=== PATIENT | female | born 1975 | race Caucasian/White ===

== ENCOUNTER 2023-02-28 08:08 | Outpatient (OUT) | payer MEDICAID, SELFPAY ==
--- NOTE | 2023-02-28 08:27 | US_ITS ---
The [address] [address] Patient Name: CONNIE ALEX MRN: [id number]:[id number] date: 1975 Sex: F Assigned Patient Location: US Current Patient Location: US Accession/Order Number: [id number] Exam Date: 02/28/2023 08:27 Report Date: 02/28/2023 09:14 At the request of: JULIO HENSLEY Procedure: US thyroid EXAMINATION: US thyroid HISTORY: Thyroid Nodule E04.1 COMPARISON: No relevant comparison available. FINDINGS: RIGHT LOBE: Normal size and echotexture. Lobe size: 4.0 x 1.2 x 1.1 cm LEFT LOBE: Normal size and echotexture. Lobe size: 4.0 x 0.8 x 1.3 cm ISTHMUS: Normal size and echotexture. Thickness: 3 mm IMPRESSION: TI-RADS 1: Normal thyroid gland. No focal lesion. Electronically authenticated by: IVIS SÁNCHEZ Date: 02/28/2023 09:14
== END 2023-02-28 08:09 ==
LOC: US 08:14
PROVIDERS: PCP Nurse Practitioner; Visit Provider Nurse Practitioner
DX: E04.1 Nontoxic single thyroid nodule (principal)
CPT/HCPCS: 76536

== ENCOUNTER 2023-04-02 16:29 | Outpatient (OUT) | payer MEDICAID, SELFPAY ==
[2023-04-02 17:28] LABS: Free T4 0.72 ng/dL (0.76-1.46)
[2023-04-02 17:33] LABS: Thyroid Stimulating Hormone 2.478 uIU/mL (0.358-3.740)
== END 2023-04-02 16:30 | disposition home or self-care (01) ==
PROVIDERS: PCP Nurse Practitioner; Visit Provider Nurse Practitioner
DX: E03.9 Hypothyroidism, unspecified (principal)
CPT/HCPCS: 36415; 84439; 84443

== ENCOUNTER 2023-05-16 06:41 | Outpatient (OUT) | payer MEDICAID, SELFPAY ==
[2023-05-16 08:13] LABS: Thyroid Stimulating Hormone 1.318 uIU/mL (0.358-3.740)
== END 2023-05-16 06:42 | disposition home or self-care (01) ==
LOC: LAB 06:41
PROVIDERS: PCP Nurse Practitioner; Visit Provider Nurse Practitioner
DX: E03.9 Hypothyroidism, unspecified (principal)
CPT/HCPCS: 36415; 84439; 84443

== ENCOUNTER 2023-08-04 09:07 | Outpatient (OUT) | payer OTHER, SELFPAY ==
[2023-08-04 10:19] LABS: Thyroid Stimulating Hormone 0.247 uIU/mL (0.358-3.740)
[2023-08-04 11:26] LABS: Free T4 0.81 ng/dL (0.76-1.46)
[2023-08-05 09:07] LABS: Triiodothyronine (T3) 273 ng/dL (71-180)
[2023-08-06 07:53] LABS: Free T3 6.55 pg/mL (2.18-3.98)
== END 2023-08-04 09:08 | disposition home or self-care (01) ==
LOC: LAB 09:09
PROVIDERS: PCP Nurse Practitioner; Visit Provider Nurse Practitioner
DX: E03.9 Hypothyroidism, unspecified (principal)
CPT/HCPCS: 36415; 84439; 84443; 84480; 84481; 84482

== ENCOUNTER 2023-08-09 06:46 | Outpatient (OUT) | payer OTHER, SELFPAY ==
[2023-08-09 07:51] LABS: Free T3 5.54 pg/mL (2.18-3.98); Thyroid Stimulating Hormone 0.373 uIU/mL (0.358-3.740)
== END 2023-08-09 06:47 | disposition home or self-care (01) ==
LOC: LAB 06:48
PROVIDERS: PCP Nurse Practitioner; Visit Provider Nurse Practitioner
DX: R94.6 Abnormal results of thyroid function studies (principal)
CPT/HCPCS: 36415; 84443; 84481

== ENCOUNTER 2023-08-25 10:43 | Emergency (ER) | payer OTHER, SELFPAY ==
[2023-08-25 10:59] VITALS: BP 135/85; PULSE 84; RESP 16; TEMP 36.8; O2SAT 98; BMI 31.3
--- NOTE | 2023-08-25 11:34 | ECG_ITS ---
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
[2023-08-25 11:43] VITALS: BP 131/86; O2SAT 99
[2023-08-25 11:49] VITALS: BP 127/87; BP 129/89; PULSE 87; O2SAT 97
[2023-08-25 11:50] VITALS: PULSE 86; O2SAT 97
[2023-08-25 11:51] VITALS: BP 127/87; BP 129/89; BP 131/86; PULSE 80; PULSE 82; PULSE 85
--- NOTE | 2023-08-25 11:59 | ED_ITS ---
HPI - Dizziness General Chief Complaint: Dizziness Stated Complaint: DIZZINESS/SHORTNESS OF BREATH Time Seen by Provider: 08/25/23 11:34 Source: patient Mode of arrival: ambulance History of Present Illness HPI Narrative: Patient concerned that her potassium is low. patient has been having intermittent bouts of dizziness. She said that she felt similar in the past when her potassium was low. She has never been treated with potassium meds but instead I just ate food with potassium in it and felt better . She told me that the last time she felt dizzy, she ate a banana and felt better . She just had her dose of thyroid medication decreased. She told me that her PCP had difficulty getting her T4 increased to normal level but then, two weeks ago, the patient TSH level was up so she decreased my thyroid med dosing . This seems opposite of what would be recommended - TSH rises when thyroid levels are low in order to stimulate more thyroid production, so a rise in TSH would typically warranted increase in thyroid meds. Additionally, once someone is on exogenous thyroid med, the T3 and T4 should drive dose changes, not TSH. So we will recheck T3 and T4. Related Data Home Medications Medication Instructions Recorded Confirmed epinephrine 0.3 mg/0.3 mL 0.3 mg IM PRN PRN anaphylaxis 08/25/23 08/25/23 injection, auto-injector ibuprofen 800 mg tablet 800 mg PO Q8H PRN pain 08/25/23 08/25/23 sumatriptan succinate 100 mg tablet 100 mg PO PRN 08/25/23 08/25/23 thyroid (pork) 120 mg tablet 120 mg PO .T, Th, Sat, Sun 08/25/23 08/25/23 ([place] Thyroid) thyroid (pork) 180 mg tablet 180 mg PO .M, W, F 08/25/23 08/25/23 ([place] Thyroid) topiramate 25 mg tablet 50 mg PO .hs 08/25/23 08/25/23 Allergies Allergy/AdvReac Type Severity Reaction Status Date / Time bee venom protein (honey bee) AdvReac Severe Verified 08/25/23 10:59 PFSH PFSH Social History Smoking status: Current every day smoker Exam Narrative Exam Narrative: Nurses notes and vital signs reviewed and patient is not hypoxic. afebrile General: Well-appearing and in no apparent distress. Skin: Warm, dry, no pallor noted. No rash. Head: Normocephalic, atraumatic. Neck: Supple, non-tender. No carotid bruits. Eye: Pupils are equal, round and EOMI. No scleral icterus. No nystagmus Cardiovascular: Regular Rate and Rhythm without murmur, gallop or rub. Respiratory: No accessory muscle use or respiratory distress. Lungs are clear to auscultation, no wheezing, rales or rhonchi Musculoskeletal: normal ROM GI: Abdomen is soft, non-distended. Normal bowel sounds. No tenderness to palpation. No rebound, guarding, or rigidity noted. Neurological: A&O x4. No cranial nerve dysfunction observed. No truncal atax ia. Moves all extremities. Sensation intact. Psychiatric: Cooperative and interactive. Normal mood and affect. Constitutional Vital Signs, click to edit/add: Last Vital Signs Temp 98.2 F 08/25/23 10:59 Pulse 80 08/25/23 11:51 Resp 16 08/25/23 10:59 BP 131/86 08/25/23 11:51 Pulse Ox 97 08/25/23 11:50 O2 Del Method Room Air 08/25/23 10:59 Course Vital Signs Vital signs: Vital Signs Temperature 98.2 F 08/25/23 10:59 Pulse Rate 84 08/25/23 10:59 Respiratory Rate 16 08/25/23 10:59 Blood Pressure 135/85 08/25/23 10:59 Pulse Oximetry 98 08/25/23 10:59 Oxygen Delivery Method Room Air 08/25/23 10:59 Temperature 98.2 F 08/25/23 10:59 Pulse Rate 80 08/25/23 11:51 Respiratory Rate 16 08/25/23 10:59 Blood Pressure 131/86 08/25/23 11:51 Pulse Oximetry 97 08/25/23 11:50 Oxygen Delivery Method Room Air 08/25/23 10:59 MDM - Dizziness MDM Narrative Medical decision making narrative: Patient was placed on potline monitor and EKG obtained. Blood drawn and sent for evaluation. orthostatic vital signs were checked and normal. EKG is normal. CBC and BMP normal including potassium. Free T4 & Free T3 low, consistent with hypothyroidism. Patient advised of our findings indicating low thyroid levels and being consistent with hypothyroidism - she should go back to her prior dose of thyroid med. She can see her PCP for follow up. Lab Data Attestation: I reviewed the patient's lab results. Labs: Lab Results 08/25/23 Range/Units 11:58 WBC 5.9 (4.0-11.0) 10^3/uL RBC 4.90 (4.20-5.40) 10^6/uL Hgb 13.9 (12.0-16.0) g/dL Hct 41.9 (36.0-48.0) % MCV 85.5 (81.0-99.0) fL MCH 28.4 (26.7-34.0) pg MCHC 33.2 (29.9-35.2) g/dL RDW 13.6 (11.0-15.0) % Plt Count 325 (150-450) 10^3/uL MPV 9.4 L (9.5-13.5) fL Neut % (Auto) 53.3 (43.0-75.0) % Lymph % (Auto) 33.6 (20.5-60.0) % [place] % (Auto) 6.8 (1.7-12.0) % Eos % (Auto) 4.6 (0.9-7.0) % Baso % (Auto) 1.5 (0.2-2.0) % Neut # (Auto) 3.1 (1.4-6.5) 10^3/uL Lymph # (Auto) 2.0 (1.2-3.8) 10^3/uL [place] # (Auto) 0.4 (0.3-0.8) 10^3/uL Eos # (Auto) 0.3 (0.0-0.7) 10^3/uL Baso # (Auto) 0.1 (0.0-0.1) 10^3/uL Abs Immat Gran (auto) 0.01 (0.00-0.03) 10^3/uL Imm/Tot Granulo (auto) 0.2 (0.0-0.5) % Sodium 137 (136-145) mmol/L Potassium 3.9 (3.5-5.1) mmol/L Chloride 102 (98-107) mmol/L Carbon Dioxide 25.6 (21.0-32.0) mmol/L Anion Gap 13.3 BUN 9.0 (7.0-18.0) mg/dL Creatinine 0.69 (0.55-1.02) mg/dL Est GFR ( Amer) >60 (>=60) Est GFR (Non-Af Amer) >60 (>=60) BUN/Creatinine Ratio 13.0 Glucose 83 (74-106) mg/dL Calcium 8.9 (8.5-10.1) mg/dL Free T4 0.60 L (0.76-1.46) ng/dL Free T3 1.92 L (2.18-3.98) pg/mL ECG Data Attestation: I personally reviewed and interpreted this ECG as follows: Interpretation: EKG interpretation: Emergency Department physician interpretation. Normal sinus rhythm at 71bpm. Normal axis, normal intervals and no ST segment elevation or depression. normal EKG Discharge Plan Discharge Chief Complaint: Dizziness Clinical Impression: Hypothyroidism Patient Disposition: Home, Self-Care Time of Disposition Decision: 13:03 Prescriptions / Home Meds: No Action ibuprofen 800 mg tablet 800 mg PO Q8H PRN (Reason: pain) sumatriptan succinate 100 mg tablet 100 mg PO PRN epinephrine 0.3 mg/0.3 mL auto-injector 0.3 mg IM PRN PRN (Reason: anaphylaxis) thyroid (pork) [[place] Thyroid] 120 mg tablet 120 mg PO .T, , Sat, Sun [place] Thyroid 180 mg tablet 180 mg PO .M, W, F topiramate 25 mg tablet 50 mg PO .hs Instructions: Hypothyroidism (ED) Stand Alone Forms: Portal Instructions Referrals: Tamia Gonsalez NP [Primary Care Provider] - 1 week Discharge Date/Time: 08/25/23 13:10
[2023-08-25 12:30] LABS: Basophils Absolute Auto 0.1 10^3/uL (0.0-0.1); Basophils Percent Auto 1.5 % (0.2-2.0); Eosinophils Absolute Auto 0.3 10^3/uL (0.0-0.7); Eosinophils Percent Auto 4.6 % (0.9-7.0); Hematocrit 41.9 % (36.0-48.0); Hemoglobin 13.9 g/dL (12.0-16.0); Immature Granulocytes Abs Auto 0.01 10^3/uL (0.00-0.03); Immature Granulocytes Pct Auto 0.2 % (0.0-0.5); Lymphocytes Percent Auto 33.6 % (20.5-60.0); Mean Corpuscular HGB Conc 33.2 g/dL (29.9-35.2); Mean Corpuscular Hemoglobin 28.4 pg (26.7-34.0); Mean Corpuscular Volume 85.5 fL (81.0-99.0); Mean Platelet Volume 9.4 fL (9.5-13.5); Monocytes Absolute Auto 0.4 10^3/uL (0.3-0.8); Monocytes Percent Auto 6.8 % (1.7-12.0); Neutrophils Absolute Auto 3.1 10^3/uL (1.4-6.5); Neutrophils Percent Auto 53.3 % (43.0-75.0); Platelet Count 325 10^3/uL (150-450); Red Cell Distribution Width 13.6 % (11.0-15.0); White Blood Count 5.9 10^3/uL (4.0-11.0)
[2023-08-25 12:35] LABS: Anion Gap 13.3; Calcium 8.9 mg/dL (8.5-10.1); Carbon Dioxide 25.6 mmol/L (21.0-32.0); Chloride 102 mmol/L (98-107); Estimated GFR (African America >60 (>=60); Estimated GFR (Non-African Ame >60 (>=60); Glucose 83 mg/dL (74-106); Potassium 3.9 mmol/L (3.5-5.1); Sodium 137 mmol/L (136-145)
[2023-08-25 13:49] LABS: Free T3 1.92 pg/mL (2.18-3.98)
== END 2023-08-25 13:10 | disposition home or self-care (01) ==
PROVIDERS: Emergency Provider Emergency Medicine; PCP Nurse Practitioner
DX: E03.9 Hypothyroidism, unspecified (principal); Z79.899 Other long term (current) drug therapy; Z79.890 Hormone replacement therapy; F17.210 Nicotine dependence, cigarettes, uncomplicated
CPT/HCPCS: 36415; 80048; 84439; 84481; 85025; 93005; 99284

== ENCOUNTER 2023-09-28 13:45 | Emergency (ER) | payer SELFPAY ==
[2023-09-28 13:57] VITALS: BP 105/87; PULSE 90; RESP 18; TEMP 36.7; O2SAT 100; BMI 26.9
--- OUTSIDE RECORDS SUMMARY | 2023-09-28 14:08 | XMS_ITS | CCD ---
Author Name Unknown Address [address] [place] [address] Organization [facility] Care Team Providers Care Ssn/Ssbn Assistant Navigator Name Role Phone CHARU CALLAWAY Referring Unavailable AICHHOLZ, JULIO J. Primary Care Unavailable CHARU CALLAWAY Referring Unavailable AICHHOLZ, JULIO J. Primary Care Unavailable CHARU CALLAWAY Admitting Unavailable CHARU CALLAWAY Attending Unavailable AICHHOLZ, JULIO J. Primary Care Unavailable AICHHOLZ, DIGITAL CONTENT MARKETING MANAGER JULIO Admitting Unavailable AICHHOLZ, DIGITAL CONTENT MARKETING MANAGER JULIO Attending Unavailable AICHHOLZ, DIGITAL CONTENT MARKETING MANAGER JULIO Consulting Unavailable AICHHOLZ, DIGITAL CONTENT MARKETING MANAGER JULIO Primary Care Unavailable AICHHOLZ, DIGITAL CONTENT MARKETING MANAGER JULIO Admitting Unavailable AICHHOLZ, DIGITAL CONTENT MARKETING MANAGER JULIO Attending Unavailable AICHHOLZ, DIGITAL CONTENT MARKETING MANAGER JULIO Consulting Unavailable AICHHOLZ, DIGITAL CONTENT MARKETING MANAGER JULIO Primary Care Unavailable AICHHOLZ, DIGITAL CONTENT MARKETING MANAGER JULIO Admitting Unavailable AICHHOLZ, DIGITAL CONTENT MARKETING MANAGER JULIO Attending Unavailable AICHHOLZ, DIGITAL CONTENT MARKETING MANAGER JULIO Consulting Unavailable AICHHOLZ, DIGITAL CONTENT MARKETING MANAGER JULIO Primary Care Unavailable AICHHOLZ, DIGITAL CONTENT MARKETING MANAGER JULIO Primary Care Unavailable FAWWAD, WILLS H Admitting Unavailable FAWWAD, WILLS H Attending Unavailable FAWWAD, WILLS H Consulting Unavailable ANASTACIO ROLDAN Consulting Unavailable JANESSA HERNANDEZ Admitting Unavailable Tevin Espinoza Consulting Unavailable MARY, JANESSA Tristan Attending Unavailable AICHHOLZ, DIGITAL CONTENT MARKETING MANAGER JULIO Primary Care Unavailable ALEXAANDER PETER Kun Consulting Unavailable HELENA QUINTANA Admitting Unavailable NILSA Bryan, MR CHRISTIAN Consulting Unavailable AICHHOLZ, DIGITAL CONTENT MARKETING MANAGER JULIO Primary Care Unavailable HELENA QUINTANA Attending Unavailable HERACLIO WELLS Consulting Unavailable AICHHOLZ, DIGITAL CONTENT MARKETING MANAGER JULIO Admitting Unavailable AICHHOLZ, DIGITAL CONTENT MARKETING MANAGER JULIO Attending Unavailable AICHHOLZ, DIGITAL CONTENT MARKETING MANAGER JULIO Consulting Unavailable AICHHOLZ, DIGITAL CONTENT MARKETING MANAGER JULIO Primary Care Unavailable AICHHOLZ, DIGITAL CONTENT MARKETING MANAGER JULIO Attending Unavailable IVET HENSLEY Consulting Unavailable IVET HENSLEY Primary Care Unavailable IVET HENSLEY Admitting Unavailable Allergies Allergy Classification Reported Allergen(s) Allergy Type Date of Onset Reaction(s) Facility (1 source) bee venom Drug allergy (disorder) 11-12-2013 [facility] Repository Problems Active Problems Problem Classification Problem Date Documented Date Episodic/Chronic Attention-deficit, conduct, and disruptive behavior disorders (1 source) Attention-deficit hyperactivity disorder, unspecified type; Translations: [ADHD UNSPECIFIED TYPE] Onset: 05-15-2022 Chronic Residual codes; unclassified (4 sources) Obstructive sleep apnea (adult) (pediatric); Translations: [OBSTRUCTIVE SLEEP APNEA] Onset: 08-28-2022 Chronic Substance-related disorders (1 source) Nicotine dependence, cigarettes, uncomplicated; Translations: [NICOTINE DEPEND CIGARETTES UNCOMP] Onset: 05-15-2022 Chronic Thyroid disorders (5 sources) Hypothyroidism, unspecified; Translations: [HYPOTHYROIDISM UNSPECIFIED] Onset: 06-10-2022 Chronic Unclassified (3 sources) CONTACT W/AND (SUSP) EXPOS COVID-19; Translations: [CONTACT W/AND (SUSP) EXPOS COVID-19] Onset: 01-21-2023 Past or Other Problems Problem Classification Problem Date Documented Da te Episodic/Chronic Malaise and fatigue (4 sources) Other fatigue; Translations: [OTHER FATIGUE] Onset: 07-25-2022 Episodic Other connective tissue disease (1 source) Pain in right foot; Translations: [PAIN IN RIGHT FOOT] Onset: 05-18-2022 Episodic Other lower respiratory disease (4 sources) Respiratory disorder, unspecified; Translations: [RESPIRATORY DISORDER UNSPECIFIED] Onset: 03-20-2022 Episodic Other non-traumatic joint disorders (4 sources) Pain in right ankle and joints of right foot; Translations: [PAIN IN RIGHT ANKLE] Onset: 05-17-2022 Episodic Unclassified (1 source) CONTACT W/AND (SUSP) EXPOS COVID-19; Translations: [CONTACT W/AND (SUSP) EXPOS COVID-19] Onset: 01-18-2023 Results Test Name Value Interpretation Reference Range Facility MG MAMM SCREEN 3D FREDY CADon 02-05-2023 MG MAMM SCREEN 3D FREDY CAD Patient: CONNIE ALEX Exam Date: 02/05/2023 : 1975 Gender:F Ordering : IVET HENSLEY DIGITAL CONTENT MARKETING MANAGER Admission #: [id number] Family : Order #: [id number] CLICK HERE TO VIEW EXAM RADIOLOGY REPORT PROCEDURE: MAMMOGRAM SCREENING 3D BILATERAL CAD COMPARISON: MG MAMM SCREEN 3D FREDY CAD, 02/01/2021. MG MAMM SCREEN 3D FREDY CAD, 02/02/2022. INDICATIONS: Screening mammography Calculator Name NCI Breast Cancer Risk Assessment Tool 5 Year Breast Cancer Risk 1.80% Lifetime Breast Cancer Risk 14.90% Personal Breast Cancer No Personal Ovarian Cancer No Treatments None Family Cancers Sister with uterine cancer at age 35; Grandmother-maternal with throat cancer at age 84. LOCATION: [facility] BREAST COMPOSITION: Heterogeneously dense,which may obscure small masses. FINDINGS: DIAGNOSTIC CATEGORY 1--NEGATIVE. NO CHANGE FROM COMPARISON ASSESSMENT. Scattered benign-appearing nodules are present. Scattered benign-appearing calcifications are present. Scattered benign-appearing lymph nodes are present. RIGHT BREAST: No significant suspicious finding. LEFT BREAST: No significant suspicious finding. RECOMMENDATIONS: ROUTINE MAMMOGRAM AND CLINICAL EVALUATION IN 12 MONTHS. PLEASE NOTE: A NORMAL MAMMOGRAM DOES NOT EXCLUDE THE POSSIBILITY OF BREAST CANCER. A CLINICALLY SUSPICIOUS PALPABLE LUMP SHOULD BE BIOPSIED. Dictated by: Juan C Weinberg MD on 02/06/2023 at 10:23 Approved by: Juan C Weinberg MD on 02/06/2023 at 10:24 Normal [facility] Covid-19 PCR (CVDTBH)on 12-24 SARS-CoV-2 (COVID-19) RNA TAYO+probe Ql (Unsp spec) Not detected Normal NOT DETECTED [facility] Comment on above: Result Comment: This test is not yet approved or cleared by the [place] FDA. When there are no FDA-approved or cleared tests available, and other criteria are met, FDA can make tests available under an emergency access mechanism called an Emergency Use Authorization (EUA). The EUA for this test is supported by the [place] of Health and Human Service's (HHS's) declaration that circumstances exist to justify the emergency use of in vitro diagnostics for the detection and/or diagnosis of the virus that causes COVID-19. This EUA will remain in effect (meaning this test can be used) for the duration of the COVID-19 declaration justifying emergency of IVDs, unless it is terminated or revoked by FDA (after which the test may no longer be used). When diagnostic testing is negative, the possibility of a false negative should be considered in the context of a patient's recent exposures and the presence of clinical signs and symptoms consistent with SARS-CoV-2. Performed By: #### C MP, TSH #### [facility] [address] [place] [address] Dr. Allie Birch SYMPTOMATIC COVID-19 ANTIGEN on 01-18-2023 EUA Statement SEE BELOW Normal [facility] Comment on above: Result Comment: This test has not been FDA cleared or approved, but has been authorized by the FDA under an Emergency Use Authorization (EUA) for use by authorized laboratories certified under CLIA that meet the requirements to perform moderate or high complexity testing. This test has been authorized only for the detection of proteins from SARS-CoV-2, not for any other viruses or pathogens. The emergency use of this test is authorized for the duration of the declaration that circumstances exist justifying the authorization of emergency use of in vitro diagnostic tests for detection and/or diagnosis of Covid-19 under section 564(b)(1) of the Act, 21 U.S.C. 360bbb-3(b)(1), unless the declaration is terminated or authorization is revoked sooner. Performed By: #### C MP, TSH #### [facility] [address] [place] [address] Dr. Allie Birch SARS-CoV-2 (COVID-19) RNA TAYO+probe Ql (Unsp spec) Negative Normal NEGATIVE [facility] Comment on above: Performed By: #### C MP, TSH #### [facility] [address] [place] [address] Dr. Allie Birch CBC AUTO DIFFon 07-25-2022 BASO # 0.1 103/ul Normal 0.0-0.1 [facility] Comment on above: Performed By: #### C BC #### [facility] [address] [place] [address] Dr. Allie Birch Basophils/100 WBC (Bld) 1.3 % Normal 0.2-2.0 [facility] Comment on above: Performed By: #### C BC #### [facility] [address] [place] [address] Dr. Allie Birch EO # 0.3 103/ul Normal 0.0-0.7 [facility] Comment on above: Performed By: #### C BC #### [facility] [address] [place] [address] Dr. Allie Birch Eosinophils/100 WBC (Bld) 3.4 % Normal 0.9-7.0 [facility] Comment on above: Performed By: #### C BC #### [facility] [address] [place] [address] Dr. Allei Birch Erythrocyte distribution width (RBC) [Ratio] 13.2 % Normal 11.0-15.0 [facility] Comment on above: Performed By: #### C BC #### [facility] [address] [place] [address] Dr. Allie Birch Hematocrit (Bld) [Volume fraction] 41.7 % Normal 36.0-48.0 [facility] Comment on above: Performed By: #### C BC #### [facility] [address] [place] [address] Dr. Allie Birch Hemoglobin (Bld) [Mass/Vol] 14.1 g/dL Normal 12.0-16.0 [facility] Comment on above: Performed By: #### C BC #### [facility] [address] [place] [address] Dr. Allie Birch IG # 0.02 10e3/ul Normal 0.00-0.03 [facility] Comment on above: Performed By: #### C BC #### [facility] [address] [place] [address] Dr. Allie Birch IG % 0.2 % Normal 0.0-0.5 [facility] Comment on above: Performed By: #### C BC #### [facility] [address] [place] [address] Dr. Allie Birch LYMPH # 1.6 103/ul Normal 1.2-3.8 [facility] Comment on above: Performed By: #### C BC #### [facility] [address] [place] [address] Dr. Allie Birch Lymphocytes/100 WBC (Bld) 18.1 % Critically low 20.5-60.0 [facility] Comment on above: Performed By: #### C BC #### [facility] [address] [place] [address] Dr. Allie Birch MANUAL DIFF REQ NO Normal [facility] Comment on above: Performed By: #### C BC #### [facility] [address] [place] [address] Dr. Allie Birch MCH (RBC) [Entitic mass] 29.4 pg Normal 26.7-34.0 [facility] Comment on above: Performed By: #### C BC #### [facility] [address] [place] [address] Dr. Allie Birch MCHC (RBC) [Mass/Vol] 33.8 g/dL Normal 29.9-35.2 [facility] Comment on above: Performed By: #### C BC #### [facility] [address] [place] [address] Dr. Allie Birch MCV (RBC) [Entitic vol] 86.9 fL Normal 81.0-99.0 [facility] Comment on above: Performed By: #### C BC #### [facility] [address] [place] [address] Dr. Allie Birch MONO # 0.4 103/ul Normal 0.3-0.8 [facility] Comment on above: Performed By: #### C BC #### [facility] [address] [place] [address] Dr. Allie Birch Monocytes/100 WBC (Bld) 4.4 % Normal 1.7-12.0 [facility] Comment on above: Performed By: #### C BC #### [facility] [address] [place] [address] Dr. Allie Birch NEUT # 6.2 103/ul Normal 1.4-6.5 [facility] Comment on above: Performed By: #### C BC #### [facility] [address] [place] [address] Dr. Allie Birch Neutrophils/100 WBC (Bld) 72.6 % Normal 43.0-75.0 [facility] Comment on above: Performed By: #### C BC #### [facility] [address] [place] [address] Dr. Allie Birch Platelet mean volume (Bld) [Entitic vol] 9.6 fL Normal 9.5-13.5 [facility] Comment on above: Performed By: #### C BC #### [facility] [address] [place] [address] Dr. Allie Birch PLT 316 103/ul Normal 150-450 [facility] Comment on above: Performed By: #### C BC #### [facility] [address] [place] [address] Dr. Allie Birch RBC 4.80 106/ul Normal 4.20-5.40 [facility] Comment on above: Performed By: #### C BC #### [facility] [address] [place] [address] Dr. Allie Birch WBC 8.6 103/ul Normal 4.0-11.0 [facility] Comment on above: Performed By: #### C BC #### [facility] [address] [place] [address] Dr. Allie Birch FREE T4on 07-25-2022 Free T4 [Mass/Vol] 0.80 ng/dL Normal 0.76-1.46 [facility] Comment on above: Performed By: #### C MP, TSH #### [facility] [address] [place] [address] Dr. Allie Birch PROF 14(COMP METB)on 022 Albumin [Mass/Vol] 3.5 g/dL Normal 3.4-5.0 [facility] Comment on above: Performed By: #### C MP, TSH #### [facility] [address] [place] [address] Dr. Allie Birch Albumin/Globulin [Mass ratio] 1.0 {ratio} Normal [facility] Comment on above: Performed By: #### C MP, TSH #### [facility] [address] [address] [address] Allie Birch ALP [Catalytic activity/Vol] 96 U/L Normal 46-116 [facility] Comment on above: Performed By: #### C MP, TSH #### [facility] [address] [address] [address] Allie Birch ALT [Catalytic activity/Vol] 21 U/L Normal 14-59 [facility] Comment on above: Performed By: #### C MP, TSH #### [facility] [address] [address] [address] Allie Birch Anion gap [Moles/Vol] 9.2 mmol/L Normal [facility] Comment on above: Performed By: #### C MP, TSH #### [facility] [address] [address] [address] Allie Birch AST [Catalytic activity/Vol] 15 U/L Normal 15-37 [facility] Comment on above: Performed By: #### C MP, TSH #### [facility] [address] [address] [address] Allie Birch Bilirubin [Mass/Vol] 0.5 mg/dL Normal 0.2-1.0 [facility] Comment on above: Performed By: #### C MP, TSH #### [facility] [address] [address] [address] Allie Birch Calcium [Mass/Vol] 8.7 mg/dL Normal 8.5-10.1 [facility] Comment on above: Performed By: #### C MP, TSH #### [facility] [address] [address] [address] Allie Birch Chloride [Moles/Vol] 102 mmol/L Normal 98-107 [facility] Comment on above: Performed By: #### C MP, TSH #### [facility] [address] [address] [address] Allie Birch CO2 [Moles/Vol] 30.0 mmol/L Normal 21.0-32.0 [facility] Comment on above: Performed By: #### C MP, TSH #### [facility] [address] [address] [address] Allie Birch Creatinine [Mass/Vol] 0.77 mg/dL Normal 0.55-1.02 [facility] Comment on above: Performed By: #### C MP, TSH #### [facility] [address] [address] [address] Allie Birch EGFR-AF TAJIK >60 Normal >=60 [facility] Comment on above: Performed By: #### C MP, TSH #### [facility] [address] [address] [address] Allie Birch EGFR-NON AF TAJIK >60 Normal >=60 [facility] Comment on above: Performed By: #### C MP, TSH #### [facility] [address] [place] [address] Dr. Allie Birch Globulin (S) [Mass/Vol] 3.5 g/dL Normal [facility] Comment on above: Performed By: #### C MP, TSH #### [facility] [address] [address] [address] Allie Birch Glucose [Mass/Vol] 87 mg/dL Normal 74-106 [facility] Comment on above: Performed By: #### C MP, TSH #### [facility] [address] [place] [address] Dr. Allie Birch Potassium [Moles/Vol] 4.2 mmol/L Normal 3.5-5.1 [facility] Comment on above: Performed By: #### C MP, TSH #### [facility] [address] [address] [address] Allie Birch Protein [Mass/Vol] 7.0 g/dL Normal 6.4-8.2 [facility] Comment on above: Performed By: #### C MP, TSH #### [facility] [address] [address] [address] Allie Birch Sodium [Moles/Vol] 137 mmol/L Normal 136-145 [facility] Comment on above: Performed By: #### C MP, TSH #### [facility] [address] [place] [address] Dr. Allie Birch Urea nitrogen [Mass/Vol] 8.0 mg/dL Normal 7.0-18.0 [facility] Comment on above: Performed By: #### C MP, TSH #### [facility] [address] [place] [address] Dr. Allie Birch Urea nitrogen/Creatinin e [Mass ratio] 10.4 mg/mg Normal [facility] Comment on above: Performed By: #### C MP, TSH #### [facility] [address] [place] [address] Dr. Allie Birch TSHon 07-25-2022 TSH 1.635 uIU/mL Normal 0.358-3.740 [facility] Comment on above: Performed By: #### C MP, TSH #### [facility] [address] [place] [address] Dr. Allie Birch VITAMIN B12on 07-25-2022 Cobalamin (Vitamin B12) [Mass/Vol] 408.0 pg/mL Normal 193.0-986.0 [facility] Comment on above: Performed By: #### C MP, TSH #### [facility] [address] [place] [address] Dr. Allie Birch FREE T4on 06-10-2022 Free T4 [Mass/Vol] 0.87 ng/dL Normal 0.76-1.46 [facility] Comment on above: Performed By: #### F T4 #### [facility] [address] [place] [address] Dr. Allie Birch TSHon 06-10-2022 TSH 4.450 uIU/mL Critically high 0.358-3.740 [facility] Comment on above: Performed By: #### T SH #### [facility] [address] [place] [address] Dr. Allie Birch XR ANKLE RT MIN 3 VIEWSon XR ANKLE RT MIN 3 VIEWS EXAM: XR ANKLE RT MIN 3 VIEWS DATE: 05/14/2022 3:23 PM EDT INDICATION: Arthralgia of the ankle and/or foot COMPARISON: None. TECHNIQUE: 3 views right ankle FINDINGS: No acute fracture. Normal osseous alignment. Ankle mortise is symmetric. No osteochondral lesion of the talar dome. Plantar surface calcaneal enthesophyte. Soft tissues are unremarkable. IMPRESSION: 1. No acute osseous abnormality. 2. Plantar surface calcaneal enthesophyte. Electronically authenticated by: HERACLIO WELLS Date: 2022-05-14 15:51 Normal [facility] XR CHEST 2 Von 03-20-2022 XR CHEST 2 V EXAM: XR CHEST 2 V HISTORY: Disorder of respiratory system EXAM: XR CHEST 2 V INDICATION: 46 years old Female Disorder of respiratory system COMPARISON: None. FINDINGS: The cardiac silhouette is normal. There is no pulmonary edema. The lungs are clear. There is no pneumonia. There is no pneumothorax. There is no abnormal foreign body. IMPRESSION: There is no acute abnormality. Electronically authenticated by: ANASTACIO ROLDAN Date: 2022-03-20 14:12 Normal [facility] FLUORO FOR SURGICAL PROCEDUR ESon 02-24-2019 FLUORO FOR SURGICAL PROCEDURES Radiology exam is complete. No Radiologist dictation. Please follow up with ordering provider. Final result Normal [facility] XR SACROILIAC JOINTS (MIN 3 VIEWS)on 02-24-2019 XR SACROILIAC JOINTS (MIN 3 VIEWS) EXAMINATION: SPOT FLUOROSCOPIC IMAGES 02/24/2019 8:19 am TECHNIQUE: Fluoroscopy was provided by the radiology department for procedure. Radiologist was not present during examination. FLUOROSCOPY DOSE AND TYPE OR TIME AND EXPOSURES: 101.5 seconds. 34.04 mGy COMPARISON: None HISTORY: Intraprocedural imaging. FINDINGS: There were eight spot images of the sacroiliac joints obtained. Images were submitted from fusion. IMPRESSION: Intraprocedural fluoroscopic spot images as above. See separate procedure report for more information. Interpreted by: Gerard Pena MD Signed by: Gerard Pena MD 02/24/19 Final result Normal [facility] Cult,Urine,CCon 02-13-2019 Cult,Urine,CC Specimen Description .URINE Special Requests NOT REPORTED Culture ESCHERICHIA COLI 10 to 50,000 CFU/ML Report Status FINAL 02/13/2019 SUSCEPTIBILITY Organism ESCHERICHIA COLI Method CARISSA Amikacin <=2 SUSCEPTIBLE Ampicillin >=32 RESISTANT Ampicillin/Sulbactam NOT REPORTED Aztreonam <=1 SUSCEPTIBLE Cefazolin <=4 SUSCEPTIBLE Cefazolin sensitivity results can be used to predict the effectiveness of oral cephalosporins (eg. Cephalexin) in uncomplicated Urinary Tract Infections due to E. coli, K. pneumoniae, and P. mirabilis Cefepime NOT REPORTED Ceftriaxone <=1 SUSCEPTIBLE Ciprofloxacin <=0.25 SUSCEPTIBLE Ertapenem NOT REPORTED ESBL NEGATIVE Gentamicin >=16 RESISTANT Meropenem NOT REPORTED Nitrofurantoin <=16 SUSCEPTIBLE Tigecycline NOT REPORTED Tobramycin 8 INTERMEDIATE Trimethoprim/Sulfa <=20 SUSCEPTIBLE Piperacillin/Tazobacta m <=4 SUSCEPTIBLE Normal [facility] Comment on above: Performed By: #### C CATALINO #### [facility] [address] [place] [id number] Glass Grinder: Bigg Alvarez MD [address] [id number] Glass Grinder: Andrez Saha MD MRSA, DNA, Nasalon 9 MRSA, DNA, Nasal NEGATIVE: MRSA DNA n ot detected by nucleic acid amplification. [facility] Comment on above: Result Comment: Results should be used as an adjunct to nosocomial control efforts to identify patients needing enhanced precautions. The test is not intended to identify patients with staphylococcal infections. Results should not be used to guide or monitor treatment for MRSA infections. Performed By: #### M RSANO #### [facility] [address] [place] [id number] Glass Grinder: Bigg Alvarez MD [address] [address] Glass Grinder: Andrez Saha MD Type + Screenon 02-12-2019 Type + Screen Sample Expiration 02/27/2019 Arm Band Number [id number] ABO/Rh(D) O POSITIVE Antibody Screen NEGATIVE Normal [facility] Comment on above: Performed By: #### T YS #### [facility] [address] [place] [id number] Glass Grinder: Bigg Alvarez MD APTTon 02-11-2019 aPTT Coag time (Bld) 30.0 s Normal 23-31 [facility] Comment on above: Performed By: #### C DP, BMP #### [facility] [address] [place] [address] Glass Grinder: Bigg Alvarez MD #### PT, PTT #### [address] [address] Glass Grinder: Andrez Saha MD Basic Metabolic Profon 02-11 (cont.) Normal [facility] Comment on above: Result Comment: Aver age GFR for 40-49 years old: 99 mL/min/1.73sq m Chronic Kidney Disease: <60 mL/min/1.73sq m Kidney failure: <15 mL/min/1.73sq m eGFR calculated using average adult body mass. Additional eGFR calculator available at: http://www.Luminate/multiple_crcl_2012.htm Performed By: #### C DP, BMP #### [facility] [address] [place] [address] Glass Grinder: Bigg Alvarez MD #### PT, PTT #### [address] [address] Glass Grinder: Andrez Saha MD Anion gap molar conc 10 mmol/L Normal 9-17 [facility] Comment on above: Performed By: #### C DP, BMP #### [facility] [address] [place] [address] Glass Grinder: Bigg Alvarez MD #### PT, PTT #### [address] [address] Glass Grinder: Andrez Saha MD BUN/CRE Ratio 14 Normal 9-20 [facility] Comment on above: Performed By: #### C DP, BMP #### [facility] [address] [place] [address] Glass Grinder: Bigg Alvarez MD #### PT, PTT #### [address] [address] Glass Grinder: Andrez Saha MD Calcium mass conc 8.8 mg/dL Normal 8.6-10.4 [facility] Comment on above: Performed By: #### C DP, BMP #### [facility] [address] [place] [address] Glass Grinder: Bigg Alvarez MD #### PT, PTT #### [address] [address] Glass Grinder: Andrez Saha MD Chloride molar conc 103 mmol/L Normal 98-107 [facility] Comment on above: Performed By: #### C DP, BMP #### [facility] [address] [place] [address] Glass Grinder: Bigg Alvarez MD #### PT, PTT #### [address] [address] Glass Grinder: Andrez Saha MD CO2 molar conc 27 mmol/L Normal 20-31 [facility] Comment on above: Performed By: #### C DP, BMP #### [facility] [address] [place] [address] Glass Grinder: Bigg Alvarez MD #### PT, PTT #### [address] [address] Glass Grinder: Andrez Saha MD Creatinine mass conc 0.57 mg/dL Normal 0.50-0.90 [facility] Comment on above: Performed By: #### C DP, BMP #### [facility] [address] [place] [address] Glass Grinder: Bigg Alvarez MD #### PT, PTT #### [address] [place] [address] Glass Grinder: Andrez Saha MD GFR, Amer >60 Normal >60 [facility] Comment on above: Performed By: #### C DP, BMP #### [facility] [address] [place] [address] Glass Grinder: Bigg Alvarez MD #### PT, PTT #### [address] [address] Glass Grinder: Andrez Saha MD GFR,non Amer >60 Normal >60 [facility] Comment on above: Performed By: #### C DP, BMP #### [facility] [place] [address] Glass Grinder: Bigg Alvarez MD #### PT, PTT #### [address] [address] Glass Grinder: Andrez Saha MD Glucose mass conc 110 mg/dL High 70-99 [facility] Comment on above: Performed By: #### C DP, BMP #### [facility] [place] [address] Glass Grinder: Bigg Alvarez MD #### PT, PTT #### [address] [address] Glass Grinder: Andrez Saha MD Potassium molar conc 3.6 mmol/L Low 3.7-5.3 [facility] Comment on above: Performed By: #### C DP, BMP #### [facility] [address] [place] [address] Glass Grinder: Bigg Alvarez MD #### PT, PTT #### [address] [address] Glass Grinder: Andrez Saha MD Sodium molar conc 140 mmol/L Normal 135-144 [facility] Comment on above: Performed By: #### C DP, BMP #### [facility] [address] [place] [address] Glass Grinder: Bigg Alvarez MD #### PT, PTT #### [address] [address] Glass Grinder: Andrez Saha MD Urea nitrogen mass conc 8 mg/dL Normal 6-20 [facility] Comment on above: Performed By: #### C DP, BMP #### [facility] [address] [place] [address] Glass Grinder: Bigg Alvarez MD #### PT, PTT #### [address] [address] Glass Grinder: Andrez Saha MD Staging: NOT REPORTED Normal [facility] Comment on above: Performed By: #### C DP, BMP #### [facility] [address] [place] [address] Glass Grinder: Bigg Alvarez MD #### PT, PTT #### [address] [address] Glass Grinder: Andrez Saha MD CBC with Diffon 02-11-2019 Abs. Basophil 0.07 k/uL Normal 0.00-0.20 [facility] Comment on above: Performed By: #### C DP, BMP #### [facility] [address] [place] [address] Glass Grinder: Bigg Alvarez MD #### PT, PTT #### [address] [id number] Glass Grinder: Andrez Saha MD Abs.Imm.Granulocyt e 0.03 k/uL Normal 0.00-0.30 [facility] Comment on above: Performed By: #### C DP, BMP #### [facility] [address] [place] [id number] Glass Grinder: Bigg Alvarez MD #### PT, PTT #### [address] [phone] Glass Grinder: Andrez Saha MD Abs.Neutrophil (Seg) 4.85 k/uL Normal 1.50-8.10 [facility] Comment on above: Performed By: #### C DP, BMP #### [facility] [address] [place] [address] Glass Grinder: Bigg Alvarez MD #### PT, PTT #### [place] [address] Glass Grinder: Andrez Saha MD Basophils/100 WBC (Bld) 1 % Normal 0-2 [facility] Comment on above: Performed By: #### C DP, BMP #### [facility] [address] [place] [address] Glass Grinder: Bigg Alvarez MD #### PT, PTT #### [address] [address] Glass Grinder: Andrez Saha MD Eosinophils #/vol (Bld) 0.24 10*3/uL Normal 0.00-0.44 [facility] Comment on above: Performed By: #### C DP, BMP #### [facility] [address] [place] [address] Glass Grinder: Bigg Alvarez MD #### PT, PTT #### [address] [address] Glass Grinder: Andrez Saha MD Eosinophils/100 WBC (Bld) 3 % Normal 1-4 [facility] Comment on above: Performed By: #### C DP, BMP #### [facility] [address] [place] [address] Glass Grinder: Bigg Alvarez MD #### PT, PTT #### [address] [address] Glass Grinder: Andrez Saha MD Erythrocyte distribution width Ratio (RBC) 13.7 % Normal 11.8-14.4 [facility] Comment on above: Performed By: #### C DP, BMP #### [facility] [address] [place] [address] Glass Grinder: Bigg Alvarez MD #### PT, PTT #### [address] [address] Glass Grinder: Andrez Saha MD Hematocrit Volume Fraction (Bld) 44.0 % Normal 36.3-47.1 [facility] Comment on above: Performed By: #### C DP, BMP #### [facility] [address] [place] [address] Glass Grinder: Bigg Alvarez MD #### PT, PTT #### [address] [address] Glass Grinder: Andrez Saha MD Hemoglobin mass conc (Bld) 14.6 g/dL Normal 11.9-15.1 [facility] Comment on above: Performed By: #### C DP, BMP #### [facility] [address] [place] [address] Glass Grinder: Bigg Alvarez MD #### PT, PTT #### [address] [address] Glass Grinder: Andrez Saha MD Immature granulocytes #/vol (Bld) 0 % Normal 0 [facility] Comment on above: Performed By: #### C DP, BMP #### [facility] [address] [place] [address] Glass Grinder: Bigg Alvarez MD #### PT, PTT #### [address] [address] Glass Grinder: Andrez Saha MD Lymphocytes #/vol (Bld) 1.62 10*3/uL Normal 1.10-3.70 [facility] Comment on above: Performed By: #### C DP, BMP #### [facility] [address] [place] [address] Glass Grinder: Bigg Alvarez MD #### PT, PTT #### [address] [address] Glass Grinder: Andrez Saha MD Lymphocytes/100 WBC (Bld) 23 % Low 24-43 [facility] Comment on above: Performed By: #### C DP, BMP #### [facility] [address] [place] [address] Glass Grinder: Bigg Alvarez MD #### PT, PTT #### [address] [address] Glass Grinder: Andrez Saha MD MCH Entitic mass (RBC) 29.3 pg Normal 25.2-33.5 [facility] Comment on above: Performed By: #### C DP, BMP #### [facility] [address] [place] [address] Glass Grinder: Bigg Alvarez MD #### PT, PTT #### [address] [address] Glass Grinder: Andrez Saha MD MCHC mass conc (RBC) 33.2 g/dL Normal 28.4-34.8 [facility] Comment on above: Performed By: #### C DP, BMP #### [facility] [address] [place] [address] Glass Grinder: Bigg Alvarez MD #### PT, PTT #### [address] [phone] Glass Grinder: Andrez Saha MD MCV Entitic volume (RBC) 88.2 fL Normal 82.6-102.9 [facility] Comment on above: Performed By: #### C DP, BMP #### [facility] [address] [place] [address] Glass Grinder: Bigg Alvarez MD #### PT, PTT #### [address] [address] Glass Grinder: Andrez Saha MD Monocytes #/vol (Bld) 0.36 10*3/uL Normal 0.10-1.20 [facility] Comment on above: Performed By: #### C DP, BMP #### [facility] [address] [place] [address] Glass Grinder: Bigg Alvarez MD #### PT, PTT #### [address] [address] Glass Grinder: Andrez Saha MD Monocytes/100 WBC (Bld) 5 % Normal 3-12 [facility] Comment on above: Performed By: #### C DP, BMP #### [facility] [address] [place] [address] Glass Grinder: Bigg Alvarez MD #### PT, PTT #### [address] [address] Glass Grinder: Andrez Saha MD Neutrophil (Seg) 68 % High 36-65 [facility] Comment on above: Performed By: #### C DP, BMP #### [facility] [address] [place] [address] Glass Grinder: Bigg Alvarez MD #### PT, PTT #### [address] [address] Glass Grinder: Andrez Saha MD NRBC Automated 0.0 per 100 WBC Normal 0.0 [facility] Comment on above: Performed By: #### C DP, BMP #### [facility] [address] [place] [address] Glass Grinder: Bigg Alvarez MD #### PT, PTT #### [address] [address] Glass Grinder: Andrez Saha MD Platelet mean volume Entitic volume (Bld) 9.5 fL Normal 8.1-13.5 [facility] Comment on above: Performed By: #### C DP, BMP #### [facility] [address] [place] [address] Glass Grinder: Bigg Alvarez MD #### PT, PTT #### [address] [address] Glass Grinder: Andrez Saha MD Platelets #/vol (Bld) 298 10*3/uL Normal 138-453 [facility] Comment on above: Performed By: #### C DP, BMP #### [facility] [address] [place] [address] Glass Grinder: Bigg Alvarez MD #### PT, PTT #### [address] [address] Glass Grinder: Andrez Saha MD RBC #/vol (Bld) 4.99 10*6/uL Normal 3.95-5.11 [facility] Comment on above: Performed By: #### C DP, BMP #### [facility] [place] [address] Glass Grinder: Bigg Alvarez MD #### PT, PTT #### [address] [address] Glass Grinder: Andrez Saha MD WBC #/vol (Bld) 7.2 10*3/uL Normal 3.5-11.3 [facility] Comment on above: Performed By: #### C DP, BMP #### [facility] [address] [place] [address] Glass Grinder: Bigg Alvarez MD #### PT, PTT #### [address] [address] Glass Grinder: Andrez Saha MD Auto Diff Performed NOT REPORTED Normal [facility] Comment on above: Performed By: #### C DP, BMP #### [facility] [address] [place] [address] Glass Grinder: Bigg Alvarez MD #### PT, PTT #### [address] [address] Glass Grinder: Andrez Saha MD Platelets #/vol (Bld) NOT REPORTED Normal [facility] Comment on above: Performed By: #### C DP, BMP #### [facility] [address] [place] [address] Glass Grinder: Bigg Alvarez MD #### PT, PTT #### [address] [address] Glass Grinder: Andrez Saha MD RBC morphology finding Nom (Bld) NOT REPORTED Normal [facility] Comment on above: Performed By: #### C DP, BMP #### [facility] [address] [place] [address] Glass Grinder: Bigg Alvarez MD #### PT, PTT #### [address] [address] Glass Grinder: Andrez Saha MD WBC Morphology NOT REPORTED Normal [facility] Comment on above: Performed By: #### C DP, BMP #### [facility] [address] [place] [address] Glass Grinder: Bigg Alvarez MD #### PT, PTT #### [address] [address] Glass Grinder: Andrez Saha MD MRSA, DNA, Nasalon 9 Specimen Description .NASAL SWAB Normal [facility] Comment on above: Performed By: #### M RSANO #### [facility] [address] [place] [address] Glass Grinder: Bigg Alvarez MD [address] [address] Glass Grinder: Andrez Saha MD PTon 02-11-2019 INR Coag RelTime (PPP) 1.0 {INR} Normal [facility] Comment on above: Result Comment: Therapeutic Range: Moderate Anticoagulant Intensity: INR = 2.0-3.0 High Anticoagulant Intensity: INR = 2.5-3.5 High anticoagulant intensity for patients with a mechanical prosthetic heart valve, thrombosis and antiphospholipid syndrome, or myocardial infarction. Performed By: #### C DP, BMP #### [facility] [address] [place] [address] Glass Grinder: Bigg Alvarez MD #### PT, PTT #### [address] [address] Glass Grinder: Andrez Saha MD Prothrombin time (PT) Coag time (PPP) 10.4 s Normal 9.7-11.6 [facility] Comment on above: Performed By: #### C DP, BMP #### [facility] [address] [place] [address] Glass Grinder: Bigg Alvarez MD #### PT, PTT #### [address] [address] Glass Grinder: Andrez Saha MD Urinalysis, Routineon 2018 Acetoacetic Acid,Ur Negative Normal NEG [facility] Comment on above: Performed By: #### U YENNY Bond #### [facility] [address] [place] [address] Glass Grinder: Bigg Alvarez MD Bilirubin, SemiQt,Ur Negative Normal NEG [facility] Comment on above: Performed By: #### U A UMICAO #### [facility] [address] [place] [address] Glass Grinder: Bigg Alvarez MD Color Nom (U) YELLOW Normal L [facility] Comment on above: Performed By: #### U A UMICAO #### [facility] [address] [place] [address] Glass Grinder: Bigg Alvarez MD Glucose,Semi-qnt,U r Negative Normal NEG [facility] Comment on above: Performed By: #### U A UMICAO #### [facility] [address] [place] [address] Glass Grinder: Bigg Alvarez MD Hemoglobin, Ur TRACE Abnormal NEG [facility] Comment on above: Performed By: #### U A UMICAO #### [facility] [address] [place] [address] Glass Grinder: Bigg Alvarez MD Leuckocyte Esterase Negative Normal NEG [facility] Comment on above: Performed By: #### U A UMICAO #### [facility] [address] [place] [address] Glass Grinder: Bigg Alvarez MD Nitrite,Ur Negative Normal NEG [facility] Comment on above: Performed By: #### U A UMICAO #### [facility] [address] [place] [address] Glass Grinder: Bigg Alvarez MD PH,Ur 6.0 Normal 5.0-8.0 [facility] Comment on above: Performed By: #### U A UMICAO #### [facility] [address] [place] [address] Glass Grinder: Bigg Alvarez MD Protein mass conc (U) Negative Normal NEG [facility] Comment on above: Performed By: #### U A UMICAO #### [facility] [address] [place] [address] Glass Grinder: Bigg Alvarez MD Spec. [place],Ur 1.010 Normal 1.005-1.030 [facility] Comment on above: Performed By: #### U A UMICAO #### [facility] [address] [place] [address] Glass Grinder: Bigg Alvarez MD Turbidity CLEAR Normal CLEAR [facility] Comment on above: Performed By: #### YENNY Mike #### [facility] [address] [facility] [place] [address] Glass Grinder: Bigg Alvarez MD Urobilinogen,Ur Normal Normal NORM [facility] Comment on above: Performed By: #### YENNY Mike #### [facility] [address] [facility] [place] [address] Glass Grinder: iBgg Alvarez MD Comment NOT REPORTED Normal [facility] Comment on above: Performed By: #### YENNY Mike #### [facility] [address] [place] [address]. [place] [address] Glass Grinder: Bigg Alvarez MD Urinalysis,Microon 9 ----- Normal [facility] Comment on above: Performed By: #### YENNY Mike #### [facility] [address] [place] [address]. [place] [address] Glass Grinder: Bigg Alvarez MD Epithelial cells LM.HPF #/area (Urine sed) 5 TO 10 Normal 0-5 [facility] Comment on above: Performed By: #### YENNY Mike #### [facility] [address] [place] [address]. [place] [address] Glass Grinder: Bigg Alvarez MD RBC #/vol (U) 0 TO 2 Normal 0-2 [facility] Comment on above: Performed By: #### U A UMANAHIO #### [facility] [address] [facility] [place] [address] Glass Grinder: Bigg Alvarez MD WBC #/vol (U) None Normal 0-5 [facility] Comment on above: Performed By: #### U A, UMICAO #### [facility] [place] [address] Glass Grinder: Bigg Alvarez MD Amorphous sediment LM Ql (Urine sed) NOT REPORTED Normal NONE [facility] Comment on above: Performed By: #### U A UMICAO #### [facility] [address] [place] [address]. [place] [address] Glass Grinder: Bigg Alvarze MD Bacteria LM.HPF #/area (Urine sed) NOT REPORTED Normal [facility] Comment on above: Performed By: #### U A UMICAO #### [facility] [address] [place] [address] Glass Grinder: Bigg Alvarez MD Casts LM.LPF #/area (Urine sed) NOT REPORTED Normal [facility] Comment on above: Performed By: #### U ADANILOO #### [facility] [address] [place] [address]. [place] [address] Glass Grinder: Bigg Alvarez MD Crystals LM Nom (Urine sed) NOT REPORTED Normal [facility] Comment on above: Performed By: #### DANILO MikeO #### [facility] [address] [place] [address]. [place] [address] Glass Grinder: Bigg Alvarez MD Epithelial, Renal NOT REPORTED Normal 0 [facility] Comment on above: Performed By: #### U A UMICAO #### [facility] [address] [place] [address]. [place] [address] Glass Grinder: Bigg Alvarez MD Mucus Strands NOT REPORTED Normal [facility] Comment on above: Performed By: #### U A, UMICAO #### [facility] [address] [place] [address] Glass Grinder: Bigg Alvarez MD Other Observations NOT REPORTED Normal [facility] Comment on above: Performed By: #### U A, UMICAO #### [facility] [address] [facility] [place] [address] Glass Grinder: Bigg Alvarez MD Trichomonas NOT REPORTED Normal NONE [facility] Comment on above: Performed By: #### U A, UMICAO #### [facility] [address] [facility] [place] [address] Glass Grinder: Bigg Alvarez MD Yeast LM Ql (Urine sed) NOT REPORTED Normal NONE [facility] Comment on above: Performed By: #### U A, UMICAO #### [facility] [place] [address] Glass Grinder: Bigg Alvarez MD XR CHEST (2 VW)on 02-11-2019 XR CHEST (2 VW) EXAMINATION: TWO XRAY VIEWS OF THE CHEST 02/11/2019 1:18 pm COMPARISON: None. HISTORY: ORDERING SYSTEM PROVIDED HISTORY: pre-op TECHNOLOGIST PROVIDED HISTORY: In pre-testing at present time. pre-op Ordering Physician Provided Reason for Exam: Pt states SI joint fusion upcoming February 24, 2019. Denies any chest complaints Acuity: Acute Type of Exam: Initial FINDINGS: Frontal and lateral views of the chest are submitted for review. The cardiac silhouette is normal in size. Lung parenchyma is clear without focal airspace consolidation, sizeable pleural effusion, or pneumothorax. Multiple calcified pulmonary nodules. Trachea is midline. Osseous structures and soft tissues are grossly intact. IMPRESSION: No evidence for acute cardiopulmonary pathology. Interpreted by: Amrik George MD Signed by: Amrik George MD 02/11/19 Final result Normal [facility] MRI ANKLE WO CONTRAST LEFTon 03-02-2018 MRI ANKLE WO CONTRAST LEFT [facility] Department of Radiology [address] [place] [address] ======== Patient Name: CONNIE ALEX : 1975 Sex: F Age: Race: White Pt. Location: 4 Patient Status: D Ordered Date: 02/28/2018 3:30:00 PM Completed Date: 03/02/2018 10:42 AM Requesting Provider: JONATHAN DELGADO Attending Provider: JONATHAN DELGADO Report Copy To: Signs & Symptoms: M79.672 Pain in left foot I10 History: Lisa, Breast clip AUTHORIZATION [id number] VALID 02/28/2018-03/30/2018 - per Goldie with Dr Delgado's office. please check-jlr Comments: , AUTHORIZATION [id number] VALID 02/28/2018-03/30/2018 left ankle mri Evaluate achilled tendon rupture after traumatic injury , AUTHORIZATION [id number] VALID 02/28/2018-03/30/2018 left ankle mri Evaluate achilled tendon rupture after traumatic injury , , , Ordering Provider - JONATHAN DELGADO MD , Exam: MRI ANKLE WO CONTRAST LEFT ======== MRI ANKLE WO CONTRAST LEFT 03/02/2018 10:42 AM EDT SIGNS AND SYMPTOMS: M79.672 Pain in left foot I10 TECHNOLOGIST COMMENTS: patient fell 3 weeks ago complains of posterior ankle pain QUESTION FOR THE RADIOLOGIST: , AUTHORIZATION [id number] VALID 02/28/2018-03/30/2018 left ankle mri Evaluate achilled tendon rupture after traumatic injury , AUTHORIZATION [id number] VALID ...More In Sending System PROTOCOL: Images were obtained in the following sequences: 3-plane localizer, axial T1, axial PD fat-sat, coronal T1, coronal T2 fat-sat, sagittal PD fat-sat, and sagittal T1. COMPARISON: None. FINDINGS: Skeleton: Bone edema along the anteroinferior calcaneus but normal bony alignment with no fractures. Edema along the origin of plantar fashion the quadratus plantae muscle. Fatty tissues: Edema both superficial to the Achilles tendon and within the pre-Achilles fat pad. Muscles: Mild edema in the flexor digitorum brevis muscle and quadratus plantae muscle toward their origin on the calcaneus. Tendons: Moderate Achilles tendinitis with small intrasubstance split tears from the insertion to the musculotendinous origin over approximately 5 cm. There is no high-grade tear. There is fat pad edema around the tendon and there is pre-Achilles bursal fluid. There is mild tenosynovitis in the posterior tibial and peroneal tendons. Ligaments: Intact currently but likely some old injury. Neurovascular structures: Intact. Joint cavities: Moderate subtalar joint effusion. Mild tibiotalar joint effusion with some adjacent edema. IMPRESSION: 1. Moderate Achilles tendinitis with intrasubstance linear tears but no large tear. Series 7 image 10 and series 6 image 4. 2. Bone and muscle edema along the origin of plantar fascia and quadratus plantae muscles on calcaneus. Series 6 image 11. 3. Swelling and other lesser findings above. Electronically signed by:Patrick Santacruz. Transcribed by: [email or web address], User Resident: Electronically Signed by: PATRICK SANTACRUZ @ 03/03/2018 09:55 AM Normal [facility] Comment on above: Order Comment: , AUTHORIZATION [id number] VALID 02/28/2018-03/30/2018 left ankle mri Evaluate achilled tendon rupture after traumatic injury , AUTHORIZATION [id number] VALID 02/28/2018-03/30/2018 left ankle mri Evaluate achilled tendon rupture after traumatic injury , , , Ordering Provider - JONATHAN DELGADO MD , Encounters Encounter Date Encounter Type Care Provider Facility Start: 02-05-2023 End: 02-06-2023 ambulatory IVET HENSLEY Facility:[facility] Start: 01-18-2023 End: 01-18-2023 ambulatory IVET HENSLEY Facility:[facility] Start: 08-28-2022 End: 08-29-2022 ambulatory IVET HENSLEY Facility:[facility] Start: 07-25-2022 End: 07-26-2022 ambulatory IVET HENSLEY Facility:[facility] Start: 06-10-2022 End: 06-11-2022 ambulatory IVET HENSLEY Facility:[facility] Start: 05-17-2022 End: 05-18-2022 ambulatory JANESSA HERNANDEZ Facility:[facility] Start: 05-14-2022 End: 05-14-2022 ambulatory HELENA MERRILL Bryan Facility:[facility] Start: 03-20-2022 End: 03-21-2022 ambulatory IVET HENSLEY Facility:[facility] Start: 02-24-2019 End: 02-24-2019 Patient encounter procedure [facility] Start: 02-11-2019 End: 02-14-2019 Patient encounter procedure [facility] Start: 02-11-2019 End: 02-16-2019 Patient encounter procedure [facility] Procedures Date Procedure Procedure Detail Performing Clinician Start: 02-24-2019 DISCHARGE PATIENT CHARU SNEHARAQUEL Start: 02-24-2019 FLUORO FOR SURGICAL PROCEDURES CHARU CALLAWAY Start: 02-24-2019 Radiologic exam sacr oiliac joints 3/more views CHARU CALLAWAY Start: 02-24-2019 BEDREST CHARU CAICEDO TOF Start: 02-24-2019 Continuous pulse oximetry CHARU CALLAWAY Start: 02-24-2019 ENCOURAGE DEEP BREAT CAROLE AND COUGHING CHARU CALLAWAY Start: 02-24-2019 INITIATE OXYGEN THER APY PROTOCOL CHARU CALLAWAY Start: 02-24-2019 NOTIFY PHYSICIAN (SPECIFY) CHARU CALLAWAY Start: 02-24-2019 NURSING COMMUNICATION Karime CALLAWAY Start: 02-24-2019 VITAL SIGNS CHARU CAICEDO TOF Start: 02-24-2019 Urine test visual color cmprsn meths CHARU CALLAWAY Start: 02-24-2019 INITIATE OXYGEN THER APY PROTOCOL CHARU CALLAWAY Start: 02-24-2019 NOTIFY PHYSICIAN (SPECIFY) CHARU CALLAWAY Start: 02-24-2019 VITAL SIGNS CHARU MCKENNA Start: 02-11-2019 Radiologic exam chest 2 views CHARU CALLAWAY Start: 02-11-2019 Ecg routine ecg w/le ast 12 lds w/i&r CHARU CALLAWAY Start: 02-11-2019 EKG REPORT CHARU MCKENNA Start: 02-11-2019 Iadna s aureus methi cillin resist amp probe tq CHARU CALLAWAY Start: 02-11-2019 Culture bacterial qu anttative colony count urine CHARU CALLAWAY Start: 02-11-2019 Urinalysis microscopic only CHARU CALLAWAY Start: 02-11-2019 Urnls dip stick/tabl et rgnt auto w/o microscopy CHARU CALLAWAY Start: 02-11-2019 Basic metabolic pane l calcium total CHARU CALLAWAY Start: 02-11-2019 Blood count complete auto&auto difrntl wbc CHARU CALLAWAY Start: 02-11-2019 Prothrombin time CHARU CALLAWAY Start: 02-11-2019 Thromboplastin time partial plasma/whole blood CHARU CALLAWAY Start: 02-11-2019 TYPE AND SCREEN CHARU BENJAMINRICHELLERajani Payers Date Payer Category Payer Medicaid [id number] 2014 Unknown [id number] 1975 Unknown [id number] 2.16.8 [id number] 1975 Unknown [id number] 2.16.8 [id number] 1975 Unknown [id number] 2.16.8 [id number] 1975 Unknown [id number] 2.16.84 [id number] 1975 Unknown [id number] 2.16.84 [id number] 1975 Unknown [id number] 2.16.84 [id number] 1973 Unknown [id number] 2.16.84 [id number] 1973 Unknown [id number] 2.16.84 [id number] 1973 Unknown [id number] 2.16.84 [id number] 1973 Unknown [id number] 2.16.84 [id number] 1973 Unknown [id number] 2.16.84 [id number] 1959 Unknown [id number] Clinical Note 05-18-2022 Note Date & Type Note Facility 05-18-2022 Note PROCEDURE: XR ANKLE RT MIN 3 VIEWS, XR FOOT RT MIN 3 VIEWS HISTORY: Pain of right ankle joint ; right heel pain; medial ankle pain since injury COMPARISON: XR ankle right 05/14/2022 FINDINGS: BONES: Calcaneal plantar spur. No fracture, acute abnormality, or significant arthropathy. SOFT TISSUES:No visible soft tissue swelling. EFFUSION:None visible. OTHER: Negative. IMPRESSION: 1. No acute bone abnormality or significant degenerative changes of the right ankle or foot. Electronically authenticated by: TEVIN ESPINOZA Date: 2022-05-18 08:15 [facility] Clinical Note 05-18-2022 Note Date & Type Note Facility 05-18-2022 Note PROCEDURE: XR ANKLE RT MIN 3 VIEWS, XR FOOT RT MIN 3 VIEWS HISTORY: Pain of right ankle joint ; right heel pain; medial ankle pain since injury COMPARISON: XR ankle right 05/14/2022 FINDINGS: BONES: Calcaneal plantar spur. No fracture, acute abnormality, or significant arthropathy. SOFT TISSUES:No visible soft tissue swelling. EFFUSION:None visible. OTHER: Negative. IMPRESSION: 1. No acute bone abnormality or significant degenerative changes of the right ankle or foot. Electronically authenticated by: TEVIN ESPINOZA Date: 2022-05-18 08:15 [facility] Summary Purpose Family History No Family History Records FoundNo Family History Records FoundNo Family History Records Found Advance Directives No Advanced Directives Records FoundNo Advanced Directives Records FoundNo Advanced Directives Records Found Additional Source Comments INFORMATION SOURCE (unrecogn ized section and content) DATE CREATED AUTHOR 02/27/2019 [facility] DATE CREATED AUTHOR AUTHOR'S ORGANIZ ATION 03/02/2019 [facility] DATE CREATED AUTHOR AUTHOR'S ORGANIZ ATION 02/07/2023 [facility] FOR RECORDS PERTAINING TO PATIENTS WHO ARE OR HAVE BEEN ENROLLED IN A CHEMICAL DEPENDENCY/SUBSTANCEABUSE PROGRAM, SOME INFORMATION MAY BE OMITTED. This clinical summary was aggregated from multiple sources. Caution should be exercised in using it in the provision of clinical care. This summary normalizes information from multiple sources, and as a consequence, information in this document may materially change the coding, format and clinical context of patient data. In addition, data may be omitted in some cases. CLINICAL DECISIONS SHOULD BE BASED ON THE PRIMARY CLINICAL RECORDS. [facility] [employer] provides no warranty or guarantee of the accuracy or completeness of information in this document.
[2023-09-28 14:53] LABS: Influenza Virus A Antigen Negative; Influenza Virus B Antigen Negative; Internal Control Within Normal Limits; SARS-CoV-2 Ag NEGATIVE (NEGATIVE)
[2023-09-28 14:54] LABS: Internal Control Within Normal Limits; Strep A Antigen Screen Negative
--- NOTE | 2023-09-28 15:37 | XR_ITS ---
The [address] [address] Patient Name: CONNIE ALEX MRN: [id number] date: 1975 Sex: F Assigned Patient Location: ER Current Patient Location: Accession/Order Number: [id number] Exam Date: 09/28/2023 16:41 Report Date: 09/28/2023 18:02 At the request of: BRANDO PA Procedure: XR chest 2V EXAM: XR chest 2V TECHNIQUE: PA and lateral view of the chest HISTORY: cough COMPARISON: None. FINDINGS: The heart and mediastinum are unremarkable. The lung glover are clear of any acute infiltrate, effusion or mass. No acute bony abnormality. XR/XR chest 2V IMPRESSION: No acute pulmonary disease. Electronically authenticated by: KAIT FERGUSON Date: 09/28/2023 18:02
[2023-09-28] MEDS: IPRATROPIUM/ALBUTEROL SULFATE 3 ML AMPUL.NEB IH (16:04)
[2023-09-28] MEDS: PREDNISONE 20 MG TABLET 60 MG PO (16:10)
--- NOTE | 2023-09-28 17:05 | ED_ITS ---
Documented by User: Yessi Domingo 09/28/23 17:12 HPI - URI/Sore Throat General Chief Complaint: Upper Respiratory Infection Stated Complaint: URTI Time Seen by Provider: 09/28/23 15:37 Source: patient History of Present Illness HPI Narrative: 48.-year-old female presents with chief complaint cough congestion for the last 5-6 days. She states she's not felt well. Lung sounds are clear and diminished with scattered expiratory wheezing. She denies known history of asthma.Denies any known exposure influenza Covid. Afebrile nontoxic Related Data Home Medications Medication Instructions Recorded Confirmed epinephrine 0.3 mg/0.3 mL 0.3 mg IM PRN PRN anaphylaxis 08/25/23 08/25/23 injection, auto-injector ibuprofen 800 mg tablet 800 mg PO Q8H PRN pain 08/25/23 08/25/23 sumatriptan succinate 100 mg tablet 100 mg PO PRN 08/25/23 08/25/23 thyroid (pork) 120 mg tablet 120 mg PO .T, Th, Sat, Sun 08/25/23 08/25/23 ([place] Thyroid) thyroid (pork) 180 mg tablet 180 mg PO .M, W, F 08/25/23 08/25/23 ([place] Thyroid) topiramate 25 mg tablet 50 mg PO .hs 08/25/23 08/25/23 Previous Rx's Medication Instructions Recorded albuterol sulfate 90 mcg/actuation 1 inh inhalation Q4H PRN shortness 09/28/23 aerosol inhaler of breath or wheezing #8.5 grams prednisone 50 mg tablet 50 mg PO DAILY 5 days #5 tabs 09/28/23 Allergies Allergy/AdvReac Type Severity Reaction Status Date / Time bee venom protein (honey bee) AdvReac Severe Verified 08/25/23 10:59 Review of Systems ROS Narrative All Systems are negative except as noted/marked.All systems reviewed and otherwise negative PFSH PFSH Social History Smoking status: Current every day smoker Exam Narrative Exam Narrative: Nurses note and vital signs reviewed and patient is not hypoxic. General: The patient appears well and in no apparent distress. Patient is resting comfortably on cart. Skin: Warm, dry, no pallor noted. There is no rash noted. Head: Normocephalic, atraumatic Eye: Normal conjunctiva, no drainage, EOMI. PERRL Ears, Nose, Mouth, and Throat: oral mucosa is moist. Nares patent. Mouth without vesicles. Ear canals patent. Tm's without Erythema Cardiovascular: Regular Rate and Rhythm Respiratory: A nonproductive cough, expiratory wheezing posterior lower lung field right greater than left, Patient is in no distress, no accessory muscle use, Back: non-tender, no CVA tenderness bilaterally to percussion. Musculoskeletal: The patient has no evidence of calf tenderness, no pitting edema, symmetrical pulses noted bilaterally Neurological: A&O x4, normal speech Psychiatric: Cooperative Constitutional Vital Signs, click to edit/add: Last Vital Signs Temp 98.1 F 09/28/23 13:57 Pulse 90 09/28/23 13:57 Resp 18 09/28/23 13:57 BP 105/87 09/28/23 13:57 Pulse Ox 100 09/28/23 13:57 O2 Del Method Room Air 09/28/23 13:57 Course Vital Signs Vital signs: Vital Signs Temperature 98.1 F 09/28/23 13:57 Pulse Rate 90 09/28/23 13:57 Respiratory Rate 18 09/28/23 13:57 Blood Pressure 105/87 09/28/23 13:57 Pulse Oximetry 100 09/28/23 13:57 Oxygen Delivery Method Room Air 09/28/23 13:57 Temperature 98.1 F 09/28/23 13:57 Pulse Rate 90 09/28/23 13:57 Respiratory Rate 18 09/28/23 13:57 Blood Pressure 105/87 09/28/23 13:57 Pulse Oximetry 100 09/28/23 13:57 Oxygen Delivery Method Room Air 09/28/23 13:57 MDM - URI/Sore Throat MDM Narrative Medical decision making narrative: Patient presents here with a chief complaint of cough congestion. She states she has not felt for several days. Chest x-ray shows no active disease or infiltrates. Patient was wheezing on examination. Medicated with prednisone and DuoNeb treatment while here in emergency room. She states symptoms did improve with treatment. Covid and influenza swabs are negative.Patient appears to have upper respiratory infection, bronchitis. She'll be discharged home and follow-up with her primary care physician. Questions answered. Patient agrees with plan of care. Patient be given prescription for prednisone and albuterol inhaler. Differential Diagnosis Differential diagnosis: Likely upper respiratory infection, viral infection, bronchitis, influenza and pharyngitis Medical Records Attestation: I reviewed the patient's medical records. Lab Data Attestation: I reviewed the patient's lab results. Labs: Lab Results 09/28/23 Range/Units 14:05 SARS-CoV-2 (PCR) Negative (NEGATIVE) Influenza Type A Ag Negative Influenza Type B Ag Negative Streptococcus Screen Negative Imaging Data Chest x-ray: Attestation: I have reviewed the pertinent imaging results. Discharge Plan Discharge Chief Complaint: Upper Respiratory Infection Clinical Impression: Upper respiratory infection, Bronchitis Patient Disposition: Home, Self-Care Time of Disposition Decision: 17:03 Condition: Good Prescriptions / Home Meds: New prednisone 50 mg tablet 50 mg PO DAILY 5 Days Qty: 5 0RF albuterol sulfate 90 mcg/actuation HFA aerosol inhaler 1 inh inhalation Q4H PRN (Reason: shortness of breath or wheezing) Qty: 8.5 0RF No Action ibuprofen 800 mg tablet 800 mg PO Q8H PRN (Reason: pain) sumatriptan succinate 100 mg tablet 100 mg PO PRN epinephrine 0.3 mg/0.3 mL auto-injector 0.3 mg IM PRN PRN (Reason: anaphylaxis) thyroid (pork) [[place] Thyroid] 120 mg tablet 120 mg PO .T, Th, Sat, Sun [place] Thyroid 180 mg tablet 180 mg PO .M, W, F topiramate 25 mg tablet 50 mg PO .hs Instructions: Acute Bronchitis (ED), Wheezing (ED) Stand Alone Forms: Portal Instructions Referrals: Tamia Gonsalez NP [Primary Care Provider] - 1 week Discharge Date/Time: 09/28/23 17:12 Documented by User: Binh Madrigal MD 09/28/23 20:56 HPI - URI/Sore Throat General Chief Complaint: Upper Respiratory Infection Stated Complaint: URTI Time Seen by Provider: 09/28/23 15:37 Related Data Home Medications Medication Instructions Recorded Confirmed epinephrine 0.3 mg/0.3 mL 0.3 mg IM PRN PRN anaphylaxis 08/25/23 08/25/23 injection, auto-injector ibuprofen 800 mg tablet 800 mg PO Q8H PRN pain 08/25/23 08/25/23 sumatriptan succinate 100 mg tablet 100 mg PO PRN 08/25/23 08/25/23 thyroid (pork) 120 mg tablet 120 mg PO .T, Th, Sat, Sun 08/25/23 08/25/23 ([place] Thyroid) thyroid (pork) 180 mg tablet 180 mg PO .M, W, F 08/25/23 08/25/23 ([place] Thyroid) topiramate 25 mg tablet 50 mg PO .hs 08/25/23 08/25/23 Previous Rx's Medication Instructions Recorded albuterol sulfate 90 mcg/actuation 1 inh inhalation Q4H PRN shortness 09/28/23 aerosol inhaler of breath or wheezing #8.5 grams prednisone 50 mg tablet 50 mg PO DAILY 5 days #5 tabs 09/28/23 Allergies Allergy/AdvReac Type Severity Reaction Status Date / Time bee venom protein (honey bee) AdvReac Severe Verified 08/25/23 10:59 PFSH PFSH Social History Smoking status: Current every day smoker Exam Constitutional Vital Signs, click to edit/add: Last Vital Signs Temp 98.1 F 09/28/23 13:57 Pulse 90 09/28/23 13:57 Resp 18 09/28/23 13:57 BP 105/87 09/28/23 13:57 Pulse Ox 100 09/28/23 13:57 O2 Del Method Room Air 09/28/23 13:57 Course Vital Signs Vital signs: Vital Signs Temperature 98.1 F 09/28/23 13:57 Pulse Rate 90 09/28/23 13:57 Respiratory Rate 18 09/28/23 13:57 Blood Pressure 105/87 09/28/23 13:57 Pulse Oximetry 100 09/28/23 13:57 Oxygen Delivery Method Room Air 09/28/23 13:57 Temperature 98.1 F 09/28/23 13:57 Pulse Rate 90 09/28/23 13:57 Respiratory Rate 18 09/28/23 13:57 Blood Pressure 105/87 09/28/23 13:57 Pulse Oximetry 100 09/28/23 13:57 Oxygen Delivery Method Room Air 09/28/23 13:57 MDM - URI/Sore Throat MDM Narrative Medical decision making narrative: Patient presents here with a chief complaint of cough congestion. She states she has not felt for several days. Chest x-ray shows no active disease or infiltrates. Patient was wheezing on examination. Medicated with prednisone and DuoNeb treatment while here in emergency room. She states symptoms did improve with treatment. Covid and influenza swabs are negative.Patient appears to have upper respiratory infection, bronchitis. She'll be discharged home and follow-up with her primary care physician. Questions answered. Patient agrees with plan of care. Patient be given prescription for prednisone and albuterol inhaler. I, Dr Madrigal, have reviewed the above progress note and course of action in the ER; agree with the above. I have gone over history and physical, and discussed disposition and treatment plan with the patient. Lab Data Labs: Lab Results 09/28/23 Range/Units 14:05 SARS-CoV-2 (PCR) Negative (NEGATIVE) Influenza Type A Ag Negative Influenza Type B Ag Negative Streptococcus Screen Negative Discharge Plan Discharge Chief Complaint: Upper Respiratory Infection Clinical Impression: Upper respiratory infection, Bronchitis Patient Disposition: Home, Self-Care Time of Disposition Decision: 17:03 Condition: Good Prescriptions / Home Meds: New prednisone 50 mg tablet 50 mg PO DAILY 5 Days Qty: 5 0RF albuterol sulfate 90 mcg/actuation HFA aerosol inhaler 1 inh inhalation Q4H PRN (Reason: shortness of breath or wheezing) Qty: 8.5 0RF No Action ibuprofen 800 mg tablet 800 mg PO Q8H PRN (Reason: pain) sumatriptan succinate 100 mg tablet 100 mg PO PRN epinephrine 0.3 mg/0.3 mL auto-injector 0.3 mg IM PRN PRN (Reason: anaphylaxis) thyroid (pork) [[place] Thyroid] 120 mg tablet 120 mg PO .T, , Sat, Sun [place] Thyroid 180 mg tablet 180 mg PO .M, W, F topiramate 25 mg tablet 50 mg PO .hs Instructions: Acute Bronchitis (ED), Wheezing (ED) Stand Alone Forms: Portal Instructions Referrals: Tamia Gonsalez NP [Primary Care Provider] - 1 week Discharge Date/Time: 09/28/23 17:12
[2023-09-29 16:04] LABS: SARS-CoV-2 NAA NOT DETECTED (NOT DETECTE)
== END 2023-09-28 17:12 | disposition home or self-care (01) ==
PROVIDERS: Emergency Provider Emergency Medicine; PCP Nurse Practitioner
DX: J06.9 Acute upper respiratory infection, unspecified (principal); J40 Bronchitis, not specified as acute or chronic; Z79.899 Other long term (current) drug therapy; Z79.890 Hormone replacement therapy; F17.210 Nicotine dependence, cigarettes, uncomplicated; Z20.822 Contact with and (suspected) exposure to COVID-19
CPT/HCPCS: 71046; 87070; 87635; 87804; 87811; 87880; 94640; 99285; J7512

== ENCOUNTER 2023-10-02 12:30 | Emergency (ER) | payer SELFPAY ==
[2023-10-02 12:32] VITALS: BP 133/84; PULSE 88; RESP 18; TEMP 36.5; O2SAT 100; BMI 31.6
--- NOTE | 2023-10-02 12:45 | XR_ITS ---
The [address] [address] Patient Name: CONNIE ALEX MRN: [id number]:[id number] date: 1975 Sex: F Assigned Patient Location: ER Current Patient Location: ER Accession/Order Number: [id number] Exam Date: 10/02/2023 12:40 Report Date: 10/02/2023 13:02 At the request of: KARL BARTLETT Procedure: XR chest 1V EXAMINATION: XR chest 1V HISTORY: sob COMPARISON: No relevant comparison available. TECHNIQUE: AP portable erect FINDINGS: LUNGS: No significant pulmonary parenchymal abnormalities. VASCULATURE: No increased pulmonary vasculature. PLEURA: No pneumothorax, effusion, or pleural thickening. CARDIAC: No cardiomegaly or cardiac silhouette abnormality. MEDIASTINUM: Calcifications consistent with old granulomatous disease. BONES: No fracture or visible bone lesion. Cervical fusion hardware OTHER: Negative. XR/XR chest 1V IMPRESSION: No acute cardiopulmonary process Electronically authenticated by: ALINE YADAV Date: 10/02/2023 13:02
--- NOTE | 2023-10-02 12:48 | ED.URI1 ---
HPI - URI/Sore Throat General Chief Complaint: Upper Respiratory Infection Stated Complaint: shortness of beath/ urti Time Seen by Provider: 10/02/23 12:32 Source: patient Limitations: no limitations History of Present Illness HPI Narrative: 48-year-old female presents for a twelve day history of cough. She's been coughing up yellow phlegm. She was seen her last week and had negative Covid an influenza test and had a chest x-ray. She was told she had an upper respiratory infection. She is no better. No vomiting or diarrhea. she has been using her nebulizer and inhalers at home. Related Data Home Medications Medication Instructions Recorded Confirmed epinephrine 0.3 mg/0.3 mL 0.3 mg IM PRN PRN anaphylaxis 08/25/23 08/25/23 injection, auto-injector ibuprofen 800 mg tablet 800 mg PO Q8H PRN pain 08/25/23 08/25/23 sumatriptan succinate 100 mg tablet 100 mg PO PRN 08/25/23 08/25/23 thyroid (pork) 120 mg tablet 120 mg PO .T, Th, Sat, Sun 08/25/23 08/25/23 ([place] Thyroid) thyroid (pork) 180 mg tablet 180 mg PO .M, W, F 08/25/23 08/25/23 ([place] Thyroid) topiramate 25 mg tablet 50 mg PO .hs 08/25/23 08/25/23 Previous Rx's Medication Instructions Recorded albuterol sulfate 90 mcg/actuation 1 inh inhalation Q4H PRN shortness 09/28/23 aerosol inhaler of breath or wheezing #8.5 grams prednisone 50 mg tablet 50 mg PO DAILY 5 days #5 tabs 09/28/23 benzonatate 100 mg capsule 100 mg PO TID PRN cough #20 caps 10/02/23 doxycycline hyclate 100 mg capsule 100 mg PO BID 10 days #20 caps 10/02/23 Allergies Allergy/AdvReac Type Severity Reaction Status Date / Time bee venom protein (honey bee) AdvReac Severe Verified 08/25/23 10:59 Review of Systems ROS Narrative A ten point review of systems is negative except as noted above. PFSH PFSH Social History Smoking status: Current every day smoker Exam Narrative Exam Narrative: Nurses note and vital signs reviewed and patient is not hypoxic. General: The patient appears well and in no apparent distress. Patient is resting comfortably on cart. Skin: Warm, dry, no pallor noted. There is no rash noted. Head: Normocephalic, atraumatic Eye: Normal conjunctiva, no drainage Ears, Nose, Mouth, and Throat: oral mucosa is moist. Nares patent. Cardiovascular: Regular Rate and Rhythm Respiratory: Patient is in no distress, no accessory muscle use, lungs show minimal intermittent rhonchi Back: non-tender GI: Normal bowel sounds, no tenderness to palpation, no masses appreciated. No rebound, guarding, or rigidity noted. Musculoskeletal: The patient has no evidence of calf tenderness, no pitting edema, symmetrical pulses noted bilaterally Neurological: A&O, normal speech Psychiatric: Cooperative Constitutional Vital Signs, click to edit/add: Last Vital Signs Temp 97.7 F 10/02/23 12:32 Pulse 88 10/02/23 12:32 Resp 18 10/02/23 12:32 BP 133/84 10/02/23 12:32 Pulse Ox 100 10/02/23 12:32 Course Vital Signs Vital signs: Vital Signs Temperature 97.7 F 10/02/23 12:32 Pulse Rate 88 10/02/23 12:32 Respiratory Rate 18 10/02/23 12:32 Blood Pressure 133/84 10/02/23 12:32 Pulse Oximetry 100 10/02/23 12:32 Temperature 97.7 F 10/02/23 12:32 Pulse Rate 88 10/02/23 12:32 Respiratory Rate 18 10/02/23 12:32 Blood Pressure 133/84 10/02/23 12:32 Pulse Oximetry 100 10/02/23 12:32 MDM - URI/Sore Throat MDM Narrative Medical decision making narrative: chest x-ray is negative. She is prescribbed doxycycline and Tessalon. Treatment diagnosis and follow-up were discussed with the patient. Differential Diagnosis Differential diagnosis: Likely upper respiratory infection and other (pneumonia) Imaging Data Chest x-ray: Radiologist's impression: Procedure: XR chest 1V EXAMINATION: XR chest 1V HISTORY: sob COMPARISON: No relevant comparison available. TECHNIQUE: AP portable erect FINDINGS: LUNGS: No significant pulmonary parenchymal abnormalities. VASCULATURE: No increased pulmonary vasculature. PLEURA: No pneumothorax, effusion, or pleural thickening. CARDIAC: No cardiomegaly or cardiac silhouette abnormality. MEDIASTINUM: Calcifications consistent with old granulomatous disease. BONES: No fracture or visible bone lesion. Cervical fusion hardware OTHER: Negative. IMPRESSION: No acute cardiopulmonary process Electronically authenticated by: ALINE YADAV Date: 10/02/2023 13:02 Discharge Plan Discharge Chief Complaint: Upper Respiratory Infection Clinical Impression: Upper respiratory infection Patient Disposition: Home, Self-Care Time of Disposition Decision: 13:11 Condition: Good Mode of Transportation: Private Vehicle Prescriptions / Home Meds: New doxycycline hyclate 100 mg capsule 100 mg PO BID 10 Days Qty: 20 0RF benzonatate 100 mg capsule 100 mg PO TID PRN (Reason: cough) Qty: 20 0RF No Action ibuprofen 800 mg tablet 800 mg PO Q8H PRN (Reason: pain) sumatriptan succinate 100 mg tablet 100 mg PO PRN epinephrine 0.3 mg/0.3 mL auto-injector 0.3 mg IM PRN PRN (Reason: anaphylaxis) thyroid (pork) [[place] Thyroid] 120 mg tablet 120 mg PO .T, Th, Sat, Sun [place] Thyroid 180 mg tablet 180 mg PO .M, W, F topiramate 25 mg tablet 50 mg PO .hs prednisone 50 mg tablet 50 mg PO DAILY 5 Days Qty: 5 0RF albuterol sulfate 90 mcg/actuation HFA aerosol inhaler 1 inh inhalation Q4H PRN (Reason: shortness of breath or wheezing) Qty: 8.5 0RF Instructions: Upper Respiratory Infection (ED) Stand Alone Forms: Portal Instructions Referrals: Tamia Gonsalez NP [Primary Care Provider] - 1 week
--- OUTSIDE RECORDS SUMMARY | 2023-10-02 12:49 | XMS_ITS | CCD ---
Author Name Unknown Address [address] [place] [address] Organization [facility] Care Team Providers Care Department [employer] Name Role Phone CHARU CALLAWAY Referring Unavailable AICHHOLZ, JULIO J. Primary Care Unavailable CHARU CALLAWAY Referring Unavailable AICHHOLZ, JULIO J. Primary Care Unavailable CHARU CALLAWAY Admitting Unavailable CHARU CALLAWAY Attending Unavailable AICHHOLZ, JULIO J. Primary Care Unavailable AICHHOLZ, SALES EXECUTIVE JULIO Admitting Unavailable AICHHOLZ, SALES EXECUTIVE JULIO Attending Unavailable AICHHOLZ, SALES EXECUTIVE JULIO Consulting Unavailable AICHHOLZ, SALES EXECUTIVE JULIO Primary Care Unavailable AICHHOLZ, SALES EXECUTIVE JULIO Admitting Unavailable AICHHOLZ, SALES EXECUTIVE JULIO Attending Unavailable AICHHOLZ, SALES EXECUTIVE JULIO Consulting Unavailable AICHHOLZ, SALES EXECUTIVE JULIO Primary Care Unavailable AICHHOLZ, SALES EXECUTIVE JULIO Admitting Unavailable AICHHOLZ, SALES EXECUTIVE JULIO Attending Unavailable AICHHOLZ, SALES EXECUTIVE UJLIO Consulting Unavailable AICHHOLZ, SALES EXECUTIVE JULIO Primary Care Unavailable AICHHOLZ, SALES EXECUTIVE JULIO Primary Care Unavailable FAWWAD, WILLS H Admitting Unavailable FAWWAD, WILLS H Attending Unavailable FAWWAD, WILLS H Consulting Unavailable ANASTACIO ROLDAN Consulting Unavailable JANESSA HERNANDEZ Admitting Unavailable Tevin Espinoza Consulting Unavailable MARY, JANESSA Tristan Attending Unavailable AICHHOLZ, SALES EXECUTIVE JULIO Primary Care Unavailable ALEXAANDER PETER Kun Consulting Unavailable HELENA QUINTANA Admitting Unavailable NILSA Bryan, MR CHRISTIAN Consulting Unavailable AICHHOLZ, SALES EXECUTIVE JULIO Primary Care Unavailable HELENA QUINTANA Attending Unavailable HERACLIO WELLS Consulting Unavailable AICHHOLZ, SALES EXECUTIVE JULIO Admitting Unavailable AICHHOLZ, SALES EXECUTIVE JULIO Attending Unavailable AICHHOLZ, SALES EXECUTIVE JULIO Consulting Unavailable AICHHOLZ, SALES EXECUTIVE JULIO Primary Care Unavailable AICHHOLZ, SALES EXECUTIVE JULIO Attending Unavailable IVET HENSLEY Consulting Unavailable IVET HENSLEY Primary Care Unavailable IVET HENSLEY Admitting Unavailable Allergies Allergy Classification Reported Allergen(s) Allergy Type Date of Onset Reaction(s) Facility (1 source) bee venom Drug allergy (disorder) 11-12-2013 [facility] Repository Problems Active Problems Problem Classification [...] : 1975 Gender:F Ordering : IVET HENSLEY SALES EXECUTIVE Admission #: [id number] Family : Order #: [id number] CLICK HERE TO VIEW EXAM RADIOLOGY REPORT [...] throat cancer at age 82. LOCATION: [facility] BREAST COMPOSITION: Heterogeneously dense,which may obscure [...] MD on 02/06/2023 at 10:24 Normal [facility] Covid-19 PCR (CVDTBH)on 12-24 SARS-CoV-2 (COVID-19) RNA TAYO+probe Ql (Unsp spec) Not detected Normal NOT DETECTED [facility] Comment on above: Result Comment: This test is not yet approved or cleared by the [place] FDA. When there are no FDA-approved or cleared tests available, and other criteria are met, FDA can make tests available under an emergency access mechanism called an Emergency Use Authorization (EUA). The EUA for this test is supported by the [place] of Health and Human Service's (HHS's) declaration [...] Performed By: #### C MP, TSH #### [facility] [address] [place] [address] Dr. Allie Birch SYMPTOMATIC COVID-19 ANTIGEN on 01-18-2023 EUA Statement SEE BELOW Normal [facility] Comment on above: Result Comment: This [...] Performed By: #### C MP, TSH #### [facility] [address] [place] [address] Dr. Allie Birch SARS-CoV-2 (COVID-19) RNA TAYO+probe Ql (Unsp spec) Negative Normal NEGATIVE [facility] Comment on above: Performed By: #### C MP, TSH #### [facility] [address] [place] [address] Dr. Allie Birch CBC AUTO DIFFon 07-25-2022 BASO # 0.1 103/ul Normal 0.0-0.1 [facility] Comment on above: Performed By: #### C BC #### [facility] [address] [place] [address] Dr. Allie Birch Basophils/100 WBC (Bld) 1.3 % Normal 0.2-2.0 [facility] Comment on above: Performed By: #### C BC #### [facility] [address] [place] [address] Dr. Allie Birch EO # 0.3 103/ul Normal 0.0-0.7 [facility] Comment on above: Performed By: #### C BC #### [facility] [address] [place] [address] Dr. Allie Birch Eosinophils/100 WBC (Bld) 3.4 % Normal 0.9-7.0 [facility] Comment on above: Performed By: #### C BC #### [facility] [address] [place] [address] Dr. Allie Birch Erythrocyte distribution width (RBC) [Ratio] 13.2 % Normal 11.0-15.0 [facility] Comment on above: Performed By: #### C BC #### [facility] [address] [place] [address] Dr. Allie Birch Hematocrit (Bld) [Volume fraction] 41.7 % Normal 36.0-48.0 [facility] Comment on above: Performed By: #### C BC #### [facility] [address] [place] [address] Dr. Allie Birch Hemoglobin (Bld) [Mass/Vol] 14.1 g/dL Normal 12.0-16.0 [facility] Comment on above: Performed By: #### C BC #### [facility] [address] [place] [address] Dr. Allie Birch IG # 0.02 10e3/ul Normal 0.00-0.03 [facility] Comment on above: Performed By: #### C BC #### [facility] [address] [place] [address] Dr. Allie Birch IG % 0.2 % Normal 0.0-0.5 [facility] Comment on above: Performed By: #### C BC #### [facility] [address] [place] [address] Dr. Allie Birch LYMPH # 1.6 103/ul Normal 1.2-3.8 [facility] Comment on above: Performed By: #### C BC #### [facility] [address] [place] [address] Dr. Allie Birch Lymphocytes/100 WBC (Bld) 18.1 % Critically low 20.5-60.0 [facility] Comment on above: Performed By: #### C BC #### [facility] [address] [place] [address] Dr. Allie Birch MANUAL DIFF REQ NO Normal [facility] Comment on above: Performed By: #### C BC #### [facility] [address] [place] [address] Dr. Allie Birch MCH (RBC) [Entitic mass] 29.4 pg Normal 26.7-34.0 [facility] Comment on above: Performed By: #### C BC #### [facility] [address] [place] [address] Dr. Allie Birch MCHC (RBC) [Mass/Vol] 33.8 g/dL Normal 29.9-35.2 [facility] Comment on above: Performed By: #### C BC #### [facility] [address] [place] [address] Dr. Allie Birch MCV (RBC) [Entitic vol] 86.9 fL Normal 81.0-99.0 [facility] Comment on above: Performed By: #### C BC #### [facility] [address] [place] [address] Dr. Allie Birch MONO # 0.4 103/ul Normal 0.3-0.8 [facility] Comment on above: Performed By: #### C BC #### [facility] [address] [place] [address] Dr. Allie Birch Monocytes/100 WBC (Bld) 4.4 % Normal 1.7-12.0 [facility] Comment on above: Performed By: #### C BC #### [facility] [address] [place] [address] Dr. Allie Birch NEUT # 6.2 103/ul Normal 1.4-6.5 [facility] Comment on above: Performed By: #### C BC #### [facility] [address] [place] [address] Dr. Allie Birch Neutrophils/100 WBC (Bld) 72.6 % Normal 43.0-75.0 [facility] Comment on above: Performed By: #### C BC #### [facility] [address] [place] [address] Dr. Allie Birch Platelet mean volume (Bld) [Entitic vol] 9.6 fL Normal 9.5-13.5 [facility] Comment on above: Performed By: #### C BC #### [facility] [address] [place] [address] Dr. Allie Birch PLT 316 103/ul Normal 150-450 [facility] Comment on above: Performed By: #### C BC #### [facility] [address] [place] [address] Dr. Allie Birch RBC 4.80 106/ul Normal 4.20-5.40 [facility] Comment on above: Performed By: #### C BC #### [facility] [address] [place] [address] Dr. Allie Birch WBC 8.6 103/ul Normal 4.0-11.0 [facility] Comment on above: Performed By: #### C BC #### [facility] [address] [place] [address] Dr. Allie Birch FREE T4on 07-25-2022 Free T4 [Mass/Vol] 0.80 ng/dL Normal 0.76-1.46 [facility] Comment on above: Performed By: #### C MP, TSH #### [facility] [address] [place] [address] Dr. Allie Birch PROF 14(COMP METB)on 022 Albumin [Mass/Vol] 3.5 g/dL Normal 3.4-5.0 [facility] Comment on above: Performed By: #### C MP, TSH #### [facility] [address] [place] [address] Dr. Allie Birch Albumin/Globulin [Mass ratio] 1.0 {ratio} Normal [facility] Comment on above: Performed By: #### C MP, TSH #### [facility] [address] [address] [address] Allie Birch ALP [Catalytic activity/Vol] 96 U/L Normal 46-116 [facility] Comment on above: Performed By: #### C MP, TSH #### [facility] [address] [address] [address] Allie Birch ALT [Catalytic activity/Vol] 21 U/L Normal 14-59 [facility] Comment on above: Performed By: #### C MP, TSH #### [facility] [address] [address] [address] Allie Birch Anion gap [Moles/Vol] 9.2 mmol/L Normal [facility] Comment on above: Performed By: #### C MP, TSH #### [facility] [address] [address] [address] Allie Birch AST [Catalytic activity/Vol] 15 U/L Normal 15-37 [facility] Comment on above: Performed By: #### C MP, TSH #### [facility] [address] [address] [address] Allie Birch Bilirubin [Mass/Vol] 0.5 mg/dL Normal 0.2-1.0 [facility] Comment on above: Performed By: #### C MP, TSH #### [facility] [address] [address] [address] Allie Birch Calcium [Mass/Vol] 8.7 mg/dL Normal 8.5-10.1 [facility] Comment on above: Performed By: #### C MP, TSH #### [facility] [address] [address] [address] Allie Birch Chloride [Moles/Vol] 102 mmol/L Normal 98-107 [facility] Comment on above: Performed By: #### C MP, TSH #### [facility] [address] [address] [address] Allie Birch CO2 [Moles/Vol] 30.0 mmol/L Normal 21.0-32.0 [facility] Comment on above: Performed By: #### C MP, TSH #### [facility] [address] [address] [address] Allie Birch Creatinine [Mass/Vol] 0.77 mg/dL Normal 0.55-1.02 [facility] Comment on above: Performed By: #### C MP, TSH #### [facility] [address] [address] [address] Allie Birch EGFR-AF CANADIAN >60 Normal >=60 [facility] Comment on above: Performed By: #### C MP, TSH #### [facility] [address] [address] [address] Allie Birch EGFR-NON AF CANADIAN >60 Normal >=60 [facility] Comment on above: Performed By: #### C MP, TSH #### [facility] [address] [place] [address] Dr. Allie Birch Globulin (S) [Mass/Vol] 3.5 g/dL Normal [facility] Comment on above: Performed By: #### C MP, TSH #### [facility] [address] [address] [address] Allie Birch Glucose [Mass/Vol] 87 mg/dL Normal 74-106 [facility] Comment on above: Performed By: #### C MP, TSH #### [facility] [address] [place] [address] Dr. Allie Birch Potassium [Moles/Vol] 4.2 mmol/L Normal 3.5-5.1 [facility] Comment on above: Performed By: #### C MP, TSH #### [facility] [address] [address] [address] Allie Birch Protein [Mass/Vol] 7.0 g/dL Normal 6.4-8.2 [facility] Comment on above: Performed By: #### C MP, TSH #### [facility] [address] [address] [address] Allie Birch Sodium [Moles/Vol] 137 mmol/L Normal 136-145 [facility] Comment on above: Performed By: #### C MP, TSH #### [facility] [address] [place] [address] Dr. Allie Birch Urea nitrogen [Mass/Vol] 8.0 mg/dL Normal 7.0-18.0 [facility] Comment on above: Performed By: #### C MP, TSH #### [facility] [address] [place] [address] Dr. Allie Birch Urea nitrogen/Creatinin e [Mass ratio] 10.4 mg/mg Normal [facility] Comment on above: Performed By: #### C MP, TSH #### [facility] [address] [place] [address] Dr. Allie Birch TSHon 07-25-2022 TSH 1.635 uIU/mL Normal 0.358-3.740 [facility] Comment on above: Performed By: #### C MP, TSH #### [facility] [address] [place] [address] Dr. Allie Birch VITAMIN B12on 07-25-2022 Cobalamin (Vitamin B12) [Mass/Vol] 408.0 pg/mL Normal 193.0-986.0 [facility] Comment on above: Performed By: #### C MP, TSH #### [facility] [address] [place] [address] Dr. Allie Birch FREE T4on 06-10-2022 Free T4 [Mass/Vol] 0.87 ng/dL Normal 0.76-1.46 [facility] Comment on above: Performed By: #### F T4 #### [facility] [address] [place] [address] Dr. Allie Birch TSHon 06-10-2022 TSH 4.450 uIU/mL Critically high 0.358-3.740 [facility] Comment on above: Performed By: #### T SH #### [facility] [address] [place] [address] Dr. Allie Birch XR ANKLE RT MIN [...] by: HERACLIO WELLS Date: 2022-05-14 15:51 Normal [facility] XR CHEST 2 Von 03-20-2022 XR [...] by: ANASTACIO ROLDAN Date: 2022-03-20 14:12 Normal [facility] FLUORO FOR SURGICAL PROCEDUR ESon 02-24-2019 FLUORO FOR SURGICAL PROCEDURES Radiology exam is complete. No Radiologist dictation. Please follow up with ordering provider. Final result Normal [facility] XR SACROILIAC JOINTS (MIN 3 VIEWS)on 02-24-2019 [...] Gerard Pena MD 02/24/19 Final result Normal [facility] Cult,Urine,CCon 02-13-2019 Cult,Urine,CC Specimen Description .URINE Special [...] <=20 SUSCEPTIBLE Piperacillin/Tazobacta m <=4 SUSCEPTIBLE Normal [facility] Comment on above: Performed By: #### C CATALINO #### [facility] [address] [place] [address] Licensed Pharmacist: Bigg Alvarez MD [address] [id number] Licensed Pharmacist: Andrez Saha MD MRSA, DNA, Nasalon 9 MRSA, DNA, Nasal NEGATIVE: MRSA DNA n ot detected by nucleic acid amplification. Normal BANNERSAA [facility] Comment on above: Result Comment: Results should be used as an adjunct to nosocomial control efforts to identify patients needing enhanced precautions. The test is not intended to identify patients with staphylococcal infections. Results should not be used to guide or monitor treatment for MRSA infections. Performed By: #### M RSANO #### [facility] [address] [place] [address] Licensed Pharmacist: Bigg Alvarez MD [address] [address] Licensed Pharmacist: Andrez Saha MD Type + Screenon 02-12-2019 Type + Screen Sample Expiration 02/27/2019 Arm Band Number [id number] ABO/Rh(D) O POSITIVE Antibody Screen NEGATIVE Normal [facility] Comment on above: Performed By: #### T YS #### [facility] [address] [place] [address] Licensed Pharmacist: Bigg Alvarez MD APTTon 02-11-2019 aPTT Coag time (Bld) 30.0 s Normal 23-31 [facility] Comment on above: Performed By: #### C DP, BMP #### [facility] [address] [place] [address] Licensed Pharmacist: Bigg Alvarez MD #### PT, PTT #### [address] [address] Licensed Pharmacist: Andrez Saha MD Basic Metabolic Profon 02-11 (cont.) Normal [facility] Comment on above: Result Comment: Aver age GFR for 40-49 years old: 99 mL/min/1.73sq m Chronic Kidney Disease: <60 mL/min/1.73sq m Kidney failure: <15 mL/min/1.73sq m eGFR calculated using average adult body mass. Additional eGFR calculator available at: http://www.Uanna[employer]/multiple_crcl_2012.htm Performed By: #### C DP, BMP #### [facility] [address] [place] [address] Licensed Pharmacist: Bigg Alvarez MD #### PT, PTT #### [address] [address] Licensed Pharmacist: Andrez Saha MD Anion gap molar conc 10 mmol/L Normal 9-17 [facility] Comment on above: Performed By: #### C DP, BMP #### [facility] [address] [place] [address] Licensed Pharmacist: Bigg Alvarez MD #### PT, PTT #### [address] [address] Licensed Pharmacist: Andrez Saha MD BUN/CRE Ratio 14 Normal 9-20 [facility] Comment on above: Performed By: #### C DP, BMP #### [facility] [address] [place] [address] Licensed Pharmacist: Bigg Alvarez MD #### PT, PTT #### [address] [address] Licensed Pharmacist: Andrez Saha MD Calcium mass conc 8.8 mg/dL Normal 8.6-10.4 [facility] Comment on above: Performed By: #### C DP, BMP #### [facility] [address] [place] [address] Licensed Pharmacist: Bigg Alvarez MD #### PT, PTT #### [address] [address] Licensed Pharmacist: Andrez Saha MD Chloride molar conc 103 mmol/L Normal 98-107 [facility] Comment on above: Performed By: #### C DP, BMP #### [facility] [address] [place] [address] Licensed Pharmacist: Bigg Alvarez MD #### PT, PTT #### [address] [address] Licensed Pharmacist: Andrez Saha MD CO2 molar conc 27 mmol/L Normal 20-31 [facility] Comment on above: Performed By: #### C DP, BMP #### [facility] [address] [place] [address] Licensed Pharmacist: Bigg Alvarez MD #### PT, PTT #### [address] [address] Licensed Pharmacist: Andrez Saha MD Creatinine mass conc 0.57 mg/dL Normal 0.50-0.90 [facility] Comment on above: Performed By: #### C DP, BMP #### [facility] [address] [place] [address] Licensed Pharmacist: Bigg Alvarez MD #### PT, PTT #### [id number] [place] [address] Licensed Pharmacist: Andrez Saha MD GFR, Amer >60 Normal >60 [facility] Comment on above: Performed By: #### C DP, BMP #### [facility] [address] [place] [address] Licensed Pharmacist: Bigg Alvarez MD #### PT, PTT #### [address] [address] Licensed Pharmacist: Andrez Saha MD GFR,non Amer >60 Normal >60 [facility] Comment on above: Performed By: #### C DP, BMP #### [facility] [place] [address] Licensed Pharmacist: Bigg Alvarez MD #### PT, PTT #### [address] [address] Licensed Pharmacist: Andrez Saha MD Glucose mass conc 110 mg/dL High 70-99 [facility] Comment on above: Performed By: #### C DP, BMP #### [facility] [place] [address] Licensed Pharmacist: Bigg Alvarez MD #### PT, PTT #### [address] [address] Licensed Pharmacist: Andrez Saha MD Potassium molar conc 3.6 mmol/L Low 3.7-5.3 [facility] Comment on above: Performed By: #### C DP, BMP #### [facility] [address] [place] [address] Licensed Pharmacist: Bigg Alvarez MD #### PT, PTT #### [address] [address] Licensed Pharmacist: Andrez Saha MD Sodium molar conc 140 mmol/L Normal 135-144 [facility] Comment on above: Performed By: #### C DP, BMP #### [facility] [address] [place] [address] Licensed Pharmacist: Bigg Alvarez MD #### PT, PTT #### [address] [address] Licensed Pharmacist: Andrez Saha MD Urea nitrogen mass conc 8 mg/dL Normal 6-20 [facility] Comment on above: Performed By: #### C DP, BMP #### [facility] [address] [place] [address] Licensed Pharmacist: Bigg Alvarez MD #### PT, PTT #### [address] [address] Licensed Pharmacist: Andrez Saha MD Staging: NOT REPORTED Normal [facility] Comment on above: Performed By: #### C DP, BMP #### [facility] [address] [place] [address] Licensed Pharmacist: Bigg Alvarez MD #### PT, PTT #### [address] [address] Licensed Pharmacist: Andrez Saha MD CBC with Diffon 02-11-2019 Abs. Basophil 0.07 k/uL Normal 0.00-0.20 [facility] Comment on above: Performed By: #### C DP, BMP #### [facility] [address] [place] [address] Licensed Pharmacist: Bigg Alvarez MD #### PT, PTT #### [address] [phone] Licensed Pharmacist: Andrez Saha MD Abs.Imm.Granulocyt e 0.03 k/uL Normal 0.00-0.30 [facility] Comment on above: Performed By: #### C DP, BMP #### [facility] [address] [place] [phone] Licensed Pharmacist: Bigg Alvarez MD #### PT, PTT #### [address] [phone] Licensed Pharmacist: Andrez Saha MD Abs.Neutrophil (Seg) 4.85 k/uL Normal 1.50-8.10 [facility] Comment on above: Performed By: #### C DP, BMP #### [facility] [address] [place] [address] Licensed Pharmacist: Bigg Alvarez MD #### PT, PTT #### [place] [address] Licensed Pharmacist: Andrez Saha MD Basophils/100 WBC (Bld) 1 % Normal 0-2 [facility] Comment on above: Performed By: #### C DP, BMP #### [facility] [address] [place] [address] Licensed Pharmacist: Bigg Alvarez MD #### PT, PTT #### [address] [address] Licensed Pharmacist: Andrez Saha MD Eosinophils #/vol (Bld) 0.24 10*3/uL Normal 0.00-0.44 [facility] Comment on above: Performed By: #### C DP, BMP #### [facility] [address] [place] [id number] Licensed Pharmacist: Bigg Alvarez MD #### PT, PTT #### [address] [address] Licensed Pharmacist: Andrez Saha MD Eosinophils/100 WBC (Bld) 3 % Normal 1-4 [facility] Comment on above: Performed By: #### C DP, BMP #### [facility] [address] [place] [address] Licensed Pharmacist: Bigg Alvarez MD #### PT, PTT #### [address] [address] Licensed Pharmacist: Andrez Saha MD Erythrocyte distribution width Ratio (RBC) 13.7 % Normal 11.8-14.4 [facility] Comment on above: Performed By: #### C DP, BMP #### [facility] [address] [place] [id number] Licensed Pharmacist: Bigg Alvarez MD #### PT, PTT #### [address] [address] Licensed Pharmacist: Andrez Saha MD Hematocrit Volume Fraction (Bld) 44.0 % Normal 36.3-47.1 [facility] Comment on above: Performed By: #### C DP, BMP #### [facility] [address] [place] [address] Licensed Pharmacist: Bigg Alvarez MD #### PT, PTT #### [address] [address] Licensed Pharmacist: Andrez Saha MD Hemoglobin mass conc (Bld) 14.6 g/dL Normal 11.9-15.1 [facility] Comment on above: Performed By: #### C DP, BMP #### [facility] [address] [place] [address] Licensed Pharmacist: Bigg Alvarez MD #### PT, PTT #### [address] [address] Licensed Pharmacist: Andrez Saha MD Immature granulocytes #/vol (Bld) 0 % Normal 0 [facility] Comment on above: Performed By: #### C DP, BMP #### [facility] [address] [place] [address] Licensed Pharmacist: Bigg Alvarez MD #### PT, PTT #### [address] [address] Licensed Pharmacist: Andrez Saha MD Lymphocytes #/vol (Bld) 1.62 10*3/uL Normal 1.10-3.70 [facility] Comment on above: Performed By: #### C DP, BMP #### [facility] [address] [place] [address] Licensed Pharmacist: Bigg Alvarez MD #### PT, PTT #### [address] [address] Licensed Pharmacist: Andrez Saha MD Lymphocytes/100 WBC (Bld) 23 % Low 24-43 [facility] Comment on above: Performed By: #### C DP, BMP #### [facility] [address] [place] [address] Licensed Pharmacist: Bigg Alvarez MD #### PT, PTT #### [address] [address] Licensed Pharmacist: Andrez Saha MD MCH Entitic mass (RBC) 29.3 pg Normal 25.2-33.5 [facility] Comment on above: Performed By: #### C DP, BMP #### [facility] [address] [place] [address] Licensed Pharmacist: Bigg Alvarez MD #### PT, PTT #### [address] [address] Licensed Pharmacist: Andrez Saha MD MCHC mass conc (RBC) 33.2 g/dL Normal 28.4-34.8 [facility] Comment on above: Performed By: #### C DP, BMP #### [facility] [address] [place] [address] Licensed Pharmacist: Bigg Alvarez MD #### PT, PTT #### [address] [phone] Licensed Pharmacist: Andrez Saha MD MCV Entitic volume (RBC) 88.2 fL Normal 82.6-102.9 [facility] Comment on above: Performed By: #### C DP, BMP #### [facility] [address] [place] [address] Licensed Pharmacist: Bigg Alvarez MD #### PT, PTT #### [address] [address] Licensed Pharmacist: Andrez Saha MD Monocytes #/vol (Bld) 0.36 10*3/uL Normal 0.10-1.20 [facility] Comment on above: Performed By: #### C DP, BMP #### [facility] [address] [place] [address] Licensed Pharmacist: Bigg Alvarez MD #### PT, PTT #### [address] [address] Licensed Pharmacist: Andrez Saha MD Monocytes/100 WBC (Bld) 5 % Normal 3-12 [facility] Comment on above: Performed By: #### C DP, BMP #### [facility] [address] [place] [address] Licensed Pharmacist: Bigg Alvarez MD #### PT, PTT #### [address] [address] Licensed Pharmacist: Andrez Saha MD Neutrophil (Seg) 68 % High 36-65 [facility] Comment on above: Performed By: #### C DP, BMP #### [facility] [address] [place] [address] Licensed Pharmacist: Bigg Alvarez MD #### PT, PTT #### [address] [address] Licensed Pharmacist: Andrez Saha MD NRBC Automated 0.0 per 100 WBC Normal 0.0 [facility] Comment on above: Performed By: #### C DP, BMP #### [facility] [address] [place] [address] Licensed Pharmacist: Bigg Alvarez MD #### PT, PTT #### [address] [address] Licensed Pharmacist: Andrez Saha MD Platelet mean volume Entitic volume (Bld) 9.5 fL Normal 8.1-13.5 [facility] Comment on above: Performed By: #### C DP, BMP #### [facility] [address] [place] [address] Licensed Pharmacist: Bigg Alvarez MD #### PT, PTT #### [address] [address] Licensed Pharmacist: Andrez Saha MD Platelets #/vol (Bld) 298 10*3/uL Normal 138-453 [facility] Comment on above: Performed By: #### C DP, BMP #### [facility] [address] [place] [address] Licensed Pharmacist: Bigg Alvarez MD #### PT, PTT #### [address] [address] Licensed Pharmacist: Andrez Saha MD RBC #/vol (Bld) 4.99 10*6/uL Normal 3.95-5.11 [facility] Comment on above: Performed By: #### C DP, BMP #### [facility] [place] [address] Licensed Pharmacist: Bigg Alvarez MD #### PT, PTT #### [address] [address] Licensed Pharmacist: Andrez Saha MD WBC #/vol (Bld) 7.2 10*3/uL Normal 3.5-11.3 [facility] Comment on above: Performed By: #### C DP, BMP #### [facility] [address] [place] [address] Licensed Pharmacist: Bigg Alvarez MD #### PT, PTT #### [address] [address] Licensed Pharmacist: Andrez Saha MD Auto Diff Performed NOT REPORTED Normal [facility] Comment on above: Performed By: #### C DP, BMP #### [facility] [address] [place] [address] Licensed Pharmacist: Bigg Alvarez MD #### PT, PTT #### [address] [address] Licensed Pharmacist: Andrez Saha MD Platelets #/vol (Bld) NOT REPORTED Normal [facility] Comment on above: Performed By: #### C DP, BMP #### [facility] [address] [place] [address] Licensed Pharmacist: Bigg Alvarez MD #### PT, PTT #### [address] [address] Licensed Pharmacist: Andrez Saha MD RBC morphology finding Nom (Bld) NOT REPORTED Normal [facility] Comment on above: Performed By: #### C DP, BMP #### [facility] [address] [place] [address] Licensed Pharmacist: Bigg Alvarez MD #### PT, PTT #### [address] [address] Licensed Pharmacist: Andrez Saha MD WBC Morphology NOT REPORTED Normal [facility] Comment on above: Performed By: #### C DP, BMP #### [facility] [address] [place] [address] Licensed Pharmacist: Bigg Alvarez MD #### PT, PTT #### [address] [address] Licensed Pharmacist: Andrez Saha MD MRSA, DNA, Nasalon 9 Specimen Description .NASAL SWAB Normal [facility] Comment on above: Performed By: #### M RSANO #### [facility] [address] [place] [address] Licensed Pharmacist: Bigg Alvarez MD [address] [address] Licensed Pharmacist: Andrez Saha MD PTon 02-11-2019 INR Coag RelTime (PPP) 1.0 {INR} Normal [facility] Comment on above: Result Comment: Therapeutic Range: Moderate Anticoagulant Intensity: INR = 2.0-3.0 High Anticoagulant Intensity: INR = 2.5-3.5 High anticoagulant intensity for patients with a mechanical prosthetic heart valve, thrombosis and antiphospholipid syndrome, or myocardial infarction. Performed By: #### C DP, BMP #### [facility] [address] [place] [address] Licensed Pharmacist: Bigg Alvarez MD #### PT, PTT #### [address] [address] Licensed Pharmacist: Andrez Saha MD Prothrombin time (PT) Coag time (PPP) 10.4 s Normal 9.7-11.6 [facility] Comment on above: Performed By: #### C DP, BMP #### [facility] [address] [place] [address] Licensed Pharmacist: Bigg Alvarez MD #### PT, PTT #### [address] [address] Licensed Pharmacist: Andrez Saha MD Urinalysis, Routineon 2018 Acetoacetic Acid,Ur Negative Normal NEG [facility] Comment on above: Performed By: #### U YENNY Bond #### [facility] [address] [place] [address] Licensed Pharmacist: Bigg Alvarez MD Bilirubin, SemiQt,Ur Negative Normal NEG [facility] Comment on above: Performed By: #### U A UMICAO #### [facility] [address] [place] [address] Licensed Pharmacist: Bigg Alvarez MD Color Nom (U) YELLOW Normal L [facility] Comment on above: Performed By: #### U A UMICAO #### [facility] [address] [place] [address] Licensed Pharmacist: Bigg Alvarez MD Glucose,Semi-qnt,U r Negative Normal NEG [facility] Comment on above: Performed By: #### U A UMICAO #### [facility] [address] [place] [address] Licensed Pharmacist: Bigg Alvarez MD Hemoglobin, Ur TRACE Abnormal NEG [facility] Comment on above: Performed By: #### U A UMICAO #### [facility] [address] [place] [address] Licensed Pharmacist: Bigg Alvarez MD Leuckocyte Esterase Negative Normal NEG [facility] Comment on above: Performed By: #### U A UMICAO #### [facility] [address] [place] [address] Licensed Pharmacist: Bigg Alvarez MD Nitrite,Ur Negative Normal NEG [facility] Comment on above: Performed By: #### U A UMICAO #### [facility] [address] [place] [address] Licensed Pharmacist: Bigg Alvarez MD PH,Ur 6.0 Normal 5.0-8.0 [facility] Comment on above: Performed By: #### U A UMICAO #### [facility] [address] [place] [address] Licensed Pharmacist: Bigg Alvarez MD Protein mass conc (U) Negative Normal NEG [facility] Comment on above: Performed By: #### U A UMICAO #### [facility] [address] [place] [address] Licensed Pharmacist: Bigg Alvarez MD Spec. [place],Ur 1.010 Normal 1.005-1.030 [facility] Comment on above: Performed By: #### U A UMICAO #### [facility] [address] [place] [address] Licensed Pharmacist: Bigg Alvarez MD Turbidity CLEAR Normal CLEAR [facility] Comment on above: Performed By: #### YENNY Mike #### [facility] [address] [place] [address] Licensed Pharmacist: Bigg Alvarez MD Urobilinogen,Ur Normal Normal NORM [facility] Comment on above: Performed By: #### YENNY Mike #### [facility] [address] [facility] [place] [address] Licensed Pharmacist: Bigg Alvarez MD Comment NOT REPORTED Normal [facility] Comment on above: Performed By: #### YENNY Mike #### [facility] [address] [place] [address]. [place] [address] Licensed Pharmacist: Bigg Alvarez MD Urinalysis,Microon 9 ----- Normal [facility] Comment on above: Performed By: #### YENNY Mike #### [facility] [address] [place] [address]. [place] [address] Licensed Pharmacist: Bigg Alvarez MD Epithelial cells LM.HPF #/area (Urine sed) 5 TO 10 Normal 0-5 [facility] Comment on above: Performed By: #### YENNY Mike #### [facility] [address] [place] [address]. [place] [address] Licensed Pharmacist: Bigg Alvarez MD RBC #/vol (U) 0 TO 2 Normal 0-2 [facility] Comment on above: Performed By: #### U A UMANAHIO #### [facility] [address] [place] [address] Licensed Pharmacist: Bigg Alvarez MD WBC #/vol (U) None Normal 0-5 [facility] Comment on above: Performed By: #### U A, UMICAO #### [facility] [place] [address] Licensed Pharmacist: Bigg Alvarez MD Amorphous sediment LM Ql (Urine sed) NOT REPORTED Normal NONE [facility] Comment on above: Performed By: #### U A UMICAO #### [facility] [address] [place] [address]. [place] [address] Licensed Pharmacist: Bigg Alvarez MD Bacteria LM.HPF #/area (Urine sed) NOT REPORTED Normal [facility] Comment on above: Performed By: #### U A UMICAO #### [facility] [address] [place] [address] Licensed Pharmacist: Bigg Alvarez MD Casts LM.LPF #/area (Urine sed) NOT REPORTED Normal [facility] Comment on above: Performed By: #### U ADANILOO #### [facility] [address] [place] [address]. [place] [address] Licensed Pharmacist: Bigg Alvarez MD Crystals LM Nom (Urine sed) NOT REPORTED Normal [facility] Comment on above: Performed By: #### DANILO MikeO #### [facility] [address] [place] [address]. [place] [address] Licensed Pharmacist: Bigg Alvarez MD Epithelial, Renal NOT REPORTED Normal 0 [facility] Comment on above: Performed By: #### U A UMICAO #### [facility] [address] [place] [address]. [place] [address] Licensed Pharmacist: Bigg Alvarez MD Mucus Strands NOT REPORTED Normal [facility] Comment on above: Performed By: #### U A, UMICAO #### [facility] [address] [place] [address] Licensed Pharmacist: Bigg Alvarez MD Other Observations NOT REPORTED Normal NREQ [facility] Comment on above: Performed By: #### U A, UMICAO #### [facility] [address] [facility] [place] [address] Licensed Pharmacist: Bigg Alvarez MD Trichomonas NOT REPORTED Normal NONE [facility] Comment on above: Performed By: #### U A, UMICAO #### [facility] [address] [facility] [place] [address] Licensed Pharmacist: Bigg Alvarez MD Yeast LM Ql (Urine sed) NOT REPORTED Normal NONE [facility] Comment on above: Performed By: #### U A, UMICAO #### [facility] [place] [address] Licensed Pharmacist: Bigg Alvarez MD XR CHEST (2 VW)on [...] Amrik George MD 02/11/19 Final result Normal [facility] MRI ANKLE WO CONTRAST LEFTon 03-02-2018 MRI ANKLE WO CONTRAST LEFT [facility] Department of Radiology [address] [place] [address] ======== Patient Name: CONNIE ALEX : 1975 Sex: F Age: Race: White Pt. Location: 4 Patient Status: D Ordered Date: 02/28/2018 3:30:00 PM Completed Date: 03/02/2018 10:42 AM Requesting Provider: JONATHAN DELGADO Attending Provider: JONATHAN DELGADO Report Copy To: Signs & Symptoms: M79.672 Pain in left foot I10 History: Lisa, Breast clip AUTHORIZATION [id number] VALID 02/28/2018-03/30/2018 - per Goldie with Dr Delgado's office. please check-jlr Comments: , AUTHORIZATION [id number] VALID 02/28/2018-03/30/2018 left ankle mri Evaluate achilled tendon rupture after traumatic injury , AUTHORIZATION [id number] VALID 02/28/2018-03/30/2018 left ankle mri Evaluate achilled [...] pain QUESTION FOR THE RADIOLOGIST: , AUTHORIZATION [id number] VALID 02/28/2018-03/30/2018 left ankle mri Evaluate achilled tendon rupture after traumatic injury , AUTHORIZATION [id number] VALID ...More In Sending System PROTOCOL: Images [...] above. Electronically signed by:Patrick Santacruz. Transcribed by: [email or web address], User Resident: Electronically Signed by: PATRICK SANTACRUZ @ 03/03/2018 09:55 AM Normal [facility] Comment on above: Order Comment: , AUTHORIZATION [id number] VALID 02/28/2018-03/30/2018 left ankle mri Evaluate achilled tendon rupture after traumatic injury , AUTHORIZATION [id number] VALID 02/28/2018-03/30/2018 left ankle mri Evaluate achilled [...] Start: 02-24-2019 End: 02-24-2019 Patient encounter procedure [facility] Start: 02-11-2019 End: 02-14-2019 Patient encounter procedure [facility] Start: 02-11-2019 End: 02-16-2019 Patient encounter procedure [facility] Procedures Date Procedure Procedure Detail Performing Clinician [...] BENJAMINRICHELLERajani Payers Date Payer Category Payer Medicaid [id number] 2014 Unknown [id number] 1975 Unknown [id number] 2.16.8 [id number] 1975 Unknown [id number] 2.16.8 [id number] 1975 Unknown [id number] 2.16.8 [id number] 1975 Unknown [id number] 2.16.84 [id number] 1975 Unknown [id number] 2.16.84 [id number] 1973 Unknown [id number] 2.16.84 [id number] 1975 Unknown [id number] 2.16.84 [id number] 1973 Unknown [id number] 2.16.84 [id number] 1973 Unknown [id number] 2.16.84 [id number] 1973 Unknown [id number] 2.16.84 [id number] 1973 Unknown [id number] 2.16.84 [id number] 1959 Unknown [id number] Clinical Note 05-18-2022 Note Date & Type [...] authenticated by: TEVIN ESPINOZA Date: 2022-05-18 08:15 [facility] Clinical Note 05-18-2022 Note Date & [...] authenticated by: TEVIN ESPINOZA Date: 2022-05-18 08:15 [facility] Summary Purpose Family History No Family History Records FoundNo Family History Records FoundNo Family History Records Found Advance Directives No Advanced Directives Records FoundNo Advanced Directives Records FoundNo Advanced Directives Records Found Additional Source Comments INFORMATION SOURCE (unrecogn ized section and content) DATE CREATED AUTHOR 02/27/2019 [facility] DATE CREATED AUTHOR AUTHOR'S ORGANIZ ATION 03/02/2019 [facility] DATE CREATED AUTHOR AUTHOR'S ORGANIZ ATION 02/07/2023 [facility] FOR RECORDS PERTAINING TO PATIENTS WHO ARE [...] BE BASED ON THE PRIMARY CLINICAL RECORDS. [facility] [employer] provides no warranty or guarantee of the accuracy or completeness of information in this document.
[2023-10-02 13:28] VITALS: PULSE 88; RESP 18; O2SAT 100
== END 2023-10-02 13:29 | disposition home or self-care (01) ==
PROVIDERS: Emergency Provider Emergency Medicine; PCP Nurse Practitioner
DX: J06.9 Acute upper respiratory infection, unspecified (principal); F17.210 Nicotine dependence, cigarettes, uncomplicated; Z79.899 Other long term (current) drug therapy; Z79.890 Hormone replacement therapy
CPT/HCPCS: 71045; 99283

== ENCOUNTER 2023-10-25 06:46 | Outpatient (OUT) | payer SELFPAY ==
--- OUTSIDE RECORDS SUMMARY | 2023-10-25 06:51 | XMS_ITS | CCD ---
Author Name Unknown Address [address] [place] [address] Organization [facility] Care Team Providers Care Adult School Counselor Name Role Phone CHARU CALLAWAY Referring Unavailable AICHHOLZ, JULIO J. Primary Care Unavailable CHARU CALLAWAY Referring Unavailable AICHHOLZ, JULIO J. Primary Care Unavailable CESIA, CHARU Admitting Unavailable CESIA, CHARU Attending Unavailable AICHHOLZ, JULIO J. Primary Care Unavailable AICHHOLZ, SAUSAGE STRINGER JULIO Admitting Unavailable AICHHOLZ, SAUSAGE STRINGER JULIO Attending Unavailable AICHHOLZ, SAUSAGE STRINGER JULIO Consulting Unavailable AICHHOLZ, SAUSAGE STRINGER JULIO Primary Care Unavailable AICHHOLZ, SAUSAGE STRINGER JULIO Admitting Unavailable AICHHOLZ, SAUSAGE STRINGER JULIO Attending Unavailable AICHHOLZ, SAUSAGE STRINGER JULIO Consulting Unavailable AICHHOLZ, SAUSAGE STRINGER JULIO Primary Care Unavailable AICHHOLZ, SAUSAGE STRINGER JULIO Admitting Unavailable AICHHOLZ, SAUSAGE STRINGER JULIO Attending Unavailable AICHHOLZ, SAUSAGE STRINGER JULIO Consulting Unavailable AICHHOLZ, SAUSAGE STRINGER JULIO Primary Care Unavailable AICHHOLZ, SAUSAGE STRINGER JULIO Primary Care Unavailable FAWWAD, WILLS H Admitting Unavailable FAWWAD, WILLS H Attending Unavailable FAWWAD, WILLS H Consulting Unavailable ANASTACIO ROLDAN Consulting Unavailable JANESSA HERNANDEZ Admitting Unavailable Tevin Espinoza Consulting Unavailable JANESSA HERNANDEZ Attending Unavailable AICHHOLZ, SAUSAGE STRINGER JULIO Primary Care Unavailable JANESSA HERNANDEZ Consulting Unavailable HELENA QUINTANA Admitting Unavailable MR GINO SANFORD Consulting Unavailable AICHHOLZ, SAUSAGE STRINGER JULIO Primary Care Unavailable HELENA QUINTANA Attending Unavailable HERACLIO WELLS Consulting Unavailable AICHHOLZ, SAUSAGE STRINGER JULIO Admitting Unavailable AICHHOLZ, SAUSAGE STRINGER JULIO Attending Unavailable AICHHOLZ, SAUSAGE STRINGER JULIO Consulting Unavailable SHELLIE, SAUSAGE STRINGER JULIO Primary Care Unavailable SHELLIE, IVET JULIO Attending Unavailable SHELLIE, IVET JULIO Consulting Unavailable SHELLIE, IVET GARCIAA Primary Care Unavailable SHELLIE, IVET GARCIAA Admitting Unavailable JOSE HENSLEYA Attending Unavailable JOSE HENSLEYA Attending Unavailable Allergies Allergy Classification Reported Allergen(s) Allergy Type Date of Onset Reaction(s) Facility (1 source) bee venom Drug allergy (disorder) 11-12-2013 [facility] Repository Problems Active Problems Problem Classification [...] : 1975 Gender:F Ordering : IVET HENSLEY SAUSAGE STRINGER Admission #: [id number] Family : Order #: [id number] CLICK HERE TO VIEW EXAM RADIOLOGY REPORT [...] throat cancer at age 82. LOCATION: [facility] BREAST COMPOSITION: Heterogeneously dense,which may obscure [...] MD on 02/06/2023 at 10:24 Normal [facility] Covid-19 PCR (CVDTBH)on 12-24 SARS-CoV-2 (COVID-19) RNA TAYO+probe Ql (Unsp spec) Not detected Normal NOT DETECTED [facility] Comment on above: Result Comment: This test is not yet approved or cleared by the [place] FDA. When there are no FDA-approved or cleared tests available, and other criteria are met, FDA can make tests available under an emergency access mechanism called an Emergency Use Authorization (EUA). The EUA for this test is supported by the Insurance Underwriter Sales of Health and Human Service's (HHS's) declaration [...] consistent with SARS-CoV-2. Performed By: #### C DONALD, TSH #### [facility] [address] [place] [address] Dr. Allie Birch SYMPTOMATIC COVID-19 ANTIGEN on 01-18-2023 EUA Statement SEE BELOW Normal [facility] Comment on above: Result Comment: This [...] is revoked sooner. Performed By: #### C DONALD, TSH #### [facility] [address] [place] [address] Dr. Allie Birch SARS-CoV-2 (COVID-19) RNA TAYO+probe Ql (Unsp spec) Negative Normal NEGATIVE [facility] Comment on above: Performed By: #### C MP, TSH #### [facility] [address] [place] [address] Dr. Allie Birch CBC AUTO DIFFon 07-25-2022 BASO # 0.1 103/ul Normal 0.0-0.1 [facility] Comment on above: Performed By: #### C BC #### [facility] [address] [place] [address] Dr. Allie Birch Basophils/100 WBC (Bld) 1.3 % Normal 0.2-2.0 [facility] Comment on above: Performed By: #### C BC #### [facility] [address] [place] [address] Dr. Allie Birch EO # 0.3 103/ul Normal 0.0-0.7 [facility] Comment on above: Performed By: #### C BC #### [facility] [address] [place] [address] Dr. Allie Birch Eosinophils/100 WBC (Bld) 3.4 % Normal 0.9-7.0 [facility] Comment on above: Performed By: #### C BC #### [facility] [address] [place] [address] Dr. Allie Birch Erythrocyte distribution width (RBC) [Ratio] 13.2 % Normal 11.0-15.0 [facility] Comment on above: Performed By: #### C BC #### [facility] [address] [place] [address] Dr. Allie Birch Hematocrit (Bld) [Volume fraction] 41.7 % Normal 36.0-48.0 [facility] Comment on above: Performed By: #### C BC #### [facility] [address] [place] [address] Dr. Allie Birch Hemoglobin (Bld) [Mass/Vol] 14.1 g/dL Normal 12.0-16.0 [facility] Comment on above: Performed By: #### C BC #### [facility] [address] [place] [address] Dr. Allie Birch IG # 0.02 10e3/ul Normal 0.00-0.03 [facility] Comment on above: Performed By: #### C BC #### [facility] [address] [place] [address] Dr. Allie Birch IG % 0.2 % Normal 0.0-0.5 [facility] Comment on above: Performed By: #### C BC #### [facility] [address] [place] [address] Dr. Allie Birch LYMPH # 1.6 103/ul Normal 1.2-3.8 [facility] Comment on above: Performed By: #### C BC #### [facility] [address] [place] [address] Dr. Allie Birch Lymphocytes/100 WBC (Bld) 18.1 % Critically low 20.5-60.0 [facility] Comment on above: Performed By: #### C BC #### [facility] [address] [place] [address] Dr. Allie Birch MANUAL DIFF REQ NO Normal [facility] Comment on above: Performed By: #### C BC #### [facility] [address] [place] [address] Dr. Allie Birch MCH (RBC) [Entitic mass] 29.4 pg Normal 26.7-34.0 [facility] Comment on above: Performed By: #### C BC #### [facility] [address] [place] [address] Dr. Allie Birch MCHC (RBC) [Mass/Vol] 33.8 g/dL Normal 29.9-35.2 [facility] Comment on above: Performed By: #### C BC #### [facility] [address] [place] [address] Dr. Allie Birch MCV (RBC) [Entitic vol] 86.9 fL Normal 81.0-99.0 [facility] Comment on above: Performed By: #### C BC #### [facility] [address] [place] [address] Dr. Allie Birch MONO # 0.4 103/ul Normal 0.3-0.8 [facility] Comment on above: Performed By: #### C BC #### [facility] [address] [place] [address] Dr. Allie Birch Monocytes/100 WBC (Bld) 4.4 % Normal 1.7-12.0 [facility] Comment on above: Performed By: #### C BC #### [facility] [address] [place] [address] Dr. Allie Birch NEUT # 6.2 103/ul Normal 1.4-6.5 [facility] Comment on above: Performed By: #### C BC #### [facility] [address] [place] [address] Dr. Allie Birch Neutrophils/100 WBC (Bld) 72.6 % Normal 43.0-75.0 [facility] Comment on above: Performed By: #### C BC #### [facility] [address] [place] [address] Dr. Allie Birch Platelet mean volume (Bld) [Entitic vol] 9.6 fL Normal 9.5-13.5 [facility] Comment on above: Performed By: #### C BC #### [facility] [address] [place] [address] Dr. Allie Birch PLT 316 103/ul Normal 150-450 [facility] Comment on above: Performed By: #### C BC #### [facility] [address] [place] [address] Dr. Allie Birch RBC 4.80 106/ul Normal 4.20-5.40 [facility] Comment on above: Performed By: #### C BC #### [facility] [address] [place] [address] Dr. Allie Birch WBC 8.6 103/ul Normal 4.0-11.0 [facility] Comment on above: Performed By: #### C BC #### [facility] [address] [place] [address] Dr. Allie Brich FREE T4on 07-25-2022 Free T4 [Mass/Vol] 0.80 ng/dL Normal 0.76-1.46 [facility] Comment on above: Performed By: #### C MP, TSH #### [facility] [address] [place] [address] Dr. Allie Birch PROF 14(COMP METB)on 022 Albumin [Mass/Vol] 3.5 g/dL Normal 3.4-5.0 [facility] Comment on above: Performed By: #### C MP, TSH #### [facility] [address] [place] [address] Dr. Allie Birch Albumin/Globulin [Mass ratio] 1.0 {ratio} Normal [facility] Comment on above: Performed By: #### C MP, TSH #### [facility] [address] [place] [address] Dr. Allie Birch ALP [Catalytic activity/Vol] 96 U/L Normal 46-116 [facility] Comment on above: Performed By: #### C MP, TSH #### [facility] [address] [place] [address] Dr. Allie Birch ALT [Catalytic activity/Vol] 21 U/L Normal 14-59 [facility] Comment on above: Performed By: #### C MP, TSH #### [facility] [address] [place] [address] Dr. Allie Birch Anion gap [Moles/Vol] 9.2 mmol/L Normal [facility] Comment on above: Performed By: #### C MP, TSH #### [facility] [address] [place] [address] Dr. Allie Birch AST [Catalytic activity/Vol] 15 U/L Normal 15-37 [facility] Comment on above: Performed By: #### C MP, TSH #### [facility] [address] [place] [address] Dr. Allie Birch Bilirubin [Mass/Vol] 0.5 mg/dL Normal 0.2-1.0 [facility] Comment on above: Performed By: #### C MP, TSH #### [facility] [address] [place] [address] Dr. Allie Birch Calcium [Mass/Vol] 8.7 mg/dL Normal 8.5-10.1 [facility] Comment on above: Performed By: #### C MP, TSH #### [facility] [address] [place] [address] Dr. Allie Birch Chloride [Moles/Vol] 102 mmol/L Normal 98-107 [facility] Comment on above: Performed By: #### C MP, TSH #### [facility] [address] [place] [address] Dr. Allie Birch CO2 [Moles/Vol] 30.0 mmol/L Normal 21.0-32.0 [facility] Comment on above: Performed By: #### C MP, TSH #### [facility] [address] [place] [address] Dr. Allie Birch Creatinine [Mass/Vol] 0.77 mg/dL Normal 0.55-1.02 [facility] Comment on above: Performed By: #### C MP, TSH #### [facility] [address] [place] [address] Dr. Allie Birch EGFR-AF IRISH >60 Normal >=60 [facility] Comment on above: Performed By: #### C MP, TSH #### [facility] [address] [place] [address] Dr. Allie Birch EGFR-NON AF IRISH >60 Normal >=60 [facility] Comment on above: Performed By: #### C MP, TSH #### [facility] [address] [place] [address] Dr. Allie Birch Globulin (S) [Mass/Vol] 3.5 g/dL Normal [facility] Comment on above: Performed By: #### C MP, TSH #### [facility] [address] [place] [address] Dr. Allie Birch Glucose [Mass/Vol] 87 mg/dL Normal 74-106 [facility] Comment on above: Performed By: #### C MP, TSH #### [facility] [address] [place] [address] Dr. Allie Birch Potassium [Moles/Vol] 4.2 mmol/L Normal 3.5-5.1 [facility] Comment on above: Performed By: #### C MP, TSH #### [facility] [address] [place] [address] Dr. Allie Birch Protein [Mass/Vol] 7.0 g/dL Normal 6.4-8.2 [facility] Comment on above: Performed By: #### C MP, TSH #### [facility] [address] [place] [address] Dr. Allie Birch Sodium [Moles/Vol] 137 mmol/L Normal 136-145 [facility] Comment on above: Performed By: #### C MP, TSH #### [facility] [address] [place] [address] Dr. Allie Birch Urea nitrogen [Mass/Vol] 8.0 mg/dL Normal 7.0-18.0 [facility] Comment on above: Performed By: #### C MP, TSH #### [facility] [address] [place] [address] Dr. Allie Birch Urea nitrogen/Creatinin e [Mass ratio] 10.4 mg/mg Normal [facility] Comment on above: Performed By: #### C MP, TSH #### [facility] [address] [place] [address] Dr. Allie Birch TSHon 07-25-2022 TSH 1.635 uIU/mL Normal 0.358-3.740 [facility] Comment on above: Performed By: #### C MP, TSH #### [facility] [address] [place] [address] Dr. Allie Birch VITAMIN B12on 07-25-2022 Cobalamin (Vitamin B12) [Mass/Vol] 408.0 pg/mL Normal 193.0-986.0 [facility] Comment on above: Performed By: #### C MP, TSH #### [facility] [address] [place] [address] Dr. Allie Birch FREE T4on 06-10-2022 Free T4 [Mass/Vol] 0.87 ng/dL Normal 0.76-1.46 [facility] Comment on above: Performed By: #### F T4 #### [facility] [address] [place] [address] Dr. Allie Birch TSHon 06-10-2022 TSH 4.450 uIU/mL Critically high 0.358-3.740 [facility] Comment on above: Performed By: #### T SH #### [facility] [address] [place] [address] Dr. Allie Birch XR ANKLE RT MIN [...] by: HERACLIO WELLS Date: 2022-05-14 15:51 Normal [facility] XR CHEST 2 Von 03-20-2022 XR [...] by: ANASTACIO ROLDAN Date: 2022-03-20 14:12 Normal [facility] FLUORO FOR SURGICAL PROCEDUR ESon 02-24-2019 FLUORO FOR SURGICAL PROCEDURES Radiology exam is complete. No Radiologist dictation. Please follow up with ordering provider. Final result Normal [facility] XR SACROILIAC JOINTS (MIN 3 VIEWS)on [...] procedure report for more information. Interpreted by: Gino Pena MD Signed by: Gino Pena MD 02/24/19 Final result Normal [facility] Cult,Urine,CCon 02-13-2019 Cult,Urine,CC Specimen Description .URINE [...] Trimethoprim/Sulfa <=20 SUSCEPTIBLE Piperacillin/Tazobacta m <=4 SUSCEPTIBLE [facility] Comment on above: Performed By: #### C CATALINO #### [facility] [address] [place] [address] [employer] Cartoonist: Bigg Alvarez MD [address] [address] [employer] Cartoonist: Andrez Saha MD MRSA, DNA, Nasalon 9 MRSA, DNA, Nasal NEGATIVE: MRSA DNA n ot detected by nucleic acid amplification. Normal [facility] Comment on above: Result Comment: Results should be used as an adjunct to nosocomial control efforts to identify patients needing enhanced precautions. The test is not intended to identify patients with staphylococcal infections. Results should not be used to guide or monitor treatment for MRSA infections. Performed By: #### M RSANO #### [facility] [address] [place] [address] [employer] Cartoonist: Bigg Alvarez MD [address] [address] [employer] Cartoonist: Andrez Saha MD Type + Screenon 02-12-2019 Type + Screen Sample Expiration 02/27/2019 Arm Band Number [id number] ABO/Rh(D) O POSITIVE Antibody Screen NEGATIVE [facility] Comment on above: Performed By: #### T YS #### [facility] [address] [place] [address] [employer] Cartoonist: Bigg Alvarez MD APTTon 02-11-2019 aPTT Coag time (Bld) 30.0 s Normal 23-31 [facility] Comment on above: Performed By: #### C DP, BMP #### [facility] [place] [address] [employer] Cartoonist: Bigg Alvarez MD #### PT, PTT #### [address] [address] [employer] Cartoonist: Andrez Saha MD Basic Metabolic Profon 02-11 (cont.) Normal [facility] Comment on above: Result Comment: Aver age GFR for 40-49 years old: 99 mL/min/1.73sq m Chronic Kidney Disease: <60 mL/min/1.73sq m Kidney failure: <15 mL/min/1.73sq m eGFR calculated using average adult body mass. Additional eGFR calculator available at: http://www.[employer].NitroPCR/multiple_crcl_2012.htm Performed By: #### C DP, BMP #### [facility] [address] [place] [address] [employer] Cartoonist: Bigg Alvarez MD #### PT, PTT #### [facility] [address] [place] [address] [employer] Cartoonist: Andrez Saha MD Anion gap molar conc 10 mmol/L Normal 9-17 [facility] Comment on above: Performed By: #### C DP, BMP #### [facility] [address] [place], [place] [address] [address] [employer] Cartoonist: Bigg Alvarez MD #### PT, PTT #### [facility] [address] [place] [address] [employer] Cartoonist: Andrez Saha MD BUN/CRE Ratio 14 Normal 9-20 [facility] Comment on above: Performed By: #### C DP, BMP #### [facility] [address] [place] [address] [employer] Cartoonist: Bigg Alvarez MD #### PT, PTT #### [address] [address] Sports Cartoonist: Andrez Saha MD Calcium mass conc 8.8 mg/dL Normal 8.6-10.4 [facility] Comment on above: Performed By: #### C DP, BMP #### [facility] [address] [place] [address] [employer] Cartoonist: Bigg Alvarez MD #### PT, PTT #### [address] [address] [employer] Cartoonist: Andrez Saha MD Chloride molar conc 103 mmol/L Normal 98-107 [facility] Comment on above: Performed By: #### C DP, BMP #### [facility] [address] [place] [address] [employer] Cartoonist: Bigg Alvarez MD #### PT, PTT #### [address] [address] [employer] Cartoonist: Andrez Saha MD CO2 molar conc 27 mmol/L Normal 20-31 [facility] Comment on above: Performed By: #### C DP, BMP #### [facility] [address] [place] [address] [employer] Cartoonist: Bigg Alvarez MD #### PT, PTT #### [address] [address] [employer] Cartoonist: Andrez Saha MD Creatinine mass conc 0.57 mg/dL Normal 0.50-0.90 [facility] Comment on above: Performed By: #### C DP, BMP #### [facility] [place] [address] [employer] Cartoonist: Bigg Alvarez MD #### PT, PTT #### [address] [address] Sports Cartoonist: Andrez Saha MD GFR, Amer >60 Normal >60 [facility] Comment on above: Performed By: #### C DP, BMP #### [facility] [address] [place] [address] [employer] Cartoonist: Bigg Alvarez MD #### PT, PTT #### [address] [address] Sports Cartoonist: Andrez Saha MD GFR,non Amer >60 Normal >60 [facility] Comment on above: Performed By: #### C DP, BMP #### [facility] [address] [place] [address] Sports Cartoonist: Bigg Alvarez MD #### PT, PTT #### [address] [address] Sports Cartoonist: Andrez Saha MD Glucose mass conc 110 mg/dL High 70-99 [facility] Comment on above: Performed By: #### C DP, BMP #### [facility] [address] [place] [address] Sports Cartoonist: Bigg Alvarez MD #### PT, PTT #### [address] [address] [employer] Cartoonist: Andrez Saha MD Potassium molar conc 3.6 mmol/L Low 3.7-5.3 [facility] Comment on above: Performed By: #### C DP, BMP #### [facility] [address] [place] [address] Sports Cartoonist: Bigg Alvarez MD #### PT, PTT #### [address] [address] Sports Cartoonist: Andrez Saha MD Sodium molar conc 140 mmol/L Normal 135-144 [facility] Comment on above: Performed By: #### C DP, BMP #### [facility] [address] [place] [address] [employer] Cartoonist: Bigg Alvarez MD #### PT, PTT #### [address] [address] Sports Cartoonist: Andrez Saha MD Urea nitrogen mass conc 8 mg/dL Normal 6-20 [facility] Comment on above: Performed By: #### C DP, BMP #### [facility] [address] [place] [address] [employer] Cartoonist: Bigg Alvarez MD #### PT, PTT #### [address] [address] Sports Cartoonist: Andrez Saha MD Staging: NOT REPORTED Normal [facility] Comment on above: Performed By: #### C DP, BMP #### [facility] [address] [place] [address] [employer] Cartoonist: Bigg Alvarez MD #### PT, PTT #### [address] [address] [employer] Cartoonist: Andrez Saha MD CBC with Diffon 02-11-2019 Abs. Basophil 0.07 k/uL Normal 0.00-0.20 [facility] Comment on above: Performed By: #### C DP, BMP #### [facility] [place] [address] Sports Cartoonist: Bigg Alvarez MD #### PT, PTT #### [address] [address] Sports Cartoonist: Andrez Saha MD Abs.Imm.Granulocyt e 0.03 k/uL Normal 0.00-0.30 [facility] Comment on above: Performed By: #### C DP, BMP #### [facility] [address] [place] [address] [employer] Cartoonist: Bigg Alvarez MD #### PT, PTT #### [address] [address] Sports Cartoonist: Andrez Saha MD Abs.Neutrophil (Seg) 4.85 k/uL Normal 1.50-8.10 [facility] Comment on above: Performed By: #### C DP, BMP #### [facility] [address] [place] [address] Sports Cartoonist: Bigg Alvarez MD #### PT, PTT #### [address] [address] Sports Cartoonist: Andrez Saha MD Basophils/100 WBC (Bld) 1 % Normal 0-2 [facility] Comment on above: Performed By: #### C DP, BMP #### [facility] [address] [place] [address] Sports Cartoonist: Bigg Alvarez MD #### PT, PTT #### [address] [address] Sports Cartoonist: Andrez Saha MD Eosinophils #/vol (Bld) 0.24 10*3/uL Normal 0.00-0.44 [facility] Comment on above: Performed By: #### C DP, BMP #### [facility] [address] [place] [address] [employer] Cartoonist: Bigg Alvarez MD #### PT, PTT #### [address] [address] Sports Cartoonist: Andrez Saha MD Eosinophils/100 WBC (Bld) 3 % Normal 1-4 [facility] Comment on above: Performed By: #### C DP, BMP #### [facility] [address] [place] [address] [employer] Cartoonist: Bigg Alvarez MD #### PT, PTT #### [address] [address] Sports Cartoonist: Andrez Saha MD Erythrocyte distribution width Ratio (RBC) 13.7 % Normal 11.8-14.4 [facility] Comment on above: Performed By: #### C DP, BMP #### [facility] [address] [place] [address] [employer] Cartoonist: Bigg Alvarez MD #### PT, PTT #### [address] [address] Sports Cartoonist: Andrez Saha MD Hematocrit Volume Fraction (Bld) 44.0 % Normal 36.3-47.1 [facility] Comment on above: Performed By: #### C DP, BMP #### [facility] [address] [place] [address] Sports Cartoonist: Bigg Alvarez MD #### PT, PTT #### [address] [address] Sports Cartoonist: Andrez Saha MD Hemoglobin mass conc (Bld) 14.6 g/dL Normal 11.9-15.1 [facility] Comment on above: Performed By: #### C DP, BMP #### [facility] [place] [address] Sports Cartoonist: Bigg Alvarez MD #### PT, PTT #### [address] [address] Sports Cartoonist: Andrez Saha MD Immature granulocytes #/vol (Bld) 0 % Normal 0 [facility] Comment on above: Performed By: #### C DP, BMP #### [facility] [address] [place] [address] Sports Cartoonist: Bigg Alvarez MD #### PT, PTT #### [address] [address] Sports Cartoonist: Andrez Saha MD Lymphocytes #/vol (Bld) 1.62 10*3/uL Normal 1.10-3.70 [facility] Comment on above: Performed By: #### C DP, BMP #### [facility] [address] [place] [address] Sports Cartoonist: Bigg Alvarez MD #### PT, PTT #### [address] [address] Sports Cartoonist: Andrez Saha MD Lymphocytes/100 WBC (Bld) 23 % Low 24-43 [facility] Comment on above: Performed By: #### C DP, BMP #### [facility] [address] [place] [address] Sports Cartoonist: Bigg Alvarez MD #### PT, PTT #### [address] [address] Sports Cartoonist: Andrez Saha MD MCH Entitic mass (RBC) 29.3 pg Normal 25.2-33.5 [facility] Comment on above: Performed By: #### C DP, BMP #### [facility] [address] [place] [address] [employer] Cartoonist: Bigg Alvarez MD #### PT, PTT #### [address] [address] Sports Cartoonist: Andrez Saha MD MCHC mass conc (RBC) 33.2 g/dL Normal 28.4-34.8 [facility] Comment on above: Performed By: #### C DP, BMP #### [facility] [address] [place] [address] Sports Cartoonist: Bigg Alvarez MD #### PT, PTT #### [address] [address] Sports Cartoonist: Andrez Saha MD MCV Entitic volume (RBC) 88.2 fL Normal 82.6-102.9 [facility] Comment on above: Performed By: #### C DP, BMP #### [facility] [address] [place] [address] Sports Cartoonist: Bigg Alvarez MD #### PT, PTT #### [address] [address] Sports Cartoonist: Andrez Saha MD Monocytes #/vol (Bld) 0.36 10*3/uL Normal 0.10-1.20 [facility] Comment on above: Performed By: #### C DP, BMP #### [facility] [address] [place] [address] Sports Cartoonist: Bigg Alvarez MD #### PT, PTT #### [address] [address] Sports Cartoonist: Andrez Saha MD Monocytes/100 WBC (Bld) 5 % Normal 3-12 [facility] Comment on above: Performed By: #### C DP, BMP #### [facility] [address] [place] [address] Sports Cartoonist: Bigg Alvarez MD #### PT, PTT #### [address] [address] Sports Cartoonist: Andrez Saha MD Neutrophil (Seg) 68 % High 36-65 [facility] Comment on above: Performed By: #### C DP, BMP #### [facility] [address] [place] [address] Sports Cartoonist: Bigg Alvarez MD #### PT, PTT #### [address] [address] Sports Cartoonist: Andrez Saha MD NRBC Automated 0.0 per 100 WBC Normal 0.0 [facility] Comment on above: Performed By: #### C DP, BMP #### [facility] [address] [place] [address] Sports Cartoonist: Bigg Alvarez MD #### PT, PTT #### [address] [address] Sports Cartoonist: Andrez Saha MD Platelet mean volume Entitic volume (Bld) 9.5 fL Normal 8.1-13.5 [facility] Comment on above: Performed By: #### C DP, BMP #### [facility] [address] [place] [address] [employer] Cartoonist: Bigg Alvarez MD #### PT, PTT #### [address] [address] Sports Cartoonist: Andrez Saha MD Platelets #/vol (Bld) 298 10*3/uL Normal 138-453 [facility] Comment on above: Performed By: #### C DP, BMP #### [facility] [address] [place] [address] Sports Cartoonist: Bigg Alvarez MD #### PT, PTT #### [address] [address] Sports Cartoonist: Andrez Saha MD RBC #/vol (Bld) 4.99 10*6/uL Normal 3.95-5.11 [facility] Comment on above: Performed By: #### C DP, BMP #### [facility] [address] [place] [address] Sports Cartoonist: Bigg Alvarez MD #### PT, PTT #### [address] [address] Sports Cartoonist: Andrez Saha MD WBC #/vol (Bld) 7.2 10*3/uL Normal 3.5-11.3 [facility] Comment on above: Performed By: #### C DP, BMP #### [facility] [address] [place] [address] Sports Cartoonist: Bigg Alvarez MD #### PT, PTT #### [address] [address] Sports Cartoonist: Andrez Saha MD Auto Diff Performed NOT REPORTED Normal [facility] Comment on above: Performed By: #### C DP, BMP #### [facility] [address] [place] [address] Sports Cartoonist: Bigg Alvarez MD #### PT, PTT #### [address] [address] Sports Cartoonist: Andrez Saha MD Platelets #/vol (Bld) NOT REPORTED Normal [facility] Comment on above: Performed By: #### C DP, BMP #### [facility] [address] [place] [address] Sports Cartoonist: Bigg Alvarez MD #### PT, PTT #### [address] [address] Sports Cartoonist: Andrez Saha MD RBC morphology finding Nom (Bld) NOT REPORTED Normal [facility] Comment on above: Performed By: #### C DP, BMP #### [facility] [place] [address] Sports Cartoonist: Bigg Alvarez MD #### PT, PTT #### [address] [address] Sports Cartoonist: Andrez Saha MD WBC Morphology NOT REPORTED Normal [facility] Comment on above: Performed By: #### C DP, BMP #### [facility] [address] [place] [address] Sports Cartoonist: Bigg Alvarez MD #### PT, PTT #### [address] [address] Sports Cartoonist: Andrez Saha MD MRSA, DNA, Nasalon 9 Specimen Description .NASAL SWAB Normal [facility] Comment on above: Performed By: #### M RSANO #### [facility] [address] [place] [address] Sports Cartoonist: Bigg Alvarez MD [address] [address] Sports Cartoonist: Andrez Saha MD PTon 02-11-2019 INR Coag RelTime (PPP) 1.0 {INR} Normal [facility] Comment on above: Result Comment: Therapeutic Range: Moderate Anticoagulant Intensity: INR = 2.0-3.0 High Anticoagulant Intensity: INR = 2.5-3.5 High anticoagulant intensity for patients with a mechanical prosthetic heart valve, thrombosis and antiphospholipid syndrome, or myocardial infarction. Performed By: #### C DP, BMP #### [facility] [address] [place] [address] Sports Cartoonist: Bigg Alvarez MD #### PT, PTT #### [address] [address] Sports Cartoonist: Andrez Saha MD Prothrombin time (PT) Coag time (PPP) 10.4 s Normal 9.7-11.6 [facility] Comment on above: Performed By: #### C DP, BMP #### [facility] [address] [place] [address] Sports Cartoonist: Bigg Alvarez MD #### PT, PTT #### [address] [address] Sports Cartoonist: Andrez Saha MD Urinalysis, Routineon 2018 Acetoacetic Acid,Ur Negative Normal NEG [facility] Comment on above: Performed By: #### U A, UMICAO #### [facility] [address] [place] [address] Sports Cartoonist: Bigg Alvarez MD Bilirubin, SemiQt,Ur Negative Normal NEG [facility] Comment on above: Performed By: #### U A, UMICAO #### [facility] [address] [place] [address] Sports Cartoonist: Bigg Alvarez MD Color Nom (U) YELLOW Normal YEL [facility] Comment on above: Performed By: #### U A, UMICAO #### [facility] [address] [place] [address] Sports Cartoonist: Bigg Alvarez MD Glucose,Semi-qnt,U r Negative Normal NEG [facility] Comment on above: Performed By: #### YENNY Mike #### [facility] [address] [place] [address] Sports Cartoonist: Bigg Alvarez MD Hemoglobin, Ur TRACE Abnormal NEG [facility] Comment on above: Performed By: #### DANILO MikeO #### [facility] [address] [facility] [place] [address] Sports Cartoonist: Bigg Alvarez MD Leuckocyte Esterase Negative Normal NEG [facility] Comment on above: Performed By: #### YENNY Mike #### [facility] [address] [place] [address]. [place] [address] Sports Cartoonist: Bigg Alvarez MD Nitrite,Ur Negative Normal NEG [facility] Comment on above: Performed By: #### YENNY Mike #### [facility] [address] [facility] [place] [address] Sports Cartoonist: Bigg Alvarez MD PH,Ur 6.0 Normal 5.0-8.0 [facility] Comment on above: Performed By: #### YENNY Mike #### [facility] [place] [address] Sports Cartoonist: Bigg Alvarez MD Protein mass conc (U) Negative Normal NEG [facility] Comment on above: Performed By: #### YENNY Mike #### [facility] [address] [place] [address] Sports Cartoonist: Bigg Alvarez MD Spec. [place],Ur 1.010 Normal 1.005-1.030 [facility] Comment on above: Performed By: #### Ashish Bond UMICAO #### [facility] [address] [place] [address] Sports Cartoonist: Bigg Alvarez MD Turbidity CLEAR Normal CLEAR [facility] Comment on above: Performed By: #### U A, UMICAO #### [facility] [place] [address] Sports Cartoonist: Bigg Alvarez MD Urobilinogen,Ur Normal Normal NORM [facility] Comment on above: Performed By: #### U A, UMICAO #### [facility] [address] [place] [address]. [place] [address] Sports Cartoonist: Bigg Alvarez MD Comment NOT REPORTED Normal [facility] Comment on above: Performed By: #### U A UMICAO #### [facility] [address] [place] [address]. [place] [address] Sports Cartoonist: Bigg Alvarez MD Urinalysis,Microon 9 ----- Normal [facility] Comment on above: Performed By: #### U A, UMICAO #### [facility] [address] [place] [address]. [place] [address] Sports Cartoonist: Bigg Alvarez MD Epithelial cells LM.HPF #/area (Urine sed) 5 TO 10 Normal 0-5 [facility] Comment on above: Performed By: #### U A, UMICAO #### [facility] [address] [place] [address]. [place] [address] Sports Cartoonist: Bigg Alvarez MD RBC #/vol (U) 0 TO 2 Normal 0-2 [facility] Comment on above: Performed By: #### U A, UMICAO #### [facility] [address] [place], [place] [address] [place] [address] Sports Cartoonist: Bigg Alvarez MD WBC #/vol (U) None Normal 0-5 [facility] Comment on above: Performed By: #### U A, UMICAO #### [facility] [address] [place] [address] Sports Cartoonist: Bigg Alvarez MD Amorphous sediment LM Ql (Urine sed) NOT REPORTED Normal NONE [facility] Comment on above: Performed By: #### U A, UMICAO #### [facility] [address] [facility] [place] [address] Sports Cartoonist: Bigg Alvarez MD Bacteria LM.HPF #/area (Urine sed) NOT REPORTED Normal [facility] Comment on above: Performed By: #### U A, UMICAO #### [facility] [address] [place] [address]. [place] [address] Sports Cartoonist: Bigg Alvarez MD Casts LM.LPF #/area (Urine sed) NOT REPORTED Normal [facility] Comment on above: Performed By: #### U A, UMICAO #### [facility] [place] [address] Sports Cartoonist: Bigg Alvarez MD Crystals LM Nom (Urine sed) NOT REPORTED Normal NONE [facility] Comment on above: Performed By: #### U A, UMICAO #### [facility] [address] [place] [address] Sports Cartoonist: Bigg Alvarez MD Epithelial, Renal NOT REPORTED Normal 0 [facility] Comment on above: Performed By: #### U A, UMICAO #### [facility] [address] [place] [address] Sports Cartoonist: Bigg Alvarez MD Mucus Strands NOT REPORTED Normal NONE [facility] Comment on above: Performed By: #### U A, UMICAO #### [facility] [address] [facility] [place] [address] Sports Cartoonist: Bigg Alvarez MD Other Observations NOT REPORTED Normal [facility] Comment on above: Performed By: #### U A, UMICAO #### [facility] [address] [facility] [place] [address] Sports Cartoonist: Bigg Alvarez MD Trichomonas NOT REPORTED Normal NONE [facility] Comment on above: Performed By: #### U A, UMICAO #### [facility] [address] [facility] [place] [address] Sports Cartoonist: Bigg Alvarez MD Yeast LM Ql (Urine sed) NOT REPORTED Normal NONE [facility] Comment on above: Performed By: #### U A, UMICAO #### [facility] [address] [facility] [place] [address] Sports Cartoonist: Bigg Alvarez MD XR CHEST (2 VW)on [...] Amrik George MD 02/11/19 Final result Normal [facility] MRI ANKLE WO CONTRAST LEFTon 03-02-2018 MRI ANKLE WO CONTRAST LEFT [facility] Department of Radiology [address] [place] [address] ======== Patient Name: CONNIE ALEX : 1975 Sex: F Age: Race: White Pt. Location: 4 Patient Status: D Ordered Date: 02/28/2018 3:30:00 PM Completed Date: 03/02/2018 10:42 AM Requesting Provider: JONATHAN DELGADO Attending Provider: JONATHAN DELGADO Report Copy To: Signs & Symptoms: M79.672 Pain in left foot I10 History: [place], Breast clip AUTHORIZATION [id number] VALID 02/28/2018-03/30/2018 - per Goldie with Dr Delgado's office. please check-jlr Comments: , AUTHORIZATION [id number] VALID 02/28/2018-03/30/2018 left ankle mri Evaluate achilled tendon rupture after traumatic injury , AUTHORIZATION [id number] VALID 02/28/2018-03/30/2018 left ankle mri Evaluate achilled [...] pain QUESTION FOR THE RADIOLOGIST: , AUTHORIZATION [id number] VALID 02/28/2018-03/30/2018 left ankle mri Evaluate achilled tendon rupture after traumatic injury , AUTHORIZATION [id number] VALID ...More In Sending System PROTOCOL: Images [...] above. Electronically signed by:Patrick Santacruz. Transcribed by: [email or web address], User Resident: Electronically Signed by: PATRICK SANTACRUZ @ 03/03/2018 09:55 AM Normal [facility] Comment on above: Order Comment: , AUTHORIZATION [id number] VALID 02/28/2018-03/30/2018 left ankle mri Evaluate achilled tendon rupture after traumatic injury , AUTHORIZATION [id number] VALID 02/28/2018-03/30/2018 left ankle mri Evaluate achilled tendon rupture after traumatic injury , , , Ordering Provider - JONATHAN DELGADO MD , Encounters Encounter Date Encounter Type Care Provider Facility Start: 10-02-2023 End: 10-02-2023 ambulatory JULIO AICHHOLZ Not Available Start: 09-10-2023 End: 09-10-2023 ambulatory JULIO AICHHOLZ Not Available Start: 02-05-2023 End: 02-06-2023 ambulatory [employer] JULIO AICHHOLZ Facility:[facility] Start: 01-18-2023 End: 01-18-2023 ambulatory SA[employer]AGE [employer]ER JULIO AICHHOLZ Facility:[facility] Start: 08-28-2022 End: 08-29-2022 ambulatory SA[employer]AGE STRINGER JULIO AICIndyHOLZ Facility:[facility] Start: 07-25-2022 End: 07-26-2022 ambulatory IVET JULIO AICHHOLZ Facility:[facility] Start: 06-10-2022 End: 06-11-2022 ambulatory SA[employer]AGE [employer]ER JULIO ORALIAHOLZ Facility:[facility] Start: 05-17-2022 End: 05-18-2022 ambulatory JANESSA HERNANDEZ Facility:[facility] Start: 05-14-2022 End: 05-14-2022 ambulatory HELENA MOMIN . Facility:[facility] Start: 03-20-2022 End: 03-21-2022 ambulatory IVET GARCIAA ORALIAHOLZ Facility:[facility] Start: 02-24-2019 End: 02-24-2019 [facility]: [facility] End: 02-14-2019 [facility] Start: 02-11-2019 End: 02-16-2019 Patient encounter procedure [facility] Procedures Date Procedure Procedure Detail Performing Clinician Start: 02-24-2019 DISCHARGE PATIENT CHARU CALLAWAY Start: 02-24-2019 FLUORO FOR SURGICAL PROCEDURES CHARU CALLAWAY Start: 02-24-2019 Radiologic exam sacr oiliac joints 3/more views CHARU CALLAWAY Start: 02-24-2019 BEDREST CHARU MCKENNA Start: 02-24-2019 Continuous pulse oximetry CHARU CALLAWAY Start: 02-24-2019 ENCOURAGE DEEP BREAT CAROLE AND COUGHING CHARU CALLAWAY Start: 02-24-2019 INITIATE OXYGEN THER APY PROTOCOL CHARU ELIZABETHOF Start: 02-24-2019 NOTIFY PHYSICIAN (SPECIFY) CHARU CALLAWAY Start: 02-24-2019 NURSING COMMUNICATION Karime CALLAWAY Start: 02-24-2019 VITAL SIGNS CHARU CAICEDO TOF Start: 02-24-2019 Urine test visual color cmprsn meths CHARU ELIZABETHOF Start: 02-24-2019 INITIATE OXYGEN THER APY PROTOCOL CHARU CALLAWAY Start: 02-24-2019 NOTIFY PHYSICIAN (SPECIFY) CHARU CALLAWAY Start: 02-24-2019 VITAL SIGNS CHARU CAICEDO TOF Start: 02-11-2019 Radiologic exam chest 2 views [...] CALLAWAY Start: 02-11-2019 TYPE AND SCREEN CHARU Karime BENJAMINRICHELLERajani Payers Date Payer Category Payer Unknown [id number] 2022 Medicaid [id number] 2014 Unknown [id number] 1975 Unknown [id number] 2.16.8 [id number] 1975 Unknown [id number] 2.16.8 [id number] 1975 Unknown [id number] 2.16.8 [id number] 1975 Unknown [id number] 2.16.84 [id number] 1975 Unknown [id number] 2.16.84 [id number] 1973 Unknown [id number] 2.16.84 0.1.545488.3.579.2.593 1973 Unknown [id number] 2.16.84 0.1.181309.3.579.2.593 1973 Unknown [id number] 2.16.84 0.1.782773.3.579.2.593 1973 Unknown [id number] 2.16.84 0.1.386203.3.579.2.593 1973 Unknown [id number] 2.16.84 0.1.646766.3.579.2.593 1973 Unknown [id number] 2.16.84 0.1.961398.3.579.2.593 1973 Unknown [id number] 2.16.84 0.1.754414.3.579.2.1259 1973 Unknown [id number] 2.16.840 .[id number] 1959 Unknown [id number] Clinical Note 05-18-2022 Note Date & Type [...] authenticated by: TEVIN ESPINOZA Date: 2022-05-18 08:15 [facility] Clinical Note 08-25-2022 Note Date & Type Note Facility 05-18-2022 [...] authenticated by: TEVIN ESPINOZA Date: 2022-05-18 08:15 [facility] Summary Purpose Family History No Family History Records FoundNo Family History Records FoundNo Family History Records FoundNo Family History Records Found Advance Directives No Advanced Directives Records FoundNo Advanced Directives Records FoundNo Advanced Directives Records FoundNo Advanced Directives Records Found Additional Source Comments INFORMATION SOURCE (unrecogn ized section and content) DATE CREATED AUTHOR 02/27/2019 [facility] DATE CREATED AUTHOR AUTHOR'S ORGANIZ ATION 03/02/2019 [facility] DATE CREATED AUTHOR AUTHOR'S ORGANIZ ATION 02/07/2023 [facility] DATE CREATED AUTHOR AUTHOR'S ORGANIZ ATION 10/03/2023 [facility] [employer] EPIC FOR RECORDS PERTAINING TO PATIENTS WHO ARE [...] BE BASED ON THE PRIMARY CLINICAL RECORDS. [employer] provides no warranty or guarantee of the accuracy or completeness of information in this document.
[2023-10-25 09:27] LABS: Free T3 5.04 pg/mL (2.18-3.98); TSH W/ REFLEX FT4 0.253 uIU/mL (0.358-3.740)
[2023-10-25 10:39] LABS: Free T4 0.78 ng/dL (0.76-1.46)
== END 2023-10-25 06:47 | disposition home or self-care (01) ==
LOC: LAB 06:48
PROVIDERS: PCP Nurse Practitioner; Visit Provider Nurse Practitioner
DX: E03.9 Hypothyroidism, unspecified (principal)
CPT/HCPCS: 36415; 84439; 84443; 84481

== ENCOUNTER 2024-01-19 06:50 | Outpatient (OUT) | payer SELFPAY ==
--- OUTSIDE RECORDS SUMMARY | 2024-01-19 06:53 | XMS_ITS | CCD ---
Author Organization [facility] Care Team Providers Care Waste Machine Offbearer Name Role Phone CHARU CALLAWAY Referring Unavailable AICHHOLZ, JULIO J. Primary Care Unavailable CHARU CALLAWAY Referring Unavailable AICHHOLZ, JULIO J. Primary Care Unavailable CHARU CALLAWAY Admitting Unavailable CHARU CALLAWAY Attending Unavailable AICHHOLZ, JULIO J. Primary Care Unavailable AICHHOLZ, MANAGER GOLF JULIO Admitting Unavailable AICHHOLZ, MANAGER GOLF JULIO Attending Unavailable AICHHOLZ, MANAGER GOLF JULIO Consulting Unavailable AICHHOLZ, MANAGER GOLF JULIO Primary Care Unavailable AICHHOLZ, MANAGER GOLF JULIO Admitting Unavailable AICHHOLZ, MANAGER GOLF JULIO Attending Unavailable AICHHOLZ, MANAGER GOLF JULIO Consulting Unavailable AICHHOLZ, MANAGER GOLF JULIO Primary Care Unavailable AICHHOLZ, MANAGER GOLF JULIO Admitting Unavailable AICHHOLZ, MANAGER GOLF JULIO Attending Unavailable AICHHOLZ, MANAGER GOLF JULIO Consulting Unavailable AICHHOLZ, MANAGER GOLF JULIO Primary Care Unavailable AICHHOLZ, MANAGER GOLF JULIO Primary Care Unavailable FAWWAD, WILLS H Admitting Unavailable FAWWAD, WILLS H Attending Unavailable FAWWAD, WILLS H Consulting Unavailable ANASTACIO ROLDAN Consulting Unavailable JANESSA HERNANDEZ Admitting Unavailable Tevin Espinoza Consulting Unavailable JANESSA HERNANDEZ Attending Unavailable AICHHOLZ, MANAGER GOLF JULIO Primary Care Unavailable JANESSA HERNANDEZ Consulting Unavailable HELENA QUINTANA Admitting Unavailable MR GINO SANFORD Consulting Unavailable AICHHOLZ, MANAGER GOLF JULIO Primary Care Unavailable HELENA QUINTANA Attending Unavailable HERACLIO WELLS Consulting Unavailable AICHHOLZ, MANAGER GOLF JULIO Admitting Unavailable AICHHOLZ, MANAGER GOLF JULIO Attending Unavailable AICHHOLZ, MANAGER GOLF JULIO Consulting Unavailable AICHHOLZ, MANAGER GOLF JULIO Primary Care Unavailable AICHHOLZ, MANAGER GOLF JULIO Attending Unavailable IVET HENSLEY Consulting Unavailable IVET HENSLEY Primary Care Unavailable IVET HENSLEY Admitting Unavailable JULIO HENSLEY Attending Unavailable JULIO HENSLEY Attending Unavailable JULIO HENSLEY Attending Unavailable Allergies Allergy Classification Reported Allergen(s) Allergy Type Date of Onset Reaction(s) Facility (1 source) bee venom Drug allergy (disorder) 11-12-[address] [facility] Repository Problems Active Problems Problem Classification [...] 02/05/2023 : 1975 Gender:F Ordering : IVET JULIO HENSLEY MANAGER GOLF Admission #: [id number] Family : Order #: [id number] CLICK HERE TO VIEW EXAM RADIOLOGY REPORT [...] throat cancer at age 82. LOCATION: [facility] BREAST COMPOSITION: Heterogeneously dense,which may obscure [...] MD on 02/06/2023 at 10:24 Normal [facility] Covid-19 PCR (CVDTB)on 12-24 SARS-CoV-2 (COVID-19) RNA TAYO+probe Ql (Unsp spec) Not detected Normal NOT DETECTED [facility] Comment on above: Result Comment: This test is not yet approved or cleared by the [place] FDA. When there are no FDA-approved or cleared tests available, and other criteria are met, FDA can make tests available under an emergency access mechanism called an Emergency Use Authorization (EUA). The EUA for this test is supported by the [place] of Health and Human Service's (HHS's) declaration [...] Performed By: #### C MP, TSH #### [facility] [address] [place] [address] Dr. Allie Birch SYMPTOMATIC COVID-19 ANTIGEN on 01-18-2023 EUA Statement SEE BELOW Normal [facility] Comment on above: Result Comment: This [...] Performed By: #### C MP, TSH #### [facility] [address] [place] [address] Dr. Allie Birch SARS-CoV-2 (COVID-19) RNA TAYO+probe Ql (Unsp spec) Negative Normal NEGATIVE [facility] Comment on above: Performed By: #### C MP, TSH #### [facility] [address] [place] [address] Dr. Allie Birch CBC AUTO DIFFon 07-25-2022 BASO # 0.1 103/ul Normal 0.0-0.1 [facility] Comment on above: Performed By: #### C BC #### [facility] [address] [place] [address] Dr. Allie Birch Basophils/100 WBC (Bld) 1.3 % Normal 0.2-2.0 [facility] Comment on above: Performed By: #### C BC #### [facility] [address] [place] [address] Dr. Allie Birch EO # 0.3 103/ul Normal 0.0-0.7 [facility] Comment on above: Performed By: #### C BC #### [facility] [address] [place] [address] Dr. Allie Birch Eosinophils/100 WBC (Bld) 3.4 % Normal 0.9-7.0 [facility] Comment on above: Performed By: #### C BC #### [facility] [address] [place] [address] Dr. Allie Birch Erythrocyte distribution width (RBC) [Ratio] 13.2 % Normal 11.0-15.0 [facility] Comment on above: Performed By: #### C BC #### [facility] [address] [place] [address] Dr. Allie Birch Hematocrit (Bld) [Volume fraction] 41.7 % Normal 36.0-48.0 [facility] Comment on above: Performed By: #### C BC #### [facility] [address] [place] [address] Dr. Allie Birch Hemoglobin (Bld) [Mass/Vol] 14.1 g/dL Normal 12.0-16.0 [facility] Comment on above: Performed By: #### C BC #### [facility] [address] [place] [address] Dr. Allie Birch IG # 0.02 10e3/ul Normal 0.00-0.[address] [facility] Comment on above: Performed By: #### C BC #### [facility] [address] [place] [address] Dr. Allie Birch IG % 0.2 % Normal 0.0-0.[address] [facility] Comment on above: Performed By: #### C BC #### [facility] [address] [place] [address] Dr. Allie Birch LYMPH # 1.6 103/ul Normal 1.2-3.8 [facility] Comment on above: Performed By: #### C BC #### [facility] [address] [place] [address] Dr. Allie Birch Lymphocytes/100 WBC (Bld) 18.1 % Critically low 20.5-60.0 [facility] Comment on above: Performed By: #### C BC #### [facility] [address] [place] [address] Dr. Allie Birch MANUAL DIFF REQ NO Normal [facility] Comment on above: Performed By: #### C BC #### [facility] [address] [place] [address] Dr. Allie Birch MCH (RBC) [Entitic mass] 29.4 pg Normal 26.7-34.0 [facility] Comment on above: Performed By: #### C BC #### [facility] [address] [place] [address] Dr. Allie Birch MCHC (RBC) [Mass/Vol] 33.8 g/dL Normal 29.9-35.2 [facility] Comment on above: Performed By: #### C BC #### [facility] [address] [place] [address] Dr. Allie Birch MCV (RBC) [Entitic vol] 86.9 fL Normal 81.0-99.0 [facility] Comment on above: Performed By: #### C BC #### [facility] [address] [place] [address] Dr. Allie Birch MONO # 0.4 103/ul Normal 0.3-0.8 [facility] Comment on above: Performed By: #### C BC #### [facility] [address] [place] [address] Dr. Allie Birch Monocytes/100 WBC (Bld) 4.4 % Normal 1.7-12.0 [facility] Comment on above: Performed By: #### C BC #### [facility] [address] [place] [address] Dr. Allie Birch NEUT # 6.2 103/ul Normal 1.4-6.5 [facility] Comment on above: Performed By: #### C BC #### [facility] [address] [place] [address] Dr. Allie Birch Neutrophils/100 WBC (Bld) 72.6 % Normal 43.0-75.0 [facility] Comment on above: Performed By: #### C BC #### [facility] [address] [place] [address] Dr. Allie Birch Platelet mean volume (Bld) [Entitic vol] 9.6 fL Normal 9.5-13.5 [facility] Comment on above: Performed By: #### C BC #### [facility] [address] [place] [address] Dr. Allie Birch PLT 316 103/ul Normal 150-450 [facility] Comment on above: Performed By: #### C BC #### [facility] [address] [place] [address] Dr. Allie Birch RBC 4.80 106/ul Normal 4.20-5.40 [facility] Comment on above: Performed By: #### C BC #### [facility] [address] [place] [address] Dr. Allie Birch WBC 8.6 103/ul Normal 4.0-11.0 [facility] Comment on above: Performed By: #### C BC #### [facility] [address] [place] [address] Dr. Allie Birch FREE T4on 07-25-2022 Free T4 [Mass/Vol] 0.80 ng/dL Normal 0.76-1.46 [facility] Comment on above: Performed By: #### C MP, TSH #### [facility] [address] [place] [address] Dr. Allie Birch PROF 14(COMP METB)on 022 Albumin [Mass/Vol] 3.5 g/dL Normal 3.4-5.0 [facility] Comment on above: Performed By: #### C MP, TSH #### [facility] [address] [place] [address] Dr. Allie Birch Albumin/Globulin [Mass ratio] 1.0 {ratio} Normal [facility] Comment on above: Performed By: #### C MP, TSH #### [facility] [address] [place] [address] Dr. Allie Birch ALP [Catalytic activity/Vol] 96 U/L Normal 46-116 [facility] Comment on above: Performed By: #### C MP, TSH #### [facility] [address] [place] [address] Dr. Allie Birch ALT [Catalytic activity/Vol] 21 U/L Normal 14-59 [facility] Comment on above: Performed By: #### C MP, TSH #### [facility] [address] [place] [address] Dr. Allie Birch Anion gap [Moles/Vol] 9.2 mmol/L Normal [facility] Comment on above: Performed By: #### C MP, TSH #### [facility] [address] [place] [address] Dr. Allie Birch AST [Catalytic activity/Vol] 15 U/L Normal 15-37 [facility] Comment on above: Performed By: #### C MP, TSH #### [facility] [address] [place] [address] Dr. Allie Birch Bilirubin [Mass/Vol] 0.5 mg/dL Normal 0.2-1.0 [facility] Comment on above: Performed By: #### C MP, TSH #### [facility] [address] [place] [address] Dr. Allie Birch Calcium [Mass/Vol] 8.7 mg/dL Normal 8.5-10.1 [facility] Comment on above: Performed By: #### C MP, TSH #### [facility] [address] [place] [address] Dr. Allie Birch Chloride [Moles/Vol] 102 mmol/L Normal 98-107 [facility] Comment on above: Performed By: #### C MP, TSH #### [facility] [address] [place] [address] Dr. Allie Birch CO2 [Moles/Vol] 30.0 mmol/L Normal 21.0-32.0 [facility] Comment on above: Performed By: #### C MP, TSH #### [facility] [address] [address] [address] Allie Birch Creatinine [Mass/Vol] 0.77 mg/dL Normal 0.55-1.02 [facility] Comment on above: Performed By: #### C MP, TSH #### [facility] [address] [address] [address] Allie Birch EGFR-AF COLOMBIAN >60 Normal >=60 [facility] Comment on above: Performed By: #### C MP, TSH #### [facility] [address] [address] [address] Allie Birch EGFR-NON AF COLOMBIAN >60 Normal >=60 [facility] Comment on above: Performed By: #### C MP, TSH #### [facility] [address] [address] [address] Allie Birch Globulin (S) [Mass/Vol] 3.5 g/dL Normal [facility] Comment on above: Performed By: #### C MP, TSH #### [facility] [address] [address] [address] Allie Birch Glucose [Mass/Vol] 87 mg/dL Normal 74-106 [facility] Comment on above: Performed By: #### C MP, TSH #### [facility] [address] [address] [address] Allie Birch Potassium [Moles/Vol] 4.2 mmol/L Normal 3.5-5.[address] [facility] Comment on above: Performed By: #### C MP, TSH #### [facility] [address] [address] [address] Allie Birch Protein [Mass/Vol] 7.0 g/dL Normal 6.4-8.2 [facility] Comment on above: Performed By: #### C MP, TSH #### [facility] [address] [address] [address] Allie Birch Sodium [Moles/Vol] 137 mmol/L Normal 136-145 [facility] Comment on above: Performed By: #### C MP, TSH #### [facility] [address] [place] [address] Dr. Allie Birch Urea nitrogen [Mass/Vol] 8.0 mg/dL Normal 7.0-18.0 [facility] Comment on above: Performed By: #### C MP, TSH #### [facility] [address] [place] [address] Dr. Allie Birch Urea nitrogen/Creatinin e [Mass ratio] 10.4 mg/mg Normal [facility] Comment on above: Performed By: #### C MP, TSH #### [facility] [address] [place] [address] Dr. Allie Birch TSHon 07-25-2022 TSH 1.635 uIU/mL Normal 0.358-3.740 [facility] Comment on above: Performed By: #### C MP, TSH #### [facility] [address] [place] [address] Dr. Allie Birch VITAMIN B12on 07-25-2022 Cobalamin (Vitamin B12) [Mass/Vol] 408.0 pg/mL Normal 193.0-986.0 [facility] Comment on above: Performed By: #### C MP, TSH #### [facility] [address] [place] [address] Dr. Allie Birch FREE T4on 06-10-2022 Free T4 [Mass/Vol] 0.87 ng/dL Normal 0.76-1.46 [facility] Comment on above: Performed By: #### F T4 #### [facility] [address] [place] [address] Dr. Allie Birch TSHon 06-10-2022 TSH 4.450 uIU/mL Critically high 0.358-3.740 [facility] Comment on above: Performed By: #### T SH #### [facility] [address] [place] [address] Dr. Allie Birch XR ANKLE RT MIN [...] by: HERACLIO WELLS Date: 2022-05-14 15:51 Normal [facility] XR CHEST 2 Von 03-20-2022 XR CHEST [...] by: ANASTACIO ROLDAN Date: 2022-03-20 14:12 Normal [facility] FLUORO FOR SURGICAL PROCEDUR ESon 02-24-2019 FLUORO FOR SURGICAL PROCEDURES Radiology exam is complete. No Radiologist dictation. Please follow up with ordering provider. Final result Normal [facility] XR SACROILIAC JOINTS (MIN 3 [...] Gino Pena MD 02/24/19 Final result Normal [facility] Cult,Urine,CCon 02-13-2019 Cult,Urine,CC Specimen Description [...] <=20 SUSCEPTIBLE Piperacillin/Tazobacta m <=4 SUSCEPTIBLE Normal [facility] Comment on above: Performed By: #### C CATALINO #### [facility] [address] [place] [address] Head Of Maintenance: Bigg Alvarez MD [address] [address] Head Of Maintenance: Andrze Saha MD MRSA, DNA, Nasalon 9 MRSA, DNA, Nasal NEGATIVE: MRSA DNA n ot detected by nucleic acid amplification. Normal [facility] Comment on above: Result Comment: Results should be used as an adjunct to nosocomial control efforts to identify patients needing enhanced precautions. The test is not intended to identify patients with staphylococcal infections. Results should not be used to guide or monitor treatment for MRSA infections. Performed By: #### M RSANO #### [facility] [address] [place] [address] Head Of Maintenance: Bigg Alvarez MD [address] [phone] Head Of Maintenance: Andrez Saha MD Type + Screenon 02-12-2019 Type + Screen Sample Expiration 02/27/2019 Arm Band Number [id number] ABO/Rh(D) O POSITIVE Antibody Screen NEGATIVE [facility] Comment on above: Performed By: #### T YS #### [facility] [address] [place] [address] Head Of Maintenance: Bigg Alvarez MD APTTon 02-11-2019 aPTT Coag time (Bld) 30.0 s Normal 23-31 [facility] Comment on above: Performed By: #### C DP, BMP #### [facility] [address] [place] [address] Head Of Maintenance: Bigg Alvarez MD #### PT, PTT #### [address] [address] Head Of Maintenance: Andrez Saha MD Basic Metabolic Profon 02-11 (cont.) Normal [facility] Comment on above: Result Comment: Aver age GFR for 40-49 years old: 99 mL/min/1.73sq m Chronic Kidney Disease: <60 mL/min/1.73sq m Kidney failure: <15 mL/min/1.73sq m eGFR calculated using average adult body mass. Additional eGFR calculator available at: http://www.[employer].ShareWithU/multiple_crcl_2012.htm Performed By: #### C DP, BMP #### [facility] [address] [place] [address] Head Of Maintenance: Bigg Alvarez MD #### PT, PTT #### [address] [address] Head Of Maintenance: Andrez Saha MD Anion gap molar conc 10 mmol/L Normal 9-17 [facility] Comment on above: Performed By: #### C DP, BMP #### [facility] [address] [place] [address] Head Of Maintenance: Bigg Alvarez MD #### PT, PTT #### [address] [address] Head Of Maintenance: Andrez Saha MD BUN/CRE Ratio 14 Normal 9-20 [facility] Comment on above: Performed By: #### C DP, BMP #### [facility] [address] [place] [address] Head Of Maintenance: Bigg Alvarez MD #### PT, PTT #### [address] [address] Head Of Maintenance: Andrez Saha MD Calcium mass conc 8.8 mg/dL Normal 8.6-10.4 [facility] Comment on above: Performed By: #### C DP, BMP #### [facility] [address] [place] [address] Head Of Maintenance: Bigg Alvarez MD #### PT, PTT #### [address] [address] Head Of Maintenance: Andrez Saha MD Chloride molar conc 103 mmol/L Normal 98-107 [facility] Comment on above: Performed By: #### C DP, BMP #### [facility] [address] [place] [address] Head Of Maintenance: Bigg Avlarez MD #### PT, PTT #### [address] [address] Head Of Maintenance: Andrez Saha MD CO2 molar conc 27 mmol/L Normal 20-31 [facility] Comment on above: Performed By: #### C DP, BMP #### [facility] [address] [place] [address] Head Of Maintenance: Bigg Alvarez MD #### PT, PTT #### [address] [address] Head Of Maintenance: Andrez Saha MD Creatinine mass conc 0.57 mg/dL Normal 0.50-0.90 [facility] Comment on above: Performed By: #### C DP, BMP #### [facility] [address] [place] [address] Head Of Maintenance: Bigg Alvarez MD #### PT, PTT #### [address] [address] Head Of Maintenance: Andrez Saha MD GFR, Amer >60 Normal >60 [facility] Comment on above: Performed By: #### C DP, BMP #### [facility] [address] [place] [address] Head Of Maintenance: Bigg Alvarez MD #### PT, PTT #### [address] [address] Head Of Maintenance: Andrez Saha MD GFR,non Amer >60 Normal >60 [facility] Comment on above: Performed By: #### C DP, BMP #### [facility] [address] [place] [address] Head Of Maintenance: Bigg Alvarez MD #### PT, PTT #### [address] [address] Head Of Maintenance: Andrez Saha MD Glucose mass conc 110 mg/dL High 70-99 [facility] Comment on above: Performed By: #### C DP, BMP #### [facility] [address] [place] [address] Head Of Maintenance: Bigg Alvarez MD #### PT, PTT #### [address] [address] Head Of Maintenance: Andrez Saha MD Potassium molar conc 3.6 mmol/L Low 3.7-5.3 [facility] Comment on above: Performed By: #### C DP, BMP #### [facility] [address] [place] [address] Head Of Maintenance: Bigg Alvarez MD #### PT, PTT #### [address] [address] Head Of Maintenance: Andrez Saha MD Sodium molar conc 140 mmol/L Normal 135-144 [facility] Comment on above: Performed By: #### C DP, BMP #### [facility] [address] [place] [address] Head Of Maintenance: Bigg Alvarez MD #### PT, PTT #### [address] [address] Head Of Maintenance: Andrez Saha MD Urea nitrogen mass conc 8 mg/dL Normal 6-20 [facility] Comment on above: Performed By: #### C DP, BMP #### [facility] [address] [place] [address] Head Of Maintenance: Bigg Alvarez MD #### PT, PTT #### [address] [address] Head Of Maintenance: Andrez Saha MD Staging: NOT REPORTED Normal [facility] Comment on above: Performed By: #### C DP, BMP #### [facility] [address] [place] [address] Head Of Maintenance: Bigg Alvarez MD #### PT, PTT #### [address] [address] Head Of Maintenance: Andrez Saha MD CBC with Diffon 02-11-2019 Abs. Basophil 0.07 k/uL Normal 0.00-0.20 [facility] Comment on above: Performed By: #### C DP, BMP #### [facility] [address] [place] [address] Head Of Maintenance: Bigg Alvarez MD #### PT, PTT #### [address] [address] Head Of Maintenance: Andrez Saha MD Abs.Imm.Granulocyt e 0.03 k/uL Normal 0.00-0.30 [facility] Comment on above: Performed By: #### C DP, BMP #### [facility] [address] [place] [address] Head Of Maintenance: Bigg Alvarez MD #### PT, PTT #### [address] [address] Head Of Maintenance: Andrez Saha MD Abs.Neutrophil (Seg) 4.85 k/uL Normal 1.50-8.10 [facility] Comment on above: Performed By: #### C DP, BMP #### [facility] [address] [place] [address] Head Of Maintenance: Bigg Alvarez MD #### PT, PTT #### [address] [address] Head Of Maintenance: Andrez Saha MD Basophils/100 WBC (Bld) 1 % Normal 0-2 [facility] Comment on above: Performed By: #### C DP, BMP #### [facility] [address] [place] [address] Head Of Maintenance: Bigg Alvarez MD #### PT, PTT #### [address] [address] Head Of Maintenance: Andrez Saha MD Eosinophils #/vol (Bld) 0.24 10*3/uL Normal 0.00-0.44 [facility] Comment on above: Performed By: #### C DP, BMP #### [facility] [address] [place] [address] Head Of Maintenance: Bigg Alvarez MD #### PT, PTT #### [address] [address] Head Of Maintenance: Andrez Saha MD Eosinophils/100 WBC (Bld) 3 % Normal 1-4 [facility] Comment on above: Performed By: #### C DP, BMP #### [facility] [address] [place] [address] Head Of Maintenance: Bigg Alvarez MD #### PT, PTT #### [address] [address] Head Of Maintenance: Andrez Saha MD Erythrocyte distribution width Ratio (RBC) 13.7 % Normal 11.8-14.4 [facility] Comment on above: Performed By: #### C DP, BMP #### [facility] [address] [place] [address] Head Of Maintenance: Bigg Alvarez MD #### PT, PTT #### [address] [address] Head Of Maintenance: Andrez Saha MD Hematocrit Volume Fraction (Bld) 44.0 % Normal 36.3-47.1 [facility] Comment on above: Performed By: #### C DP, BMP #### [facility] [address] [place] [address] Head Of Maintenance: Bigg Alvarez MD #### PT, PTT #### [address] [address] Head Of Maintenance: Andrez Saha MD Hemoglobin mass conc (Bld) 14.6 g/dL Normal 11.9-15.1 [facility] Comment on above: Performed By: #### C DP, BMP #### [facility] [address] [place] [address] Head Of Maintenance: Bigg Alvarez MD #### PT, PTT #### [address] [address] Head Of Maintenance: Andrez Saha MD Immature granulocytes #/vol (Bld) 0 % Normal 0 [facility] Comment on above: Performed By: #### C DP, BMP #### [facility] [place] [address] Head Of Maintenance: Bigg Alvarez MD #### PT, PTT #### [address] [address] Head Of Maintenance: Andrez Saha MD Lymphocytes #/vol (Bld) 1.62 10*3/uL Normal 1.10-3.70 [facility] Comment on above: Performed By: #### C DP, BMP #### [facility] [address] [place] [address] Head Of Maintenance: Bigg Alvarez MD #### PT, PTT #### [address] [address] Head Of Maintenance: Andrez Saha MD Lymphocytes/100 WBC (Bld) 23 % Low 24-43 [facility] Comment on above: Performed By: #### C DP, BMP #### [facility] [address] [place] [address] Head Of Maintenance: Bigg Alvarez MD #### PT, PTT #### [address] [address] Head Of Maintenance: Andrez Saha MD MCH Entitic mass (RBC) 29.3 pg Normal 25.2-33.5 [facility] Comment on above: Performed By: #### C DP, BMP #### [facility] [place] [address] Head Of Maintenance: Bigg Alvarez MD #### PT, PTT #### [address] [address] Head Of Maintenance: Andrez Saha MD MCHC mass conc (RBC) 33.2 g/dL Normal 28.4-34.8 [facility] Comment on above: Performed By: #### C DP, BMP #### [facility] [address] [place] [address] Head Of Maintenance: Bigg Alvarez MD #### PT, PTT #### [address] [address] Head Of Maintenance: Andrez Saha MD MCV Entitic volume (RBC) 88.2 fL Normal 82.6-102.9 [facility] Comment on above: Performed By: #### C DP, BMP #### [facility] [address] [place] [address] Head Of Maintenance: Bigg Alvarez MD #### PT, PTT #### [address] [address] Head Of Maintenance: Andrez Saha MD Monocytes #/vol (Bld) 0.36 10*3/uL Normal 0.10-1.20 [facility] Comment on above: Performed By: #### C DP, BMP #### [facility] [address] [place] [address] Head Of Maintenance: Bigg Alvarez MD #### PT, PTT #### [address] [address] Head Of Maintenance: Andrez Saha MD Monocytes/100 WBC (Bld) 5 % Normal 3-12 [facility] Comment on above: Performed By: #### C DP, BMP #### [facility] [address] [place] [address] Head Of Maintenance: Bigg Alvarez MD #### PT, PTT #### [address] [address] Head Of Maintenance: Andrez Saha MD Neutrophil (Seg) 68 % High 36-65 [facility] Comment on above: Performed By: #### C DP, BMP #### [facility] [address] [place] [address] Head Of Maintenance: Bigg Alvarez MD #### PT, PTT #### [address] [address] Head Of Maintenance: Andrez Saha MD NRBC Automated 0.0 per 100 WBC Normal 0.0 [facility] Comment on above: Performed By: #### C DP, BMP #### [facility] [address] [place] [address] Head Of Maintenance: Bigg Alvarez MD #### PT, PTT #### [address] [address] Head Of Maintenance: Andrez Saha MD Platelet mean volume Entitic volume (Bld) 9.5 fL Normal 8.1-13.5 [facility] Comment on above: Performed By: #### C DP, BMP #### [facility] [address] [place] [address] Head Of Maintenance: Bigg Alvarez MD #### PT, PTT #### [address] [address] Head Of Maintenance: Andrez Saha MD Platelets #/vol (Bld) 298 10*3/uL Normal 138-453 [facility] Comment on above: Performed By: #### C DP, BMP #### [facility] [address] [place] [address] Head Of Maintenance: Bigg Alvarez MD #### PT, PTT #### [address] [address] Head Of Maintenance: Andrez Saha MD RBC #/vol (Bld) 4.99 10*6/uL Normal 3.95-5.11 [facility] Comment on above: Performed By: #### C DP, BMP #### [facility] [place] [address] Head Of Maintenance: Bigg Alvarez MD #### PT, PTT #### [address] [address] Head Of Maintenance: Andrez Saha MD WBC #/vol (Bld) 7.2 10*3/uL Normal 3.5-11.3 [facility] Comment on above: Performed By: #### C DP, BMP #### [facility] [address] [place] [address] Head Of Maintenance: Bigg Alvarez MD #### PT, PTT #### [address] [address] Head Of Maintenance: Andrez Saha MD Auto Diff Performed NOT REPORTED Normal [facility] Comment on above: Performed By: #### C DP, BMP #### [facility] [place] [address] Head Of Maintenance: Bigg Alvarez MD #### PT, PTT #### [address] [address] Head Of Maintenance: Andrez Saha MD Platelets #/vol (Bld) NOT REPORTED Normal [facility] Comment on above: Performed By: #### C DP, BMP #### [facility] [address] [place] [address] Head Of Maintenance: Bigg Alvarez MD #### PT, PTT #### [address] [address] Head Of Maintenance: Andrez Saha MD RBC morphology finding Nom (Bld) NOT REPORTED Normal [facility] Comment on above: Performed By: #### C DP, BMP #### [facility] [address] [place] [address] Head Of Maintenance: Bigg Alvarez MD #### PT, PTT #### [address] [address] Head Of Maintenance: Andrez Saha MD WBC Morphology NOT REPORTED Normal [facility] Comment on above: Performed By: #### C DP, BMP #### [facility] [address] [place] [address] Head Of Maintenance: Bigg Alvarez MD #### PT, PTT #### [address] [address] Head Of Maintenance: Andrez Saha MD MRSA, DNA, Nasalon 9 Specimen Description .NASAL SWAB Normal [facility] Comment on above: Performed By: #### M RSANO #### [facility] [address] [place] [address] Head Of Maintenance: Bigg Alvarez MD [address] [address] Head Of Maintenance: Andrez Saha MD PTon 02-11-2019 INR Coag RelTime (PPP) 1.0 {INR} Normal [facility] Comment on above: Result Comment: Therapeutic Range: Moderate Anticoagulant Intensity: INR = 2.0-3.0 High Anticoagulant Intensity: INR = 2.5-3.5 High anticoagulant intensity for patients with a mechanical prosthetic heart valve, thrombosis and antiphospholipid syndrome, or myocardial infarction. Performed By: #### C DP, BMP #### [facility] [address] [place] [address] Head Of Maintenance: Bigg Alvarez MD #### PT, PTT #### [address] [address] Head Of Maintenance: Andrez Saha MD Prothrombin time (PT) Coag time (PPP) 10.4 s Normal 9.7-11.6 [facility] Comment on above: Performed By: #### C DP, BMP #### [facility] [address] [place] [address] Head Of Maintenance: Bigg Alvarez MD #### PT, PTT #### [address] [address] Head Of Maintenance: Andrez Saha MD Urinalysis, Routineon 2018 Acetoacetic Acid,Ur Negative Normal NEG [facility] Comment on above: Performed By: #### U A UMICAO #### [facility] [address] [place] [address] Head Of Maintenance: Bigg Alvarez MD Bilirubin, SemiQt,Ur Negative Normal NEG [facility] Comment on above: Performed By: #### U A UMICAO #### [facility] [address] [place] [address] Head Of Maintenance: Bigg Alvarez MD Color Nom (U) YELLOW Normal YEL [facility] Comment on above: Performed By: #### U A, UMICAO #### [facility] [address] [place] [address] Head Of Maintenance: Bigg Alvarez MD Glucose,Semi-qnt,U r Negative Normal NEG [facility] Comment on above: Performed By: #### U DANILO BondO #### [facility] [address] [place] [address] Head Of Maintenance: Bigg Alvarez MD Hemoglobin, Ur TRACE Abnormal NEG [facility] Comment on above: Performed By: #### DANILO MikeO #### [facility] [address] [facility] [place] [address] Head Of Maintenance: Bigg Alvarez MD Leuckocyte Esterase Negative Normal NEG [facility] Comment on above: Performed By: #### DANILO MikeO #### [facility] [address] [facility] [place] [address] Head Of Maintenance: Bigg Alvarez MD Nitrite,Ur Negative Normal NEG [facility] Comment on above: Performed By: #### DANILO MikeO #### [facility] [address] [facility] [place] [address] Head Of Maintenance: Bigg Alvarez MD PH,Ur 6.0 Normal 5.0-8.0 [facility] Comment on above: Performed By: #### DANILO MikeO #### [facility] [place] [address] Head Of Maintenance: Bigg Alvarez MD Protein mass conc (U) Negative Normal NEG [facility] Comment on above: Performed By: #### U DANILO BondO #### [facility] [place] [address] Head Of Maintenance: Bigg Alvarez MD Spec. Johnson,Ur 1.010 Normal 1.005-1.030 [facility] Comment on above: Performed By: #### U DANILO BondO #### [facility] [address] [place] [address] Head Of Maintenance: Bigg Alvarez MD Turbidity CLEAR Normal CLEAR [facility] Comment on above: Performed By: #### U A, UMICAO #### [facility] [address] [place] [address] Head Of Maintenance: Bigg Avlarez MD Urobilinogen,Ur Normal Normal NORM [facility] Comment on above: Performed By: #### U A, UMICAO #### [facility] [address] [place] [address] Head Of Maintenance: Bigg Alvarez MD Comment NOT REPORTED Normal [facility] Comment on above: Performed By: #### U A, UMICAO #### [facility] [address] [place] [address] Head Of Maintenance: Bigg Alvarez MD Urinalysis,Microon 21- 9 ----- Normal [facility] Comment on above: Performed By: #### U A UMICAO #### [facility] [address] [place] [address] Head Of Maintenance: Bigg Alvarez MD Epithelial cells LM.HPF #/area (Urine sed) 5 TO 10 Normal 0-5 [facility] Comment on above: Performed By: #### U A, UMICAO #### [facility] [address] [place] [address] Head Of Maintenance: Bigg Alvarez MD RBC #/vol (U) 0 TO 2 Normal 0-2 [facility] Comment on above: Performed By: #### U A UMICAO #### [facility] [address] [place] [address] Head Of Maintenance: Bigg Alvarez MD WBC #/vol (U) None Normal 0-5 [facility] Comment on above: Performed By: #### U AYENNY #### [facility] [address] [facility] [place] [address] Head Of Maintenance: Bigg Alvarez MD Amorphous sediment LM Ql (Urine sed) NOT REPORTED Normal [facility] Comment on above: Performed By: #### U AYENNY #### [facility] [address] [facility] [place] [address] Head Of Maintenance: Bigg Alvarez MD Bacteria LM.HPF #/area (Urine sed) NOT REPORTED Normal [facility] Comment on above: Performed By: #### U AYENNY #### [facility] [address] [place] [address]. [place] [address] Head Of Maintenance: Bigg Alvarez MD Casts LM.LPF #/area (Urine sed) NOT REPORTED Normal [facility] Comment on above: Performed By: #### U AYENNY #### [facility] [address] [place] [address]. [place] [address] Head Of Maintenance: Bigg Alvarez MD Crystals LM Nom (Urine sed) NOT REPORTED Normal [facility] Comment on above: Performed By: #### U AYENNY #### [facility] [address] [place] [address]. [place] [address] Head Of Maintenance: Bigg Alvarez MD Epithelial, Renal NOT REPORTED Normal 0 [facility] Comment on above: Performed By: #### U AYENNY #### [facility] [place] [address] Head Of Maintenance: Bigg Alvarez MD Mucus Strands NOT REPORTED Normal [facility] Comment on above: Performed By: #### U A, UMICAO #### [facility] [address] [place] [address] Head Of Maintenance: Bigg Alvarez MD Other Observations NOT REPORTED Normal NREQ [facility] Comment on above: Performed By: #### U A, UMICAO #### [facility] [address] [facility] [place] [address] Head Of Maintenance: Bigg Alvarez MD Trichomonas NOT REPORTED Normal NONE [facility] Comment on above: Performed By: #### U A, UMICAO #### [facility] [address] [place] [address]. [place] [address] Head Of Maintenance: Bigg Alvarez MD Yeast LM Ql (Urine sed) NOT REPORTED Normal NONE [facility] Comment on above: Performed By: #### U A, UMICAO #### [facility] [place] [address] Head Of Maintenance: Bigg Alvarez MD XR CHEST (2 VW)on [...] Amrik George MD 02/11/19 Final result Normal [facility] MRI ANKLE WO CONTRAST LEFTon 03-02-2018 MRI ANKLE WO CONTRAST LEFT [facility] Department of Radiology [address] [place] [address] ======== Patient Name: CONNIE ALEX : 1975 Sex: F Age: Race: White Pt. Location: 4 Patient Status: D Ordered Date: 02/28/2018 3:30:00 PM Completed Date: 03/02/2018 10:42 AM Requesting Provider: JONATHAN DELGADO Attending Provider: JONATHAN DELGADO Report Copy To: Signs & Symptoms: M79.672 Pain in left foot I10 History: Wallace, Breast clip AUTHORIZATION [id number] VALID 02/28/2018-03/30/2018 - per Goldie with Dr Delgado's office. please check-jlr Comments: , AUTHORIZATION [id number] VALID 02/28/2018-03/30/2018 left ankle mri Evaluate achilled tendon rupture after traumatic injury , AUTHORIZATION [id number] VALID 02/28/2018-03/30/2018 left ankle mri Evaluate achilled [...] pain QUESTION FOR THE RADIOLOGIST: , AUTHORIZATION [id number] VALID 02/28/2018-03/30/2018 left ankle mri Evaluate achilled tendon rupture after traumatic injury , AUTHORIZATION [id number] VALID ...More In Sending System PROTOCOL: Images [...] above. Electronically signed by:Patrick Santacruz. Transcribed by: [email or web address], User Resident: Electronically Signed by: PATRICK SANTACRUZ @ 03/03/2018 09:55 AM Normal [facility] Comment on above: Order Comment: , AUTHORIZATION [id number] VALID 02/28/2018-03/30/2018 left ankle mri Evaluate achilled tendon rupture after traumatic injury , AUTHORIZATION [id number] VALID 02/28/2018-03/30/2018 left ankle mri Evaluate achilled tendon rupture after traumatic injury , , , Ordering Provider - JONATHAN DELGADO MD , Encounters Encounter Date Encounter Type Care Provider Facility Start: 10-29-2023 End: 10-29-2023 ambulatory JULIO AICHHOLZ Not Available Start: 10-02-2023 End: 10-02-2023 ambulatory JULIO AICHHOLZ Not Available Start: 09-10-2023 End: 09-10-2023 ambulatory JULIO AICHHOLZ Not Available Start: 02-05-2023 End: 02-06-2023 ambulatory MANAGER GOLF JULIO AICHHOLZ Facility:[facility] Start: 01-18-2023 End: 01-18-2023 ambulatory MANAGER GOLF JULIO AICHHOLZ Facility:[facility] Start: 08-28-2022 End: 08-29-2022 ambulatory MANAGER GOLF JULIO AICHHOLZ Facility:[facility] Start: 07-25-2022 End: 07-26-2022 ambulatory MANAGER GOLF JULIO AICHHOLZ Facility:[facility] Start: 06-10-2022 End: 06-11-2022 ambulatory MANAGER GOLF JULIO AICHHOLZ Facility:[facility] Start: 05-17-2022 End: 05-18-2022 ambulatory JANESSA HERNANDEZ Facility:[facility] Start: 05-14-2022 End: 05-14-2022 ambulatory HELENA MOMIN . Facility:[facility] Start: 03-20-2022 End: 03-21-2022 ambulatory MANAGER GOLF JULIO AICHHOLZ Facility:[facility] Start: 02-24-2019 End: 02-24-2019 [facility]: 02-11-2019 End: 02-14-2019 Patient encounter procedure [facility] Start: 02-11-2019 End: 02-16-2019 Patient encounter procedure [facility] Procedures Date Procedure Procedure Detail Performing Clinician Start: 02-24-2019 DISCHARGE PATIENT CHARU CALLAWAY Start: 02-24-2019 FLUORO FOR SURGICAL PROCEDURES CHARU CALLAWAY Start: 02-24-2019 Radiologic exam sacr oiliac joints 3/more views CHARU CALLAWAY Start: 02-24-2019 BEDREST CHARU MCKENNA Start: 02-24-2019 Continuous pulse oximetry CHARU CALLAWAY Start: 02-24-2019 ENCOURAGE DEEP BREAT CAROLE AND COUGHING CHARU ELIZABETHOF Start: 02-24-2019 INITIATE OXYGEN THER APY PROTOCOL CHARU ELIZABETHOF Start: 02-24-2019 NOTIFY PHYSICIAN (SPECIFY) CHARU CALLAWAY Start: 02-24-2019 NURSING COMMUNICATION Karime TYSHAWN CALLAWAY Start: 02-24-2019 VITAL SIGNS CHARU CAICEDO [...] CHARU CALLAWAY Start: 02-11-2019 EKG REPORT CHARU CAICEDO TOF Start: 02-11-2019 Iadna s aureus methi cillin resist amp probe tq CHARU CALLAWAY Start: 02-11-2019 Culture bacterial qu anttative colony count urine CHARU CALLAWAY Start: 02-11-2019 Urinalysis microscopic only CHARU ELIZABETHOF Start: 02-11-2019 Urnls dip stick/tabl et rgnt auto w/o microscopy CHARU CALLAWAY Start: 02-11-2019 Basic metabolic pane l calcium total CHARU ELIZABETHOF Start: 02-11-2019 Blood count complete auto&auto difrntl wbc CHARU CALLAWAY Start: 02-11-2019 Prothrombin time CHARU CALLAWAY Start: 02-11-2019 Thromboplastin time partial plasma/whole blood CHARU CALLAWAY Start: 02-11-2019 TYPE AND SCREEN CHARU SAMS Payers Date Payer Category Payer Unknown [id number] 2022 Medicaid [id number] 2014 Unknown [id number] 1975 Unknown [id number] 2.16.8 [id number] 1975 Unknown [id number] 2.16.8 [id number] 1975 Unknown [id number] 2.16.8 40.1.105888.3.579.2.177 1975 Unknown [id number] 2.16.84 0.1.795528.3.579.2.593 1975 Unknown [id number] 2.16.84 0.1.234801.3.579.2.593 1975 Unknown [id number] 2.16.84 0.1.660310.3.579.2.593 1975 Unknown [id number] 2.16.84 0.1.672079.3.579.2.593 1975 Unknown [id number] 2.16.84 0.1.393273.3.579.2.593 1975 Unknown [id number] 2.16.84 0.1.143933.3.579.2.593 1975 Unknown [id number] 2.16.84 0.1.017924.3.579.2.593 1975 Unknown [id number] 2.16.84 0.1.348594.3.579.2.593 1975 Unknown [id number] 2.16.84 0.1.965974.3.579.2.1259 1975 Unknown [id number] 2.16.84 0.1.867059.3.579.2.1259 1975 Unknown [id number] 2.16.840 .[id number] 1959 Unknown [id number] Clinical Note 05-18-2022 Note Date & Type [...] by: TEVIN ESPINOZA Date: 2022-05-18 08:[address] [facility] Clinical Note 05-18-2022 Note Date & [...] authenticated by: TEVIN ESPINOZA Date: 2022-05-18 08:15 [facility] Summary Purpose Family History No Family History Records FoundNo Family History Records FoundNo Family History Records FoundNo Family History Records Found Advance Directives No Advanced Directives Records FoundNo Advanced Directives Records FoundNo Advanced Directives Records FoundNo Advanced Directives Records Found Additional Source Comments INFORMATION SOURCE (unrecogn ized section and content) DATE CREATED AUTHOR 02/27/2019 [facility] DATE CREATED AUTHOR AUTHOR'S ORGANIZ ATION 03/02/2019 [facility] DATE CREATED AUTHOR AUTHOR'S ORGANIZ ATION 02/07/2023 [facility] DATE CREATED AUTHOR AUTHOR'S ORGANIZ ATION 10/30/2023 [facility] FOR RECORDS PERTAINING TO PATIENTS WHO ARE [...] BE BASED ON THE PRIMARY CLINICAL RECORDS. [facility]. provides no warranty or guarantee of the accuracy or completeness of information in this document.
[2024-01-19 09:14] LABS: Free T3 2.24 pg/mL (2.18-3.98); Thyroid Stimulating Hormone 3.191 uIU/mL (0.358-3.740)
[2024-01-19 09:21] LABS: Free T4 0.87 ng/dL (0.76-1.46)
== END 2024-01-19 06:51 | disposition home or self-care (01) ==
LOC: LAB 06:51
PROVIDERS: PCP Nurse Practitioner; Visit Provider Nurse Practitioner
DX: E03.9 Hypothyroidism, unspecified (principal)
CPT/HCPCS: 36415; 84439; 84443; 84481

== ENCOUNTER 2024-02-07 14:28 | Outpatient (OUT) | payer SELFPAY ==
--- NOTE | 2024-02-07 14:33 | MM_ITS ---
Patient Name: CONNIE ALEX MR#: [id number] : 1975 Exam Date: 02/07/2024 Ordering Doctor: IVTE Gonsalez CNP RADIOLOGY REPORT PROCEDURE: MM TOMOSYNTHESIS SCREENING BI COMPARISON: MG MAMM SCREEN 3D FREDY CAD, 02/05/2023. MG MAMM SCREEN 3D FREDY CAD, 02/02/2022. MG MAMM SCREEN 3D FREDY CAD, 02/01/2021. MG MAMM FREDY SCRN W CAD DIG, 07/14/2014. INDICATIONS: Screening Calculator Name NCI Breast Cancer Risk Assessment Tool 5 Year Breast Cancer Risk 1.60% Lifetime Breast Cancer Risk 14.50% Personal Breast Cancer No Personal Ovarian Cancer No Treatments None Family Cancers Sister with uterine cancer at age 35; Grandmother-maternal with throat cancer at age 84. LOCATION: [facility] BREAST COMPOSITION: The breasts are heterogeneously dense,which may obscure small masses. FINDINGS: DIAGNOSTIC CATEGORY 1--NEGATIVE. RIGHT BREAST: No significant suspicious finding. No significant change has occurred. LEFT BREAST: No significant suspicious finding. No significant change has occurred. RECOMMENDATIONS: ROUTINE MAMMOGRAM AND CLINICAL EVALUATION IN 12 MONTHS. PLEASE NOTE: A NORMAL MAMMOGRAM DOES NOT EXCLUDE THE POSSIBILITY OF BREAST CANCER. A CLINICALLY SUSPICIOUS PALPABLE LUMP SHOULD BE BIOPSIED. Dictated by: Tevin Espinoza M.D. on 02/07/2024 at 15:47 Approved by: Tevin Espinoza M.D. on 02/07/2024 at 15:49
== END 2024-02-07 14:29 | disposition home or self-care (01) ==
LOC: MAMMO 14:29
PROVIDERS: PCP Nurse Practitioner; Visit Provider Nurse Practitioner
DX: Z12.31 Encounter for screening mammogram for malignant neoplasm of breast (principal); Z80.8 Family history of malignant neoplasm of other organs or systems
CPT/HCPCS: 77063; 77067

== ENCOUNTER 2024-03-26 06:31 | Outpatient (OUT) | payer OTHER, SELFPAY ==
--- NOTE | 2024-03-26 | ECG_ITS ---
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
--- OUTSIDE RECORDS SUMMARY | 2024-03-26 06:34 | XMS_ITS | CCD ---
Author Organization [facility] Care Team Providers Care Forestry And Wildlife Manager Name Role Phone CHARU CALLAWAY Referring Unavailable AICHHOLZ, JULIO J. Primary Care Unavailable CHARU CALLAWAY Referring Unavailable AICHHOLZ, JULIO J. Primary Care Unavailable CHARU CALLAWAY Admitting Unavailable CHARU CALLAWAY Attending Unavailable AICHHOLZ, JULIO J. Primary Care Unavailable AICHHOLZ, FOOTWEAR MACHINERY INSTRUCTOR JULIO Admitting Unavailable AICHHOLZ, FOOTWEAR MACHINERY INSTRUCTOR JULIO Attending Unavailable AICHHOLZ, FOOTWEAR MACHINERY INSTRUCTOR JULIO Consulting Unavailable AICHHOLZ, FOOTWEAR MACHINERY INSTRUCTOR JULIO Primary Care Unavailable AICHHOLZ, FOOTWEAR MACHINERY INSTRUCTOR JULIO Admitting Unavailable AICHHOLZ, FOOTWEAR MACHINERY INSTRUCTOR JULIO Attending Unavailable AICHHOLZ, FOOTWEAR MACHINERY INSTRUCTOR JULIO Consulting Unavailable AICHHOLZ, FOOTWEAR MACHINERY INSTRUCTOR JULIO Primary Care Unavailable AICHHOLZ, FOOTWEAR MACHINERY INSTRUCTOR JULIO Admitting Unavailable AICHHOLZ, FOOTWEAR MACHINERY INSTRUCTOR JULIO Attending Unavailable AICHHOLZ, FOOTWEAR MACHINERY INSTRUCTOR JULIO Consulting Unavailable AICHHOLZ, FOOTWEAR MACHINERY INSTRUCTOR JULIO Primary Care Unavailable AICHHOLZ, FOOTWEAR MACHINERY INSTRUCTOR JULIO Primary Care Unavailable FAWWAD, WILLS H Admitting Unavailable FAWWAD, WILLS H Attending Unavailable FAWWAD, WILLS H Consulting Unavailable ANASTACIO ROLDAN Consulting Unavailable JANESSA HERNANDEZ Admitting Unavailable Tevin Espinoza Consulting Unavailable JANESSA HERNANDEZ Attending Unavailable AICHHOLZ, FOOTWEAR MACHINERY INSTRUCTOR JULIO Primary Care Unavailable JANESSA HERNANDEZ Consulting Unavailable HELENA QUNITANA Admitting Unavailable NILSA Bryan, MR CHRISTIAN Consulting Unavailable AICHHOLZ, FOOTWEAR MACHINERY INSTRUCTOR JULIO Primary Care Unavailable HELENA QUINTANA Attending Unavailable HERACLIO WELLS Consulting Unavailable AICHHOLZ, FOOTWEAR MACHINERY INSTRUCTOR JULIO Admitting Unavailable AICHHOLZ, FOOTWEAR MACHINERY INSTRUCTOR JULIO Attending Unavailable AICHHOLZ, FOOTWEAR MACHINERY INSTRUCTOR JULIO Consulting Unavailable AICHHOLZ, FOOTWEAR MACHINERY INSTRUCTOR JULIO Primary Care Unavailable AICHHOLZ, FOOTWEAR MACHINERY INSTRUCTOR JULIO Attending Unavailable SHELLIE, FOOTWEAR MACHINERY INSTRUCTOR JULIO Consulting Unavailable SHELLIE, FOOTWEAR MACHINERY INSTRUCTOR JULIO Primary Care Unavailable SHELLIE, IVET GARCIAA Admitting Unavailable SHELLIE, JULIO Attending Unavailable AICIndyHOLGray, JULIO Attending Unavailable AICIndyHOLGray, JULIO Attending Unavailable SHELLIE, JULIO Attending Unavailable Allergies Allergy Classification Reported Allergen(s) Allergy Type Date of Onset Reaction(s) Facility (1 source) bee venom Drug allergy (disorder) 11-12-2013 [facility] Repository Problems Active Problems Problem Classification [...] 1975 Gender:F Ordering : IVET JULIO HENSLEY FOOTWEAR MACHINERY INSTRUCTOR Admission #: [id number] Family : Order #: [id number] CLICK HERE TO VIEW EXAM RADIOLOGY REPORT [...] throat cancer at age 82. LOCATION: [facility] BREAST COMPOSITION: Heterogeneously dense,which may obscure [...] MD on 02/06/2023 at 10:24 Normal [facility] Covid-19 PCR (CVDTBH)on 12-24 SARS-CoV-2 (COVID-19) RNA TAYO+probe Ql (Unsp spec) Not detected Normal NOT DETECTED [facility] Comment on above: Result Comment: This test is not yet approved or cleared by the [place] FDA. When there are no FDA-approved or cleared tests available, and other criteria are met, FDA can make tests available under an emergency access mechanism called an Emergency Use Authorization (EUA). The EUA for this test is supported by the [place] of Health and Human Service's (HHS's) declaration [...] Performed By: #### C MP, TSH #### [facility] [address] [place] [address] Dr. Allie Birch SYMPTOMATIC COVID-19 ANTIGEN on 01-18-2023 EUA Statement SEE BELOW Normal [facility] Comment on above: Result Comment: This [...] Performed By: #### C DONALD, TSH #### [facility] [address] [place] [address] Dr. Allie Birch SARS-CoV-2 (COVID-19) RNA TAYO+probe Ql (Unsp spec) Negative Normal NEGATIVE [facility] Comment on above: Performed By: #### C MP, TSH #### [facility] [address] [place] [address] Dr. Allie Birch CBC AUTO DIFFon 07-25-2022 BASO # 0.1 103/ul Normal 0.0-0.1 [facility] Comment on above: Performed By: #### C BC #### [facility] [address] [place] [address] Dr. Allie Birch Basophils/100 WBC (Bld) 1.3 % Normal 0.2-2.0 [facility] Comment on above: Performed By: #### C BC #### [facility] [address] [place] [address] Dr. Allie Birch EO # 0.3 103/ul Normal 0.0-0.7 [facility] Comment on above: Performed By: #### C BC #### [facility] [address] [place] [address] Dr. Allie Birch Eosinophils/100 WBC (Bld) 3.4 % Normal 0.9-7.0 [facility] Comment on above: Performed By: #### C BC #### [facility] [address] [place] [address] Dr. Allie Birch Erythrocyte distribution width (RBC) [Ratio] 13.2 % Normal 11.0-15.0 [facility] Comment on above: Performed By: #### C BC #### [facility] [address] [place] [address] Dr. Allie Birch Hematocrit (Bld) [Volume fraction] 41.7 % Normal 36.0-48.0 [facility] Comment on above: Performed By: #### C BC #### [facility] [address] [place] [address] Dr. Allie Birch Hemoglobin (Bld) [Mass/Vol] 14.1 g/dL Normal 12.0-16.0 [facility] Comment on above: Performed By: #### C BC #### [facility] [address] [place] [address] Dr. Allie Birch IG # 0.02 10e3/ul Normal 0.00-0.03 [facility] Comment on above: Performed By: #### C BC #### [facility] [address] [place] [address] Dr. Allie Birch IG % 0.2 % Normal 0.0-0.5 [facility] Comment on above: Performed By: #### C BC #### [facility] [address] [place] [address] Dr. Allie Birch LYMPH # 1.6 103/ul Normal 1.2-3.8 [facility] Comment on above: Performed By: #### C BC #### [facility] [address] [place] [address] Dr. Allie Birch Lymphocytes/100 WBC (Bld) 18.1 % Critically low 20.5-60.0 [facility] Comment on above: Performed By: #### C BC #### [facility] [address] [place] [address] Dr. Allie Birch MANUAL DIFF REQ NO Normal [facility] Comment on above: Performed By: #### C BC #### [facility] [address] [place] [address] Dr. Allie Birch MCH (RBC) [Entitic mass] 29.4 pg Normal 26.7-34.0 [facility] Comment on above: Performed By: #### C BC #### [facility] [address] [place] [address] Dr. Allie Birch MCHC (RBC) [Mass/Vol] 33.8 g/dL Normal 29.9-35.2 [facility] Comment on above: Performed By: #### C BC #### [facility] [address] [place] [address] Dr. Allie Birch MCV (RBC) [Entitic vol] 86.9 fL Normal 81.0-99.0 [facility] Comment on above: Performed By: #### C BC #### [facility] [address] [place] [address] Dr. Allie Birch MONO # 0.4 103/ul Normal 0.3-0.8 [facility] Comment on above: Performed By: #### C BC #### [facility] [address] [place] [address] Dr. Allie Birch Monocytes/100 WBC (Bld) 4.4 % Normal 1.7-12.0 [facility] Comment on above: Performed By: #### C BC #### [facility] [address] [place] [address] Dr. Allie Birch NEUT # 6.2 103/ul Normal 1.4-6.5 [facility] Comment on above: Performed By: #### C BC #### [facility] [address] [place] [address] Dr. Allie Birch Neutrophils/100 WBC (Bld) 72.6 % Normal 43.0-75.0 [facility] Comment on above: Performed By: #### C BC #### [facility] [address] [place] [address] Dr. Allie Birch Platelet mean volume (Bld) [Entitic vol] 9.6 fL Normal 9.5-13.5 [facility] Comment on above: Performed By: #### C BC #### [facility] [address] [place] [address] Dr. Allie Birch PLT 316 103/ul Normal 150-450 [facility] Comment on above: Performed By: #### C BC #### [facility] [address] [place] [address] Dr. Allie Birch RBC 4.80 106/ul Normal 4.20-5.40 [facility] Comment on above: Performed By: #### C BC #### [facility] [address] [place] [address] Dr. Allie Birch WBC 8.6 103/ul Normal 4.0-11.0 [facility] Comment on above: Performed By: #### C BC #### [facility] [address] [place] [address] Dr. Allie Birch FREE T4on 07-25-2022 Free T4 [Mass/Vol] 0.80 ng/dL Normal 0.76-1.46 [facility] Comment on above: Performed By: #### C MP, TSH #### [facility] [address] [place] [address] Dr. Allie Birch PROF 14(COMP METB)on 022 Albumin [Mass/Vol] 3.5 g/dL Normal 3.4-5.0 [facility] Comment on above: Performed By: #### C MP, TSH #### [facility] [address] [place] [address] Dr. Allie Birch Albumin/Globulin [Mass ratio] 1.0 {ratio} Normal [facility] Comment on above: Performed By: #### C MP, TSH #### [facility] [address] [place] [address] Dr. Allie Birch ALP [Catalytic activity/Vol] 96 U/L Normal 46-116 [facility] Comment on above: Performed By: #### C MP, TSH #### [facility] [address] [place] [address] Dr. Allie Birch ALT [Catalytic activity/Vol] 21 U/L Normal 14-59 [facility] Comment on above: Performed By: #### C MP, TSH #### [facility] [address] [place] [address] Dr. Allie Birch Anion gap [Moles/Vol] 9.2 mmol/L Normal [facility] Comment on above: Performed By: #### C MP, TSH #### [facility] [address] [place] [address] Dr. Allie Birch AST [Catalytic activity/Vol] 15 U/L Normal 15-37 [facility] Comment on above: Performed By: #### C MP, TSH #### [facility] [address] [place] [address] Dr. Allie Birch Bilirubin [Mass/Vol] 0.5 mg/dL Normal 0.2-1.0 [facility] Comment on above: Performed By: #### C MP, TSH #### [facility] [address] [place] [address] Dr. Allie Birch Calcium [Mass/Vol] 8.7 mg/dL Normal 8.5-10.1 [place] Comment on above: Performed By: #### C MP, TSH #### [facility] [address] [place] [address] Dr. Allie Birch Chloride [Moles/Vol] 102 mmol/L Normal 98-107 [facility] Comment on above: Performed By: #### C MP, TSH #### [facility] [address] [place] [address] Dr. Allie Birch CO2 [Moles/Vol] 30.0 mmol/L Normal 21.0-32.0 [facility] Comment on above: Performed By: #### C MP, TSH #### [facility] [address] [place] [address] Dr. Allie Birch Creatinine [Mass/Vol] 0.77 mg/dL Normal 0.55-1.02 [facility] Comment on above: Performed By: #### C MP, TSH #### [facility] [address] [place] [address] Dr. Allie Birch EGFR-AF [place] >60 Normal >=60 [facility] Comment on above: Performed By: #### C MP, TSH #### [facility] [address] [place] [address] Dr. Allie Birch EGFR-NON AF [place] >60 Normal >=60 [facility] Comment on above: Performed By: #### C MP, TSH #### [facility] [address] [place] [address] Dr. Allie Birch Globulin (S) [Mass/Vol] 3.5 g/dL Normal [facility] Comment on above: Performed By: #### C MP, TSH #### [facility] [address] [place] [address] Dr. Allie Birch Glucose [Mass/Vol] 87 mg/dL Normal 74-106 [facility] Comment on above: Performed By: #### C MP, TSH #### [facility] [address] [place] [address] Dr. Allie Birch Potassium [Moles/Vol] 4.2 mmol/L Normal 3.5-5.1 [facility] Comment on above: Performed By: #### C MP, TSH #### [facility] [address] [place] [address] Dr. Allie Birch Protein [Mass/Vol] 7.0 g/dL Normal 6.4-8.2 [facility] Comment on above: Performed By: #### C MP, TSH #### [facility] [address] [place] [address] Dr. Allie Birch Sodium [Moles/Vol] 137 mmol/L Normal 136-145 [facility] Comment on above: Performed By: #### C MP, TSH #### [facility] [address] [place] [address] Dr. Allie Birch Urea nitrogen [Mass/Vol] 8.0 mg/dL Normal 7.0-18.0 [facility] Comment on above: Performed By: #### C MP, TSH #### [facility] [address] [place] [address] Dr. Allie Birch Urea nitrogen/Creatinin e [Mass ratio] 10.4 mg/mg Normal [facility] Comment on above: Performed By: #### C MP, TSH #### [facility] [address] [place] [address] Dr. Allie Birch TSHon 07-25-2022 TSH 1.635 uIU/mL Normal 0.358-3.740 [facility] Comment on above: Performed By: #### C MP, TSH #### [facility] [address] [place] [address] Dr. Allie Birch VITAMIN B12on 07-25-2022 Cobalamin (Vitamin B12) [Mass/Vol] 408.0 pg/mL Normal 193.0-986.0 [facility] Comment on above: Performed By: #### C MP, TSH #### [facility] [address] [place] [address] Dr. Allie Birch FREE T4on 06-10-2022 Free T4 [Mass/Vol] 0.87 ng/dL Normal 0.76-1.46 [place] Comment on above: Performed By: #### F T4 #### [facility] [address] [place] [address] Dr. Allie Birch TSHon 06-10-2022 TSH 4.450 uIU/mL Critically high 0.358-3.740 [facility] Comment on above: Performed By: #### T SH #### [facility] [address] [place] [address] Dr. Allie Birch XR ANKLE RT MIN [...] by: HERACLIO WELLS Date: 2022-05-14 15:51 Normal [facility] XR CHEST 2 Von 03-20-2022 XR CHEST [...] by: ANASTACIO ROLDAN Date: 2022-03-20 14:12 Normal [facility] FLUORO FOR SURGICAL PROCEDUR ESon 02-24-2019 FLUORO FOR SURGICAL PROCEDURES Radiology exam is complete. No Radiologist dictation. Please follow up with ordering provider. Final result Normal [facility] XR SACROILIAC JOINTS (MIN 3 VIEWS)on [...] Gerard Pena MD 02/24/19 Final result Normal [facility] Cult,Urine,CCon 02-13-2019 Cult,Urine,CC Specimen Description .URINE [...] Trimethoprim/Sulfa <=20 SUSCEPTIBLE Piperacillin/Tazobacta m <=4 SUSCEPTIBLE [facility] Comment on above: Performed By: #### C CATALINO #### [facility] [address] [place] [address] Avp: Bigg Alvarez MD [address] [address] Avp: Andrez Saha MD MRSA, DNA, Nasalon 9 MRSA, DNA, Nasal NEGATIVE: MRSA DNA n ot detected by nucleic acid amplification. Normal [facility] Comment on above: Result Comment: Results should be used as an adjunct to nosocomial control efforts to identify patients needing enhanced precautions. The test is not intended to identify patients with staphylococcal infections. Results should not be used to guide or monitor treatment for MRSA infections. Performed By: #### M RSANO #### [facility] [address] [place] [address] Avp: Bigg Alvarez MD [address] [address] Avp: Andrez Saha MD Type + Screenon 02-12-2019 Type + Screen Sample Expiration 02/27/2019 Arm Band Number [id number] ABO/Rh(D) O POSITIVE Antibody Screen NEGATIVE [facility] Comment on above: Performed By: #### T YS #### [facility] [address] [place] [address] Avp: Bigg Alvarez MD APTTon 02-11-2019 aPTT Coag time (Bld) 30.0 s Normal 23-31 [facility] Comment on above: Performed By: #### C DP, BMP #### [facility] [place] [address] Avp: Bigg Alvarez MD #### PT, PTT #### [address] [address] Avp: Andrez Saha MD Basic Metabolic Profon 02-11 (cont.) Normal [facility] Comment on above: Result Comment: Aver age GFR for 40-49 years old: 99 mL/min/1.73sq m Chronic Kidney Disease: <60 mL/min/1.73sq m Kidney failure: <15 mL/min/1.73sq m eGFR calculated using average adult body mass. Additional eGFR calculator available at: http://www.[employer].Seamless/multiple_crcl_2012.htm Performed By: #### C DP, BMP #### [facility] [address] [place] [id number] Avp: Bigg Alvarez MD #### PT, PTT #### [address] [address] Avp: Andrez Saha MD Anion gap molar conc 10 mmol/L Normal 9-17 [facility] Comment on above: Performed By: #### C DP, BMP #### [facility] [address] [place] [address] Avp: Bigg Alvarez MD #### PT, PTT #### [address] [address] Avp: Andrez Saha MD BUN/CRE Ratio 14 Normal 9-20 [facility] Comment on above: Performed By: #### C DP, BMP #### [facility] [place] [address] Avp: Bigg Alvarez MD #### PT, PTT #### [address] [address] Avp: Andrez Saha MD Calcium mass conc 8.8 mg/dL Normal 8.6-10.4 [facility] Comment on above: Performed By: #### C DP, BMP #### [facility] [address] [place] [id number] Avp: Bigg Alvarez MD #### PT, PTT #### [address] [address] Avp: Andrez Saha MD Chloride molar conc 103 mmol/L Normal 98-107 [facility] Comment on above: Performed By: #### C DP, BMP #### [facility] [address] [place] [address] Avp: Bigg Alvarez MD #### PT, PTT #### [address] [address] Avp: Andrez Saha MD CO2 molar conc 27 mmol/L Normal 20-31 [facility] Comment on above: Performed By: #### C DP, BMP #### [facility] [address] [place] [address] Avp: Bigg Alvarez MD #### PT, PTT #### [address] [address] Avp: Andrez Saha MD Creatinine mass conc 0.57 mg/dL Normal 0.50-0.90 [facility] Comment on above: Performed By: #### C DP, BMP #### [facility] [place] [address] Avp: Bigg Alvarez MD #### PT, PTT #### [address] [address] Avp: Andrez Saha MD GFR, Amer >60 Normal >60 [facility] Comment on above: Performed By: #### C DP, BMP #### [facility] [address] [place] [address] Avp: Bigg Alvarez MD #### PT, PTT #### [address] [id number] Avp: Andrez Saha MD GFR,non Amer >60 Normal >60 [facility] Comment on above: Performed By: #### C DP, BMP #### [facility] [address] [place] [address] Avp: Bigg Alvarez MD #### PT, PTT #### [address] [address] Avp: Andrez Saha MD Glucose mass conc 110 mg/dL High 70-99 [facility] Comment on above: Performed By: #### C DP, BMP #### [facility] [address] [place] [phone] Avp: Bigg Alvarez MD #### PT, PTT #### [address] [address] Avp: Andrez Saha MD Potassium molar conc 3.6 mmol/L Low 3.7-5.3 [facility] Comment on above: Performed By: #### C DP, BMP #### [facility] [address] [place] [address] Avp: Bigg Alvarez MD #### PT, PTT #### [address] [address] Avp: Andrez Saha MD Sodium molar conc 140 mmol/L Normal 135-144 [facility] Comment on above: Performed By: #### C DP, BMP #### [facility] [address] [place] [address] Avp: Bigg Alvarez MD #### PT, PTT #### [address] [address] Avp: Andrez Saha MD Urea nitrogen mass conc 8 mg/dL Normal 6-20 [facility] Comment on above: Performed By: #### C DP, BMP #### [facility] [address] [place] [address] Avp: Bigg Alvarez MD #### PT, PTT #### [address] [address] Avp: Andrez Saha MD Staging: NOT REPORTED Normal [facility] Comment on above: Performed By: #### C DP, BMP #### [facility] [address] [place] [address] Avp: Bigg Alvarez MD #### PT, PTT #### [address] [address] Avp: nAdrez Saha MD CBC with Diffon 02-11-2019 Abs. Basophil 0.07 k/uL Normal 0.00-0.20 [facility] Comment on above: Performed By: #### C DP, BMP #### [facility] [place] [address] Avp: Bigg Alvarez MD #### PT, PTT #### [address] [address] Avp: Andrez Saha MD Abs.Imm.Granulocyt e 0.03 k/uL Normal 0.00-0.30 [facility] Comment on above: Performed By: #### C DP, BMP #### [facility] [place] [address] Avp: Bigg Alvarez MD #### PT, PTT #### [address] [address] Avp: Andrez Saha MD Abs.Neutrophil (Seg) 4.85 k/uL Normal 1.50-8.10 [facility] Comment on above: Performed By: #### C DP, BMP #### [facility] [address] [place] [address] Avp: Bigg Alvarez MD #### PT, PTT #### [address] [address] Avp: Andrez Saha MD Basophils/100 WBC (Bld) 1 % Normal 0-2 [facility] Comment on above: Performed By: #### C DP, BMP #### [facility] [address] [place] [address] Avp: Bigg Alvarez MD #### PT, PTT #### [address] [address] Avp: Andrez Saha MD Eosinophils #/vol (Bld) 0.24 10*3/uL Normal 0.00-0.44 [facility] Comment on above: Performed By: #### C DP, BMP #### [facility] [address] [place] [address] Avp: Bigg Alvarez MD #### PT, PTT #### [address] [address] Avp: Andrez Saha MD Eosinophils/100 WBC (Bld) 3 % Normal 1-4 [facility] Comment on above: Performed By: #### C DP, BMP #### [facility] [address] [place] [address] Avp: Bigg Alvarez MD #### PT, PTT #### [address] [address] Avp: Andrez Saha MD Erythrocyte distribution width Ratio (RBC) 13.7 % Normal 11.8-14.4 [facility] Comment on above: Performed By: #### C DP, BMP #### [facility] [address] [place] [address] Avp: Bigg Alvarez MD #### PT, PTT #### [address] [address] Avp: Andrez Saha MD Hematocrit Volume Fraction (Bld) 44.0 % Normal 36.3-47.1 [facility] Comment on above: Performed By: #### C DP, BMP #### [facility] [address] [place] [address] Avp: Bigg Alvarez MD #### PT, PTT #### [address] [address] Avp: Andrez Saha MD Hemoglobin mass conc (Bld) 14.6 g/dL Normal 11.9-15.1 [facility] Comment on above: Performed By: #### C DP, BMP #### [facility] [address] [place] [address] Avp: Bigg Alvarez MD #### PT, PTT #### [address] [address] Avp: Andrez Saha MD Immature granulocytes #/vol (Bld) 0 % Normal 0 [facility] Comment on above: Performed By: #### C DP, BMP #### [facility] [address] [place] [address] [id number] Avp: Bigg Alvarez MD #### PT, PTT #### [address] [address] Avp: Andrez Saha MD Lymphocytes #/vol (Bld) 1.62 10*3/uL Normal 1.10-3.70 [facility] Comment on above: Performed By: #### C DP, BMP #### [facility] [address] [place] [address] Avp: Bigg Alvarez MD #### PT, PTT #### [address] [address] Avp: Andrez Saha MD Lymphocytes/100 WBC (Bld) 23 % Low 24-43 [facility] Comment on above: Performed By: #### C DP, BMP #### [facility] [address] [place] [address] Avp: Bigg Alvarez MD #### PT, PTT #### [address] [address] Avp: Andrez Saha MD MCH Entitic mass (RBC) 29.3 pg Normal 25.2-33.5 [facility] Comment on above: Performed By: #### C DP, BMP #### [facility] [address] [place] [address] Avp: Bigg Alvarez MD #### PT, PTT #### [address] [address] Avp: Andrez Saha MD MCHC mass conc (RBC) 33.2 g/dL Normal 28.4-34.8 [facility] Comment on above: Performed By: #### C DP, BMP #### [facility] [address] [place] [address] Avp: Bigg Alvarez MD #### PT, PTT #### [address] [phone] Avp: Andrez Saha MD MCV Entitic volume (RBC) 88.2 fL Normal 82.6-102.9 [facility] Comment on above: Performed By: #### C DP, BMP #### [facility] [address] [place] [address] Avp: Bigg Alvarez MD #### PT, PTT #### [address] [address] Avp: Andrez Saha MD Monocytes #/vol (Bld) 0.36 10*3/uL Normal 0.10-1.20 [facility] Comment on above: Performed By: #### C DP, BMP #### [facility] [address] [place] [address] Avp: Bigg Alvarez MD #### PT, PTT #### [address] [phone] Avp: Andrez Saha MD Monocytes/100 WBC (Bld) 5 % Normal 3-12 [facility] Comment on above: Performed By: #### C DP, BMP #### [facility] [address] [place] [address] Avp: Bigg Alvarez MD #### PT, PTT #### [address] [address] Avp: Andrez Saha MD Neutrophil (Seg) 68 % High 36-65 [facility] Comment on above: Performed By: #### C DP, BMP #### [facility] [address] [place] [address] Avp: Bigg Alvarez MD #### PT, PTT #### [address] [address] Avp: Andrez Saha MD NRBC Automated 0.0 per 100 WBC Normal 0.0 [facility] Comment on above: Performed By: #### C DP, BMP #### [facility] [address] [place] [address] Avp: Bigg Alvaerz MD #### PT, PTT #### [address] [address] Avp: Andrez Saha MD Platelet mean volume Entitic volume (Bld) 9.5 fL Normal 8.1-13.5 [facility] Comment on above: Performed By: #### C DP, BMP #### [facility] [address] [place] [address] Avp: Bigg Alvarez MD #### PT, PTT #### [address] [address] Avp: Andrez Saha MD Platelets #/vol (Bld) 298 10*3/uL Normal 138-453 [facility] Comment on above: Performed By: #### C DP, BMP #### [facility] [address] [place] [address] Avp: Bigg Alvarez MD #### PT, PTT #### [address] [address] Avp: Andrez Saha MD RBC #/vol (Bld) 4.99 10*6/uL Normal 3.95-5.11 [facility] Comment on above: Performed By: #### C DP, BMP #### [facility] [address] [place] [address] Avp: Bigg Alvarez MD #### PT, PTT #### [address] [address] Avp: Andrez Saha MD WBC #/vol (Bld) 7.2 10*3/uL Normal 3.5-11.3 [facility] Comment on above: Performed By: #### C DP, BMP #### [facility] [address] [place] [address] Avp: Bigg Alvarez MD #### PT, PTT #### [address] [address] Avp: Andrez Saha MD Auto Diff Performed NOT REPORTED Normal [facility] Comment on above: Performed By: #### C DP, BMP #### [facility] [address] [place] [address] Avp: Bigg Alvarez MD #### PT, PTT #### [address] [address] Avp: Andrez Saha MD Platelets #/vol (Bld) NOT REPORTED Normal [facility] Comment on above: Performed By: #### C DP, BMP #### [facility] [address] [place] [address] Avp: Bigg Alvarez MD #### PT, PTT #### [address] [address] Avp: Andrez Saha MD RBC morphology finding Nom (Bld) NOT REPORTED Normal [facility] Comment on above: Performed By: #### C DP, BMP #### [facility] [address] [place] [address] Avp: Bigg Alvarez MD #### PT, PTT #### [address] [address] Avp: Andrez Saha MD WBC Morphology NOT REPORTED Normal [facility] Comment on above: Performed By: #### C DP, BMP #### [facility] [address] [place] [address] Avp: Bigg Alvarez MD #### PT, PTT #### [address] [address] Avp: Andrez Saha MD MRSA, DNA, Nasalon 9 Specimen Description .NASAL SWAB Normal [facility] Comment on above: Performed By: #### M RSANO #### [facility] [address] [place] [address] Avp: Bigg Alvarez MD [address] [address] Avp: Andrez Saha MD PTon 02-11-2019 INR Coag RelTime (PPP) 1.0 {INR} Normal [facility] Comment on above: Result Comment: Therapeutic Range: Moderate Anticoagulant Intensity: INR = 2.0-3.0 High Anticoagulant Intensity: INR = 2.5-3.5 High anticoagulant intensity for patients with a mechanical prosthetic heart valve, thrombosis and antiphospholipid syndrome, or myocardial infarction. Performed By: #### C DP, BMP #### [facility] [address] [place] [address] Avp: Bigg Alvarez MD #### PT, PTT #### [address] [address] Avp: Andrez Saha MD Prothrombin time (PT) Coag time (PPP) 10.4 s Normal 9.7-11.6 [facility] Comment on above: Performed By: #### C DP, BMP #### [facility] [address] [place] [address] Avp: Bigg Alvarez MD #### PT, PTT #### [address] [address] Avp: Andrez Saha MD Urinalysis, Routineon 2018 Acetoacetic Acid,Ur Negative Normal NEG [facility] Comment on above: Performed By: #### U A, UMICAO #### [facility] [address] [place] [address] Avp: Bigg Alvarez MD Bilirubin, SemiQt,Ur Negative Normal NEG [facility] Comment on above: Performed By: #### U A, UMICAO #### [facility] [address] [place] [address] Avp: Bigg Alvarez MD Color Nom (U) YELLOW Normal YEL [facility] Comment on above: Performed By: #### U A, UMICAO #### [facility] [address] [place] [address] Avp: Bigg Alvarez MD Glucose,Semi-qnt,U r Negative Normal NEG [facility] Comment on above: Performed By: #### YENNY Mike #### [facility] [address] [place] [address] Avp: Bigg Alvarez MD Hemoglobin, Ur TRACE Abnormal NEG [facility] Comment on above: Performed By: #### YENNY Mike #### [facility] [address] [place] [address] Avp: Bigg Alvarez MD Leuckocyte Esterase Negative Normal NEG [facility] Comment on above: Performed By: #### YENNY Mike #### [facility] [address] [facility] [place] [address] Avp: Bigg Alvarez MD Nitrite,Ur Negative Normal NEG [facility] Comment on above: Performed By: #### YENNY Mike #### [facility] [address] [facility] [place] [address] Avp: Bigg Alvarez MD PH,Ur 6.0 Normal 5.0-8.0 [facility] Comment on above: Performed By: #### YENNY Mike #### [facility] [address] [facility] [address] Avp: Bigg Alvarez MD Protein mass conc (U) Negative Normal NEG [facility] Comment on above: Performed By: #### YENNY Mike #### [facility] [address] [place] [address] Avp: Bigg Alvarez MD Spec. [place],Ur 1.010 Normal 1.005-1.030 [facility] Comment on above: Performed By: #### U A, UMICAO #### [facility] [address] [place] [address] Avp: Bigg Alvarez MD Turbidity CLEAR Normal CLEAR [facility] Comment on above: Performed By: #### U A, UMICAO #### [facility] [address] [place], [place] [address]ia [facility] [place] [address] Avp: Bigg Alvarez MD Urobilinogen,Ur Normal Normal NORM [facility] Comment on above: Performed By: #### U A, UMICAO #### [facility] [address] [place] [address]. [place] [address] Avp: Bigg Alvarez MD Comment NOT REPORTED Normal [facility] Comment on above: Performed By: #### U A, UMICAO #### [facility] [address] [place] [address]. [place] [address] Avp: Bigg Alvarez MD Urinalysis,Microon 9 ----- Normal [facility] Comment on above: Performed By: #### U A, UMICAO #### [facility] [address] [place] [address]. [place] [address] Avp: Bigg Alvarez MD Epithelial cells LM.HPF #/area (Urine sed) 5 TO 10 Normal 0-5 [facility] Comment on above: Performed By: #### U A, UMICAO #### [facility] [address] [place] [address]. [place] [address] Avp: Bigg Alvarez MD RBC #/vol (U) 0 TO 2 Normal 0-2 [facility] Comment on above: Performed By: #### U A UMICAO #### [facility] [address] [place] [address]. [place] [address] Avp: Bigg Alvarez MD WBC #/vol (U) None Normal 0-5 [facility] Comment on above: Performed By: #### U A, UMICAO #### [facility] [address] [place] [address] Avp: Bigg Alvarez MD Amorphous sediment LM Ql (Urine sed) NOT REPORTED Normal NONE [facility] Comment on above: Performed By: #### U A, UMICAO #### [facility] [address] [facility] [place] [address] Avp: Bigg Alvarez MD Bacteria LM.HPF #/area (Urine sed) NOT REPORTED Normal NONE [facility] Comment on above: Performed By: #### U A, UMICAO #### [facility] [facility] [place] [address] Avp: Bigg Alvarez MD Casts LM.LPF #/area (Urine sed) NOT REPORTED Normal [facility] Comment on above: Performed By: #### U A, UMICAO #### [facility] [facility] [place] [address] Avp: Bigg Alvarez MD Crystals LM Nom (Urine sed) NOT REPORTED Normal NONE [facility] Comment on above: Performed By: #### U A, UMICAO #### [facility] [address] [place] [address] Avp: Bigg Alvarez MD Epithelial, Renal NOT REPORTED Normal 0 [facility] Comment on above: Performed By: #### U A, UMICAO #### [facility] [address] [place] [address] Avp: Bigg Alvarez MD Mucus Strands NOT REPORTED Normal NONE [facility] Comment on above: Performed By: #### U A, UMICAO #### [facility] [address] [facility] [place] [address] Avp: Bigg Alvarez MD Other Observations NOT REPORTED Normal [facility] Comment on above: Performed By: #### U A, UMICAO #### [facility] [address] [facility] [place] [address] Avp: Bigg Alvarez MD Trichomonas NOT REPORTED Normal NONE [facility] Comment on above: Performed By: #### U A, UMICAO #### [facility] [address] [facility] [place] [address] Avp: Bigg Alvarez MD Yeast LM Ql (Urine sed) NOT REPORTED Normal NONE [facility] Comment on above: Performed By: #### U A, UMICAO #### [facility] [address] [facility] [place] [address] Avp: Bigg Alvarez MD XR CHEST (2 VW)on [...] Amrik George MD 02/11/19 Final result Normal [facility] MRI ANKLE WO CONTRAST LEFTon 03-02-2018 MRI ANKLE WO CONTRAST LEFT [facility] Department of Radiology [address] [place] [address] ======== Patient Name: CONNIE ALEX : 1975 Sex: F Age: Race: White Pt. Location: 4 Patient Status: D Ordered Date: 02/28/2018 3:30:00 PM Completed Date: 03/02/2018 10:42 AM Requesting Provider: JONATHAN DELGADO Attending Provider: JONATHAN DELGADO Report Copy To: Signs & Symptoms: M79.672 Pain in left foot I10 History: Lisa, Breast clip AUTHORIZATION [id number] VALID 02/28/2018-03/30/2018 - per Goldie with Dr Delgado's office. please check-jlr Comments: , AUTHORIZATION [id number] VALID 02/28/2018-03/30/2018 left ankle mri Evaluate achilled tendon rupture after traumatic injury , AUTHORIZATION [id number] VALID 02/28/2018-03/30/2018 left ankle mri Evaluate achilled [...] pain QUESTION FOR THE RADIOLOGIST: , AUTHORIZATION [id number] VALID 02/28/2018-03/30/2018 left ankle mri Evaluate achilled tendon rupture after traumatic injury , AUTHORIZATION [id number] VALID ...More In Sending System PROTOCOL: Images [...] above. Electronically signed by:Patrick Santacruz. Transcribed by: [email or web address], User Resident: Electronically Signed by: PATRICK SANTACRUZ @ 03/03/2018 09:55 AM Normal [facility] Comment on above: Order Comment: , AUTHORIZATION [id number] VALID 02/28/2018-03/30/2018 left ankle mri Evaluate achilled tendon rupture after traumatic injury , AUTHORIZATION [id number] VALID 02/28/2018-03/30/2018 left ankle mri Evaluate achilled tendon rupture after traumatic injury , , , Ordering Provider - JONATHAN DELGADO MD , Encounters Encounter Date Encounter Type Care Provider Facility Start: 01-28-2024 End: 01-28-2024 ambulatory JULIO AICHHOLZ Not Available Start: 10-29-2023 End: 10-29-2023 ambulatory JULIO AICHHOLZ Not Available Start: 10-02-2023 End: 10-02-2023 ambulatory JULIO AICHHOLZ Not Available Start: 09-10-2023 End: 09-10-2023 ambulatory JULIO AICHHOLZ Not Available Start: 02-05-2023 End: 02-06-2023 ambulatory [employer] JULIO AICHHOLZ Facility:[facility] Start: 01-18-2023 End: 01-18-2023 ambulatory [employer] JULIO AICHHOLZ Facility:[facility] Start: 08-28-2022 End: 08-29-2022 ambulatory [employer] JULIO AICHHOLZ Facility:[facility] Start: 07-25-2022 End: 07-26-2022 ambulatory [employer] JULIO AICHHOLZ Facility:[facility] Start: 06-10-2022 End: 06-11-2022 ambulatory [employer] JULIO AICHHOLZ Facility:[facility] Start: 05-17-2022 End: 05-18-2022 ambulatory JANESSA HERNANDEZ Facility:[facility] Start: 05-14-2022 End: 05-14-2022 ambulatory HELENA Bryan Facility:[facility] Start: 03-20-2022 End: 03-21-2022 ambulatory [employer] JULIO AICHHOLZ Facility:[facility] Start: 02-24-2019 End: 02-24-2019 Patient encounter procedure [facility] Start: 02-11-2019 End: 02-14-2019 Patient encounter procedure [facility] Start: 02-11-2019 End: 02-16-2019 Patient encounter procedure [facility] Procedures Date Procedure Procedure Detail Performing [...] (SPECIFY) CHARU CALLAWAY Start: 02-24-2019 NURSING COMMUNICATION K TYSHAWN CALLAWAY Start: 02-24-2019 VITAL SIGNS CHARU [...] BENJAMINRICHELLERajani Payers Date Payer Category Payer Unknown [id number] 2022 Medicaid [id number] 2016 Unknown [id number] 1975 Unknown [id number] 2.16.8 [id number] 1975 Unknown [id number] 2.16.8 40.1.293025.3.579.2.177 1975 Unknown [id number] 2.16.8 40.1.686527.3.579.2.177 1973 Unknown [id number] 2.16.84 0.1.877310.3.579.2.593 1973 Unknown [id number] 2.16.84 0.1.274789.3.579.2.593 1973 Unknown [id number] 2.16.84 0.1.005052.3.579.2.593 1973 Unknown [id number] 2.16.84 0.1.781547.3.579.2.593 1973 Unknown [id number] 2.16.84 0.1.601008.3.579.2.593 1973 Unknown [id number] 2.16.84 0.1.268388.3.579.2.593 1973 Unknown [id number] 2.16.84 0.1.587624.3.579.2.593 1973 Unknown [id number] 2.16.84 0.1.005924.3.579.2.593 1973 Unknown [id number] 2.16.84 0.1.806213.3.579.2.1259 1973 Unknown [id number] 2.16.84 0.1.106026.3.579.2.1259 1973 Unknown [id number] 2.16.84 0.1.297664.3.579.2.1259 1973 Unknown [id number] 2.16.840 .1.948026.3.579.2.1259 1959 Unknown [id number] Private Health Insurance [id number] Clinical Note 05-18-2022 Note Date & Type [...] authenticated by: TEVIN ESPINOZA Date: 2022-05-18 08:15 [facility] Clinical Note 05-18-2022 Note Date & Type [...] authenticated by: TEVIN ESPINOZA Date: 2022-05-18 08:15 [facility] Summary Purpose Family History No Family History Records FoundNo Family History Records FoundNo Family History Records FoundNo Family History Records Found Advance Directives No Advanced Directives Records FoundNo Advanced Directives Records FoundNo Advanced Directives Records FoundNo Advanced Directives Records Found Additional Source Comments INFORMATION SOURCE (unrecogn ized section and content) DATE CREATED AUTHOR 02/27/2019 [facility] DATE CREATED AUTHOR AUTHOR'S ORGANIZ ATION 03/02/2019 [facility] DATE CREATED AUTHOR AUTHOR'S ORGANIZ ATION 02/07/2023 [facility] DATE CREATED AUTHOR AUTHOR'S ORGANIZ ATION 01/29/2024 [facility] FOR RECORDS PERTAINING TO PATIENTS [...] BE BASED ON THE PRIMARY CLINICAL RECORDS. [facility] [employer] [facility]. provides no warranty or guarantee of the accuracy or completeness of information in this document.
[2024-03-26 06:57] LABS: Basophils Absolute Auto 0.1 10^3/uL (0.0-0.1); Basophils Percent Auto 1.4 % (0.2-2.0); Eosinophils Absolute Auto 0.4 10^3/uL (0.0-0.7); Hematocrit 41.9 % (36.0-48.0); Hemoglobin 13.9 g/dL (12.0-16.0); Immature Granulocytes Abs Auto 0.02 10^3/uL (0.00-0.03); Immature Granulocytes Pct Auto 0.2 % (0.0-0.5); Lymphocytes Absolute Auto 1.9 10^3/uL (1.2-3.8); Lymphocytes Percent Auto 21.9 % (20.5-60.0); Mean Corpuscular HGB Conc 33.2 g/dL (29.9-35.2); Mean Corpuscular Hemoglobin 29.1 pg (26.7-34.0); Mean Corpuscular Volume 87.7 fL (81.0-99.0); Mean Platelet Volume 9.5 fL (9.5-13.5); Monocytes Absolute Auto 0.4 10^3/uL (0.3-0.8); Monocytes Percent Auto 4.6 % (1.7-12.0); Neutrophils Absolute Auto 5.9 10^3/uL (1.4-6.5); Neutrophils Percent Auto 67.9 % (43.0-75.0); Platelet Count 293 10^3/uL (150-450); Red Blood Count 4.78 10^6/uL (4.20-5.40); Red Cell Distribution Width 13.6 % (11.0-15.0); White Blood Count 8.7 10^3/uL (4.0-11.0)
[2024-03-26 07:20] LABS: Alanine Aminotransferase 20 U/L (14-59); Albumin Level 3.5 g/dL (3.4-5.0); Alkaline Phosphatase 117 U/L (46-116); Anion Gap 12.5; Aspartate Amino Transferase 14 U/L (15-37); BUN Creatinine Ratio 11.7; Bilirubin Total 0.7 mg/dL (0.2-1.0); Calcium 8.2 mg/dL (8.5-10.1); Carbon Dioxide 27.3 mmol/L (21.0-32.0); Chloride 103 mmol/L (98-107); Estimated GFR (African America >60 (>=60); Estimated GFR (Non-African Ame >60 (>=60); Globulin 3.5 g/dL; Glucose 89 mg/dL (74-106); Potassium 3.8 mmol/L (3.5-5.1); Sodium 139 mmol/L (136-145)
== END 2024-03-26 06:32 | disposition home or self-care (01) ==
LOC: CARD 06:32
PROVIDERS: PCP Nurse Practitioner; Visit Provider Psychiatry & Neurology Psychiatry
DX: F90.2 Attention-deficit hyperactivity disorder, combined type (principal); Z79.899 Other long term (current) drug therapy
CPT/HCPCS: 36415; 80053; 85025; 93005

== ENCOUNTER 2024-10-28 14:21 | Emergency (ER) | payer OTHER, SELFPAY ==
[2024-10-28 14:26] VITALS: BP 146/85; PULSE 103; TEMP 36.8; O2SAT 98; BMI 29.8
--- OUTSIDE RECORDS SUMMARY | 2024-10-28 14:40 | XMS_ITS | CCD ---
Author Organization [facility] Care Team Providers Care Molecular Technologist Name Role Phone CHARU CALLAWAY Referring Unavailable AICHHOLZ, TAMIA J. Primary Care Unavailable CHARU CALLAWAY Referring Unavailable AICHHOLZ, TAMIA J. Primary Care Unavailable CESIA, CHARU Admitting Unavailable CESIA, CHARU Attending Unavailable AICHHOLZ, TAMIA J. Primary Care Unavailable AICHHOLZ, RADIATOR CLEANER TAMIA Admitting Unavailable AICHHOLZ, RADIATOR CLEANER TAMIA Attending Unavailable AICHHOLZ, RADIATOR CLEANER TAMIA Consulting Unavailable AICHHOLZ, RADIATOR CLEANER TAMIA Primary Care Unavailable AICHHOLZ, RADIATOR CLEANER TAMIA Admitting Unavailable AICHHOLZ, RADIATOR CLEANER TAMIA Attending Unavailable AICHHOLZ, RADIATOR CLEANER TAMIA Consulting Unavailable AICHHOLZ, RADIATOR CLEANER TAMIA Primary Care Unavailable AICHHOLZ, RADIATOR CLEANER ATMIA Admitting Unavailable AICHHOLZ, RADIATOR CLEANER TAMIA Attending Unavailable AICHHOLZ, RADIATOR CLEANER TAMIA Consulting Unavailable AICHHOLZ, RADIATOR CLEANER TAMIA Primary Care Unavailable AICHHOLZ, RADIATOR CLEANER TAMIA Primary Care Unavailable FAWWAD, WILLS H Admitting Unavailable FAWWAD, WILLS H Attending Unavailable FAWWAD, WILLS H Consulting Unavailable ARELY ROLDANIN Consulting Unavailable JANESSA HERNANDEZ Admitting Unavailable Tevin Espinoza Consulting Unavailable JANESSA HERNANDEZ Attending Unavailable AICHHOLZ, RADIATOR CLEANER TAMIA Primary Care Unavailable JANESSA HERNANDEZ Consulting Unavailable HELENA QUINTANA Admitting Unavailable NILSA Bryan, MR CHRISTIAN Consulting Unavailable AICHHOLZ, RADIATOR CLEANER TAMIA Primary Care Unavailable HELENA QUINTANA Attending Unavailable HERACLIO WELLS Consulting Unavailable AICHHOLZ, RADIATOR CLEANER TAMIA Admitting Unavailable AICHHOLZ, RADIATOR CLEANER TAMIA Attending Unavailable AICHHOLZ, RADIATOR CLEANER TAMIA Consulting Unavailable AICHHOLZ, RADIATOR CLEANER TAMIA Primary Care Unavailable IVET GONSALEZ Attending Unavailable IVET GONSALEZ Consulting Unavailable IVET GONSALEZ Primary Care Unavailable IVET GONSALEZ Admitting Unavailable TAMIA GONSALEZ Attending Unavailable TAMIA GONSALEZ Attending Unavailable WALLACE, TAMIA Attending Unavailable WALLACE, TAMIA Attending Unavailable Wallace AUTO HAULER, Tamia Unavailable Bhargav Madison MD Primary Care Provider [phone] Wallace AUTO HAULERTamia Unavailable Allergies Allergy Classification Reported Allergen(s) Allergy Type Date of Onset Reaction(s) Facility (1 source) bee venom Drug allergy (disorder) 4 [facility] Repository (4 sources) Honey bee venom Propensity to adverse reactions 8 Anaphylaxis [facility] Medications Current Medications Medication Drug Class(es) Dates Sig (Normalized) Sig (Original) [id number] 200 actuat albuterol 0.09 mg/actuat metered dose inhaler (4 sources) beta2-Adrenergic Agonist Start: 12-08-2022 take 2 puff(s) by inhalation every four hours for wheezing Ventolin HFA 108 (90 Base) MCG/ACT inhaler Inhale 2 puffs every 4 (four) hours if needed for wheezing or shortness of breath 12/08/2022 Active amoxicillin 875 mg / clavulanate 125 mg oral tablet (1 source) Penicillin-class Antibacterial Start: 10-08-2024 End: 10-15-2024 take 1 tablet by mouth in the morning amoxicillin-clavul anate (Augmentin) 875-125 MG tablet Indications: Acute non-recurrent frontal sinusitis Take 1 tablet (875 mg) by mouth in the morning and 1 tablet (875 mg) before bedtime. Do all this for 7 days. 14 tablet 10/08/2024 10/15/2024 Active cetirizine hydrochloride 10 mg oral tablet (4 sources) Histamine-1 Receptor Antagonist Start: 02-07-2023 take 1 tablet by mouth in the morning cetirizine (ZyrTEC) 10 MG tablet Take 1 tablet by mouth in the morning. 02/07/2023 Active [id number] 0.3 ml EPINEPHrine 1 mg/ml auto-injector (4 sources) alpha-Adrenergic Agonist, beta-Adrenergic Agonist, Catecholamine Start: 01-24-2023 EPINEPHrine (Epipen) 0.3 MG/0.3ML injection syringe Inject 1 Syringe as directed As directed 01/24/2023 Active escitalopram 10 mg oral tablet (3 sources) Serotonin Reuptake Inhibitor Start: 01-28-2024 take 1 tablet by mouth once daily escitalopram (Lexapro) 10 MG tablet Indications: SARAHI (generalized anxiety disorder) (CMS/HCC) Take 1 tablet (10 mg) by mouth Daily 30 tablet 1 01/28/2024 Active ibuprofen 800 mg oral tablet (3 sources) Nonsteroidal Anti-inflammatory Drug Start: 07-09-2024 take 1 tablet by mouth every eight hours for pain ibuprofen 800 MG tablet Indications: DDD (degenerative disc disease), cervical Take 1 tablet (800 mg) by mouth every 8 (eight) hours if needed for mild pain or moderate pain 90 tablet 2 07/09/2024 Active levothyroxine sodium 0.075 mg oral tablet (4 sources) l-Thyroxine Start: 07-22-2024 End: 10-20-2024 take 1 tablet by mouth before mealtime levothyroxine (Synthroid, Levoxyl) 75 MCG tablet Indications: Hypothyroidism, unspecified type (CMS/HCC) Take 1 tablet (75 mcg) by mouth in the morning. Take before meals. 90 tablet 1 07/22/2024 10/20/2024 Active Start: 01-28-2024 take 1 tablet by norma th before mealtime levothyroxine (Synthroid) 75 MCG tablet Indications: Hypothyroidism, unspecified type (CMS/HCC) Take 1 tablet (75 mcg) by mouth in the morning. Take before meals. 90 tablet 1 01/28/2024 Active pantoprazole 20 mg delayed release oral tablet (5 sources) Proton Pump Inhibitor Start: 03-06-2024 End: 07-29-2024 take 1 tablet by mouth before mealtime pantoprazole (ProtoNix) 20 MG EC tablet Indications: Gastroesophageal reflux disease without esophagitis Take 1 tablet (20 mg) by mouth in the morning. Take before meals. 30 tablet 2 06/29/2024 Active topiramate 25 mg oral tablet (5 sources) Start: 03-27-2024 End: 11-05-2024 take 2 tablets by mouth at bedtime topiramate (Topamax) 25 MG tablet Indications: Migraine, unspecified, not intractable, without status migrainosus (CMS/HCC) Take 2 tablets (50 mg) by mouth at bedtime 60 tablet 2 06/29/2024 Active ubrogepant 100 mg oral tablet (4 sources) Ubrogepant (Ubre lvy) 100 MG tablet Take 1 tablet by mouth 1 time As needed for CASH, may repeat in 2 hours. Active Problems Active Problems Problem Classification Problem Date Documented Date Episodic/Chronic Anxiety disorders (4 sources) Generalized anxiety disorder; Translations: [Generalized anxiety disorder] Onset: 01-28-2024 01-28-2024 Chronic Attention-deficit, conduct, and disruptive behavior disorders (1 source) Attention-deficit hyperactivity disorder, unspecified type; Translations: [ADHD UNSPECIFIED TYPE] Onset: 05-15-2022 Chronic Disorders usually diagnosed in infancy, childhood, or adolescence (4 sources) Adult attention deficit hyperactivity disorder ; Translations: [Other specified behavioral and emotional disorders with onset usually occurring in childhood and adolescence] Onset: 12-01-2021 10-29-2023 Chronic Esophageal disorders (5 sources) Gastroesophageal reflux disease without esophagitis; Translations: [Gastro-esophageal reflux disease without esophagitis] Onset: 03-06-2024 06-29-2024 Chronic Headache; including migraine (5 sources) Migraine; Translations: [Migraine, unspecified, not intractable, without status migrainosus] Onset: 10-22-2023 06-29-2024 Chronic Other nutritional; endocrine; and metabolic disorders (8 sources) Body mass index 30+ - obesity; Translations: [Obesity, unspecified] Onset: 10-29-2023 Resolved: 01-28-2024 01-28-2024 Chronic Other upper respiratory infections (6 sources) Acute upper respiratory infection; Translations: [Acute upper respiratory infection, unspecified] Onset: 10-02-2023 Resolved: 10-29-2023 10-29-2023 Episodic Residual codes; unclassified (4 sources) Obstructive sleep apnea (adult) (pediatric); Translations: [OBSTRUCTIVE SLEEP APNEA] Onset: 08-28-2022 Chronic Spondylosis; intervertebral disc disorders; other back problems (5 sources) Degeneration of cervical intervertebral disc; Translations: [Other cervical disc degeneration, unspecified cervical region] Onset: 11-28-2021 09-10-2023 Chronic Substance-related disorders (1 source) Nicotine dependence, cigarettes, uncomplicated; Translations: [NICOTINE DEPEND CIGARETTES UNCOMP] Onset: 05-15-2022 Chronic Thyroid disorders (10 sources) Hypothyroidism, unspecified; Translations: [Hypothyroidism] Onset: 12-01-2021 Chronic Unclassified (3 sources) CONTACT W/AND (SUSP) EXPOS COVID-19; Translations: [CONTACT W/AND (SUSP) EXPOS COVID-19] Onset: 01-21-2023 Past or Other Problems Problem Classification Problem Date Documented Da te Episodic/Chronic Headache; including migraine (4 sources) Chronic headache disorder; Translations: [Chronic headaches] Onset: 10-29-2023 10-29-2023 Episodic Malaise and fatigue (4 sources) Other fatigue; Translations: [OTHER FATIGUE] Onset: 07-25-2022 Episodic Nonspecific chest pain (4 sources) Chest pain; Translations: [Other chest pain] Onset: 09-10-2023 09-10-2023 Episodic Other connective tissue disease (1 source) Pain in right foot; Translations: [PAIN IN RIGHT FOOT] Onset: 05-18-2022 Episodic Other gastrointestinal disorders (4 sources) Chronic constipation; Translations: [Other constipation] Onset: 10-29-2023 10-29-2023 Episodic Other lower respiratory disease (4 sources) Respiratory disorder, unspecified; Translations: [RESPIRATORY DISORDER UNSPECIFIED] Onset: 03-20-2022 Episodic Other non-traumatic joint disorders (4 sources) Pain in right ankle and joints of right foot; Translations: [PAIN IN RIGHT ANKLE] Onset: 05-17-2022 Episodic Other nutritional; endocrine; and metabolic disorders (4 sources) Obesity caused by energy imbalance; Translations: [Class 1 obesity due to excess calories without serious comorbidity with body mass index (BMI) of 32.0 to 32.9 in adult] Onset: 09-10-2023 Resolved: 01-28-2024 01-28-2024 Chronic Other nutritional; endocrine; and metabolic disorders (4 sources) Body mass index 25-29 - overweight; Translations: [Overweight] Onset: 10-02-2023 10-02-2023 Episodic Other screening for suspected conditions (not mental disorders or infectious disease) (4 sources) Patient encounter status; Translations: [Encounter for screening mammogram for malignant neoplasm of breast] Onset: 01-28-2024 01-28-2024 Episodic Residual codes; unclassified (4 sources) Tobacco user; Translations: [Tobacco use] Onset: 12-01-2021 09-10-2023 Episodic Unclassified (1 source) CONTACT W/AND (SUSP) EXPOS COVID-19; Translations: [CONTACT W/AND (SUSP) EXPOS COVID-19] Onset: 01-18-2023 Results Test Name Value Interpretation Reference Range Facility [facility] MAMM SCREEN 3D FREDY CADon 02-05-2023 MG MAMM SCREEN 3D FREDY CAD Patient: RADHA HUNTER Exam Date: 02/05/2023 : 1975 Gender:F Ordering : IVET TAMIA WALLACE RADIATOR CLEANER Admission #: [id number] Family : Order #: [id number] CLICK HERE TO VIEW EXAM RADIOLOGY REPORT [...] throat cancer at age 82. LOCATION: [facility] BREAST COMPOSITION: Heterogeneously dense,which may obscure small [...] MD on 02/06/2023 at 10:24 Normal [facility] Covid-19 PCR (CVDTBH)on 12-24 SARS-CoV-2 (COVID-19) RNA TAYO+probe Ql (Unsp spec) Not detected Normal NOT DETECTED [facility] Comment on above: Result Comment: This test is not yet approved or cleared by the [place] FDA. When there are no FDA-approved or cleared tests available, and other criteria are met, FDA can make tests available under an emergency access mechanism called an Emergency Use Authorization (EUA). The EUA for this test is supported by the [place] of Health and Human Service's (HHS's) declaration [...] Performed By: #### C MP, TSH #### [facility] [address] [place] [address] Dr. Allie Birch SYMPTOMATIC COVID-19 ANTIGEN on 01-18-2023 EUA Statement SEE BELOW Normal [facility] Comment on above: Result Comment: This test [...] Performed By: #### C MP, TSH #### [facility] [address] [address] [address] Allie Birch SARS-CoV-2 (COVID-19) RNA TAYO+probe Ql (Unsp spec) Negative Normal NEGATIVE [facility] Comment on above: Performed By: #### C MP, TSH #### [facility] [address] [place] [address] Dr. Allie Birch CBC AUTO DIFFon 07-25-2022 BASO # 0.1 103/ul Normal 0.0-0.1 [facility] Comment on above: Performed By: #### C BC #### [facility] [address] [place] [address] Dr. Allie Birch Basophils/100 WBC (Bld) 1.3 % Normal 0.2-2.0 [facility] Comment on above: Performed By: #### C BC #### [facility] [address] [place] [address] Dr. Allie Birch EO # 0.3 103/ul Normal 0.0-0.7 [facility] Comment on above: Performed By: #### C BC #### [facility] [address] [place] [address] Dr. Allie Birch Eosinophils/100 WBC (Bld) 3.4 % Normal 0.9-7.0 [facility] Comment on above: Performed By: #### C BC #### [facility] [address] [place] [address] Dr. Allie Birch Erythrocyte distribution width (RBC) [Ratio] 13.2 % Normal 11.0-15.0 [facility] Comment on above: Performed By: #### C BC #### [facility] [address] [place] [address] Dr. Allie Birch Hematocrit (Bld) [Volume fraction] 41.7 % Normal 36.0-48.0 [facility] Comment on above: Performed By: #### C BC #### [facility] [address] [place] [address] Dr. Allie Birch Hemoglobin (Bld) [Mass/Vol] 14.1 g/dL Normal 12.0-16.0 [facility] Comment on above: Performed By: #### C BC #### [facility] [address] [place] [address] Dr. Allie Birch IG # 0.02 10e3/ul Normal 0.00-0.03 [facility] Comment on above: Performed By: #### C BC #### [facility] [address] [place] [address] Dr. Allie Birch IG % 0.2 % Normal 0.0-0.5 [facility] Comment on above: Performed By: #### C BC #### [facility] [address] [place] [address] Dr. Allie Birch LYMPH # 1.6 103/ul Normal 1.2-3.8 [facility] Comment on above: Performed By: #### C BC #### [facility] [address] [place] [address] Dr. Allie Birch Lymphocytes/100 WBC (Bld) 18.1 % Critically low 20.5-60.0 [facility] Comment on above: Performed By: #### C BC #### [facility] [address] [place] [address] Dr. Allie Birch MANUAL DIFF REQ NO Normal [facility] Comment on above: Performed By: #### C BC #### [facility] [address] [place] [address] Dr. Allie Birch MCH (RBC) [Entitic mass] 29.4 pg Normal 26.7-34.0 [facility] Comment on above: Performed By: #### C BC #### [facility] [address] [place] [address] Dr. Allie Birch MCHC (RBC) [Mass/Vol] 33.8 g/dL Normal 29.9-35.2 [facility] Comment on above: Performed By: #### C BC #### [facility] [address] [place] [address] Dr. Allie Birch MCV (RBC) [Entitic vol] 86.9 fL Normal 81.0-99.0 [facility] Comment on above: Performed By: #### C BC #### [facility] [address] [place] [address] Dr. Allie Birch MONO # 0.4 103/ul Normal 0.3-0.8 [facility] Comment on above: Performed By: #### C BC #### [facility] [address] [place] [address] Dr. Allie Birch Monocytes/100 WBC (Bld) 4.4 % Normal 1.7-12.0 [facility] Comment on above: Performed By: #### C BC #### [facility] [address] [place] [address] Dr. Allie Birch NEUT # 6.2 103/ul Normal 1.4-6.5 [facility] Comment on above: Performed By: #### C BC #### [facility] [address] [place] [address] Dr. Allie Birch Neutrophils/100 WBC (Bld) 72.6 % Normal 43.0-75.0 [facility] Comment on above: Performed By: #### C BC #### [facility] [address] [place] [address] Dr. Allie Birch Platelet mean volume (Bld) [Entitic vol] 9.6 fL Normal 9.5-13.5 [facility] Comment on above: Performed By: #### C BC #### [facility] [address] [place] [address] Dr. Allie Birch PLT 316 103/ul Normal 150-450 [facility] Comment on above: Performed By: #### C BC #### [facility] [address] [place] [address] Dr. Allie Birch RBC 4.80 106/ul Normal 4.20-5.40 [facility] Comment on above: Performed By: #### C BC #### [facility] [address] [place] [address] Dr. Allie Birch WBC 8.6 103/ul Normal 4.0-11.0 [facility] Comment on above: Performed By: #### C BC #### [facility] [address] [place] [address] Dr. Allie Birch FREE T4on 07-25-2022 Free T4 [Mass/Vol] 0.80 ng/dL Normal 0.76-1.46 [facility] Comment on above: Performed By: #### C MP, TSH #### [facility] [address] [address] [address] Allie Birch PROF 14(COMP METB)on 022 Albumin [Mass/Vol] 3.5 g/dL Normal 3.4-5.0 [facility] Comment on above: Performed By: #### C MP, TSH #### [facility] [address] [place] [address] Dr. Allie Birch Albumin/Globulin [Mass ratio] 1.0 {ratio} Normal [facility] Comment on above: Performed By: #### C MP, TSH #### [facility] [address] [place] [address] Dr. Allie Birch ALP [Catalytic activity/Vol] 96 U/L Normal 46-116 [facility] Comment on above: Performed By: #### C MP, TSH #### [facility] [address] [place] [address] Dr. Allie Birch ALT [Catalytic activity/Vol] 21 U/L Normal 14-59 [facility] Comment on above: Performed By: #### C MP, TSH #### [facility] [address] [place] [address] Dr. Allie Birch Anion gap [Moles/Vol] 9.2 mmol/L Normal [facility] Comment on above: Performed By: #### C MP, TSH #### [facility] [address] [place] [address] Dr. Allie Birch AST [Catalytic activity/Vol] 15 U/L Normal 15-37 [facility] Comment on above: Performed By: #### C MP, TSH #### [facility] [address] [address] [address] Allie Birch Bilirubin [Mass/Vol] 0.5 mg/dL Normal 0.2-1.0 [facility] Comment on above: Performed By: #### C MP, TSH #### [facility] [address] [place] [address] Dr. Allie Birch Calcium [Mass/Vol] 8.7 mg/dL Normal 8.5-10.1 [facility] Comment on above: Performed By: #### C MP, TSH #### [facility] [address] [address] [address] Allie Birch Chloride [Moles/Vol] 102 mmol/L Normal 98-107 [facility] Comment on above: Performed By: #### C MP, TSH #### [facility] [address] [address] [address] Allie Birch CO2 [Moles/Vol] 30.0 mmol/L Normal 21.0-32.0 [facility] Comment on above: Performed By: #### C MP, TSH #### [facility] [address] [address] [address] Allie Birch Creatinine [Mass/Vol] 0.77 mg/dL Normal 0.55-1.02 [facility] Comment on above: Performed By: #### C MP, TSH #### [facility] [address] [address] [address] Allie Birch EGFR-AF STATELESS >60 Normal >=60 [facility] Comment on above: Performed By: #### C MP, TSH #### [facility] [address] [address] [address] Allie Birch EGFR-NON AF STATELESS >60 Normal >=60 [facility] Comment on above: Performed By: #### C MP, TSH #### [facility] [address] [address] [address] Allie Birch Globulin (S) [Mass/Vol] 3.5 g/dL Normal [facility] Comment on above: Performed By: #### C MP, TSH #### [facility] [address] [address] [address] Allie Birch Glucose [Mass/Vol] 87 mg/dL Normal 74-106 [facility] Comment on above: Performed By: #### C MP, TSH #### [facility] [address] [address] [address] Allie Birch Potassium [Moles/Vol] 4.2 mmol/L Normal 3.5-5.1 [facility] Comment on above: Performed By: #### C MP, TSH #### [facility] [address] [place] [address] Dr. Allie Birch Protein [Mass/Vol] 7.0 g/dL Normal 6.4-8.2 [facility] Comment on above: Performed By: #### C MP, TSH #### [facility] [address] [place] [address] Dr. Allie Birch Sodium [Moles/Vol] 137 mmol/L Normal 136-145 [facility] Comment on above: Performed By: #### C MP, TSH #### [facility] [address] [place] [address] Dr. Allie Birch Urea nitrogen [Mass/Vol] 8.0 mg/dL Normal 7.0-18.0 [facility] Comment on above: Performed By: #### C MP, TSH #### [facility] [address] [place] [address] Dr. Allie Birch Urea nitrogen/Creatinin e [Mass ratio] 10.4 mg/mg Normal [facility] Comment on above: Performed By: #### C MP, TSH #### [facility] [address] [place] [address] Dr. Allie Birch TSHon 07-25-2022 TSH 1.635 uIU/mL Normal 0.358-3.740 [facility] Comment on above: Performed By: #### C MP, TSH #### [facility] [address] [place] [address] Dr. Allie Birch VITAMIN B12on 07-25-2022 Cobalamin (Vitamin B12) [Mass/Vol] 408.0 pg/mL Normal 193.0-986.0 [facility] Comment on above: Performed By: #### C MP, TSH #### [facility] [address] [place] [address] Dr. Allie Birch FREE T4on 06-10-2022 Free T4 [Mass/Vol] 0.87 ng/dL Normal 0.76-1.46 [facility] Comment on above: Performed By: #### F T4 #### [facility] [address] [place], [place] [address] Dr. Allie Birch TSHon 06-10-2022 TSH 4.450 uIU/mL Critically high 0.358-3.740 [facility] Comment on above: Performed By: #### T #### [facility] [address] [place], [place] [address] Dr. Allie Birch XR ANKLE RT MIN [...] by: HERACLIO WELLS Date: 2022-05-14 15:51 Normal [facility] XR CHEST 2 Von 03-20-2022 XR [...] by: ANASTACIO ROLDAN Date: 2022-03-20 14:12 Normal [facility] FLUORO FOR SURGICAL PROCEDUR ESon 02-24-2019 FLUORO FOR SURGICAL PROCEDURES Radiology exam is complete. No Radiologist dictation. Please follow up with ordering provider. Final result Normal [facility] XR SACROILIAC JOINTS (MIN 3 VIEWS)on [...] MD 02/24/19 Final result Normal [facility] Cult,Urine,CCon 02-13-2019 Cult,Urine,CC Specimen Description .URINE [...] <=20 SUSCEPTIBLE Piperacillin/Tazobacta m <=4 SUSCEPTIBLE Normal [facility] Comment on above: Performed By: #### C CATALINO #### [facility] [address] [place], [place] [id number] Machine Coil Assembler: Bigg Alvarez MD [address] [place] [id number] Machine Coil Assembler: Andrez Saha MD MRSA, DNA, Nasalon 9 MRSA, DNA, Nasal NEGATIVE: MRSA DNA n ot detected by nucleic acid amplification. [facility] Comment on above: Result Comment: Results should be used as an adjunct to nosocomial control efforts to identify patients needing enhanced precautions. The test is not intended to identify patients with staphylococcal infections. Results should not be used to guide or monitor treatment for MRSA infections. Performed By: #### M RSANO #### [facility] [address] [place], [place] [id number] Machine Coil Assembler: Bigg Alvarez MD [address] [id number] Machine Coil Assembler: Andrez Saha MD Type + Screenon 02-12-2019 Type + Screen Sample Expiration 02/27/2019 Arm Band Number [id number] ABO/Rh(D) O POSITIVE Antibody Screen NEGATIVE Normal [facility] Comment on above: Performed By: #### T YS #### [facility] [address] [place] [id number] Machine Coil Assembler: Bigg Alvarez MD APTTon 02-11-2019 aPTT Coag time (Bld) 30.0 s Normal 23-31 [facility] Comment on above: Performed By: #### C DP, BMP #### [facility] [address] [place] [id number] Machine Coil Assembler: Bigg Alvarez MD #### PT, PTT #### [address] [id number] Machine Coil Assembler: Andrez Saha MD Basic Metabolic Profon 02-11 (cont.) Normal [facility] Comment on above: Result Comment: Aver age GFR for 40-49 years old: 99 mL/min/1.73sq m Chronic Kidney Disease: <60 mL/min/1.73sq m Kidney failure: <15 mL/min/1.73sq m eGFR calculated using average adult body mass. Additional eGFR calculator available at: [email or web address]/multiple_[email or web address] Performed By: #### C DP, BMP #### [facility] [address] [place] [id number] Machine Coil Assembler: Bigg Alvarez MD #### PT, PTT #### [address] [address] Machine Coil Assembler: Andrez Saha MD Anion gap molar conc 10 mmol/L Normal 9-17 [facility] Comment on above: Performed By: #### C DP, BMP #### [facility] [address] [place] [address] Machine Coil Assembler: Bigg Alvarez MD #### PT, PTT #### [address] [address] Machine Coil Assembler: Andrez Saha MD BUN/CRE Ratio 14 Normal 9-20 [facility] Comment on above: Performed By: #### C DP, BMP #### [facility] [address] [place] [address] Machine Coil Assembler: Bigg Alvarez MD #### PT, PTT #### [address] [address] Machine Coil Assembler: Andrez Saha MD Calcium mass conc 8.8 mg/dL Normal 8.6-10.4 [facility] Comment on above: Performed By: #### C DP, BMP #### [facility] [address] [place] [address] Machine Coil Assembler: Bigg Alvarez MD #### PT, PTT #### [address] [address] Machine Coil Assembler: Andrez Saha MD Chloride molar conc 103 mmol/L Normal 98-107 [facility] Comment on above: Performed By: #### C DP, BMP #### [facility] [address] [place] [address] Machine Coil Assembler: Bigg Alvarez MD #### PT, PTT #### [address] [address] Machine Coil Assembler: Andrez Saha MD CO2 molar conc 27 mmol/L Normal 20-31 [facility] Comment on above: Performed By: #### C DP, BMP #### [facility] [address] [place] [address] Machine Coil Assembler: Bigg Alvarez MD #### PT, PTT #### [address] [address] Machine Coil Assembler: Andrez Saha MD Creatinine mass conc 0.57 mg/dL Normal 0.50-0.90 [facility] Comment on above: Performed By: #### C DP, BMP #### [facility] [address] [place] [address] Machine Coil Assembler: Bigg Alvarez MD #### PT, PTT #### [address] [address] Machine [employer] Assembler: Andrez Saha MD GFR, Amer >60 Normal >60 [facility] Comment on above: Performed By: #### C DP, BMP #### [facility] [address] [place] [address] Machine Coil Assembler: Bigg Alvarez MD #### PT, PTT #### [address] [address] Machine Coil Assembler: Andrez Saha MD GFR,non Amer >60 Normal >60 [facility] Comment on above: Performed By: #### C DP, BMP #### [facility] [address] [place] [address] Machine Coil Assembler: Bigg Alvarez MD #### PT, PTT #### [address] [address] Machine Coil Assembler: Andrez Saha MD Glucose mass conc 110 mg/dL High 70-99 [facility] Comment on above: Performed By: #### C DP, BMP #### [facility] [address] [place] [address] Machine Coil Assembler: Bigg Alvarez MD #### PT, PTT #### [address] [address] Machine Coil Assembler: Andrez Saha MD Potassium molar conc 3.6 mmol/L Low 3.7-5.3 [facility] Comment on above: Performed By: #### C DP, BMP #### [facility] [address] [place] [address] Machine Coil Assembler: Bigg Alvarez MD #### PT, PTT #### [address] [address] Machine Coil Assembler: Andrez Saha MD Sodium molar conc 140 mmol/L Normal 135-144 [facility] Comment on above: Performed By: #### C DP, BMP #### [facility] [address] [place] [address] Machine Coil Assembler: Bigg Alvarez MD #### PT, PTT #### [address] [address] Machine Coil Assembler: Andrez Saha MD Urea nitrogen mass conc 8 mg/dL Normal 6-20 [facility] Comment on above: Performed By: #### C DP, BMP #### [facility] [address] [place] [address] Machine [employer] Assembler: Bigg Alvarez MD #### PT, PTT #### [address] [address] Machine Coil Assembler: Andrez Saha MD Staging: NOT REPORTED Normal [facility] Comment on above: Performed By: #### C DP, BMP #### [facility] [address] [place] [address] Machine Coil Assembler: Bigg Alvarez MD #### PT, PTT #### [address] [address] Machine Coil Assembler: Andrez Saha MD CBC with Diffon 02-11-2019 Abs. Basophil 0.07 k/uL Normal 0.00-0.20 [facility] Comment on above: Performed By: #### C DP, BMP #### [facility] [address] [place] [id number] Machine Coil Assembler: Bigg Alvarez MD #### PT, PTT #### [address] [address] Machine Coil Assembler: Andrez Saha MD Abs.Imm.Granulocyt e 0.03 k/uL Normal 0.00-0.30 [facility] Comment on above: Performed By: #### C DP, BMP #### [facility] [address] [place] [address] Machine Coil Assembler: Bigg Alvarez MD #### PT, PTT #### [address] [address] Machine Coil Assembler: Andrez Saha MD Abs.Neutrophil (Seg) 4.85 k/uL Normal 1.50-8.10 [facility] Comment on above: Performed By: #### C DP, BMP #### [facility] [address] [place] [address] Machine Coil Assembler: Bigg Alvarez MD #### PT, PTT #### [address] [address] Machine Coil Assembler: Andrez Saha MD Basophils/100 WBC (Bld) 1 % Normal 0-2 [facility] Comment on above: Performed By: #### C DP, BMP #### [facility] [address] [place] [address] Machine Coil Assembler: Bigg Alvarez MD #### PT, PTT #### [address] [address] Machine Coil Assembler: Andrez Saha MD Eosinophils #/vol (Bld) 0.24 10*3/uL Normal 0.00-0.44 [facility] Comment on above: Performed By: #### C DP, BMP #### [facility] [address] [place] [address] Machine Coil Assembler: Bigg Alvarez MD #### PT, PTT #### [address] [id number] Machine Coil Assembler: Andrez Saha MD Eosinophils/100 WBC (Bld) 3 % Normal 1-4 [facility] Comment on above: Performed By: #### C DP, BMP #### [facility] [address] [place] [id number] Machine Coil Assembler: Bigg Alvarez MD #### PT, PTT #### [address] [phone] Machine Coil Assembler: Andrez Saha MD Erythrocyte distribution width Ratio (RBC) 13.7 % Normal 11.8-14.4 [facility] Comment on above: Performed By: #### C DP, BMP #### [facility] [address] [place] [address] Machine Coil Assembler: Bigg Alvarez MD #### PT, PTT #### [address] [phone] Machine Coil Assembler: Andrez Saha MD Hematocrit Volume Fraction (Bld) 44.0 % Normal 36.3-47.1 [facility] Comment on above: Performed By: #### C DP, BMP #### [facility] [address] [place] [address] Machine Coil Assembler: Bigg Alvarez MD #### PT, PTT #### [address] [address] Machine Coil Assembler: Andrez Saha MD Hemoglobin mass conc (Bld) 14.6 g/dL Normal 11.9-15.1 [facility] Comment on above: Performed By: #### C DP, BMP #### [facility] [address] [place] [address] Machine Coil Assembler: Bigg Alvarez MD #### PT, PTT #### [address] [phone] Machine Coil Assembler: Andrez Saha MD Immature granulocytes #/vol (Bld) 0 % Normal 0 [facility] Comment on above: Performed By: #### C DP, BMP #### [facility] [place] [address] Machine Coil Assembler: Bigg Alvarez MD #### PT, PTT #### [address] [phone] Machine Coil Assembler: Andrez Saha MD Lymphocytes #/vol (Bld) 1.62 10*3/uL Normal 1.10-3.70 [facility] Comment on above: Performed By: #### C DP, BMP #### [facility] [place] [address] Machine Coil Assembler: Bigg Alvarez MD #### PT, PTT #### [address] [phone] Machine Coil Assembler: Andrez Saha MD Lymphocytes/100 WBC (Bld) 23 % Low 24-43 [facility] Comment on above: Performed By: #### C DP, BMP #### [facility] [address] [place] [address] Machine Coil Assembler: Bigg Alvarez MD #### PT, PTT #### [address] [address] Machine Coil Assembler: Andrez Saha MD MCH Entitic mass (RBC) 29.3 pg Normal 25.2-33.5 [facility] Comment on above: Performed By: #### C DP, BMP #### [facility] [address] [place] [address] Machine Coil Assembler: Bigg Alvarez MD #### PT, PTT #### [address] [address] Machine Coil Assembler: Andrez Saha MD MCHC mass conc (RBC) 33.2 g/dL Normal 28.4-34.8 [facility] Comment on above: Performed By: #### C DP, BMP #### [facility] [address] [place] [address] Machine Coil Assembler: Bigg Alvarez MD #### PT, PTT #### [address] [address] Machine Coil Assembler: Andrez Saha MD MCV Entitic volume (RBC) 88.2 fL Normal 82.6-102.9 [facility] Comment on above: Performed By: #### C DP, BMP #### [facility] [address] [place] [address] Machine Coil Assembler: Bigg Alvarez MD #### PT, PTT #### [address] [address] Machine Coil Assembler: Andrez Saha MD Monocytes #/vol (Bld) 0.36 10*3/uL Normal 0.10-1.20 [facility] Comment on above: Performed By: #### C DP, BMP #### [facility] [address] [place] [address] Machine Coil Assembler: Bigg Alvarez MD #### PT, PTT #### [address] [address] Machine Coil Assembler: Andrez Saha MD Monocytes/100 WBC (Bld) 5 % Normal 3-12 [facility] Comment on above: Performed By: #### C DP, BMP #### [facility] [address] [place] [address] Machine Coil Assembler: Bigg Alvarez MD #### PT, PTT #### [address] [address] Machine Coil Assembler: Andrez Saha MD Neutrophil (Seg) 68 % High 36-65 [facility] Comment on above: Performed By: #### C DP, BMP #### [facility] [address] [place] [address] Machine Coil Assembler: Bigg Alvarez MD #### PT, PTT #### [address] [address] Machine Coil Assembler: Andrez Saha MD NRBC Automated 0.0 per 100 WBC Normal 0.0 [facility] Comment on above: Performed By: #### C DP, BMP #### [facility] [address] [place] [address] Machine Coil Assembler: Bigg Alvarez MD #### PT, PTT #### [address] [address] Machine Coil Assembler: Andrez Saha MD Platelet mean volume Entitic volume (Bld) 9.5 fL Normal 8.1-13.5 [facility] Comment on above: Performed By: #### C DP, BMP #### [facility] [address] [place] [address] Machine Coil Assembler: Bigg Alvarez MD #### PT, PTT #### [address] [address] Machine Coil Assembler: Andrez Saha MD Platelets #/vol (Bld) 298 10*3/uL Normal 138-453 [facility] Comment on above: Performed By: #### C DP, BMP #### [facility] [address] [place] [address] Machine Coil Assembler: Bigg Alvarez MD #### PT, PTT #### [address] [address] Machine Coil Assembler: Andrez Saha MD RBC #/vol (Bld) 4.99 10*6/uL Normal 3.95-5.11 [facility] Comment on above: Performed By: #### C DP, BMP #### [facility] [address] [place] [address] Machine Coil Assembler: Bigg Alvarez MD #### PT, PTT #### [address] [address] Machine Coil Assembler: Andrez Saha MD WBC #/vol (Bld) 7.2 10*3/uL Normal 3.5-11.3 [facility] Comment on above: Performed By: #### C DP, BMP #### [facility] [address] [place] [address] Machine Coil Assembler: Bigg Alvarez MD #### PT, PTT #### [address] [address] Machine Coil Assembler: Andrez Saha MD Auto Diff Performed NOT REPORTED Normal [facility] Comment on above: Performed By: #### C DP, BMP #### [facility] [address] [place] [address] Machine Coil Assembler: Bigg Alvarez MD #### PT, PTT #### [address] [address] Machine Coil Assembler: Andrez Saha MD Platelets #/vol (Bld) NOT REPORTED Normal [facility] Comment on above: Performed By: #### C DP, BMP #### [facility] [address] [place] [address] Machine Coil Assembler: Bigg Alvarez MD #### PT, PTT #### [address] [address] Machine Coil Assembler: Andrez Saha MD RBC morphology finding Nom (Bld) NOT REPORTED Normal [facility] Comment on above: Performed By: #### C DP, BMP #### [facility] [address] [place] [address] Machine Coil Assembler: Bigg Alvarez MD #### PT, PTT #### [address] [address] Machine Coil Assembler: Andrez Saha MD WBC Morphology NOT REPORTED Normal [facility] Comment on above: Performed By: #### C DP, BMP #### [facility] [address] [place] [address] Machine Coil Assembler: Bigg Alvarez MD #### PT, PTT #### [address] [address] Machine Coil Assembler: Andrez Saha MD MRSA, DNA, Nasalon 9 Specimen Description .NASAL SWAB Normal [facility] Comment on above: Performed By: #### M RSANO #### [facility] [address] [place] [address] Machine Coil Assembler: Bigg Alvarez MD [address] [address] Machine Coil Assembler: Andrez Saha MD PTon 02-11-2019 INR Coag RelTime (PPP) 1.0 {INR} Normal [facility] Comment on above: Result Comment: Therapeutic Range: Moderate Anticoagulant Intensity: INR = 2.0-3.0 High Anticoagulant Intensity: INR = 2.5-3.5 High anticoagulant intensity for patients with a mechanical prosthetic heart valve, thrombosis and antiphospholipid syndrome, or myocardial infarction. Performed By: #### C DP, BMP #### [facility] [address] [place] [address] Machine Coil Assembler: Bigg Alvarez MD #### PT, PTT #### [address] [address] Machine Coil Assembler: Andrez Saha MD Prothrombin time (PT) Coag time (PPP) 10.4 s Normal 9.7-11.6 [facility] Comment on above: Performed By: #### C DP, BMP #### [facility] [address] [place] [address] Machine Coil Assembler: Bigg Alvarez MD #### PT, PTT #### [address] [address] Machine Coil Assembler: Andrez Saha MD Urinalysis, Routineon 2018 Acetoacetic Acid,Ur Negative Normal NEG [facility] Comment on above: Performed By: #### U A UMICAO #### [facility] [address] [place] [address] Machine Coil Assembler: Bigg Alvarez MD Bilirubin, SemiQt,Ur Negative Normal NEG [facility] Comment on above: Performed By: #### U A UMICAO #### [facility] [address] [place] [address] Machine Coil Assembler: Bigg Alvarez MD Color Nom (U) YELLOW Normal YEL [facility] Comment on above: Performed By: #### U A UMICAO #### [facility] [address] [place] [address] Machine Coil Assembler: Bigg Alvarez MD Glucose,Semi-qnt,U r Negative Normal NEG [facility] Comment on above: Performed By: #### U A UMICAO #### [facility] [address] [place] [address] Machine Coil Assembler: Bigg Alvarez MD Hemoglobin, Ur TRACE Abnormal NEG [facility] Comment on above: Performed By: #### U ADANILOO #### [facility] [address] [place] [address]. [place] [address] Machine Coil Assembler: Bigg Alvarez MD Leuckocyte Esterase Negative Normal NEG [facility] Comment on above: Performed By: #### U ANAILAICAO #### [facility] [address] [facility] [place] [address] Machine Coil Assembler: Bigg Alvarez MD Nitrite,Ur Negative Normal NEG [facility] Comment on above: Performed By: #### U ANAILAICAO #### [facility] [address] [facility] [place] [address] Machine Coil Assembler: Bigg Alvarez MD PH,Ur 6.0 Normal 5.0-8.0 [facility] Comment on above: Performed By: #### U A UMICAO #### [facility] [address] [place] [address] Machine Coil Assembler: Bigg Alvarez MD Protein mass conc (U) Negative Normal NEG [facility] Comment on above: Performed By: #### U DANILO BondO #### [facility] [address] [place] [address] Machine Coil Assembler: Bigg Alvarez MD Spec. Pocola,Ur 1.010 Normal 1.005-1.030 [facility] Comment on above: Performed By: #### YENNY Mike #### [facility] [address] [place] [address] Machine Coil Assembler: Bigg Alvarez MD Turbidity CLEAR Normal CLEAR [facility] Comment on above: Performed By: #### YENNY Mike #### [facility] [address] [place] [address] Machine Coil Assembler: Bigg Alvarez MD Urobilinogen,Ur Normal Normal NORM [facility] Comment on above: Performed By: #### YENNY Mike #### [facility] [address] [place] [address] Machine Coil Assembler: Bigg Alvarez MD Comment NOT REPORTED Normal [facility] Comment on above: Performed By: #### YENNY Mike #### [facility] [address] [place] [address] Machine Coil Assembler: Bigg Alvarez MD Urinalysis,Microon 9 ----- Normal [facility] Comment on above: Performed By: #### DANILO MikeO #### [facility] [address] [place] [address] Machine Coil Assembler: Bigg Alvarez MD Epithelial cells LM.HPF #/area (Urine sed) 5 TO 10 Normal 0-5 [facility] Comment on above: Performed By: #### YENNY Mike #### [facility] [address] [place] [address] Machine Coil Assembler: Bigg Alvarez MD RBC #/vol (U) 0 TO 2 Normal 0-2 [facility] Comment on above: Performed By: #### U A, UMICAO #### [facility] [address] [place] [address]. [place] [address] Machine Coil Assembler: Bigg Alvarez MD WBC #/vol (U) None Normal 0-5 [facility] Comment on above: Performed By: #### U A, UMICAO #### [facility] [address] [place] [address]. [place] [address] Machine Coil Assembler: Bigg Alvarez MD Amorphous sediment LM Ql (Urine sed) NOT REPORTED Normal [facility] Comment on above: Performed By: #### U A, UMICAO #### [facility] [address] [place] [address]. [place] [address] Machine Coil Assembler: Bigg Alvarez MD Bacteria LM.HPF #/area (Urine sed) NOT REPORTED Normal [facility] Comment on above: Performed By: #### U A, UMICAO #### [facility] [address] [place] [address]. [place] [address] Machine Coil Assembler: Bigg Alvarez MD Casts LM.LPF #/area (Urine sed) NOT REPORTED Normal [facility] Comment on above: Performed By: #### U A, UMICAO #### [facility] [address] [place] [address]. [place] [address] Machine Coil Assembler: Bigg Alvarez MD Crystals LM Nom (Urine sed) NOT REPORTED Normal [facility] Comment on above: Performed By: #### U A, UMICAO #### [facility] [address] [place] [address]. [place] [address] Machine Coil Assembler: Bigg Alvarez MD Epithelial, Renal NOT REPORTED Normal 0 [facility] Comment on above: Performed By: #### U A, UMICAO #### [facility] [address] [place] [address] Machine Coil Assembler: Bigg Alvarez MD Mucus Strands NOT REPORTED Normal NONE [facility] Comment on above: Performed By: #### U A, UMICAO #### [facility] [address] [facility] [place] [address] Machine Coil Assembler: Bigg Alvarez MD Other Observations NOT REPORTED Normal [facility] Comment on above: Performed By: #### U A, UMICAO #### [facility] [place] [address] Machine Coil Assembler: Bigg Alvarez MD Trichomonas NOT REPORTED Normal NONE [facility] Comment on above: Performed By: #### U A, UMICAO #### [facility] [address] [place] [address] Machine Coil Assembler: Bigg lAvarez MD Yeast LM Ql (Urine sed) NOT REPORTED Normal NONE [facility] Comment on above: Performed By: #### U A, UMICAO #### [facility] [address] [place] [address] Machine Coil Assembler: Bigg Alvarez MD XR CHEST (2 VW)on [...] MD 02/11/19 Final result Normal [facility] MRI ANKLE WO CONTRAST LEFTon 03-02-2018 MRI ANKLE WO CONTRAST LEFT [facility] Department of Radiology [address] [place] [id number] ======== Patient Name: RADHA HUNTER : 1975 Sex: F Age: Race: White Pt. Location: 4 Patient Status: D Ordered Date: 02/28/2018 3:30:00 PM Completed Date: 03/02/2018 10:42 AM Requesting Provider: JONATHAN DELGADO Attending Provider: JONATHAN DELGADO Report Copy To: Signs & Symptoms: M79.672 Pain in left foot I10 History: [place], Breast clip AUTHORIZATION [id number] VALID 02/28/2018-03/30/2018 - amanda Amezcua with Dr Delgado's office. please check-jlr Comments: , AUTHORIZATION [id number] VALID 02/28/2018-03/30/2018 left ankle mri Evaluate achilled tendon rupture after traumatic injury , AUTHORIZATION [id number] VALID 02/28/2018-03/30/2018 left ankle mri Evaluate achilled [...] pain QUESTION FOR THE RADIOLOGIST: , AUTHORIZATION [id number] VALID 02/28/2018-03/30/2018 left ankle mri Evaluate achilled tendon rupture after traumatic injury , AUTHORIZATION [id number] VALID ...More In Sending System PROTOCOL: Images [...] above. Electronically signed by:Patrick Santacruz. Transcribed by: [email or web address], User Resident: Electronically Signed by: PATRICK SANTACRUZ @ 03/03/2018 09:55 AM Normal [facility] Comment on above: Order Comment: , AUTHORIZATION [id number] VALID 02/28/2018-03/30/2018 left ankle mri Evaluate achilled tendon rupture after traumatic injury , AUTHORIZATION [id number] VALID 02/28/2018-03/30/2018 left ankle mri Evaluate achilled tendon rupture after traumatic injury , , , Ordering Provider - JONATHAN DELGADO MD , Encounters Encounter Date Encounter Type Care Provider Facility Start: 10-08-2024 End: 10-08-2024 Refill Tamia Aichholz [employer] Work Phone: [facility] Comment on above: Acute non-recurrent frontal sinusitis (Primary Dx) Start: 07-19-2024 End: 07-22-2024 Refill Tamia Aichholz [employer] Work Phone: [facility] Comment on above: Hypothyroidism, unsp ecified type ([facility]) Start: 07-09-2024 End: 07-09-2024 Refill Tamia Aichholz [employer] Work Phone: [facility] Comment on above: DDD (degenerative di sc disease), cervical Start: 06-29-2024 End: 06-29-2024 Refill Tamia Aichholz [employer] Work Phone: [facility] Comment on above: Migraine, unspecifie d, not intractable, without status migrainosus ([facility]); Gastroesophageal reflux disease without esophagitis Start: 01-28-2024 End: 01-28-2024 ambulatory TAMIA AICHHOLZ Not Available Start: 10-29-2023 End: 10-29-2023 ambulatory TAMIA AICHHOLZ Not Available Start: 10-02-2023 End: 10-02-2023 ambulatory TAMIA AICHHOLZ Not Available Start: 09-10-2023 End: 09-10-2023 ambulatory TAMIA AICHHOLZ Not Available Start: 02-05-2023 End: 02-06-2023 ambulatory IVET GONSALEZ Facility:[facility]1 Start: 01-18-2023 End: 01-18-2023 ambulatory IVET GONSALEZ Facility:[facility] Start: 08-28-2022 End: 08-29-2022 ambulatory IVET GONSALEZ Facility:[facility] Start: 07-25-2022 End: 07-26-2022 ambulatory IVET GONSALEZ Facility:[facility] Start: 06-10-2022 End: 06-11-2022 ambulatory IVET GONSALEZ Facility:[facility] Start: 05-17-2022 End: 05-18-2022 ambulatory JANESSA Tristan ALEXAJOB Facility:[facility] Start: 05-14-2022 End: 05-14-2022 ambulatory HELENA MERRILL Bryan Facility:[facility] Start: 03-20-2022 End: 03-21-2022 ambulatory IVET GONSALEZ Facility:[facility] Start: 02-24-2019 End: 02-24-2019 Patient encounter procedure [facility] Start: 02-11-2019 End: 02-14-2019 Patient encounter procedure [facility] Start: 02-11-2019 End: 02-16-2019 Patient encounter procedure [facility] Procedures Date Procedure Procedure Detail Performing Clinician Start: 02-07-2024 Mammography Tamia Delgado clare [employer] Work Phone: Start: 08-16-2020 Microscopic observat ion [Identifier] in Cervix by Cyto stain Tamia Franciscoedvinjoaquin [employer] Work Phone: Start: 02-24-2019 DISCHARGE PATIENT CHARU ELIZABETHNEGIN Start: 02-24-2019 FLUORO FOR SURGICAL PROCEDURES CHARU HOOVERISTOF Start: 02-24-2019 Radiologic exam sacr oiliac joints 3/more views CHARU CALLAWAY Start: 02-24-2019 BEDREST CHARU CAICEDO TOF Start: 02-24-2019 Continuous pulse oximetry CHARU ELIZABETHOF Start: 02-24-2019 ENCOURAGE DEEP BREAT CAROLE AND COUGHING CHARU ELIZABETHOF Start: 02-24-2019 INITIATE OXYGEN THER APY PROTOCOL CHARU CALLAWAY Start: 02-24-2019 NOTIFY PHYSICIAN (SPECIFY) CHARU CALLAWAY Start: 02-24-2019 NURSING COMMUNICATION K TYSHAWN CALLAWAY Start: 02-24-2019 VITAL SIGNS CHARU MCKENNA Start: 02-24-2019 Urine test visual color cmprsn meths CHARU ELIZABETHOF Start: 02-24-2019 INITIATE OXYGEN THER APY PROTOCOL CHARU CALLAWAY Start: 02-24-2019 NOTIFY PHYSICIAN (SPECIFY) CHARU CALLAWAY Start: 02-24-2019 VITAL SIGNS CHARU MCKENNA Start: 02-11-2019 Radiologic exam ches t 2 views CHARU CALLAWAY Start: 02-11-2019 Ecg routine ecg w/le ast 12 lds w/i&r CHARU ELIZABETHOF Start: 02-11-2019 EKG REPORT CHARU MCKENNA Start: 02-11-2019 Iadna s aureus methi cillin resist amp probe tq CHARU CALLAWAY Start: 02-11-2019 Culture bacterial quanttative colony count urine CHARU CALLAWAY Start: 02-11-2019 [...] Start: 02-11-2019 TYPE AND SCREEN CHARU SAMS Plan of Treatment Date Care Activity Detail Author Start: 02-06-2025 Screening for malign ant neoplasm of breast Mammogram [facility] Start: 09-10-2024 Screening for malign ant neoplasm of colon Colorectal Cancer Screening [facility] Comment on above: Postponed from 06/23 (Patient Refused) Start: 05-25-2024 Influenza vaccination Influenza Vacc ine (#1) [facility] Start: 08-16-2023 Screening for malign ant neoplasm of cervix [facility] Start: 2003 Screening for malign ant neoplasm of cervix HPV/Cotest [facility] Start: 1973 Screening for malign ant neoplasm of colon [facility] Immunizations Immunization Date Immunization Notes Care Provider Cipriano thompson 09-10-2023 influenza, intraderm al, quadrivalent, preservative free, injectable Tamia Wallace [employer] Work Phone: [facility] 09-10-2023 influenza virus vacc ine, unspecified formulation Tamia Celestinjoaquin [employer] Work Phone: [facility] Payers Date Payer Category Payer Unknown [id number] 2022 Medicaid [id number] 2014 Unknown [id number] 1973 Unknown [id number] 2.16.8 [id number] 1973 Unknown [id number] 2.16.8 [id number] 1973 Unknown [id number] 2.16.8 40.1.571500.3.579.2.177 1973 Unknown [id number] 2.16.84 0.1.013346.3.579.2.593 1973 Unknown [id number] 2.16.84 0.1.832843.3.579.2.593 1973 Unknown [id number] 2.16.84 0.1.430290.3.579.2.593 1973 Unknown [id number] 2.16.84 0.1.813993.3.579.2.593 1973 Unknown [id number] 2.16.84 0.1.205857.3.579.2.593 1973 Unknown [id number] 2.16.84 0.1.075526.3.579.2.593 1973 Unknown [id number] 2.16.84 0.1.880306.3.579.2.593 1973 Unknown [id number] 2.16.84 0.1.388659.3.579.2.593 1973 Unknown [id number] 2.16.84 0.1.277640.3.579.2.1259 1973 Unknown [id number] 2.16.84 0.1.924529.3.579.2.1259 1973 Unknown [id number] 2.16.84 0.1.816218.3.579.2.1259 1973 Unknown [id number] 2.16.840 .[id number] 1959 Unknown [id number] Private Health Insurance [id number] Social History Date Type Detail Facility Start: 09-05-2023 Tobacco smoking status NHIS Smokes t obacco daily [facility] History of tobacco use Cigarette Smoker [facility] Start: 01-28-2024 Alcoholic beverage intake Ex-drinker (finding) [facility] Start: 08-30-2023 End: 01-28-2024 [facility] Start: 08-30-2023 End: 01-28-2024 Humiliation, Afraid, Rape, and Kick questionnaire [HARK] [facility] Within the last year , have you been afraid of your partner or ex-partner? No [facility] How often do you att end jainism or spiritism services? Patient declined [facility] Are you now , , , , never or living with a partner? Never [facility] How often to you hav e a drink containing alcohol? Never [facility] Do you feel stress - tense, restless, nervous, or anxious, or unable to sleep at night because your mind is troubled all the time - these days [OSQ] Only a little [facility] (I/We) worried [facility] (my/our) food would run out before (I/we) got money to buy more. Never true [facility] Start: 09-05-2023 Tobacco Comment 11-20 cigarettes/day [facility] Start: 09-05-2023 Alcohol Comment caffeine: soda [facility] Start: 1973 Sex assigned at Not on file [facility] Telephone encounter Note 06-29-2024 Telephone Encounter - Tamia Gonsalez NP - 06/29/2024 6:53 PM EDT Note Date & Type Note Facility 06-29-2024 Telephone encount er Note Please call and get pt scheduled for late in June or early July [place] [facility] Note 06-29-2024 Telephone Encounter - Tamia Gonsalez NP - 06/29/2024 6:53 PM EDT Note Date & Type Note Facility 06-29-2024 Miscellaneous Notes Formattin g of this note might be different from the original. Please call and get pt scheduled for late in June or early July [place] documented in this encounter [facility] Clinical Note 05-18-2022 Note Date & Type [...] authenticated by: TEVIN ESPINOZA Date: 2022-05-18 08:15 [facility] Clinical Note 05-18-2022 Note Date & [...] authenticated by: TEVIN ESPINOZA Date: 2022-05-18 08:15 [facility] Evaluation note Note Date & Type Note Facility Evaluation note Diagnosis Migraine, unspecified, not intractable, without status migrainosus (CMS/HCC) Gastroesophageal reflux disease without esophagitis Esophageal reflux documented in this encounter [facility] Evaluation note Note Date & Type Note Facility Evaluation note Diagnosis Hypothyroidism, unspecified type (CMS/HCC)- Primary Other chest pain Tobacco user Tobacco use disorder Class 1 obesity due to excess calories without serious comorbidity with body mass index (BMI) of 32.0 to 32.9 in adult Hypothyroidism, unspecified type (CMS/HCC)- Primary Tobacco user Tobacco use disorder BMI 33.0-33.9,adult SARAHI (generalized anxiety disorder) ([facility]/HCC)- Primary Generalized anxiety disorder Encounter for screening mammogram for malignant neoplasm of breast Hypothyroidism, unspecified type (CMS/HCC) Obesity (BMI 30-39.9) DDD (degenerative disc disease), cervical Degeneration of cervical intervertebral disc documented in this encounter [facility] Evaluation note Note Date & Type Note Facility Evaluation note Diagnosis Hypothyroidism, unspecified type (CMS/HCC)- Primary Other chest pain Tobacco user Tobacco use disorder Class 1 obesity due to excess calories without serious comorbidity with body mass index (BMI) of 32.0 to 32.9 in adult Hypothyroidism, unspecified type (CMS/HCC)- Primary Tobacco user Tobacco use disorder BMI 33.0-33.9,adult SARAHI (generalized anxiety disorder) ([facility])- Primary Generalized anxiety disorder Encounter for screening mammogram for malignant neoplasm of breast Hypothyroidism, unspecified type ([facility]/HCC) Obesity (BMI 30-39.9) Hypothyroidism, unspecified type (CMS/HCC) documented in this encounter [facility] Evaluation note Note Date & Type Note Facility Evaluation note Diagnosis Hypothyroidism, unspecified type (CMS/HCC)- Primary Other chest pain Tobacco user Tobacco use disorder Class 1 obesity due to excess calories without serious comorbidity with body mass index (BMI) of 32.0 to 32.9 in adult Hypothyroidism, unspecified type (CMS/HCC)- Primary Tobacco user Tobacco use disorder BMI 33.0-33.9,adult SARAHI (generalized anxiety disorder) ([facility]/HCC)- Primary Generalized anxiety disorder Encounter for screening mammogram for malignant neoplasm of breast Hypothyroidism, unspecified type ([facility]/HCC) Obesity (BMI 30-39.9) Acute non-recurrent frontal sinusitis- Primary documented in this encounter [facility] Summary Purpose Family History No Family History Records FoundNo Family History Records FoundNo Family History Records FoundNo Family History Records Found Advance Directives No Advanced Directives Records FoundNo Advanced Directives Records FoundNo Advanced Directives Records FoundNo Advanced Directives Records Found Additional Source Comments INFORMATION SOURCE (unrecogn ized section and content) DATE CREATED AUTHOR 02/27/2019 [facility] DATE CREATED AUTHOR AUTHOR'S ORGANIZ ATION 03/02/2019 [facility] DATE CREATED AUTHOR AUTHOR'S ORGANIZ ATION 02/07/2023 [facility] DATE CREATED AUTHOR AUTHOR'S ORGANIZ ATION 01/29/2024 [facility] EPIC Reason for Visit (unrecogniz ed section and content) Reason Comments Med Refill Care Teams (unrecognized sec tion and content) Molecular Technologist Relationship Specialty Start Date End Date Bhargav Madison MD [address] [place] [phone] PCP - General Family Medicine 01/28/24 Tamia Gonsalez NP [address] [place] [phone] Referring Physician Nurse Practitioner 04/09/23 Tamia Gonsalez NP [address] [place] [phone] Nurse Practitioner Family Medicine 01/28/24 Molecular Technologist Relationship Specialty Start Date End Date Bhargav Madison MD [address] [place] [phone] PCP - General Family Medicine 01/28/24 Tamia Gonsalez NP [address] [place] [phone] Referring Physician Nurse Practitioner 04/09/23 Tamia Gonsalez NP [address] [place] [phone] Nurse Practitioner Family Medicine 01/28/24 Molecular Technologist Relationship Specialty Start Date End Date Bhargav Madison MD [address] [place] [phone] PCP - General Family Medicine 01/28/24 Tamia Gonsalez NP [address] [place] [phone] Referring Physician Nurse Practitioner 04/09/23 Tamia Gonsalez NP [address] [place] [phone] Nurse Practitioner Family Medicine 01/28/24 Molecular Technologist Relationship Specialty Start Date End Date Bhargav Madison MD [address] [place] [phone] PCP - General Family Medicine 01/28/24 Tamia Gonsalez NP [address] [place] [phone] Referring Physician Nurse Practitioner 04/09/23 Tamia Gonsalez NP [address] [place] [phone] Nurse Practitioner Family Medicine 01/28/24 FOR RECORDS PERTAINING TO PATIENTS WHO ARE [...] BE BASED ON THE PRIMARY CLINICAL RECORDS. [facility] [employer] [facility]. provides no warranty or guarantee of the accuracy or completeness of information in this document.
[2024-10-28 15:00] LABS: Influenza Virus A Antigen Negative; Influenza Virus B Antigen Negative; Internal Control Within Normal Limits; SARS-CoV-2 Ag NEGATIVE (NEGATIVE)
[2024-10-28 15:01] LABS: Internal Control Within Normal Limits; Respiratory Syncytial Virus Not Detected (NOT DETECTE)
--- NOTE | 2024-10-28 15:17 | ED.GENADUL1 ---
HPI HPI - General Adult General Stated complaint: FLU LIKE SYMPTOMS Time Seen by Provider: 10/28/24 15:10 Source: patient Mode of arrival: walk-in History of Present Illness HPI narrative: 49 year old female presents to the emergency department for 3-day history of not feeling well. She has had some vomiting and diarrhea and a cough and the cough is now gone away. She has been around people who have had this. She did not have a fever at triage. Related Data Home Medications ?Medication ?Instructions ?Recorded ?Confirmed epinephrine 0.3 mg/0.3 mL 0.3 mg IM PRN PRN anaphylaxis 08/25/23 08/25/23 injection, auto-injector ibuprofen 800 mg tablet 800 mg PO Q8H PRN pain 08/25/23 08/25/23 sumatriptan succinate 100 mg tablet 100 mg PO PRN 08/25/23 08/25/23 thyroid (pork) 120 mg tablet 120 mg PO .T, Th, Sat, Sun 08/25/23 08/25/23 ([facility] Thyroid) thyroid (pork) 180 mg tablet 180 mg PO .M, W, F 08/25/23 08/25/23 ([facility] Thyroid) topiramate 25 mg tablet 50 mg PO .hs 08/25/23 08/25/23 Previous Rx's ?Medication ?Instructions ?Recorded albuterol sulfate 90 mcg/actuation 1 inh inhalation Q4H PRN shortness 09/28/23 aerosol inhaler of breath or wheezing #8.5 grams prednisone 50 mg tablet 50 mg PO DAILY 5 days #5 tabs 09/28/23 benzonatate 100 mg capsule 100 mg PO TID PRN cough #20 caps 10/02/23 doxycycline hyclate 100 mg capsule 100 mg PO BID 10 days #20 caps 10/02/23 ondansetron 4 mg disintegrating 4 mg PO Q6H PRN nausea and 10/28/24 tablet vomiting #20 tabs Allergies Allergy/AdvReac Type Severity Reaction Status Date / Time bee venom protein (honey bee) AdvReac Severe Verified 08/25/23 10:59 Opioid HPI Opioid Management Most Recent Opioid Data: No Data to Display Review of Systems ROS Narrative A ten point review of systems is negative except as noted above. PFSH PFSH Social History Smoking status: Current every day smoker Little interest or pleasure in doing things: not at all Feeling down, depressed, or hopeless: not at all Exam Narrative Exam Narrative: Nurses note and vital signs reviewed and patient is not hypoxic. General: The patient appears well and in no apparent distress. Patient is resting comfortably on cart. Skin: Warm, dry, no pallor noted. There is no rash noted. Head: Normocephalic, atraumatic Eye: Normal conjunctiva, no drainage Ears, Nose, Mouth, and Throat: oral mucosa is moist. Nares patent. Cardiovascular: Regular Rate and Rhythm Respiratory: Patient is in no distress, no accessory muscle use, lungs are clear to auscultation, no wheezing, rales or rhonchi Back: non-tender GI: Soft and nontender Musculoskeletal: The patient has no evidence of calf tenderness, no pitting edema, symmetrical pulses noted bilaterally Neurological: A&O, normal speech Psychiatric: Cooperative Constitutional Vital Signs, click to edit/add: Last Vital Signs Temp 98.2 F 10/28/24 14:26 Pulse 103 H 10/28/24 14:26 Resp 18 10/28/24 14:26 BP 146/85 H 10/28/24 14:26 Pulse Ox 98 10/28/24 14:26 O2 Del Method Room Air 10/28/24 14:26 Course Vital Signs Vital signs: Vital Signs Temperature 98.2 F 10/28/24 14:26 Pulse Rate 103 H 10/28/24 14:26 Respiratory Rate 18 10/28/24 14:26 Blood Pressure 146/85 H 10/28/24 14:26 Pulse Oximetry 98 10/28/24 14:26 Oxygen Delivery Method Room Air 10/28/24 14:26 Temperature 98.2 F 10/28/24 14:26 Pulse Rate 103 H 10/28/24 14:26 Respiratory Rate 18 10/28/24 14:26 Blood Pressure 146/85 H 10/28/24 14:26 Pulse Oximetry 98 10/28/24 14:26 Oxygen Delivery Method Room Air 10/28/24 14:26 Medical Decision Making [facility] Narrative Medical decision making narrative: COVID, influenza, and RSV are negative. Her vital signs show a normal O2 sat and no fever. Should be treated symptomatically with Zofran and was recommended Tylenol and Motrin. Treatment diagnosis and follow-up were discussed with the patient. Differential Diagnosis Differential Diagnosis: COVID, influenza, RSV, viral illness Lab Data Lab results reviewed: Yes I reviewed the patient's lab results Labs: Lab Results 10/28/24 Range/Units 14:31 Influenza Type A Ag Negative Influenza Type B Ag Negative RSV Antigen Not detected (NOT DETECTE) SARS-CoV-2 Ag (CV2AG) Negative (NEGATIVE) Discharge Plan Discharge Clinical Impression: Viral syndrome Patient Disposition: Home, Self-Care Time of Disposition Decision: 15:16 Condition: Good Mode of Transportation: Private Vehicle Prescriptions / Home Meds: New ondansetron 4 mg tablet,disintegrating 4 mg PO Q6H PRN (Reason: nausea and vomiting) Qty: 20 0RF No Action doxycycline hyclate 100 mg capsule 100 mg PO BID 10 Days Qty: 20 0RF benzonatate 100 mg capsule 100 mg PO TID PRN (Reason: cough) Qty: 20 0RF ibuprofen 800 mg tablet 800 mg PO Q8H PRN (Reason: pain) sumatriptan succinate 100 mg tablet 100 mg PO PRN epinephrine 0.3 mg/0.3 mL auto-injector 0.3 mg IM PRN PRN (Reason: anaphylaxis) thyroid (pork) [[facility] Thyroid] 120 mg tablet 120 mg PO .T, Th, Sat, Sun [facility] Thyroid 180 mg tablet 180 mg PO .M, W, F topiramate 25 mg tablet 50 mg PO .hs prednisone 50 mg tablet 50 mg PO DAILY 5 Days Qty: 5 0RF albuterol sulfate 90 mcg/actuation HFA aerosol inhaler 1 inh inhalation Q4H PRN (Reason: shortness of breath or wheezing) Qty: 8.5 0RF Print Language: Upper Sorbian Instructions: Viral Syndrome (ED) Referrals: Tamia Gonsalez CAR RACER [Primary Care Provider] - 1 week
[2024-10-28] MEDS: ONDANSETRON 4 MG RAPDIS TABLET SL (15:38)
== END 2024-10-28 15:41 | disposition home or self-care (01) ==
PROVIDERS: Emergency Provider Emergency Medicine; PCP Nurse Practitioner
DX: B34.9 Viral infection, unspecified (principal); F17.200 Nicotine dependence, unspecified, uncomplicated
CPT/HCPCS: 87420; 87804; 87811; 99285; Q0162

== ENCOUNTER 2025-02-28 06:55 | Outpatient (OUT) | payer OTHER, SELFPAY ==
--- OUTSIDE RECORDS SUMMARY | 2025-02-28 06:58 | XMS_ITS | CCD ---
Author Organization [facility] Care Team Providers Care Research Laboratory Manager Name Role Phone CHARU CALLAWAY Referring Unavailable AICHHOLZ, TAMIA J. Primary Care Unavailable CHARU CALLAWAY Referring Unavailable AICHHOLZ, TAMIA J. Primary Care Unavailable CESIA, CHARU Admitting Unavailable CESIA, CHARU Attending Unavailable AICHHOLZ, TAMIA J. Primary Care Unavailable AICHHOLZ, CONSTRUCTION SKILLS TEACHER TAMIA Admitting Unavailable AICHHOLZ, CONSTRUCTION SKILLS TEACHER TAMIA Attending Unavailable AICHHOLZ, CONSTRUCTION SKILLS TEACHER TAMIA Consulting Unavailable AICHHOLZ, CONSTRUCTION SKILLS TEACHER TAMIA Primary Care Unavailable AICHHOLZ, CONSTRUCTION SKILLS TEACHER TAMIA Admitting Unavailable AICHHOLZ, CONSTRUCTION SKILLS TEACHER TAMIA Attending Unavailable AICHHOLZ, CONSTRUCTION SKILLS TEACHER TAMIA Consulting Unavailable AICHHOLZ, CONSTRUCTION SKILLS TEACHER TAMIA Primary Care Unavailable AICHHOLZ, CONSTRUCTION SKILLS TEACHER TAMIA Admitting Unavailable AICHHOLZ, CONSTRUCTION SKILLS TEACHER TAMIA Attending Unavailable AICHHOLZ, CONSTRUCTION SKILLS TEACHER TAMIA Consulting Unavailable AICHHOLZ, CONSTRUCTION SKILLS TEACHER TAMIA Primary Care Unavailable AICHHOLZ, CONSTRUCTION SKILLS TEACHER TAMIA Primary Care Unavailable FAWWAD, WILLS H Admitting Unavailable FAWWAD, WILLS H Attending Unavailable FAWWAD, WILLS H Consulting Unavailable ARELY ROLDANIN Consulting Unavailable JANESSA HERNANDEZ Admitting Unavailable Tevin Espinoza Consulting Unavailable JANESSA HERNANDEZ Attending Unavailable AICHHOLZ, CONSTRUCTION SKILLS TEACHER TAMIA Primary Care Unavailable JANESSA HERNANDEZ Consulting Unavailable HELENA QUINTANA Admitting Unavailable NILSA Bryan, MR CHRISTIAN Consulting Unavailable AICHHOLZ, CONSTRUCTION SKILLS TEACHER TAMIA Primary Care Unavailable HELENA QUINTANA Attending Unavailable HERACLIO WELLS Consulting Unavailable AICHHOLZ, CONSTRUCTION SKILLS TEACHER TAMIA Admitting Unavailable AICHHOLZ, CONSTRUCTION SKILLS TEACHER TAMIA Attending Unavailable AICHHOLZ, CONSTRUCTION SKILLS TEACHER TAMIA Consulting Unavailable AICHHOLZ, CONSTRUCTION SKILLS TEACHER TAMIA Primary Care Unavailable IVET GONSALEZ Attending Unavailable IVET GONSALEZ Consulting Unavailable IVET GONSALEZ Primary Care Unavailable IVET GONSALEZ Admitting Unavailable TAMIA GONSALEZ Attending Unavailable TAMIA GONSALEZ Attending Unavailable WALLACE, TAMIA Attending Unavailable WALLACE, TAMIA Attending Unavailable Wallace SET AND EXHIBIT DESIGNER, Tamia Unavailable Bhargav Madison MD Primary Care Provider Wallace SET AND EXHIBIT DESIGNER, Tamia Unavailable Allergies Allergy Classification Reported Allergen(s) Allergy Type Date of Onset Reaction(s) Facility (1 source) bee venom Drug allergy (disorder) 4 [facility] Repository (7 sources) Honey bee venom Propensity to adverse reactions 8 Anaphylaxis [facility] Medications Current Medications Medication Drug Class(es) Dates Sig (Normalized) Sig (Original) [id number] 200 actuat albuterol 0.09 mg/actuat metered dose inhaler (7 sources) beta2-Adrenergic Agonist Start: 12-08-2022 take 2 puff(s) by inhalation every four hours for wheezing Ventolin HFA 108 (90 Base) MCG/ACT inhaler Inhale 2 puffs every 4 (four) hours if needed for wheezing or shortness of breath 12/08/2022 Active amoxicillin 875 mg / clavulanate 125 mg oral tablet (3 sources) Penicillin-class Antibacterial Start: 02-05-2025 End: 02-15-2025 take 1 tablet by mouth in the morning amoxicillin-clavu lanate (Augmentin) 875-125 MG tablet Indications: Acute pharyngitis, unspecified etiology Take 1 tablet (875 mg) by mouth in the morning and 1 tablet (875 mg) in the evening. Do all this for 10 days. Take with food. 20 tablet 02/05/2025 02/15/2025 Active Start: 10-08-2024 End: 10-15-2024 take 1 tablet by mouth in the morning amoxicillin-clavulanate (Augmentin) 875-125 MG tablet Indications: Acute non-recurrent frontal sinusitis Take 1 tablet (875 mg) by mouth in the morning and 1 tablet (875 mg) before bedtime. Do all this for 7 days. 14 tablet 10/08/2024 10/15/2024 Active amphetamine aspartate 5 mg / amphetamine sulfate 5 mg / dextroamphetamine saccharate 5 mg / dextroamphetamine sulfate 5 mg oral tablet (2 sources) Central Nervous System Stimulant Start: 02-02-2025 amphetamine-dextroamphetamin e (Adderall) 20 MG tablet every 12 (twelve) hours 02/02/2025 Active cetirizine hydrochloride 10 mg oral tablet (7 sources) Histamine-1 Receptor Antagonist Start: 02-07-2023 take 1 tablet by mouth in the morning cetirizine (ZyrTEC) 10 MG tablet Take 1 tablet by mouth in the morning. 02/07/2023 Active [id number] 0.3 ml EPINEPHrine 1 mg/ml auto-injector (7 sources) alpha-Adrenergi c Agonist, beta-Adrenergic Agonist, Catecholamine Start: 01-24-2023 EPINEPHrine (Epipen) 0.3 MG/0.3ML injection syringe Inject 1 Syringe as directed As directed 01/24/2023 Active escitalopram 10 mg oral tablet (6 sources) Serotonin Reuptake Inhibitor Start: 01-28-2024 take 1 tablet by mouth once daily escitalopram (Lexapro) 10 MG tablet Indications: SARAHI (generalized anxiety disorder) (CMS/HCC) Take 1 tablet (10 mg) by mouth Daily 30 tablet 1 01/28/2024 Active ibuprofen 800 mg oral tablet (6 sources) Nonsteroidal Anti-inflammato ry Drug Start: 07-09-2024 take 1 tablet by mouth every eight hours for pain ibuprofen 800 MG tablet Indications: DDD (degenerative disc disease), cervical Take 1 tablet (800 mg) by mouth every 8 (eight) hours if needed for mild pain or moderate pain 90 tablet 2 07/09/2024 Active levothyroxine sodium 0.075 mg oral tablet (8 sources) l-Thyroxine Start: 07-22-2024 End: 05-20-2025 take 1 tablet by mouth once daily levothyroxine (Synthroid, Levoxyl) 75 MCG tablet Indications: Hypothyroidism, unspecified type (CMS/HCC) Take 1 tablet (75 mcg) by mouth Daily 90 tablet 02/19/2025 05/20/2025 Active Start: 01-28-2024 take 1 tablet by norma th before mealtime levothyroxine (Synthroid) 75 MCG tablet Indications: Hypothyroidism, unspecified type (CMS/HCC) Take 1 tablet (75 mcg) by mouth in the morning. Take before meals. 90 tablet 1 01/28/2024 Active pantoprazole 20 mg delayed release oral tablet (8 sources) Proton Pump Inhibitor Start: 03-06-2024 End: 07-29-2024 take 1 tablet by mouth before mealtime pantoprazole (ProtoNix) 20 MG EC tablet Indications: Gastroesophageal reflux disease without esophagitis Take 1 tablet (20 mg) by mouth in the morning. Take before meals. 30 tablet 2 06/29/2024 Active topiramate 25 mg oral tablet (8 sources) Start: 03-27-2024 End: 07-29-2024 take 2 tablets by mouth at bedtime topiramate (Topamax) 25 MG tablet Indications: Migraine, unspecified, not intractable, without status migrainosus (CMS/HCC) Take 2 tablets (50 mg) by mouth at bedtime 60 tablet 2 06/29/2024 Active ubrogepant 100 mg oral tablet (7 sources) Ubrogepant (Ubre lvy) 100 MG tablet Take 1 tablet by mouth 1 time As needed for CASH, may repeat in 2 hours. Active Problems Active Problems Problem Classification Problem Date Documented Date Episodic/Chronic Anxiety disorders (7 sources) Generalized anxiety disorder; Translations: [Generalized anxiety disorder] Onset: 01-28-2024 01-28-2024 Chronic Attention-deficit, conduct, and disruptive behavior disorders (1 source) Attention-deficit hyperactivity disorder, unspecified type; Translations: [ADHD UNSPECIFIED TYPE] Onset: 05-15-2022 Chronic Attention-deficit, conduct, and disruptive behavior disorders (2 sources) Attention deficit hyperactivity disorder, combined type; Translations: [Attention-deficit hyperactivity disorder, combined type] Onset: 02-05-2025 02-05-2025 Chronic Esophageal disorders (8 sources) Gastroesophageal reflux disease without esophagitis; Translations: [Gastro-esophageal reflux disease without esophagitis] Onset: 03-06-2024 06-29-2024 Chronic Headache; including migraine (8 sources) Migraine; Translations: [Migraine, unspecified, not intractable, without status migrainosus] Onset: 10-22-2023 06-29-2024 Chronic Other nutritional; endocrine; and metabolic disorders (15 sources) Body mass index 30+ - obesity; Translations: [Obesity, unspecified] Onset: 10-29-2023 Resolved: 01-28-2024 01-28-2024 Chronic Other upper respiratory infections (16 sources) Acute upper respiratory infection; Translations: [Acute upper respiratory infection, unspecified] Onset: 10-02-2023 Resolved: 10-29-2023 10-29-2023 Episodic Residual codes; unclassified (4 sources) Obstructive sleep apnea (adult) (pediatric); Translations: [OBSTRUCTIVE SLEEP APNEA] Onset: 08-28-2022 Chronic Residual codes; unclassified (2 sources) Obstructive sleep apnea syndrome; Translations: [Obstructive sleep apnea (adult) (pediatric)] Onset: 02-05-2025 02-05-2025 Chronic Spondylosis; intervertebral disc disorders; other back problems (12 sources) Degeneration of cervical intervertebral disc; Translations: [Other cervical disc degeneration, unspecified cervical region] Onset: 11-28-2021 09-10-2023 Chronic Substance-related disorders (1 source) Nicotine dependence, cigarettes, uncomplicated; Translations: [NICOTINE DEPEND CIGARETTES UNCOMP] Onset: 05-15-2022 Chronic Thyroid disorders (15 sources) Hypothyroidism, unspecified; Translations: [Hypothyroidism] Onset: 12-01-2021 Chronic Unclassified (3 sources) CONTACT W/AND (SUSP) EXPOS COVID-19; Translations: [CONTACT W/AND (SUSP) EXPOS COVID-19] Onset: 01-21-2023 Past or Other Problems Problem Classification Problem Date Documented Da te Episodic/Chronic Disorders usually diagnosed in infancy, childhood, or adolescence (7 sources) Adult attention deficit hyperactivity disorder ; Translations: [Other specified behavioral and emotional disorders with onset usually occurring in childhood and adolescence] Onset: 12-01-2021 Resolved: 02-05-2025 10-29-2023 Chronic Headache; including migraine (7 sources) Chronic headache disorder; Translations: [Chronic headaches] Onset: 10-29-2023 10-29-2023 Episodic Malaise and fatigue (4 sources) Other fatigue; Translations: [OTHER FATIGUE] Onset: 07-25-2022 Episodic Nonspecific chest pain (7 sources) Chest pain; Translations: [Other chest pain] Onset: 09-10-2023 09-10-2023 Episodic Other connective tissue disease (1 source) Pain in right foot; Translations: [PAIN IN RIGHT FOOT] Onset: 05-18-2022 Episodic Other gastrointestinal disorders (7 sources) Chronic constipation; Translations: [Other constipation] Onset: 10-29-2023 10-29-2023 Episodic Other lower respiratory disease (4 sources) Respiratory disorder, unspecified; Translations: [RESPIRATORY DISORDER UNSPECIFIED] Onset: 03-20-2022 Episodic Other non-traumatic joint disorders (4 sources) Pain in right ankle and joints of right foot; Translations: [PAIN IN RIGHT ANKLE] Onset: 05-17-2022 Episodic Other nutritional; endocrine; and metabolic disorders (7 sources) Obesity caused by energy imbalance; Translations: [Class 1 obesity due to excess calories without serious comorbidity with body mass index (BMI) of 32.0 to 32.9 in adult] Onset: 09-10-2023 Resolved: 01-28-2024 01-28-2024 Chronic Other nutritional; endocrine; and metabolic disorders (7 sources) Body mass index 25-29 - overweight; Translations: [Overweight] Onset: 10-02-2023 10-02-2023 Episodic Other screening for suspected conditions (not mental disorders or infectious disease) (7 sources) Patient encounter status; Translations: [Encounter for screening mammogram for malignant neoplasm of breast] Onset: 01-28-2024 01-28-2024 Episodic Residual codes; unclassified (8 sources) Tobacco user; Translations: [Tobacco use] Onset: 12-01-2021 09-10-2023 Episodic Unclassified (1 source) CONTACT W/AND (SUSP) EXPOS COVID-19; Translations: [CONTACT W/AND (SUSP) EXPOS COVID-19] Onset: 01-18-2023 Results Test Name Value Interpretation Reference Range Facility [facility] MAMM SCREEN 3D FREDY CADon 02-05-2023 MG MAMM SCREEN 3D FREDY CAD Patient: RADHA HUNTER Exam Date: 02/05/2023 : 1975 Gender:F Ordering : IVET GONSALEZ CNP Admission #: [id number] Family : Order #: [id number] CLICK HERE TO VIEW EXAM RADIOLOGY REPORT [...] throat cancer at age 82. LOCATION: [facility] BREAST COMPOSITION: Heterogeneously dense,which may obscure [...] MD on 02/06/2023 at 10:24 Normal [facility] Covid-19 PCR (CVDTBH)on 12-24 SARS-CoV-2 (COVID-19) RNA TAYO+probe Ql (Unsp spec) Not detected Normal NOT DETECTED [facility] Comment on above: Result Comment: This test is not yet approved or cleared by the [place] FDA. When there are no FDA-approved or cleared tests available, and other criteria are met, FDA can make tests available under an emergency access mechanism called an Emergency Use Authorization (EUA). The EUA for this test is supported by the Grapple [employer] Operator of Health and Human Service's (HHS's) declaration [...] Performed By: #### C MP, TSH #### [facility] [address] [place] [address] Dr. Allie Birch SYMPTOMATIC COVID-19 ANTIGEN on 01-18-2023 EUA Statement SEE BELOW Normal [facility] Comment on above: Result Comment: This [...] Performed By: #### C MP, TSH #### [facility] [address] [place] [address] Dr. Allie Birch SARS-CoV-2 (COVID-19) RNA TAYO+probe Ql (Unsp spec) Negative Normal NEGATIVE [facility] Comment on above: Performed By: #### C MP, TSH #### [facility] [address] [place] [address] Dr. Allie Birch CBC AUTO DIFFon 07-25-2022 BASO # 0.1 103/ul Normal 0.0-0.1 [facility] Comment on above: Performed By: #### C BC #### [facility] [address] [place] [address] Dr. Allie Birch Basophils/100 WBC (Bld) 1.3 % Normal 0.2-2.0 [facility] Comment on above: Performed By: #### C BC #### [facility] [address] [place] [address] Dr. Allie Birch EO # 0.3 103/ul Normal 0.0-0.7 [facility] Comment on above: Performed By: #### C BC #### [facility] [address] [place] [address] Dr. Allie Birch Eosinophils/100 WBC (Bld) 3.4 % Normal 0.9-7.0 [facility] Comment on above: Performed By: #### C BC #### [facility] [address] [place] [address] Dr. Allie Birch Erythrocyte distribution width (RBC) [Ratio] 13.2 % Normal 11.0-15.0 [facility] Comment on above: Performed By: #### C BC #### [facility] [address] [place] [address] Dr. Allie Birch Hematocrit (Bld) [Volume fraction] 41.7 % Normal 36.0-48.0 [facility] Comment on above: Performed By: #### C BC #### [facility] [address] [place] [address] Dr. Allie Birch Hemoglobin (Bld) [Mass/Vol] 14.1 g/dL Normal 12.0-16.0 [facility] Comment on above: Performed By: #### C BC #### [facility] [address] [place] [address] Dr. Allie Birch IG # 0.02 10e3/ul Normal 0.00-0.03 [facility] Comment on above: Performed By: #### C BC #### [facility] [address] [place] [address] Dr. Allie Birch IG % 0.2 % Normal 0.0-0.5 [facility] Comment on above: Performed By: #### C BC #### [facility] [address] [place] [address] Dr. Allie Birch LYMPH # 1.6 103/ul Normal 1.2-3.8 [facility] Comment on above: Performed By: #### C BC #### [facility] [address] [place] [address] Dr. Allie Birch Lymphocytes/100 WBC (Bld) 18.1 % Critically low 20.5-60.0 [facility] Comment on above: Performed By: #### C BC #### [facility] [address] [place] [address] Dr. Allie Birch MANUAL DIFF REQ NO Normal [facility] Comment on above: Performed By: #### C BC #### [facility] [address] [place] [address] Dr. Allie Birch MCH (RBC) [Entitic mass] 29.4 pg Normal 26.7-34.0 [facility] Comment on above: Performed By: #### C BC #### [facility] [address] [place] [address] Dr. Allie Birch MCHC (RBC) [Mass/Vol] 33.8 g/dL Normal 29.9-35.2 [facility] Comment on above: Performed By: #### C BC #### [facility] [address] [place] [address] Dr. Allie Birch MCV (RBC) [Entitic vol] 86.9 fL Normal 81.0-99.0 [facility] Comment on above: Performed By: #### C BC #### [facility] [address] [place] [address] Dr. Allie Birch MONO # 0.4 103/ul Normal 0.3-0.8 [facility] Comment on above: Performed By: #### C BC #### [facility] [address] [place] [address] Dr. Allie Birch Monocytes/100 WBC (Bld) 4.4 % Normal 1.7-12.0 [facility] Comment on above: Performed By: #### C BC #### [facility] [address] [place] [address] Dr. Allie Birch NEUT # 6.2 103/ul Normal 1.4-6.5 [facility] Comment on above: Performed By: #### C BC #### [facility] [address] [place] [address] Dr. Allie Birch Neutrophils/100 WBC (Bld) 72.6 % Normal 43.0-75.0 [facility] Comment on above: Performed By: #### C BC #### [facility] [address] [place] [address] Dr. Allie Birch Platelet mean volume (Bld) [Entitic vol] 9.6 fL Normal 9.5-13.5 [facility] Comment on above: Performed By: #### C BC #### [facility] [address] [place] [address] Dr. Allie Birch PLT 316 103/ul Normal 150-450 [facility] Comment on above: Performed By: #### C BC #### [facility] [address] [place] [address] Dr. Allie Birch RBC 4.80 106/ul Normal 4.20-5.40 [facility] Comment on above: Performed By: #### C BC #### [facility] [address] [place] [address] Dr. Allie Birch WBC 8.6 103/ul Normal 4.0-11.0 [facility] Comment on above: Performed By: #### C BC #### [facility] [address] [place] [address] Dr. Allie Birch FREE T4on 07-25-2022 Free T4 [Mass/Vol] 0.80 ng/dL Normal 0.76-1.46 [facility] Comment on above: Performed By: #### C MP, TSH #### [facility] [address] [place] [address] Dr. Allie Birch PROF 14(COMP METB)on 022 Albumin [Mass/Vol] 3.5 g/dL Normal 3.4-5.0 [facility] Comment on above: Performed By: #### C MP, TSH #### [facility] [address] [place] [address] Dr. Allie Birch Albumin/Globulin [Mass ratio] 1.0 {ratio} Normal [facility] Comment on above: Performed By: #### C MP, TSH #### [facility] [address] [place] [address] Dr. Allie Birch ALP [Catalytic activity/Vol] 96 U/L Normal 46-116 [facility] Comment on above: Performed By: #### C MP, TSH #### [facility] [address] [place] [address] Dr. Allie Birch ALT [Catalytic activity/Vol] 21 U/L Normal 14-59 [facility] Comment on above: Performed By: #### C MP, TSH #### [facility] [address] [place] [address] Dr. Allie Birch Anion gap [Moles/Vol] 9.2 mmol/L Normal [facility] Comment on above: Performed By: #### C MP, TSH #### [facility] [address] [place] [address] Dr. Allie Birch AST [Catalytic activity/Vol] 15 U/L Normal 15-37 [facility] Comment on above: Performed By: #### C MP, TSH #### [facility] [address] [place] [address] Dr. Allie Birch Bilirubin [Mass/Vol] 0.5 mg/dL Normal 0.2-1.0 [facility] Comment on above: Performed By: #### C MP, TSH #### [facility] [address] [place] [address] Dr. Allie Birch Calcium [Mass/Vol] 8.7 mg/dL Normal 8.5-10.1 [facility] Comment on above: Performed By: #### C MP, TSH #### [facility] [address] [place] [address] Dr. Allie Birch Chloride [Moles/Vol] 102 mmol/L Normal 98-107 [facility] Comment on above: Performed By: #### C MP, TSH #### [facility] [address] [place] [address] Dr. Allie Birch CO2 [Moles/Vol] 30.0 mmol/L Normal 21.0-32.0 [facility] Comment on above: Performed By: #### C MP, TSH #### [facility] [address] [place] [address] Dr. Allie Birch Creatinine [Mass/Vol] 0.77 mg/dL Normal 0.55-1.02 [facility] Comment on above: Performed By: #### C MP, TSH #### [facility] [address] [place] [address] Dr. Allie Birch EGFR-AF FIJIAN >60 Normal >=60 [facility] Comment on above: Performed By: #### C MP, TSH #### [facility] [address] [place] [address] Dr. Allie Birch EGFR-NON AF FIJIAN >60 Normal >=60 [facility] Comment on above: Performed By: #### C MP, TSH #### [facility] [address] [place] [address] Dr. Allie Birch Globulin (S) [Mass/Vol] 3.5 g/dL Normal [facility] Comment on above: Performed By: #### C MP, TSH #### [facility] [address] [place] [address] Dr. Allie Birch Glucose [Mass/Vol] 87 mg/dL Normal 74-106 [facility] Comment on above: Performed By: #### C MP, TSH #### [facility] [address] [place] [address] Dr. Allie Birch Potassium [Moles/Vol] 4.2 mmol/L Normal 3.5-5.1 [facility] Comment on above: Performed By: #### C MP, TSH #### [facility] [address] [place] [address] Dr. Allie Birch Protein [Mass/Vol] 7.0 g/dL Normal 6.4-8.2 [facility] Comment on above: Performed By: #### C MP, TSH #### [facility] [address] [place] [address] Dr. Allie Birch Sodium [Moles/Vol] 137 mmol/L Normal 136-145 [facility] Comment on above: Performed By: #### C MP, TSH #### [facility] [address] [place] [address] Dr. Allie Birch Urea nitrogen [Mass/Vol] 8.0 mg/dL Normal 7.0-18.0 [facility] Comment on above: Performed By: #### C MP, TSH #### [facility] [address] [place] [address] Dr. Allie Birch Urea nitrogen/Creatinin e [Mass ratio] 10.4 mg/mg Normal [facility] Comment on above: Performed By: #### C MP, TSH #### [facility] [address] [place] [address] Dr. Allie Birch TSHon 07-25-2022 TSH 1.635 uIU/mL Normal 0.358-3.740 [facility] Comment on above: Performed By: #### C MP, TSH #### [facility] [address] [place] [address] Dr. Allie Birch VITAMIN B12on 07-25-2022 Cobalamin (Vitamin B12) [Mass/Vol] 408.0 pg/mL Normal 193.0-986.0 [facility] Comment on above: Performed By: #### C MP, TSH #### [facility] [address] [place] [address] Dr. Allie Birch FREE T4on 06-10-2022 Free T4 [Mass/Vol] 0.87 ng/dL Normal 0.76-1.46 [facility] Comment on above: Performed By: #### F T4 #### [facility] [address] [place] [address] Dr. Allie Birch TSHon 06-10-2022 TSH 4.450 uIU/mL Critically high 0.358-3.740 [facility] Comment on above: Performed By: #### T SH #### [facility] [address] [place] [address] Dr. Allie Birch XR ANKLE RT MIN [...] by: HERACLIO WELLS Date: 2022-05-14 15:51 Normal [facility] XR CHEST 2 Von 03-20-2022 XR [...] by: ANASTACIO ROLDAN Date: 2022-03-20 14:12 Normal [facility] FLUORO FOR SURGICAL PROCEDUR ESon 02-24-2019 FLUORO FOR SURGICAL PROCEDURES Radiology exam is complete. No Radiologist dictation. Please follow up with ordering provider. Final result Normal [facility] XR SACROILIAC JOINTS (MIN 3 VIEWS)on [...] Gerard Pena MD 02/24/19 Final result Normal [facility] Cult,Urine,CCon 02-13-2019 Cult,Urine,CC Specimen Description .URINE [...] <=20 SUSCEPTIBLE Piperacillin/Tazobacta m <=4 SUSCEPTIBLE Normal [facility] Comment on above: Performed By: #### C CATALINO #### [facility] [place] [address] [facility] Mold Laboratory Technician: Bigg Alvarez MD [address] [address] [facility] Laboratory Technician: Andrez Saha MD MRSA, DNA, Nasalon 9 MRSA, DNA, Nasal NEGATIVE: MRSA DNA n ot detected by nucleic acid amplification. [facility] Comment on above: Result Comment: Results should be used as an adjunct to nosocomial control efforts to identify patients needing enhanced precautions. The test is not intended to identify patients with staphylococcal infections. Results should not be used to guide or monitor treatment for MRSA infections. Performed By: #### M RSANO #### [facility] [address] [place] [address] [facility] Laboratory Technician: Bigg Alvarez MD [address] [address] [facility] Laboratory Technician: Andrez Saha MD Type + Screenon 02-12-2019 Type + Screen Sample Expiration 02/27/2019 Arm Band Number [id number] ABO/Rh(D) O POSITIVE Antibody Screen NEGATIVE Normal [facility] Comment on above: Performed By: #### T YS #### [facility] [address] [place] [address] [facility] Laboratory Technician: Bigg Alvarez MD APTTon 02-11-2019 aPTT Coag time (Bld) 30.0 s Normal - [facility] Comment on above: Performed By: #### C DP, BMP #### [facility] [address] [place] [address] [facility] Laboratory Technician: Bigg Alvarez MD #### PT, PTT #### [address] [address] [facility] Laboratory Technician: Andrez Saha MD Basic Metabolic Profon 02-11 (cont.) Normal [facility] Comment on above: Result Comment: Aver age GFR for 40-49 years old: 99 mL/min/1.73sq m Chronic Kidney Disease: <60 mL/min/1.73sq m Kidney failure: <15 mL/min/1.73sq m eGFR calculated using average adult body mass. Additional eGFR calculator available at: http://www.One-Song.Hyperpia/multiple_crcl_2012.htm Performed By: #### C DP, BMP #### [facility] [address] [place] [address] Ear Mold Laboratory Technician: Bigg Alvarez MD #### PT, PTT #### [address] [address] [facility] Mold Laboratory Technician: Andrez Saha MD Anion gap molar conc 10 mmol/L Normal -17 [facility] Comment on above: Performed By: #### C DP, BMP #### [facility] [address] [place] [address] Ear Mold Laboratory Technician: Bigg Alvarez MD #### PT, PTT #### [address] [address] Ear Mold Laboratory Technician: Andrez Saha MD BUN/CRE Ratio 14 Normal 9-20 [facility] Comment on above: Performed By: #### C DP, BMP #### [facility] [address] [place] [address] Ear Mold Laboratory Technician: Bigg Alvarez MD #### PT, PTT #### [address] [address] Ear Mold Laboratory Technician: Andrez Saha MD Calcium mass conc 8.8 mg/dL Normal 8.6-10.4 [facility] Comment on above: Performed By: #### C DP, BMP #### [facility] [place] [address] [facility] Laboratory Technician: Bigg Alvarez MD #### PT, PTT #### [address] [address] Ear Mold Laboratory Technician: Andrez Saha MD Chloride molar conc 103 mmol/L Normal 98-107 [facility] Comment on above: Performed By: #### C DP, BMP #### [facility] [address] [place] [address] [facility] Laboratory Technician: Bigg Alvarez MD #### PT, PTT #### [address] [address] Ear Mold Laboratory Technician: Andrez Saha MD CO2 molar conc 27 mmol/L Normal 20-31 [facility] Comment on above: Performed By: #### C DP, BMP #### [facility] [address] [place] [address] [facility] Laboratory Technician: Bigg Alvarez MD #### PT, PTT #### [address] [address] Ear [facility] Laboratory Technician: Andrez Saha MD Creatinine mass conc 0.57 mg/dL Normal 0.50-0.90 [facility] Comment on above: Performed By: #### C DP, BMP #### [facility] [address] [place] [address] [facility] Laboratory Technician: Bigg Alvarez MD #### PT, PTT #### [address] [address] Ear Mold Laboratory Technician: Andrez Saha MD GFR, Amer >60 Normal >60 [facility] Comment on above: Performed By: #### C DP, BMP #### [facility] [address] [place] [address] Ear Mold Laboratory Technician: Bigg Alvarez MD #### PT, PTT #### [address] [address] Ear Mold Laboratory Technician: Andrez Saha MD GFR,non Amer >60 Normal >60 [facility] Comment on above: Performed By: #### C DP, BMP #### [facility] [address] [place] [address] Ear Mold Laboratory Technician: Bigg Alvarez MD #### PT, PTT #### [address] [address] Ear Mold Laboratory Technician: Andrez Saha MD Glucose mass conc 110 mg/dL High 70-99 [facility] Comment on above: Performed By: #### C DP, BMP #### [facility] [address] [place] [address] Ear Mold Laboratory Technician: Bigg Alvarez MD #### PT, PTT #### [address] [address] Ear Mold Laboratory Technician: Andrez Saha MD Potassium molar conc 3.6 mmol/L Low 3.7-5.3 [facility] Comment on above: Performed By: #### C DP, BMP #### [facility] [address] [place] [address] Ear Mold Laboratory Technician: Bigg Alvarez MD #### PT, PTT #### [address] [address] Ear Mold Laboratory Technician: Andrez Saha MD Sodium molar conc 140 mmol/L Normal 135-144 [facility] Comment on above: Performed By: #### C DP, BMP #### [facility] [address] [place] [address] Ear Mold Laboratory Technician: Bigg Alvarez MD #### PT, PTT #### [address] [address] Ear Mold Laboratory Technician: Andrez Saha MD Urea nitrogen mass conc 8 mg/dL Normal 6-20 [facility] Comment on above: Performed By: #### C DP, BMP #### [facility] [address] [place] [address] [facility] Laboratory Technician: Bigg Alvarez MD #### PT, PTT #### [address] [address] Ear Mold Laboratory Technician: Andrez Saha MD Staging: NOT REPORTED Normal [facility] Comment on above: Performed By: #### C DP, BMP #### [facility] [address] [place] [address] [facility] Laboratory Technician: Bigg Alvarez MD #### PT, PTT #### [address] [address] Ear Mold Laboratory Technician: Andrez Saha MD CBC with Diffon 02-11-2019 Abs. Basophil 0.07 k/uL Normal 0.00-0.20 [facility] Comment on above: Performed By: #### C DP, BMP #### [facility] [address] [place] [address] [facility] Laboratory Technician: Bigg Alvarez MD #### PT, PTT #### [address] [address] Ear Mold Laboratory Technician: Andrez Saha MD Abs.Imm.Granulocyt e 0.03 k/uL Normal 0.00-0.30 [facility] Comment on above: Performed By: #### C DP, BMP #### [facility] [address] [place] [address] Ear Mold Laboratory Technician: Bigg Alvarez MD #### PT, PTT #### [address] [address] [facility] Laboratory Technician: Andrez Saha MD Abs.Neutrophil (Seg) 4.85 k/uL Normal 1.50-8.10 [facility] Comment on above: Performed By: #### C DP, BMP #### [facility] [address] [place] [address] Ear Mold Laboratory Technician: Bigg Alvarez MD #### PT, PTT #### [address] [address] Ear Mold Laboratory Technician: Andrez Saha MD Basophils/100 WBC (Bld) 1 % Normal 0-2 [facility] Comment on above: Performed By: #### C DP, BMP #### [facility] [address] [place] [address] [facility] Laboratory Technician: Bigg Alvarez MD #### PT, PTT #### [address] [address] [facility] Laboratory Technician: Andrez Saha MD Eosinophils #/vol (Bld) 0.24 10*3/uL Normal 0.00-0.44 [facility] Comment on above: Performed By: #### C DP, BMP #### [facility] [address] [place] [address] [facility] Laboratory Technician: Bigg Alvarez MD #### PT, PTT #### [address] [address] Ear Mold Laboratory Technician: Andrez Saha MD Eosinophils/100 WBC (Bld) 3 % Normal 1-4 [facility] Comment on above: Performed By: #### C DP, BMP #### [facility] [address] [place] [address] Ear Mold Laboratory Technician: Bigg Alvarez MD #### PT, PTT #### [address] [address] Ear Mold Laboratory Technician: Andrez Saha MD Erythrocyte distribution width Ratio (RBC) 13.7 % Normal 11.8-14.4 [facility] Comment on above: Performed By: #### C DP, BMP #### [facility] [address] [place] [address] Ear Mold Laboratory Technician: Bigg Alvarez MD #### PT, PTT #### [address] [address] [facility] Laboratory Technician: Andrez Saha MD Hematocrit Volume Fraction (Bld) 44.0 % Normal 36.3-47.1 [facility] Comment on above: Performed By: #### C DP, BMP #### [facility] [place] [address] Ear Mold Laboratory Technician: Bigg Alvarez MD #### PT, PTT #### [address] [address] Ear Mold Laboratory Technician: Andrez Saha MD Hemoglobin mass conc (Bld) 14.6 g/dL Normal 11.9-15.1 [facility] Comment on above: Performed By: #### C DP, BMP #### [facility] [address] [place] [address] Ear Mold Laboratory Technician: Bigg Alvarez MD #### PT, PTT #### [address] [address] Ear Mold Laboratory Technician: Anrdez Saha MD Immature granulocytes #/vol (Bld) 0 % Normal 0 [facility] Comment on above: Performed By: #### C DP, BMP #### [facility] [address] [place] [address] [facility] [employer] Laboratory Technician: Bigg Alvarez MD #### PT, PTT #### [address] [address] [facility] Mold Laboratory Technician: Andrez Saha MD Lymphocytes #/vol (Bld) 1.62 10*3/uL Normal 1.10-3.70 [facility] Comment on above: Performed By: #### C DP, BMP #### [facility] [address] [place] [address] [facility] Laboratory Technician: Bigg Alvarez MD #### PT, PTT #### [address] [address] Ear Mold Laboratory Technician: Andrez Saha MD Lymphocytes/100 WBC (Bld) 23 % Low 24-43 [facility] Comment on above: Performed By: #### C DP, BMP #### [facility] [address] [place] [address] Ear Mold Laboratory Technician: Bigg Alvarez MD #### PT, PTT #### [address] [address] Ear Mold Laboratory Technician: Andrez Saha MD MCH Entitic mass (RBC) 29.3 pg Normal 25.2-33.5 [facility] Comment on above: Performed By: #### C DP, BMP #### [facility] [address] [place] [address] Ear Mold Laboratory Technician: Bigg Alvarez MD #### PT, PTT #### [address] [address] Ear Mold Laboratory Technician: Andrez Saha MD MCHC mass conc (RBC) 33.2 g/dL Normal 28.4-34.8 [facility] Comment on above: Performed By: #### C DP, BMP #### [facility] [address] [place] [address] [facility] Laboratory Technician: Bigg Alvarez MD #### PT, PTT #### [address] [address] Ear Mold Laboratory Technician: Andrez Saha MD MCV Entitic volume (RBC) 88.2 fL Normal 82.6-102.9 [facility] Comment on above: Performed By: #### C DP, BMP #### [facility] [address] [place] [address] [facility] Laboratory Technician: Bigg Alvarez MD #### PT, PTT #### [address] [address] Ear Mold Laboratory Technician: Andrez Saha MD Monocytes #/vol (Bld) 0.36 10*3/uL Normal 0.10-1.20 [facility] Comment on above: Performed By: #### C DP, BMP #### [facility] [address] [place] [address] [facility] Laboratory Technician: Bigg Alvarez MD #### PT, PTT #### [address] [address] Ear Mold Laboratory Technician: Andrez Saha MD Monocytes/100 WBC (Bld) 5 % Normal 3-12 [facility] Comment on above: Performed By: #### C DP, BMP #### [facility] [address] [place] [address] [facility] Laboratory Technician: Bigg Alvarez MD #### PT, PTT #### [address] [address] Ear Mold Laboratory Technician: Andrez Saha MD Neutrophil (Seg) 68 % High 36-65 [facility] Comment on above: Performed By: #### C DP, BMP #### [facility] [address] [place] [address] Ear Mold Laboratory Technician: Bigg Alvarez MD #### PT, PTT #### [address] [address] Ear Mold Laboratory Technician: Andrez Saha MD NRBC Automated 0.0 per 100 WBC Normal 0.0 [facility] Comment on above: Performed By: #### C DP, BMP #### [facility] [address] [place] [address] [facility] Laboratory Technician: Bigg Alvarez MD #### PT, PTT #### [address] [address] Ear Mold Laboratory Technician: Andrez Saha MD Platelet mean volume Entitic volume (Bld) 9.5 fL Normal 8.1-13.5 [facility] Comment on above: Performed By: #### C DP, BMP #### [facility] [address] [place] [address] [facility] Laboratory Technician: Bigg Alvarez MD #### PT, PTT #### [address] [address] Ear Mold Laboratory Technician: Andrez Saha MD Platelets #/vol (Bld) 298 10*3/uL Normal 138-453 [facility] Comment on above: Performed By: #### C DP, BMP #### [facility] [place] [address] Ear Mold Laboratory Technician: Bigg Alvarez MD #### PT, PTT #### [address] [address] Ear Mold Laboratory Technician: Andrez Saha MD RBC #/vol (Bld) 4.99 10*6/uL Normal 3.95-5.11 [facility] Comment on above: Performed By: #### C DP, BMP #### [facility] [address] [place] [address] [facility] Laboratory Technician: Bigg Alvarez MD #### PT, PTT #### [address] [address] [facility] Mold Laboratory Technician: Andrez Saha MD WBC #/vol (Bld) 7.2 10*3/uL Normal 3.5-11.3 [facility] Comment on above: Performed By: #### C DP, BMP #### [facility] [address] [place] [address] [facility] Mold Laboratory Technician: Bigg Alvarez MD #### PT, PTT #### [address] [address] Ear Mold Laboratory Technician: Andrez Saha MD Auto Diff Performed NOT REPORTED Normal [facility] Comment on above: Performed By: #### C DP, BMP #### [facility] [address] [place] [address] [facility] Laboratory Technician: Bigg Alvarez MD #### PT, PTT #### [address] [address] Ear Mold Laboratory Technician: Andrez Saha MD Platelets #/vol (Bld) NOT REPORTED Normal [facility] Comment on above: Performed By: #### C DP, BMP #### [facility] [address] [place] [address] [facility] Laboratory Technician: Bigg Alvarez MD #### PT, PTT #### [address] [address] Ear Mold Laboratory Technician: Andrez Saha MD RBC morphology finding Nom (Bld) NOT REPORTED Normal [facility] Comment on above: Performed By: #### C DP, BMP #### [facility] [address] [place] [address] Ear Mold Laboratory Technician: Bigg Alvarez MD #### PT, PTT #### [address] [address] Ear Mold Laboratory Technician: Andrez Saha MD WBC Morphology NOT REPORTED Normal [facility] Comment on above: Performed By: #### C DP, BMP #### [facility] [address] [place] [address] Ear Mold Laboratory Technician: Bigg Alvarez MD #### PT, PTT #### [address] [address] Ear Mold Laboratory Technician: Andrez Saha MD MRSA, DNA, Nasalon 9 Specimen Description .NASAL SWAB Normal [facility] Comment on above: Performed By: #### M RSANO #### [facility] [address] [place] [address] [facility] Mold Laboratory Technician: Bigg Alvarez MD [address] [address] Ear Mold Laboratory Technician: Andrez Saha MD PTon 02-11-2019 INR Coag RelTime (PPP) 1.0 {INR} Normal [facility] Comment on above: Result Comment: Therapeutic Range: Moderate Anticoagulant Intensity: INR = 2.0-3.0 High Anticoagulant Intensity: INR = 2.5-3.5 High anticoagulant intensity for patients with a mechanical prosthetic heart valve, thrombosis and antiphospholipid syndrome, or myocardial infarction. Performed By: #### C DP, BMP #### [facility] [place] [address] Ear Mold Laboratory Technician: Bigg Alvarez MD #### PT, PTT #### [address] [address] [facility] Mold Laboratory Technician: Andrez Saha MD Prothrombin time (PT) Coag time (PPP) 10.4 s Normal 9.7-11.6 [facility] Comment on above: Performed By: #### C DP, BMP #### [facility] [address] [place] [address] Ear Mold Laboratory Technician: Bigg Alvarez MD #### PT, PTT #### [address] [address] Ear Mold Laboratory Technician: Andrez Saha MD Urinalysis, Routineon 2018 Acetoacetic Acid,Ur Negative Normal NEG [facility] Comment on above: Performed By: #### U A UMICAO #### [facility] [address] [place] [address] Ear Mold Laboratory Technician: Bigg Alvarez MD Bilirubin, SemiQt,Ur Negative Normal NEG [facility] Comment on above: Performed By: #### U A, UMICAO #### [facility] [address] [place] [address] Ear Mold Laboratory Technician: Bigg Alvarez MD Color Nom (U) YELLOW Normal L [facility] Comment on above: Performed By: #### U A, UMICAO #### [facility] [address] [place] [address] [facility] Mold Laboratory Technician: Bigg Alvarez MD Glucose,Semi-qnt,U r Negative Normal NEG [facility] Comment on above: Performed By: #### U A, UMICAO #### [facility] [address] [place] [address] Ear Mold Laboratory Technician: Bigg Alvarez MD Hemoglobin, Ur TRACE Abnormal NEG [facility] Comment on above: Performed By: #### U A, UMICAO #### [facility] [address] [place] [address] Ear Mold Laboratory Technician: Bigg Alvarez MD Leuckocyte Esterase Negative Normal NEG [facility] Comment on above: Performed By: #### U A, UMICAO #### [facility] [address] [place] [address] Ear Mold Laboratory Technician: Bigg Alvarez MD Nitrite,Ur Negative Normal NEG [facility] Comment on above: Performed By: #### U A, UMICAO #### [facility] [address] [place] [address] Ear Mold Laboratory Technician: Bigg Alvarez MD PH,Ur 6.0 Normal 5.0-8.0 [facility] Comment on above: Performed By: #### U A UMICAO #### [facility] [place] [address] Ear Mold Laboratory Technician: Bigg Alvarez MD Protein mass conc (U) Negative Normal NEG [facility] Comment on above: Performed By: #### U A, UMICAO #### [facility] [address] [facility] [place] [address] Ear Mold Laboratory Technician: Bigg Alvarez MD Spec. [place],Ur 1.010 Normal 1.005-1.030 [facility] Comment on above: Performed By: #### U A, UMICAO #### [facility] [address] [place] [address] Ear Mold Laboratory Technician: Bigg Alvarez MD Turbidity CLEAR Normal CLEAR [facility] Comment on above: Performed By: #### U A, UMICAO #### [facility] [address] [place] [address] [facility] Mold Laboratory Technician: Bigg Alvarez MD Urobilinogen,Ur Normal Normal NORM [facility] Comment on above: Performed By: #### U YENNY Bond #### [facility] [address] [place] [address] [facility] Mold Laboratory Technician: Bigg Alvarez MD Comment NOT REPORTED Normal [facility] Comment on above: Performed By: #### YENNY Mike #### [facility] [address] [place] [address] [facility] Mold Laboratory Technician: Bigg Alvarez MD Urinalysis,Microon 9 ----- Normal [facility] Comment on above: Performed By: #### YENNY Mike #### [facility] [address] [place] [address] [facility] Laboratory Technician: Bigg Alvarez MD Epithelial cells LM.HPF #/area (Urine sed) 5 TO 10 Normal 0-5 [facility] Comment on above: Performed By: #### YENNY Mike #### [facility] [address] [place] [address] [facility] Laboratory Technician: Bigg Alvarez MD RBC #/vol (U) 0 TO 2 Normal 0-2 [facility] Comment on above: Performed By: #### YENNY Mike #### [facility] [address] [place] [address] [facility] Laboratory Technician: Bigg Alvarez MD WBC #/vol (U) None Normal 0-5 [facility] Comment on above: Performed By: #### DANILO MikeO #### [facility] [address] [place] [address] [facility] Laboratory Technician: Bigg Alvarez MD Amorphous sediment LM Ql (Urine sed) NOT REPORTED Normal [facility] Comment on above: Performed By: #### NAILA MikeICAO #### [facility] [address] [place] [address] Ear Mold Laboratory Technician: Bigg Alvarez MD Bacteria LM.HPF #/area (Urine sed) NOT REPORTED Normal NONE [facility] Comment on above: Performed By: #### U A, UMICAO #### [facility] [address] [place] [address] Ear Mold Laboratory Technician: Bigg Alvarez MD Casts LM.LPF #/area (Urine sed) NOT REPORTED Normal [facility] Comment on above: Performed By: #### U A, UMICAO #### [facility] [address] [place] [address] [facility] Mold Laboratory Technician: Bigg Alvarez MD Crystals LM Nom (Urine sed) NOT REPORTED Normal NONE [facility] Comment on above: Performed By: #### U A, UMICAO #### [facility] [address] [place] [address] [facility] Mold Laboratory Technician: Bigg Alvarez MD Epithelial, Renal NOT REPORTED Normal 0 [facility] Comment on above: Performed By: #### U A, UMICAO #### [facility] [address] [place] [address] [facility] Mold Laboratory Technician: Bigg Alvarez MD Mucus Strands NOT REPORTED Normal NONE [facility] Comment on above: Performed By: #### U A, UMICAO #### [facility] [address] [place] [address] [facility] Mold Laboratory Technician: Bigg Alvarez MD Other Observations NOT REPORTED Normal NREQ [facility] Comment on above: Performed By: #### U A, UMICAO #### [facility] [address] [place] [address] [facility] Mold Laboratory Technician: Bigg Alvarez MD Trichomonas NOT REPORTED Normal NONE [facility] Comment on above: Performed By: #### U Ronda, DANILOO #### [facility] [address] [place] [address] [facility] Mold Laboratory Technician: Bigg Alvarez MD Yeast LM Ql (Urine sed) NOT REPORTED Normal NONE [facility] Comment on above: Performed By: #### U Ronda, DANILOO #### [facility] [address] [facility] [place] [address] [facility] Laboratory Technician: Bigg Alvarez MD XR CHEST (2 VW)on [...] Amrik George MD 02/11/19 Final result Normal [facility] MRI ANKLE WO CONTRAST LEFTon 03-02-2018 MRI ANKLE WO CONTRAST LEFT [facility] Department of Radiology [address] [place] [address] ======== Patient Name: ABIRADHA GARCIA : 1975 Sex: F Age: Race: White Pt. Location: 4 Patient Status: D Ordered Date: 02/28/2018 3:30:00 PM Completed Date: 03/02/2018 10:42 AM Requesting Provider: JONATHAN DELGADO Attending Provider: JONATHAN DELGADO Report Copy To: Signs & Symptoms: M79.672 Pain in left foot I10 History: Lisa, Breast clip AUTHORIZATION [id number] VALID 02/28/2018-03/30/2018 - per Goldie with Dr Delgado's office. please check-jlr Comments: , AUTHORIZATION [id number] VALID 02/28/2018-03/30/2018 left ankle mri Evaluate achilled tendon rupture after traumatic injury , AUTHORIZATION [id number] VALID 02/28/2018-03/30/2018 left ankle mri Evaluate achilled [...] pain QUESTION FOR THE RADIOLOGIST: , AUTHORIZATION [id number] VALID 02/28/2018-03/30/2018 left ankle mri Evaluate achilled tendon rupture after traumatic injury , AUTHORIZATION [id number] VALID ...More In Sending System PROTOCOL: Images [...] above. Electronically signed by:Patrick Santacruz. Transcribed by: [email or web address], User Resident: Electronically Signed by: PATRICK SANTACRUZ @ 03/03/2018 09:55 AM Normal [facility] Comment on above: Order Comment: , AUTHORIZATION [id number] VALID 02/28/2018-03/30/2018 left ankle mri Evaluate achilled tendon rupture after traumatic injury , AUTHORIZATION [id number] VALID 02/28/2018-03/30/2018 left ankle mri Evaluate achilled tendon rupture after traumatic injury , , , Ordering Provider - JONATHAN DELGADO MD , Encounters Encounter Date Encounter Type Care Provider Facility Start: 02-19-2025 End: 02-19-2025 Refill Tamia Gonsaelz NP Work Phone: [facility] Comment on above: Hypothyroidism, unsp ecified type (CMS/HCC) Start: 02-05-2025 End: 02-05-2025 Refill Tamia Aichholz SET AND EXHIBIT DESIGNER Work Phone: [facility] Comment on above: Acute pharyngitis, u nspecified etiology (Primary Dx) Hypothyroidism, unsp ecified type (CMS/HCC) (Primary Dx); Tobacco user; Obesity (BMI 30-39.9) Start: 10-08-2024 End: 10-08-2024 Refill Tamia Aichholz SET AND EXHIBIT DESIGNER Work Phone: [facility] Comment on above: Acute non-recurrent frontal sinusitis (Primary Dx) Start: 07-19-2024 End: 07-22-2024 Refill Tamia Aichholz SET AND EXHIBIT DESIGNER Work Phone: [facility] Comment on above: Hypothyroidism, unsp ecified type (CMS/HCC) Start: 07-09-2024 End: 07-09-2024 Refill Tamia Aichholz SET AND EXHIBIT DESIGNER Work Phone: [facility] Comment on above: DDD (degenerative di sc disease), cervical Start: 06-29-2024 End: 06-29-2024 Refill Tamia Aichholz SET AND EXHIBIT DESIGNER Work Phone: [facility] Comment on above: Migraine, unspecifie d, not intractable, without status migrainosus (CMS/HCC); Gastroesophageal reflux disease without esophagitis Start: 01-28-2024 End: 01-28-2024 ambulatory TAMIA AICHHOLZ Not Available Start: 10-29-2023 End: 10-29-2023 ambulatory TAMIA AICHHOLZ Not Available Start: 10-02-2023 End: 10-02-2023 ambulatory TAMIA AICHHOLZ Not Available Start: 09-10-2023 End: 09-10-2023 ambulatory TAMIA AICHHOLZ Not Available Start: 02-05-2023 End: 02-06-2023 ambulatory CONSTRUCTION SKILLS TEACHER TAMIA AICHHOLZ Facility:[facility] Start: 01-18-2023 End: 01-18-2023 ambulatory CONSTRUCTION SKILLS TEACHER TAMIA AICHHOLZ Facility:[facility] Start: 08-28-2022 End: 08-29-2022 ambulatory CONSTRUCTION SKILLS TEACHER TAMIA AICHHOLZ Facility:[facility] Start: 07-25-2022 End: 07-26-2022 ambulatory IVET GONSALEZ Facility:[facility] Start: 06-10-2022 End: 06-11-2022 ambulatory IVET GONSALEZ Facility:[facility] Start: 05-17-2022 End: 05-18-2022 ambulatory JANESSA HERNANDEZ Facility:[facility] Start: 05-14-2022 End: 05-14-2022 ambulatory HELENA Bryan Facility:[facility] Start: 03-20-2022 End: 03-21-2022 ambulatory IVET GONSALEZ Facility:[facility] Start: 02-24-2019 End: 02-24-2019 [facility]: 02-11-2019 End: 02-14-2019 [facility] Start: 02-11-2019 End: 02-16-2019 [facility] Procedures Date Procedure Procedure Detail Performing Clinician Start: 02-07-2024 Mammography Tamia Delgado clare [employer]IBIT DESIGNER Work Phone: Start: 08-16-2020 Microscopic observat ion [Identifier] in Cervix by Cyto stain Tamia Wallace SET AND EXHIBIT DESIGNER Work Phone: Start: 02-24-2019 DISCHARGE PATIENT CHARUIRVIN ELIZABETHNEGIN Start: 02-24-2019 FLUORO FOR SURGICAL PROCEDURES CHARU HOOVERISTOF Start: 02-24-2019 Radiologic exam sacr oiliac joints 3/more views CHARU HOOVERISTOF Start: 02-24-2019 BEDREST CHARU CAICEDO TOF Start: 02-24-2019 Continuous pulse oximetry CHARU HOOVERISTOF Start: 02-24-2019 ENCOURAGE DEEP BREAT CAROLE AND COUGHING CHARU HOOVERISTOF Start: 02-24-2019 INITIATE OXYGEN THER APY PROTOCOL CHARU HOOVERISTOF Start: 02-24-2019 NOTIFY PHYSICIAN (SPECIFY) CHARU CALLAWAY Start: 02-24-2019 NURSING COMMUNICATION Karime CALLAWAY Start: 02-24-2019 VITAL SIGNS CHARU CAICEDO TOF Start: 02-24-2019 Urine test visual color cmprsn meths CHARU HOOVERISTOF Start: 02-24-2019 INITIATE OXYGEN THER APY PROTOCOL CHARU HOOVERISTOF Start: 02-24-2019 NOTIFY PHYSICIAN (SPECIFY) CHARU CALLAWAY [...] CALLAWAY Start: 02-11-2019 TYPE AND SCREEN CHARU Schaffer FLAQUITA Plan of Treatment Date Care Activity Detail Author Start: 05-25-2025 Influenza vaccination Influenz a Vaccine (Season Ended) [facility] Start: 03-02-2025 End: 03-02-2025 Patient encounter procedure 03/02/2025 7:30 PM EDT Office Visit [facility] [address] [place] [phone] Tamia Gonsalez NP [address] [place] [address] [facility] Start: 02-06-2025 Screening for malign ant neoplasm of breast Mammogram [facility] Start: 02-05-2025 End: 02-05-2026 CBC W Auto Differential panel - Blood CBC and differential Lab Routine Tobacco user Expected: 02/05/2025 (Approximate), Expires: 02/05/2026 [facility] Work Phone: Comment on above: Expected: 02/05/2025 (Approximate), Expires: 02/05/2026 Start: 02-05-2025 End: 02-05-2026 Comprehensive metabolic 2000 panel - Serum or Plasma Comprehensive metabolic panel Lab Routine Hypothyroidism, unspecified type (CMS/HCC) Obesity (BMI 30-39.9) Expected: 02/05/2025 (Approximate), Expires: 02/05/2026 [facility] Comment on above: Expected: 02/05/2025 (Approximate), Expires: 02/05/2026 Start: 02-05-2025 End: 02-05-2026 Lipid 1996 panel - Serum or Plasma Lipid panel Lab Routine Hypothyroidism, unspecified type (CMS/HCC) Obesity (BMI 30-39.9) Expected: 02/05/2025 (Approximate), Expires: 02/05/2026 [facility] Comment on above: Expected: 02/05/2025 (Approximate), Expires: 02/05/2026 Start: 02-05-2025 End: 02-05-2026 Thyrotropin [Units/volume] in Serum or Plasma TSH Lab Routine Hypothyroidism, unspecified type (CMS/HCC) Expected: 02/05/2025 (Approximate), Expires: 02/05/2026 [facility] Comment on above: Expected: 02/05/2025 (Approximate), Expires: 02/05/2026 Start: 02-05-2025 End: 02-05-2026 Thyroxine (T4) free [Mass/volume] in Serum or Plasma T4, free Lab Routine Hypothyroidism, unspecified type (CMS/HCC) Expected: 02/05/2025 (Approximate), Expires: 02/05/2026 [facility] Comment on above: Expected: 02/05/2025 (Approximate), Expires: 02/05/2026 Start: 02-05-2025 End: 02-05-2026 Urinalysis complete panel - Urine Urinalysis with reflex microscopic (clean catch) Lab Routine Tobacco user Expected: 02/05/2025 (Approximate), Expires: 02/05/2026 [facility] Comment on above: Expected: 02/05/2025 (Approximate), Expires: 02/05/2026 Start: 09-10-2024 Screening for malign ant neoplasm of colon Colorectal Cancer Screening [facility] Comment on above: Postponed from 06/23 (Patient Refused) Start: 05-25-2024 Influenza vaccination Influenza Vacc ine (#1) [facility] Start: 08-16-2023 Screening for malign ant neoplasm of cervix [facility] Start: 2003 Screening for malign ant neoplasm of cervix HPV/Cotest [facility] Start: 1973 Screening for malign ant neoplasm of colon [facility] Immunizations Immunization Date Immunization Notes Care Provider Fa cility 09-10-2023 influenza, intraderm al, quadrivalent, preservative free, injectable Tamia Gonsalez [employer] AND EXHIBIT DESIGNER Work Phone: [facility] 09-10-2023 influenza virus vacc ine, unspecified formulation Tamia Gonsalez SET AND EXHIBIT DESIGNER Work Phone: [facility] Payers Date Payer Category Payer Unknown [id number] 2022 Medicaid [id number] 2014 Unknown [id number] 1973 Unknown [id number] 2.16.8 [id number] 1973 Unknown [id number] 2.16.8 [id number] 1973 Unknown [id number] 2.16.8 [id number] 1973 Unknown [id number] 2.16.84 0.1.151519.3.579.2.593 1973 Unknown [id number] 2.16.84 0.1.600763.3.579.2.593 1973 Unknown [id number] 2.16.84 0.1.293220.3.579.2.593 1973 Unknown [id number] 2.16.84 0.1.854713.3.579.2.593 1973 Unknown [id number] 2.16.84 0.1.828351.3.579.2.593 1973 Unknown [id number] 2.16.84 0.1.782023.3.579.2.593 1973 Unknown [id number] 2.16.84 0.1.800248.3.579.2.593 1973 Unknown [id number] 2.16.84 0.1.257078.3.579.2.593 1973 Unknown [id number] 2.16.84 0.1.048290.3.579.2.9 1973 Unknown [id number] 2.16.84 0.1.464820.3.579.2.1259 1973 Unknown [id number] 2.16.84 0.1.545553.3.579.2.9 1973 Unknown [id number] 2.16.840 .[id number] 1959 Unknown [id number] Private Health Insurance [id number] Social History Date Type Detail Facility Start: 09-05-2023 Tobacco smoking status INIS Smokes t obacco daily [facility] History of tobacco use Cigarette Smoker [facility] Start: 01-28-2024 Alcoholic beverage intake Ex-drinker (finding) [facility] Start: 08-30-2023 End: 10-29-2023 [facility] of Social function [facility] Start: 08-30-2023 End: 10-29-2023 Humiliation, Afraid, Rape, and Kick questionnaire [HARK] [facility] Within the last year , have you been afraid of your partner or ex-partner? No [facility] How often do you att end nondenominational or sikh services? Patient declined [facility] Are you [...] Only a little [facility] (I/We) worried wheth er (my/our) food would run out before (I/we) got money to buy more. Never true [facility] Start: 09-05-2023 Tobacco Comment 11-20 cigarettes/day [facility] Start: 09-05-2023 Alcohol Comment caffeine: soda [facility] Start: 1975 Sex assigned at Not on file [facility] Clinical Notes 05-18-2022 to 06-29-2024 Telephone Encounter - Tamia Gonsalez NP - 06/29/2024 6:53 PM EDTTelephone Encounter - Tamia Gonsalez NP - 06/29/2024 6:53 PM EDT Note Date & Type Note Facility 06-29-2024 Telephone encount er Note Please call and get pt scheduled for late in June or early July [place] [facility] 06-29-2024 Miscellaneous Notes Formattin g of this note might be different from the original. Please call and get pt scheduled for late in June or early July [place] documented in this encounter [facility] 05-18-2022 Note PROCEDURE: XR ANKLE RT MIN [...] authenticated by: TEVIN ESPINOZA Date: 2022-05-18 08:15 [facility] 05-18-2022 Note PROCEDURE: XR ANKLE RT MIN [...] by: TEVIN ESPINOZA Date: 2022-05-18 08:15 [facility] Evaluation note Diagnosis Migraine, unspecified, not intractable, without status migrainosus (CMS/HCC) Gastroesophageal reflux disease without esophagitis Esophageal reflux [facility] encounter [facility] Diagnosis Hypothyroidism, unspecified type (CMS/HCC)- Primary Other chest pain Tobacco user Tobacco use disorder Class 1 obesity due to excess calories without serious comorbidity with body mass index (BMI) of 32.0 to 32.9 in adult Hypothyroidism, unspecified type (CMS/HCC)- Primary Tobacco user Tobacco use disorder BMI 33.0-33.9,adult SARAHI (generalized anxiety disorder) (CMS/HCC)- Primary Generalized anxiety disorder Encounter for screening mammogram for malignant neoplasm of breast Hypothyroidism, unspecified type (CMS/HCC) Obesity (BMI 30-39.9) DDD (degenerative disc disease), cervical Degeneration of cervical intervertebral disc [facility] Diagnosis Hypothyroidism, unspecified type (CMS/HCC)- Primary Other chest pain Tobacco user Tobacco use disorder Class 1 obesity due to excess calories without serious comorbidity with body mass index (BMI) of 32.0 to 32.9 in adult Hypothyroidism, unspecified type (CMS/HCC)- Primary Tobacco user Tobacco use disorder BMI 33.0-33.9,adult SARAHI (generalized anxiety disorder) (CMS/HCC)- Primary Generalized anxiety disorder Encounter for screening mammogram for malignant neoplasm of breast Hypothyroidism, unspecified type (CMS/HCC) Obesity (BMI 30-39.9) Hypothyroidism, unspecified type (CMS/HCC) [facility] Diagnosis Hypothyroidism, unspecified type (CMS/HCC)- Primary Other chest pain Tobacco user Tobacco use disorder Class 1 obesity due to excess calories without serious comorbidity with body mass index (BMI) of 32.0 to 32.9 in adult Hypothyroidism, unspecified type (CMS/HCC)- Primary Tobacco user Tobacco use disorder BMI 33.0-33.9,adult SARAHI (generalized anxiety disorder) (CMS/HCC)- Primary Generalized anxiety disorder Encounter for screening mammogram for malignant neoplasm of breast Hypothyroidism, unspecified type (CMS/HCC) Obesity (BMI 30-39.9) Acute non-recurrent frontal sinusitis- Primary [facility] Diagnosis Hypothyroidism, unspecified type (CMS/HCC)- Primary Other chest pain Tobacco user Tobacco use disorder Class 1 obesity due to excess calories without serious comorbidity with body mass index (BMI) of 32.0 to 32.9 in adult Hypothyroidism, unspecified type (CMS/HCC)- Primary Tobacco user Tobacco use disorder BMI 33.0-33.9,adult SARAHI (generalized anxiety disorder) (CMS/HCC)- Primary Generalized anxiety disorder Encounter for screening mammogram for malignant neoplasm of breast Hypothyroidism, unspecified type (CMS/HCC) Obesity (BMI 30-39.9) Acute pharyngitis, unspecified etiology- Primary [facility] Diagnosis Hypothyroidism, unspecified type (CMS/HCC)- Primary Other chest pain Tobacco user Tobacco use disorder Class 1 obesity due to excess calories without serious comorbidity with body mass index (BMI) of 32.0 to 32.9 in adult Hypothyroidism, unspecified type (CMS/HCC)- Primary Tobacco user Tobacco use disorder BMI 33.0-33.9,adult SARAHI (generalized anxiety disorder) (CMS/HCC)- Primary Generalized anxiety disorder Encounter for screening mammogram for malignant neoplasm of breast Hypothyroidism, unspecified type (CMS/HCC) Obesity (BMI 30-39.9) Hypothyroidism, unspecified type (CMS/HCC)- Primary Tobacco user Tobacco use disorder Obesity (BMI 30-39.9) [facility] Diagnosis Hypothyroidism, unspecified type (CMS/HCC)- Primary Other chest pain Tobacco user Tobacco use disorder Class 1 obesity due to excess calories without serious comorbidity with body mass index (BMI) of 32.0 to 32.9 in adult Hypothyroidism, unspecified type (CMS/HCC)- Primary Tobacco user Tobacco use disorder BMI 33.0-33.9,adult SARAHI (generalized anxiety disorder) (CMS/HCC)- Primary Generalized anxiety disorder Encounter for screening mammogram for malignant neoplasm of breast Hypothyroidism, unspecified type (CMS/HCC) Obesity (BMI 30-39.9) Hypothyroidism, unspecified type (CMS/HCC) documented in this encounter [facility] Summary Purpose Family History No Family History Records FoundNo Family History Records FoundNo Family History Records FoundNo Family History Records Found Advance Directives No Advanced Directives Records FoundNo Advanced Directives Records FoundNo Advanced Directives Records FoundNo Advanced Directives Records Found Additional Source Comments INFORMATION SOURCE (unrecogn ized section and content) DATE CREATED AUTHOR 02/27/2019 [facility] DATE CREATED AUTHOR AUTHOR'S ORGANIZ ATION 03/02/2019 [facility] DATE CREATED AUTHOR AUTHOR'S ORGANIZ ATION 02/07/2023 [facility] DATE CREATED AUTHOR AUTHOR'S ORGANIZ ATION 01/29/2024 [facility] EPIC Reason for Visit (unrecogniz ed section and content) Reason Comments Med Refill Care Teams (unrecognized sec tion and content) Research Laboratory Manager Relationship Specialty Start Date End Date Bhargav Madison MD [address] [place] [phone] PCP - General Family Medicine 01/28/24 Tamia Gonsalez NP [address] [place] [phone] Referring Physician Nurse Practitioner 04/09/23 Tamia Gonsalez NP [address] [place] [phone] Nurse Practitioner Family Medicine 01/28/24 Research Laboratory Manager Relationship Specialty Start Date End Date Bhargav Madison MD [address] [place] [phone] PCP - General Family Medicine 01/28/24 Tamia Gonsalez NP [address] [place] [phone] Referring Physician Nurse Practitioner 04/09/23 Tamia Gonsalez NP [address] [place] [phone] Nurse Practitioner Family Medicine 01/28/24 Research Laboratory Manager Relationship Specialty Start Date End Date Bhargav Madison MD [address] [place] [phone] PCP - General Family Medicine 01/28/24 Tamia Gonsalez NP [address] [place] [phone] Referring Physician Nurse Practitioner 04/09/23 Tamia Gonsalez NP [address] [place] [phone] Nurse Practitioner Family Medicine 01/28/24 Research Laboratory Manager Relationship Specialty Start Date End Date Bhargav Madison MD [address] [place] [phone] PCP - General Family Medicine 01/28/24 Tamia Gonsalez NP [address] [place] [phone] Referring Physician Nurse Practitioner 04/09/23 Tamia Gonsalez NP [address] [place] [phone] Nurse Practitioner Family Medicine 01/28/24 Research Laboratory Manager Relationship Specialty Start Date End Date Bhargav Madison MD [address] [place] [phone] PCP - General Family Medicine 01/28/24 Tamia Gonsalez NP [address] [place] [phone] Referring Physician Nurse Practitioner 04/09/23 Tamia Gonsalez NP [address] [place] [address] Nurse Practitioner Family Medicine 01/28/24 Research Laboratory Manager Relationship Specialty Start Date End Date Bhargav Madison MD [address] [place] [phone] PCP - General Family Medicine 01/28/24 Tamia Gonsalez NP [address] [place] [phone] Referring Physician Nurse Practitioner 04/09/23 Tamia Gonsalez NP [address] [place] [phone] Nurse Practitioner Family Medicine 01/28/24 Research Laboratory Manager Relationship Specialty Start Date End Date Bhargav Madison MD [address] [place] [phone] PCP - General Family Medicine 01/28/24 Tamia Gonsalez NP [address] [place] [phone] Referring Physician Nurse Practitioner 04/09/23 Tamia Gonsalez NP [address] [place] [phone] Nurse Practitioner Family Medicine 01/28/24 FOR RECORDS [...] BE BASED ON THE PRIMARY CLINICAL RECORDS. [facility]. provides no warranty or guarantee of the accuracy or completeness of information in this document.
[2025-02-28 07:12] LABS: Basophils Absolute Auto 0.1 10^3/uL (0.0-0.1); Eosinophils Absolute Auto 0.3 10^3/uL (0.0-0.7); Eosinophils Percent Auto 3.3 % (0.9-7.0); Hematocrit 43.7 % (36.0-48.0); Hemoglobin 15.3 g/dL (12.0-16.0); Immature Granulocytes Abs Auto 0.03 10^3/uL (0.00-0.03); Immature Granulocytes Pct Auto 0.3 % (0.0-0.5); Lymphocytes Absolute Auto 1.9 10^3/uL (1.2-3.8); Lymphocytes Percent Auto 19.2 % (20.5-60.0); Mean Corpuscular Hemoglobin 30.1 pg (26.7-34.0); Mean Platelet Volume 8.6 fL (9.5-13.5); Monocytes Absolute Auto 0.5 10^3/uL (0.3-0.8); Monocytes Percent Auto 4.9 % (1.7-12.0); Neutrophils Percent Auto 71.3 % (43.0-75.0); Platelet Count 330 10^3/uL (150-450); Red Blood Count 5.08 10^6/uL (4.20-5.40); Red Cell Distribution Width 13.5 % (11.0-15.0); White Blood Count 9.8 10^3/uL (4.0-11.0)
[2025-02-28 07:14] LABS: Bilirubin Urine NEGATIVE (NEGATIVE); Blood Urine NEGATIVE (NEGATIVE); Clarity Urine CLEAR (CLEAR); Color Urine LT. YELLOW (YELLOW); Glucose Urine UA NEGATIVE (NEGATIVE); Ketones Urine NEGATIVE (NEGATIVE); Leukocyte Esterase Urine NEGATIVE (NEGATIVE); Nitrite Urine NEGATIVE (NEGATIVE); Protein Urine NEGATIVE (NEG/TRACE); Specific Gravity Urine 1.015 (1.005-1.025); Urobilinogen Urine 0.2 EU/dL (0.2-1.0)
[2025-02-28 07:19] LABS: Urine Microscopic Indicated NO
[2025-02-28 07:58] LABS: Free T4 0.86 ng/dL (0.76-1.46)
[2025-02-28 08:05] LABS: Alanine Aminotransferase 20 U/L (14-59); Albumin Globulin Ratio 0.9; Albumin Level 3.4 g/dL (3.4-5.0); Alkaline Phosphatase 112 U/L (46-116); Anion Gap 14.1; Aspartate Amino Transferase 15 U/L (15-37); Bilirubin Total 0.6 mg/dL (0.2-1.0); Calcium 9.1 mg/dL (8.5-10.1); Carbon Dioxide 29.2 mmol/L (21.0-32.0); Chloride 99 mmol/L (98-107); Chol HDL Ratio 4.1; Cholesterol 191 mg/dL (<=200); Estimated GFR (African America >60 (>=60 mL/min/1.73m^2); Estimated GFR (Non-African Ame >60 (>=60 mL/min/1.73m^2); Globulin 3.9 g/dL; Glucose 93 mg/dL (74-106); HDL Cholesterol 47 mg/dL (40-60); LDL Cholesterol Calculated 128.4 mg/dL; Potassium 4.3 mmol/L (3.5-5.1); Sodium 138 mmol/L (136-145); Thyroid Stimulating Hormone 3.227 uIU/mL (0.358-3.740); Total Protein 7.3 g/dL (6.4-8.2); Triglycerides 78 mg/dL (<=150); VLDL CHOLESTEROL 15.6 mg/dL
== END 2025-02-28 06:56 | disposition home or self-care (01) ==
LOC: LAB 06:55
PROVIDERS: PCP Nurse Practitioner; Visit Provider Nurse Practitioner
DX: E03.9 Hypothyroidism, unspecified (principal); Z72.0 Tobacco use; E66.9 Obesity, unspecified
CPT/HCPCS: 36415; 80053; 80061; 81003; 84439; 84443; 85025

== ENCOUNTER 2025-03-18 13:22 | Outpatient (OUT) | payer OTHER, SELFPAY ==
--- OUTSIDE RECORDS SUMMARY | 2025-03-18 13:24 | XMS_ITS | Encounter Summary ---
Author Organization [facility] Address [address] [place] [address] Care Team Providers Care Perinatal Tech Name Role Phone Tamia Gonsalez CIGARETTE MACHINES MECHANIC Unavailable [phone] Bhargav Madison MD Primary Care Provider [phone] Tamia Gonsalez CIGARETTE MACHINES MECHANIC Unavailable [phone] Encounter Details Date Type Department Care Team (Late st Contact Info) Description 03/09/2025 Abstract [facility] [address] [place] [address] Tamia Gonsalez NP [address] [place] [address] Social History Tobacco Use Types Packs/Day Years Used Date Smoking Tobacco: Every Day Cigarettes Comments:11-20 cigarettes/da y Alcohol Use Standard Drinks/Week Comments Not Currently 0 (1 standard drink = 0.6 oz pur e alcohol) caffeine: soda Humiliation, Afraid, Rape, and Kick questionnair e Answer Date Recorded Within the last year, have y ou been afraid of your partner or ex-partner? No 08/30/2023 Within the last year, have y ou been humiliated or emotionally abused in other ways by your partner or ex-partner? No Within the last year, have y ou been kicked, hit, slapped, or otherwise physically hurt by your partner or ex-partner? No 08/30/2023 Within the last year, have y ou been raped or forced to have any kind of sexual activity by your partner or ex-partner? No 08/30/2023 Social Connection and Isolation Panel [NHANES] A nswer Date Recorded In a typical week, how many times do you talk on the phone with family, friends, or neighbors? Three times a week 08/30/2023 How often do you get togethe r with friends or relatives? Once a week 08/30/2023 How often do you attend [facility] or christianity services? Patient declined 08/30/2023 Do you belong to any clubs o r organizations such as pentecostalism groups, unions, fraternal or athletic groups, or school groups? No 08/30/2023 How often do you attend meet ings of the clubs or organizations you belong to? Never 08/30/2023 Are you , , di vorced, , never , or living with a partner? Never 08/30/2023 AUDIT-C Answer Date Recorded Q1: How often do you have a drink containing alcohol? Never 08/30/2023 Q2: How many drinks containi ng alcohol do you have on a typical day when you are drinking? Patient does not drink Q3: How often do you have si x or more drinks on one occasion? Never 08/30/2023 Overall Financial Resource Strain (CARDIA) Answe r Date Recorded How hard is it for you to pa y for the very basics like food, housing, medical care, and heating? Patient declined 08/30/2023 PHQ-2 Answer Date Recorded Patient Health Questionnaire-2 Score 0 10/29/2023 [facility] - Occupational Stress Questionnaire Answer Date Recorded Do you feel stress - tense, restless, nervous, or anxious, or unable to sleep at night because your mind is troubled all the time - these days? Only a little 08/30/2023 Exercise Vital Sign Answer Date Recorde d On average, how many days pe r week do you engage in moderate to strenuous exercise (like a brisk walk)? 4 days 08/30/2023 On average, how many minutes do you engage in exercise at this level? 90 min 08/30/2023 Hunger Vital Sign Answer Date Recorded Within the past 12 months, y ou worried that your food would run out before you got the money to buy more. Never true 08/30/20 23 Within the past 12 months, t he food you bought just didn't last and you didn't have money to get more. Never true 08/30/2023 PRAPARE - Transportation Answer Date Re corded In the past 12 months, has l ack of transportation kept you from medical appointments or from getting medications? No 03/2023 In the past 12 months, has l ack of transportation kept you from meetings, work, or from getting things needed for daily living? No 08/30/2023 Housing Stability Vital Sign Answer Nabor e Recorded In the last 12 months, was t here a time when you were not able to pay the mortgage or rent on time? No 08/30/2023 In the last 12 months, how many places have you lived? 1 08/30/2023 In the last 12 months, was t here a time when you did not have a steady place to sleep or slept in a intermediate (including now)? No 08/30/2023 Comments Unknown Sex and Gender Information Value Date Recorded Sex Assigned at Not on file Legal Sex Female 7:10 PM EDT Gender Identity Not on file Sexual Orientation Not on file documented as of this encounter Plan of Treatment Upcoming Encounters Date Type Department Care Team (Late st Contact Info) Description 06/03/2025 6:00 PM EDT Office Visit [facility] [address] [place] [address] Tamia Gonsalez NP [address] [place] [address] documented as of this encounter Visit Diagnoses Not on filedocumented in this encounter Care Teams Perinatal Tech Relationship Specialty Start Date End Date Bhargav Madison MD [address] [place] [address] PCP - General Family Medicine 01/28/24 Tamia Gonsalez NP [address] [place] [address] Referring Physician Nurse Practitioner 04/09/23 Tamia Gonsalez NP [address] [place] [address] Nurse Practitioner Family Medicine 01/28/24 documented as of this encounter
--- OUTSIDE RECORDS SUMMARY | 2025-03-18 13:24 | XMS_ITS | Encounter Summary ---
Author Organization [facility] Address [address] [place] [address] Care Team Providers Care Account Development Associate Name Role Phone Bhargav Madison MD Primary Care Provider [phone] Tamia Gonsalez NP Unavailable [phone] Bhargav Madison MD Primary Care Provider [phone] Tamia Gonsalez REEL WINDER Unavailable [phone] Encounter Details Date Type Department Care Team (Late st Contact Info) Description 10/04/2023 Orders Only [facility] [address] [place] [address] Yessi Domingo PA [address] [place] [address] [place] [address] Social History Tobacco Use Types Packs/Day Years [...] week 08/30/2023 How often do you attend chur or episcopalian services? Patient declined 08/30/2023 Do you belong to any clubs o r organizations such as orthodox groups, unions, fraternal or athletic groups, or [...] medical care, and heating? Patient declined 08/30/2023 [facility] - Occupational Stress Questionnaire Answer [...] place to sleep or slept in a jail (including now)? No 08/30/2023 Comments Unknown Sex and Gender Information Value Date Recorded Sex Assigned at Not on file Legal Sex Female 7:10 PM EDT Gender Identity Not on file Sexual Orientation Not on file documented as of this encounter Plan of Treatment Upcoming Encounters Date Type Department Care Team (Late st Contact Info) Description 06/03/2025 6:00 PM EDT [facility] Visit [facility] [address] [place] [address] Tamia Gonsalez NP [address] [place] [address] documented as of this encounter Procedures Procedure Name Priority Date/Time Associated Diagnosis Comments XR CHEST 2 VIEWS Routine 09/28/2023 11:26 AM EST documented in this encounter Results * XR chest 2 views (09/28/2023 11:26 AM EST) Anatomical Region Laterality Modality Chest Radiographic Yamilka ging Yessi JAUREGUI IMG XR PROCEDURES Final Result documented in this encounter Visit Diagnoses Not on filedocumented in this encounter Care Teams Account Development Associate Relationship Specialty Start Date End Date Bhargav Madison MD PCP - General Family Medicine 04/09/23 01/27/24 Bhargav Madison MD [address] [place] [address] PCP - General Family Medicine 01/28/24 Tamia Gonsalez NP [address] [place] [address] Referring Physician Nurse Practitioner 04/09/23 Tamia Gonsalez NP [address] [place] [address] Nurse Practitioner Family Medicine 01/28/24 documented as of this encounter
--- OUTSIDE RECORDS SUMMARY | 2025-03-18 13:24 | XMS_ITS | Clinical Summary ---
Author Organization [facility] Address [address] [place] [address] Care Team Providers Care Any Commodity Sales Deliverer Name Role Phone Tamia Gonsalez APRN, NP Primary Care Provide r Allergies No known active allergies Medications amitriptyline (ELAVIL) 25 MG tablet amitriptyline 25 mg tablet Active levothyroxine (SYNTHROID) 75 MCG tablet TAKE 1 TABLET BY MOUTH DAILY 5 9 Active vitamin B-12 (CYANOCOBALAMI N) 500 MCG tablet Take 500 mcg by mouth daily Active cetirizine (ZYRTEC) 10 MG tablet Take 10 mg by mouth as needed for Allergies Active tiZANidine (ZANAFLEX) 4 MG tablet Take 1 tablet by mouth 3 times daily 60 tablet 9 Active Active Problems Problem Noted Date Diagnosed Date Sacroiliac joint dysfunction of right side 02/24 Family History Medical History Relation Name Comments Heart Disease Father Heart Surgery Father Cancer Maternal Grandmother Diabetes Maternal Great Grandmother Cervical Cancer Sister Heart Disease Sister Pacemaker Sister Relation Name Status Comments Father Alive Maternal Grandmother Maternal Great Grandmother Mother Alive Sister Alive Social History Tobacco Use Types Packs/Day Years Used Date Smoking Tobacco: Every Day Cigarettes 1 25 Smokeless Tobacco: Never Alcohol Use Standard Drinks/Week Comments Never 0 (1 standard drink = 0.6 oz pur e alcohol) AUDIT-C Answer Date Recorded Frequency of Alcohol Consumption Never 02/11/2019 Average Number of Drinks Not on file 019 Frequency of Binge Drinking Not on file 01/23 Comments No Sex and Gender Information Value Date Recorded Sex Assigned at Not on file Legal Sex Female 10:45 PM EST Gender Identity Not on file Sexual Orientation Not on file Last Filed Vital Signs Vital Sign Reading Time Taken Comments Blood Pressure 117/80 02/24/2019 10:00 AM EDT Pulse 65 02/24/2019 10:00 AM EDT Temperature 36.2 C (97.2 F) 02/24/2019 10:00 AM EDT Respiratory Rate 18 02/24/2019 10:00 AM EDT Oxygen Saturation 97% 02/24/2019 10:00 AM EDT Inhaled Oxygen Concentration - - Weight 81.4 kg (179 lb 7.3 oz) 02/24/2019 5:50 A M EDT Height 165.1 cm (5' 5 ) 02/24/2019 5:50 AM EDT Body Mass Index 29.86 02/24/2019 5:50 AM EDT Plan of Treatment Not on file Medical Devices Implanted Type Area Lighting Engineer Device Identifier Shelf Expiration Date Model / Serial / Lot Impl Spine I-Fuse 3d [id number] Mm 3d Implanted:Qty: 2 on 02/24/2019 by Layo Amato MD at [facility] Spine Right: Back [employer]PMM 03/11/2023 [id number] / / [id number] Insurance [employer] Care Teams Any Commodity Sales Deliverer Relationship Specialty Start Date End Date Tamia Gonsalez, NATIONAL RECRUITER - MEDICATION COORDINATOR [address] [place] [address] PCP - General Nurse Practitioner 02/11/19
--- OUTSIDE RECORDS SUMMARY | 2025-03-18 13:24 | XMS_ITS | Clinical Summary ---
Author Organization [facility] Address [id number] [address] [place] [address] Care Team Providers Care Manager Call Name Role Phone Tamia Gonsalez APRN-POCKET STITCHER Primary Care Provider Allergies Active Allergy Reactions Criticality Noted Date Comments Bee Venom Protein (Honey Bee) Anaphylaxis High 06/25 Medications EPINEPHrine (EPIPEN) 0.3 mg/0.3 mL auto-injector Inject 0.3 mg into the appropriate muscle as needed. Active thyroid, pork, (ARMOUR) 15 mg tablet Take 60 mg by mouth daily. Active sennosides-docu sate sodium (SENOKOT-S) 8.6-50 mgIndications:D DD (degenerative disc disease), cervical Take 1 tablet by mouth as needed in the morning and 1 tablet as needed in the evening for constipation. 2 Active tiZANidine (ZANAFLEX) 4 mg tablet Take 1 tablet (4 mg total) by mouth every 8 (eight) hours as needed for muscle spasms for up to 60 doses. 60 tablet 2 Active methylPREDNISol one (MEDROL, HEIDI,) 4 mg tablet follow package directions 21 tablet 2 Active naloxone (NARCAN) 4 mg/actuation spray,non-aeros ol nasal spray Administer 1 spray (4 mg total) into each nostril as needed for opioid reversal. 1 each 2 Active Active Problems Problem Noted Date Diagnosed Date Attention deficit disorder of adult 12/01/2021 Hypothyroidism 12/01/2021 Tobacco user 12/01/2021 DDD (degenerative disc disease), cervical 2021 Family History Medical History Relation Name Comments Hypertension Father Anesthesia problems Mother difficul ty waking uo Hypothyroidism Mother Relation Name Status Comments Father Alive Mother Alive Social History Tobacco Use Types Packs/Day Years Used Date Smoking Tobacco: Every Day Cigarettes 1 36.7 Started: 06/25/1988 Smokeless Tobacco: Never Tobacco Cessation:Ready to Q uit: No; Counseling Given: No Comments:states 1/2 pack day for 6 mos Alcohol Use Standard Drinks/Week Comments No 0 (1 standard drink = 0.6 oz pur e alcohol) AUDIT-C Answer Date Recorded Frequency of Alcohol Consumption Never 06/25/2018 Average Number of Drinks Not on file 018 Frequency of Binge Drinking Not on file 10/2017 Childcare Answer Date Recorded Childcare Unknown 03/05/2019 Employment Answer Date Recorded Employment Unknown 03/05/2019 Purpose - Life Answer Date Recorded Purpose and direction in life Unknown Comments No Sex and Gender Information Value Date Recorded Sex Assigned at Not on file Legal Sex Female 11:24 AM EDT Gender Identity Not on file Sexual Orientation Not on file Last Filed Vital Signs Vital Sign Reading Time Taken Comments Blood Pressure 120/75 12/02/2021 1:10 PM EST Pulse 79 12/02/2021 1:10 PM EST Temperature 36.8 C (98.2 F) 12/02/2021 1:10 PM EST Respiratory Rate 16 12/02/2021 1:10 PM EST Oxygen Saturation 99% 12/02/2021 1:10 PM EST Inhaled Oxygen Concentration - - Weight 83.9 kg (185 lb) 02/23/2022 3:44 PM EDT Height 165.1 cm (5' 5 ) 02/23/2022 3:44 PM EDT Body Mass Index 30.79 02/23/2022 3:44 PM EDT Plan of Treatment Health Maintenance Due Date Last Done Comments Depression Screening 1985 Tobacco Screening 1985 DTaP,Tdap and Td Vaccines (1 - Tdap) 1992 Pap Smear 1994 Adult BMI Screening 02/23/2023 Zoster (Shingles) Vaccine (1 of 2) 2023 COVID-19 Vaccine (2023-2 5 season) 2024 09/27/2021, 01/04/2021, 12/13/2020 Influenza Vaccine 05/25/2025 Medical Devices Implanted Type Area Safety Pin Assembling Machine Operator Device Identifier Shelf Expiration Date Model / Serial / Lot Graft Bn Cllr Bn Mtrx Sm 1cc Vivigen Frmbl Vivigen Rpl [id number] + [id number] - [id number] - [id number] Implanted:Qty : 1 on 12/01/2021 by Brenton Pack MD at [facility] Other Implant N/A: Spine Lumbar Lif[employer]et 09/09/2022 [id number] / [id number] / Spacer Spnl [id number] [place] 7d Sm Pk Acdf Ns Lf - [id number] Implanted:Qty : 1 on 12/01/2021 by Brenton Pack MD at [facility] Other Implant N/A: Spine Lumbar CHARANJIT LEIBINGER [id number] / / Plate Bn 10mm Xlordotic 1 Lvl Xtend Spne Crv Ant Ns - [id number] Implanted:Qty : 1 on 12/01/2021 by Brenton Pack MD at [facility] Plate N/A: Spine Lumbar Globus 161.130 / / Screw Spnl 14mm 4.2mm Xtend Spne Slf Drl Va Ns - [id number] Implanted:Qty : 4 on 12/01/2021 by Brenton Pack MD at [facility] Screw N/A: Spine Lumbar Globus 161.014 / / Advance Directives * Full Code (Latest Code Status on File) Date Activated Date Inactivated Comments 12/01/2021 3:30 PM 12/02/2021 3:21 PM Care Teams Manager Call Relationship Specialty Start Date End Date Tamia Gonsalez, ANGEL-POCKET STITCHER PCP - General Nurse Practitioner 03/16/17
--- OUTSIDE RECORDS SUMMARY | 2025-03-18 13:24 | XMS_ITS | Clinical Summary ---
Author Organization [facility] Address [address] [place] [address] Care Team Providers Care Mixing Machine Feeder Name Role Phone Tamia Gonsalez NP Unavailable [phone] Bhargav Madison MD Primary Care Provider [phone] Tmaia Gonsalez NP Unavailable [phone] Allergies Active Allergy Reactions Criticality Noted Date Comments Bee Venom Anaphylaxis High 06/25/2018 Medications EPINEPHrine (Epipen) 0.3 MG/0.3ML injection syringe Inject 1 Syringe as directed As directed 01/25/20 23 Active Ventolin HFA 108 (90 Base) MCG/ACT inhaler Inhale 2 puffs every 4 (four) hours if needed for wheezing or shortness of breath 12/09/19 23 Active Ubrogepant (Ubrelvy) 100 MG tablet Take 1 tablet by mouth 1 time As needed for CASH, may repeat in 2 hours. Active amphetamine-dex troamphetamine (Adderall) 20 MG tablet every 12 (twelve) hours 02/03/20 25 Active predniSONE (Deltasone) 20 MG tabletIndicatio ns:DDD (degenerative disc disease), cervical 1 pill twice a day for 3 days, then 1 pill once a day for 3 days, then 1/2 pill daily for 3 days. Take with food 11 tablet 03/02/20 25 Active cetirizine (ZyrTEC) 10 MG tabletIndicatio ns:Environmenta l and seasonal allergies Take 1 tablet (10 mg) by mouth Daily Take 1 tablet by mouth in the morning. 90 tablet 1 03/02/20 25 025 Active ibuprofen 800 MG tabletIndicatio ns:DDD (degenerative disc disease), cervical Take 1 tablet (800 mg) by mouth every 8 (eight) hours if needed for mild pain or moderate pain Take with food 90 tablet 2 03/02/20 25 025 Active levothyroxine (Synthroid, Levoxyl) 75 MCG tabletIndicatio ns:Hypothyroidi sm, unspecified type Take 1 tablet (75 mcg) by mouth Daily 90 tablet 1 03/02/20 25 025 Active pantoprazole (ProtoNix) 20 MG EC tabletIndicatio ns:Gastroesopha geal reflux disease without esophagitis Take 1 tablet (20 mg) by mouth in the morning. Take before meals. 90 tablet 03/02/20 25 025 Active cetirizine (ZyrTEC) 10 MG tablet Take 1 tablet by mouth in the morning. 02/08/20 23 025 Discontinued(Re order) escitalopram (Lexapro) 10 MG tabletIndicatio ns:SARAHI (generalized anxiety disorder) Take 1 tablet (10 mg) by mouth Daily 30 tablet 1 01/28/20 24 025 Discontinued(Th erapy completed) topiramate (Topamax) 25 MG tabletIndicatio ns:Migraine, unspecified, not intractable, without status migrainosus Take 2 tablets (50 mg) by mouth at bedtime 60 tablet 2 06/29/20 24 025 Discontinued(Th erapy completed) pantoprazole (ProtoNix) 20 MG EC tabletIndicatio ns:Gastroesopha geal reflux disease without esophagitis Take 1 tablet (20 mg) by mouth in the morning. Take before meals. 30 tablet 2 06/29/20 24 025 Discontinued(Re order) ibuprofen 800 MG tabletIndicatio ns:DDD (degenerative disc disease), cervical Take 1 tablet (800 mg) by mouth every 8 (eight) hours if needed for mild pain or moderate pain 90 tablet 2 07/09/20 24 025 Discontinued(Re order) levothyroxine (Synthroid, Levoxyl) 75 MCG tabletIndicatio ns:Hypothyroidi sm, unspecified type Take 1 tablet (75 mcg) by mouth in the morning. Take before meals. 90 tablet 1 07/22/20 24 025 Discontinued levothyroxine (Synthroid, Levoxyl) 75 MCG tabletIndicatio ns:Hypothyroidi sm, unspecified type Take 1 tablet (75 mcg) by mouth Daily 90 tablet 02/20/20 25 025 Discontinued(Re order) Active Problems Problem Noted Date Diagnosed Date Environmental and seasonal allergies 03/02/2025 Obstructive sleep apnea syndrome 02/05/2025 ADHD (attention deficit hype ractivity disorder), combined type 02/05/2025 Assessment & Plan (03/02/2025 7:09 PM EDT): Continue with Dr Arguelles for this DDD (degenerative disc disease), lumbar 02/06/20 Other spondylosis, lumbar region 02/05/2025 Gastroesophageal reflux disease without esophagi tis 03/06/2024 Encounter for screening mamm ogram for malignant neoplasm of breast 01/28/2024 Assessment & Plan (03/02/2025 7:09 PM EDT): Ordered mammogram Obesity (BMI 30-39.9) 01/28/2024 SARAHI (generalized anxiety disorder) 01/28/2024 Assessment & Plan (01/28/2024 6:53 PM EDT): Will start lexapro at 10mg daily, may also help with hot flashes Take medication only as directed. This medication will take approximately 4-6 weeks to become effective. If any suicidal thoughts, thoughts of hurting others, or hallucinations contact the office or proceed to the Emergency Room for mental health evaluation. Medication may cause dry mouth, dizziness, and in some cases worsening in depression symptoms. Please contact the office if these occur. Fu in 4 weeks Constipation, chronic 10/29/2023 Chronic headaches 10/29/2023 Migraine headache 10/22/2023 Overweight with body mass index (BMI) 25.0-29.9 10/02/2023 Other chest pain 09/10/2023 Assessment & Plan (09/10/2023 7:13 PM EST): Insurance will not approve cardiolyte stress test Will approve exercise stress, we will order this Fu in 6 weeks Hypothyroidism 12/01/2021 Assessment & Plan (03/02/2025 7:09 PM EDT): On levothyroxine Check labs yearly and prn dose change or changes in sxs Assessment & Plan (01/28/2024 6:52 PM EDT): Continue levothyroxine at current dose Reviewed labs Assessment & Plan (10/29/2023 6:26 PM EST): Would like to switch back to levothyroxine Will start at 75mcg Recheck labs in 6 weeks Assessment & Plan (09/10/2023 7:14 PM EST): Very sluggish for a few days prior to ER visit, er doc put her back to 180mg feels laci much better Will continue , hold on Endo at this time Recheck labs in 6 weeks with fu at that time Tobacco user 12/01/2021 Assessment & Plan (03/02/2025 7:09 PM EDT): The patient has been advised of the risks of continued smoking: stroke, [place], all forms of cancer, lung disease, and . Options for quitting smoking include: cold turkey, hypnosis, acupuncture, nicotine replacement meds (gum, lozenges, and patches), Buproprion, and Varenicline. At this time pt is encouraged to evaluate their goals for wanting to quit smoking, and reach out to provider when ready to start this process DDD (degenerative disc disease), cervical 2021 Assessment & Plan (03/02/2025 7:07 PM EDT): Possible sxs related to this Will trial a steroid taper Does not want a muscle relaxer either If not better w steroid taper, pt will call office Resolved Problems Problem Noted Date Diagnosed Date Resolved Date Pharyngitis, acute 02/05/2025 Acute non-recurrent frontal sinusitis 10/08/2024 03/02/2025 BMI 33.0-33.9,adult 10/29/2023 01/28/20 24 URI, acute 10/02/2023 10/29/2023 Assessment & Plan (10/02/2023 12:29 PM EST): Will end back to Er for evaluation Had neg cxr and flu/covid Worsening despite steroids and inhaler Class 1 obesity due to exces s calories without serious comorbidity with body mass index (BMI) of 32.0 to 32.9 in adult 09/10/202302/2024 Attention deficit disorder of adult 12/01/2021 02/05/2025 Encounters Date Type Department Care Team Description 03/09/2025 Abstract [facility] [address] [place] [id number] Tamia Gonsalez NP 03/02/2025 6:30 PM EDT Office Visit [facility] [address] [place] [id number] Tamia Gonsalez NP Hypothyroidism, unspecified type (Primary Dx); DDD (degenerative disc disease), cervical; Overweight with body mass index (BMI) 25.0-29.9; ADHD (attention deficit hyperactivity disorder), combined type ; Encounter for screening mammogram for malignant neoplasm of breast; Tobacco user; Gastroesophageal reflux disease without esophagitis; Environmental and seasonal allergies 02/28/2025 Clinisync Result Encounter [facility] External Department Unsolicited Tamia Gonsalez NP 02/19/2025 Refill [facility] [address] [place] [address] Tamia Gonsalez NP Hypothyroidism, unspecified type 02/05/2025 Orders Only [facility] [address] [place] [phone] Tamia Gonsalez NP Hypothyroidism, unspecified type (Primary Dx); Tobacco user; Obesity (BMI 30-39.9) 02/05/2025 Refill [facility] [address] [place] [phone] Tamia Gonsalez NP Acute pharyngitis, unspecified etiology (Primary Dx) 02/05/2025 Telephone [facility] [address] [place] [place] [address] Tamia Gonsalez NP from Last 3 Months Immunizations Immunization Administration Dates Next Due Influenza, intradermal, quadrivalent, preservati ve free 09/10/2023 Family History Medical History Relation Name Comments Heart disease Father Cancer Maternal Grandmother Heart disease Maternal Grandmother Hypertension Maternal Grandmother Asthma Mother Depression Mother Hypothyroidism Mother Lung disease Mother Migraines Mother Cancer Sister Relation Name Status Comments Father Alive Maternal Grandmother Mother Alive Sister Social History Tobacco Use Types Packs/Day Years Used Date Smoking Tobacco: Every Day Cigarettes Tobacco Cessation:Ready to Q uit: Not Asked; Counseling Given: Not Answered Comments:11-20 cigarettes/day Alcohol Use Standard Drinks/Week Comments Not Currently [...] How often do you attend chur or temple services? Patient declined 08/30/2023 Do you belong to any clubs o r organizations such as rastafarian groups, unions, fraternal or athletic groups, or [...] Recorded Patient Health Questionnaire-2 Score 0 10/29/2023 [facility] - [...] place to sleep or slept in a retirement (including now)? No 08/30/2023 Comments Unknown Sex and Gender Information Value Date Recorded Sex Assigned at Not on file Legal Sex Female 7:10 PM EDT Gender Identity Not on file Sexual Orientation Not on file Last Filed Vital Signs Vital Sign Reading Time Taken Comments Blood Pressure 102/80 03/02/2025 6:35 PM EDT Pulse 105 03/02/2025 6:35 PM EDT Temperature 36.7 C (98 F) 03/02/2025 6:35 PM EDT Respiratory Rate 18 03/02/2025 6:35 PM EDT Oxygen Saturation 96% 03/02/2025 6:35 PM EDT Inhaled Oxygen Concentration - - Weight 84 kg (185 lb 3.2 oz) 03/02/2025 6:35 PM EDT Height 165.1 cm (5' 5 ) 01/28/2024 6:11 PM EDT Body Mass Index 30.82 01/28/2024 6:11 PM EDT Plan of Treatment Upcoming Encounters Date Type Department Care Team (Late st Contact Info) Description 06/03/2025 6:00 PM EDT Office Visit [facility] [address] [place] [address] Tamia Gonsalez, ELVA [address] [place] [address] Health Maintenance Due Date Last Done Comments CT Colonography 1973 Colonoscopy 1973 Colorectal Cancer Screening 1973 FIT-DNA 1973 FIT 1973 FOBT 1973 Sigmoidoscopy 1973 HPV/Cotest 2003 Cervical Cancer Screening 08/16/2023 Pap Smear 08/16/2023 08/16/2020 Mammogram 02/06/2025 02/07/2024, 0502/2024, 02/06/2023 Influenza Vaccine (Season Ended) 2025 09/10/20 23 Procedures Procedure Name Priority Date/Time Associated Diagnosis Comments ALL THYROID STIM HORMONE Routine 02/28/2025 7:07 AM EDT ALL LIPID PROFILE (FASTING) Routine 02/28/2025 7:07 AM EDT [facility] CMP (CMP) (FOR REMOTE C USE) Routine 02/28/2025 7:07 AM EDT ALL THYROXINE (T4) FREE Routine 02/28/2025 7:07 AM EDT ALL CBC WITH AUTO DIFF Routine 02/28/2025 7:07 AM EDT [facility]H UA (CLEAN/CATCH) MICROSCOPIC IF INDICATE Routine 02/28/2025 7:03 AM EDT MM SCREENING MAMM WITH 3D SANAZ - US AND ADDITIONAL Routine 02/07/2024 11:30 AM EDT from Last 3 Months or Most Recently Relevant to Health Maintenance Results * [facility] CMP (CMP) (FOR REMOTE [facility] USE) (02/28/2025 7:07 AM EDT) SODIUM 138 136 - 145 mmol/L TBH POTASSIUM 4.3 3.5 - 5.1 mmol/L TBH CHLORIDE 99 98 - 107 mmol/L TBH CARBON DIOXIDE 29.2 21.0 - 32.0 mmol/L TBH ANION GAP 14.1 TBH GLUCOSE 93 74 - 106 mg/dL TBH BLOOD UREA NITROGEN 12.0 7.0 - 18.0 mg/dL TBH CREATININE 0.75 0.55 - 1.02 mg/dL TBH TBH EGFR-AF TOGOLESE >60 >=60 mL/min/1. 73m 2 TBH TBH EGFR-NON AF TOGOLESE >60 >=60 mL/min/1. 73m 2 TBH BUN CREATININE RATIO 16.0 TBH CALCIUM 9.1 8.5 - 10.1 mg/dL TBH BILIRUBIN TOTAL 0.6 0.2 - 1.0 mg/dL TBH ASPARTATE AMINO TRANSFERASE 15 15 - 37 U/L TBH ALANINE AMINOTRANSFERASE 20 14 - 59 U/L TBH ALKALINE PHOSPHATASE 112 46 - 116 U/L TBH TOTAL PROTEIN 7.3 6.4 - 8.2 g/dL TBH ALBUMIN LEVEL 3.4 3.4 - 5.0 g/dL TBH GLOBULIN 3.9 g/dL TBH ALBUMIN GLOBULIN RATIO 0.9 TBH 02/28/2025 7:07 AM EDT 02/28/2025 7:07 AM EDT Narrative CLINISYNC - 02/28/2025 8:11 AM EDT Tamia Gonsalez NP [facility]IS[facility] Final [facility] * ALL THYROXINE (T4) FREE (02/28/2025 7:07 AM EDT) FREE T4 0.86 0.76 - 1.46 ng/dL TB 02/28/2025 7:07 AM EDT 02/28/2025 7:07 AM EDT Narrative CLINISYNC - 02/28/2025 8:01 AM EDT Tamia Gonsalez NP CLINISYNC Final Result Performing Organization Address [facility] Co de Phone Number [facility] * ALL THYROID STIM HORMONE (02/28/2025 7:07 AM EDT) THYROID STIMULATING HORMONE 3.227 0.358 - 3.740 uIU/mL TB 02/28/2025 7:07 AM EDT 02/28/2025 7:07 AM EDT Narrative CLINISYNC - 02/28/2025 8:11 AM EDT Tamia Gonsalez NP CLINISYNC Final Result Performing Organization Address [facility] Co de Phone Number [facility] * ALL LIPID PROFILE (FASTING) (02/28/2025 7:07 AM EDT) TRIGLYCERIDES 78 <=150 mg/dL TBH CHOLESTEROL 191 <=200 mg/dL TB HDL CHOLESTEROL 47 40 - 60 mg/dL TB Comment: > or =60 mg/dl - LOW CARDIOVASCULAR RISK <40 mg/dl - HIGH CARDIOVASCULAR RISK LDL CHOLESTEROL CALCULATED 128.4 mg/dL TB Comment: <100 mg/dl OPTIMAL 100-129 mg/dl NEAR OR ABOVE OPTIMAL 130-159 mg/dl BORDERLINE HIGH 160-189 mg/dl HIGH >190 mg/dl VERY HIGH VLDL CHOLESTEROL 15.6 mg/dL TB CHOL HDL RATIO 4.1 TB Comment: 3.3 - 4.4 LOW RISK 4.4 - 7.1 AVERAGE RISK 7.1 - 11.0 MODERATE RISK >11.0 HIGH RISK 02/28/2025 7:07 AM EDT 02/28/2025 7:07 AM EDT Narrative CLINISYNC - 02/28/2025 8:11 AM EDT us Tamia Gonsalez NP CLINISYNC Final Result [facility] * (ABNORMAL) ALL CBC WITH AUTO DIFF (02/28/2025 7:07 AM EDT) TB WBC 9.8 4.0 - 11.0 10 3/uL TBH TB RBC 5.08 4.20 - 5.40 10 6/uL TBH TB HGB 15.3 12.0 - 16.0 g/dL TB TB HCT 43.7 36.0 - 48.0 % TB TB MCV 86.0 81.0 - 99.0 fL TB TB MCH 30.1 26.7 - 34.0 pg TBH TB MCHC 35.0 29.9 - 35.2 g/dL TB TB RDW 13.5 11.0 - 15.0 % TBH TBH PLT 330 150 - 450 10 3/uL TB TB MPV 8.6(L) 9.5 - 13.5 fL TBH NEUTROPHILS PERCENT AUTO 71.3 43.0 - 75.0 % TBH LYMPHOCYTES PERCENT AUTO 19.2(L) 20.5 - 60.0 % TBH MONOCYTES PERCENT AUTO 4.9 1.7 - 12.0 % TBH TBH EO % 3.3 0.9 - 7.0 % TBH BASOPHILS PERCENT AUTO 1.0 0.2 - 2.0 % TBH IMMATURE GRANULOCYTES PCT AUTO 0.3 0.0 - 0.5 % TBH NEUTROPHILS ABSOLUTE AUTO 7.0(H) 1.4 - 6.5 10 3/uL TBH LYMPHOCYTES ABSOLUTE AUTO 1.9 1.2 - 3.8 10 3/uL TBH MONOCYTES ABSOLUTE AUTO 0.5 0.3 - 0.8 10 3/uL TBH TBH EO # 0.3 0.0 - 0.7 10 3/uL TBH BASOPHILS ABSOLUTE AUTO 0.1 0.0 - 0.1 10 3/uL TBH IMMATURE GRANULOCYTES ABS AUTO 0.03 0.00 - 0.03 10 3/uL TBH 02/28/2025 7:07 AM EDT 02/28/2025 7:07 AM EDT Narrative CLINISYNC - 02/28/2025 7:18 AM EDT Tamia Gonsalez NP CLINISYNC Final Result [facility] TB * TBH UA (CLEAN/CATCH) MICROSCOPIC IF INDICATE (02/28/2025 7:03 AM EDT) COLOR URINE LT. YELLOW YELLOW TBH CLARITY URINE CLEAR CLEAR TBH SPECIFIC GRAVITY URINE 1.015 1.005 - 1.025 TBH PH URINE 7.0 5.0 - 9.0 TBH PROTEIN URINE NEGATIVE NEG/TRACE mg/dL TBH GLUCOSE URINE UA NEGATIVE NEGATIVE mg/dL TBH BILIRUBIN URINE NEGATIVE NEGATIVE TBH KETONES URINE NEGATIVE NEGATIVE mg/dL TBH BLOOD URINE NEGATIVE NEGATIVE TBH NITRITE URINE NEGATIVE NEGATIVE TBH UROBILINOGEN URINE 0.2 0.2 - 1.0 EU/dL TBH LEUKOCYTE ESTERASE URINE NEGATIVE NEGATIVE TBH URINE MICROSCOPIC INDICATED NO TBH 02/28/2025 7:03 AM EDT 02/28/2025 7:06 AM EDT Narrative CLINISYNC - 02/28/2025 7:19 AM EDT Tamia Gonsalez NP CLINISYNC Final Result CLINISYNC TBH * MM SCREENING MAMM WITH 3D SANAZ - US AND ADDITIONAL (02/07/2024 11:30 AM EDT) Anatomical Region Laterality Modality Radiographic Yamilka ging Tamia Gonsalez NP IMG XR PROCEDURES Final Result from Last 3 Months or Most Recently Relevant to Health Maintenance [address] [place] [address] [employer] Care Teams Mixing Machine Feeder Relationship Specialty Start Date End Date Bhargav Madison MD [address] [place] [address] PCP - General Family Medicine 01/28/24 Tamia Gonsalez NP [address] [place] [address] Referring Physician Nurse Practitioner 04/09/23 Tamia Gonsalez NP [address] [place] [phone] Nurse Practitioner Family Medicine 01/28/24
--- OUTSIDE RECORDS SUMMARY | 2025-03-18 13:24 | XMS_ITS | Encounter Summary ---
Author Organization [facility] Address [facility] [place] [id number] [address] [place] [address] Care Team Providers Care Licensed Reactor Operator Name Role Phone FranciscoedvinjoaquinTamia Veronica DANIELN-BODY FORMER Primary Care Provider Reason for Visit * Reason Onset Date Comments Med Refill 12/27/2021 Encounter Details Date Type Department Care Team (Late st Contact Info) Description 12/27/2021 Refill [facility] [address] [place] [address] Priti Maier PA-C [address], [place] [address] Degeneration of intervertebral disc at C5-C6 level Social History Tobacco Use Types Packs/Day Years Used Date Smoking Tobacco: Every Day Cigarettes 1 36.7 Started: 06/25/1988 Smokeless Tobacco: Never Comments:states 1/2 pack day for 6 mos [...] on file Sexual Orientation Not on file COVID-19 Exposure Response Date Recorded In the last 10 days, have yo u been in contact with someone who was confirmed or suspected to have Coronavirus/COVID-19? No / Unsure 12/20/2021 2:19 PM EDT documented as of this encounter Plan of Treatment Not on file documented as of this encounter Visit Diagnoses Diagnosis Degeneration of intervertebral disc at C5-C6 level documented in this encounter Care Teams Licensed Reactor Operator Relationship Specialty Start Date End Date Tamia Gonsalez, SHIP/REC/DOC CONTROL-BODY FORMER PCP - General Nurse Practitioner 03/16/17 documented as of this encounter
--- OUTSIDE RECORDS SUMMARY | 2025-03-18 13:24 | XMS_ITS | Encounter Summary ---
Author Organization [facility] Address [address] [place] [address] Care Team Providers Care Oracle Fusion Developer Name Role Phone Tamia Gonsalez NP Unavailable [phone] Bhargav Madison MD Primary Care Provider [phone] Tamia Gonsalez NP Unavailable [phone] Encounter Details Date Type Department Care Team (Late st Contact Info) Description 02/08/2024 Orders Only [facility] [address] [place] [address] Tamia Gonsalez NP [address] [place] [address] Social History Tobacco Use Types Packs/Day Years [...] How often do you attend chur or methodist services? Patient declined 08/30/2023 Do you belong to any clubs o r organizations such as cheondoism groups, unions, fraternal or athletic groups, or [...] Recorded Patient Health Questionnaire-2 Score 0 10/29/2023 [facility] - Occupational Stress [...] place to sleep or slept in a alf (including now)? No 08/30/2023 Comments Unknown Sex and Gender Information Value Date Recorded Sex Assigned at Not on file Legal Sex Female 7:10 PM EDT Gender Identity Not on file Sexual Orientation Not on file documented as of this encounter Plan of Treatment Upcoming Encounters Date Type Department Care Team (Late Contact Info) Description 06/03/2025 6:00 PM EDT Office Visit [facility] [address] [place] [address] Tamia Gonsalez NP [address] [place] [address] documented as of this encounter Procedures Procedure Name Priority Date/Time Associated Diagnosis Comments MM SCREENING MAMM WITH 3D SANAZ - US AND ADDITIONAL Routine 02/07/2024 11:30 AM EDT documented in this encounter Results * MM SCREENING MAMM WITH 3D SANAZ - US AND ADDITIONAL (02/07/2024 11:30 AM EDT) Anatomical Region Laterality Modality Radiographic Yamilka ging us Tamia Gonsalez NP IMG XR PROCEDURES Final Result documented in this encounter Visit Diagnoses Not on filedocumented in this encounter Care Teams Oracle Fusion Developer Relationship Specialty Start Date End Date Bhargav Madison MD [address] [place] [address] PCP - General Family Medicine 01/28/24 Tamia Gonsalez NP [address] [place] [address] Referring Physician Nurse Practitioner 04/09/23 Tamia Gonsalez NP [address] [place] [address] Nurse Practitioner Family Medicine 01/28/24 documented as of this encounter
--- OUTSIDE RECORDS SUMMARY | 2025-03-18 13:24 | XMS_ITS | Encounter Summary ---
Author Organization [facility] Address [address] [place] [address] Care Team Providers Care Personnel Administrator Name Role Phone Bhargav Madison MD Primary Care Provider [phone] Tamia Gonsalez MEDICAL IMAGING DIRECTOR Unavailable [phone] Bhargav Madison MD Primary Care Provider [phone] Tamia Gonsalez NP Unavailable [phone] Encounter Details Date Type Department Care Team (Late st Contact Info) Description 09/05/2023 Abstract [facility] [address] [place] [address] Tamia Gonsalez, MEDICAL IMAGING DIRECTOR [address] [place] [phone] Social History Tobacco Use Types Packs/Day Years [...] How often do you attend chur or adventist services? Patient declined 08/30/2023 Do you belong to any clubs o r organizations such as pentecostalism groups, unions, fraHele Massage or athletic groups, or school groups? No [...] medical care, and heating? Patient declined 08/30/2023 [facility] - Occupational Stress Questionnaire Answer [...] place to sleep or slept in a prison (including now)? No 08/30/2023 Comments Unknown Sex [...] suspected to have Coronavirus/COVID-19? No / Unsure 08/30/2023 12:30 PM EST documented as of this encounter Plan of Treatment Upcoming Encounters Date Type Department Care Team (Late st Contact Info) Description 06/03/2025 6:00 PM EDT Office Visit [facility] [address] [place] [address] Tamia Gonsalez NP [address] [place] [address] documented as of this encounter Visit Diagnoses Not on filedocumented in this encounter Care Teams Personnel Administrator Relationship Specialty Start Date End Date Bhargav Madison MD PCP - General Family Medicine 04/09/23 01/27/24 Bhargav Madison MD [address] [place] [address] PCP - General Family Medicine 01/28/24 Tamia Gonsalez NP [address] [place] [address] Referring Physician Nurse Practitioner 04/09/23 Tamia Gonsalez NP [address] [place] [address] Nurse Practitioner Family Medicine 01/28/24 documented as of this encounter
--- OUTSIDE RECORDS SUMMARY | 2025-03-18 13:24 | XMS_ITS | Encounter Summary ---
Author Organization [facility] Address [address] [place] [address] Care Team Providers Care Typing Pool Supervisor Name Role Phone Tamia Gonsalez NP Unavailable [phone] Bhargav Madison MD Primary Care Provider [phone] Tamia Gonsalez NP Unavailable [phone] Encounter Details Date Type Department Care Team (Late st Contact Info) Description 03/26/2024 Clinisync Result Encounter [facility] External Department Unsolicited Provider, Generic External Data Social History Tobacco Use Types Packs/Day Years [...] 08/30/2023 How often do you attend chur ch or zoroastrianism services? Patient declined 08/30/2023 Do you belong to any clubs o r organizations such as protestant groups, unions, fraternal or athletic groups, or [...] Recorded Patient Health Questionnaire-2 Score 0 10/29/2023 [facility] - Occupational [...] place to sleep or slept in a chcf (including now)? No 08/30/2023 Comments Unknown Sex [...] [facility] [address] [place] [address] Tamia Gonsalez NP [address] [place] [address] documented as of this encounter Procedures Procedure Name Priority Date/Time Associated Diagnosis Comments ECG 12-LEAD 03/26/2024 7:08 AM EDT documented in this encounter Results * ECG 12-LEAD (03/26/2024 7:08 AM EDT) Anatomical Region Laterality Modality Other 03/26/2024 7:08 AM EDT Narrative 03/26/2024 6:40 PM EDT The [address] [address] Electrocardiograph Report Signed Patient: RADHA ALEX MR#: [id number] : 1975 Acct:[id number] Age/Sex: 48 / F ADM Date: 03/26/24 Loc: CARD Attending Dr: LONNY ROJAS Ordering Physician: LONNY ROJAS Date of Service: 03/26/24 Procedure(s): ECG 12 lead Accession Number(s): [id number] cc: [facility] Test Date: 2024-03-26 Pat Name: RADHA ALEX Department: Room: - Gender: Female Lift Builder Whole: : 1975 Requested By: TAMIA GONSALEZ Order Number: [id number] Reading MD: COLTON MARTINEZ Measurements Intervals [place] Rate: 77 P: MI: 200 QRS: 46 QRSD: 90 T: 30 QT: 357 QTc: 406 Interpretive Statements Sinus rhythm Electronically Signed On 03-26-2024 18:39:52 EDT by COLTON MARTINEZ Dictated By: Colton Martinez D.O. Signed By: 03/26/24183903/26/24 184 DD/ 07 TD/TT: Process Safety Specialist: Procedure Note Radiology, Radiologist, MD - 03/26/2024 [place] [address] Electrocardiograph Report Signed Patient: RADHA ALEX DMR#: [id number] : 1975Acct:[id number] Age/Sex: 48 / FADM Date: 03/26/24 Loc: CARD Attending Dr: LONNY ROJAS Ordering Physician: LONNY ROJAS Date of Service: 03/26/24 Procedure(s): ECG 12 lead Accession Number(s): [id number] cc: [facility] Test Date: 2024-03-26 Pat Name: RADHA ALEX Department: Room: - Gender: Female Lift Builder Whole: : 1975 Requested By: TAMIA GONSALEZ Order Number: [id number] Reading MD: COLTON MARTINEZ Measurements Intervals [place] Rate: 77 P: MI: 200 QRS: 46 QRSD: 90 T: 30 QT: 357 QTc: 406 Interpretive Statements Sinus rhythm Electronically Signed On 03-26-2024 18:39:52 EDT by COLTON MARTINEZ Dictated By: Colton Martinez D.O. Signed By:03/26/24183903/26/241839 DD/ 0708 TD/TT: Process Safety Specialist: us Generic External Data Provider [facility] Final Result documented in this encounter Visit Diagnoses Not on filedocumented in this encounter Care Teams Typing Pool Supervisor Relationship Specialty Start Date End Date Bhargav Madison MD [address] [place] [phone] PCP - General Family Medicine 01/28/24 Tamia Gonsalez NP [address] [place] [address] Referring Physician Nurse Practitioner 04/09/23 Tamia Gonsalez NP [address] [place] [address] Nurse Practitioner Family Medicine 01/28/24 documented as of this encounter
--- OUTSIDE RECORDS SUMMARY | 2025-03-18 13:24 | XMS_ITS | Encounter Summary ---
Author Organization [facility] Address [address] [place] [address] Care Team Providers Care Campus Coordinator Name Role Phone Bhargav Madison MD Primary Care Provider [phone] Tamia Gonsalez MINING SPECULATOR Unavailable [phone] Bhargav Madison MD Primary Care Provider [phone] Tamia Gonsalez MINING SPECULATOR Unavailable [phone] Encounter Details Date Type Department Care Team (Late st Contact Info) Description 10/03/2023 Abstract [facility] [address] [place] [address] Tamia Gonsalez, MINING SPECULATOR [address] [place] [address] Social History Tobacco Use Types Packs/Day Years [...] How often do you attend chur or caodaism services? Patient declined 08/30/2023 Do you belong to any clubs o r organizations such as buddhism groups, unions, fraternal or athletic groups, or [...] medical care, and heating? Patient declined 08/30/2023 [facility] - Occupational Stress Questionnaire [...] Office Visit [facility] [address] [place] [address] Tamia Gonsalez NP [address] [place] [address] documented as of this encounter Visit Diagnoses Not on filedocumented in this encounter Care Teams Campus Coordinator Relationship Specialty Start Date End Date Bhargav Madison MD PCP - General Family Medicine 04/09/23 01/27/24 Bhargav Madison MD [address] [place] [address] PCP - General Family Medicine 01/28/24 Tamia Gonsalez NP [address] [place] [address] Referring Physician Nurse Practitioner 04/09/23 Tamia Gonsalez NP [address] [place] [address] Nurse Practitioner Family Medicine 01/28/24 documented as of this encounter
--- OUTSIDE RECORDS SUMMARY | 2025-03-18 13:24 | XMS_ITS | Encounter Summary ---
Author Organization [facility] Address [address] [place] [address] Care Team Providers Care Deliverer Food Name Role Phone Bhargav Madison MD Primary Care Provider [phone] Tamia Gonsalez ETHANOL OPERATIONS MANAGER Unavailable [phone] Bhargav Madison MD Primary Care Provider [phone] Tamia Gonsalez ETHANOL OPERATIONS MANAGER Unavailable [phone] Encounter Details Date Type Department Care Team (Late st Contact Info) Description 10/02/2023 Abstract [facility] [address] [place] [address] Bhargav Madison MD [address] [place] [address] Social History Tobacco Use Types Packs/Day Years [...] any clubs o r organizations such as mormonism groups, unions, fraternal or athletic groups, or [...] medical care, and heating? Patient declined 08/30/2023 [facility] Stress Questionnaire Answer Date [...] place to sleep or slept in a correction (including now)? No 08/30/2023 Comments Unknown Sex [...] Office Visit [facility] [address] [place] [address] Tamia Gonsalez NP [address] [place] [address] documented as of this encounter Visit Diagnoses Not on filedocumented in this encounter Care Teams Deliverer Food Relationship Specialty Start Date End Date Bhargav Madison MD PCP - General Family Medicine 04/09/23 01/27/24 Bhargav Madison MD [address] [place] [address] PCP - General Family Medicine 01/28/24 Tamia Gonsalez NP [address] [place] [address] Referring Physician Nurse Practitioner 04/09/23 Tamia Gonsalez NP [address] [place] [address] Nurse Practitioner Family Medicine 01/28/24 documented as of this encounter
--- OUTSIDE RECORDS SUMMARY | 2025-03-18 13:24 | XMS_ITS | Encounter Summary ---
Author Organization [facility] Address [id number] [address] [place] [address] Care Team Providers Care Talent Sourcer Name Role Phone Franciscoedvinjoaquin Tamia Veronica WATERSHED MANAGER-CUSTOMER ADVISOR SPECIALIST Primary Care Provider Reason for Visit * Reason Onset Date Comments Med Refill 12/20/2021 Encounter Details Date Type Department Care Team (Late st Contact Info) Description 12/20/2021 Refill [facility] [address] [place] [address] Arleen De La Fuente, SWINE EXTENSION FIELD SPECIALIST Degeneration of intervertebral disc at C5-C6 level [...] level documented in this encounter Care Teams Talent Sourcer Relationship Specialty Start Date End Date Tamia Gonsalez, WATERSHED MANAGER-CUSTOMER ADVISOR SPECIALIST PCP - General Nurse Practitioner 03/16/17 documented as of this encounter
--- OUTSIDE RECORDS SUMMARY | 2025-03-18 13:24 | XMS_ITS | Encounter Summary ---
Author Organization [facility] Address [address] [place] [address] Care Team Providers Care Draw In Hand Name Role Phone Tamia Gonsalez NP Unavailable [phone] Bhargav Madison MD Primary Care Provider [phone] Tamia Gonsalez NP Unavailable [phone] Encounter Details Date Type Department Care Team (Late st Contact Info) Description 02/07/2024 Clinisync Result Encounter [facility] External Department Unsolicited Tamia Gonsalez NP [address] [place] [address] Social History Tobacco Use Types Packs/Day Years [...] often do you attend chur ch or adventist services? Patient declined 08/30/2023 Do you belong to any clubs o r organizations such as scientology groups, unions, fraternal or athletic groups, or [...] [facility] - Occupational Stress Questionnaire Answer Date Recorded [...] place to sleep or slept in a mcfp (including now)? No 08/30/2023 Comments Unknown Sex [...] Office Visit [facility] [address] [place] [address] Tamia Gonsalez NP [address] [place] [address] documented as of this encounter Procedures Procedure Name Priority Date/Time Associated Diagnosis Comments MM TOMOSYNTHESIS SCREENING BI 02/07/2024 3:49 PM EDT documented in this encounter Results * MM TOMOSYNTHESIS SCREENING BI (02/07/2024 3:49 PM EDT) Anatomical Region Laterality Modality Other 02/07/2024 3:49 PM EDT Narrative 02/07/2024 3:50 PM EDT The [address] [address] Mammography Report Signed Patient: RADHA ALEX MR#: [id number] : 1975 Acct:[id number] Age/Sex: 48 / F ADM Date: 02/07/24 Loc: MAMMO Attending Dr: Tamia Gonsalez NP Ordering Physician: Tamia Gonsalez NP Results: Date of Service: 02/07/24 Follow Up: Procedure(s): MM tomosynthesis screening BI Accession Number(s): [id number] cc: Tamia Gonsalez NP Patient Name: RADHA ALEX MR#: [id number] : 1975 Exam Date: 02/07/2024 Ordering Doctor: IVET Gonsalez CNP RADIOLOGY REPORT PROCEDURE: MM TOMOSYNTHESIS SCREENING BI COMPARISON: MG MAMM SCREEN 3D FREDY CAD, 02/05/2023. MG MAMM SCREEN 3D FREDY CAD, 02/02/2022. MG MAMM SCREEN 3D FREDY CAD, 02/01/2021. MG MAMM FREDY SCRN W CAD DIG, 07/14/2014. INDICATIONS: Screening Calculator Name NCI Breast Cancer Risk Assessment Tool 5 Year Breast Cancer Risk 1.60% Lifetime Breast Cancer Risk 14.50% Personal Breast Cancer No Personal Ovarian Cancer No Treatments None Family Cancers Sister with uterine cancer at age 35; Grandmother-maternal with throat cancer at age 84. LOCATION: [facility] BREAST COMPOSITION: The breasts are heterogeneously dense,which may obscure small masses. FINDINGS: DIAGNOSTIC CATEGORY 1--NEGATIVE. RIGHT BREAST: No significant suspicious finding. No significant change has occurred. LEFT BREAST: No significant suspicious finding. No significant change has occurred. RECOMMENDATIONS: ROUTINE MAMMOGRAM AND CLINICAL EVALUATION IN 12 MONTHS. PLEASE NOTE: A NORMAL MAMMOGRAM DOES NOT EXCLUDE THE POSSIBILITY OF BREAST CANCER. A CLINICALLY SUSPICIOUS PALPABLE LUMP SHOULD BE BIOPSIED. Dictated by: Tevin Espinoza M.D. on 02/07/2024 at 15:47 Approved by: Tevin Espinoza M.D. on 02/07/2024 at 15:49 Dictated By: Tevin Espinoza M.D. Signed By: 02/07/24 1550 DD/ 1549 TD/TT: Nurse Anesthesia Program Director: Procedure Note Radiology, Radiologist, MD [place] 02/07/2024 [place] [address] Mammography Report Signed Patient: RADHA ALEX DMR#: [id number] : 1975Acct:[id number] Age/Sex: 48 / FADM Date: 02/07/24 Loc: MAMMO Attending Dr: Tamia Gonsalez AR MANAGER Ordering Physician: Tamia Gonsalez NPResults: Date of Service: 02/07/24Follow Up: Procedure(s): MM tomosynthesis screening BI Accession Number(s): [id number] cc: Tamia Gonsalez NP Patient Name: RADHA ALEX MR#: [id number] : 1975 Exam Date: 02/07/2024 Ordering Doctor: IVET Gonsalez FIRER BISQUE KILN RADIOLOGY REPORT PROCEDURE: MM TOMOSYNTHESIS SCREENING BI COMPARISON: MG MAMM SCREEN 3D FREDY CAD, 02/05/2023. MG MAMM SCREEN 3DBIL CAD, 02/02/2022. MG MAMM SCREEN 3D FREDY CAD, 02/01/2021. MG MAMM FREDY SCRN WCAD DIG, 07/14/2014. INDICATIONS: Screening Calculator Name NCI Breast Cancer Risk Assessment Tool 5 Year Breast Cancer Risk 1.60% Lifetime Breast Cancer Risk 14.50% Personal Breast Cancer No Personal Ovarian Cancer No Treatments None Family Cancers Sister with uterine cancer at age 35;Grandmother-maternal with throat cancer at age 84. LOCATION: [facility] BREAST COMPOSITION: The breasts are heterogeneously dense,which may obscure small masses. FINDINGS: DIAGNOSTIC CATEGORY 1--NEGATIVE. RIGHT BREAST: No significant suspicious finding. No significant changehas occurred. LEFT BREAST: No significant suspicious finding. No significant changehas occurred. RECOMMENDATIONS: ROUTINE MAMMOGRAM AND CLINICAL EVALUATION IN 12 MONTHS. PLEASE NOTE: A NORMAL MAMMOGRAM DOES NOT EXCLUDE THE POSSIBILITY OFBREAST CANCER. A CLINICALLY SUSPICIOUS PALPABLE LUMP SHOULD BE BIOPSIED. Dictated by: Tevin Espinoza M.D. on 02/07/2024 at 15:47 Approved by: Tevin Espinoza M.D. on 02/07/2024 at 15:49 Dictated By: Tevin Espinoza M.D. Signed By:02/07/24 1550 DD/ 1549 TD/TT: Nurse Anesthesia Program Director: us Tamia Gonsalez NP [facility] Final Result documented in this encounter Visit Diagnoses Not on filedocumented in this encounter Care Teams Draw In Hand Relationship Specialty Start Date End Date Bhargav Madison MD [address] [place] [address] PCP - General Family Medicine 01/28/24 Tamia Gonsalez NP [address] [place] [address] Referring Physician Nurse Practitioner 04/09/23 Tamia Gonsalez NP [address] [place] [address] Nurse Practitioner Family Medicine 01/28/24 documented as of this encounter
--- OUTSIDE RECORDS SUMMARY | 2025-03-18 13:25 | XMS_ITS | Encounter Summary ---
Author Organization [facility] Address [address] [place] [address] Care Team Providers Care Commodity Director Name Role Phone Tamia Gonsalez NP Unavailable [phone] Bhargav Madison MD Primary Care Provider [phone] Tamia Gonsalez VENEER GLUER Unavailable [phone] Reason for Visit * Reason Onset Date Comments Med Refill 07/24/2024 Encounter Details Date Type Department Care Team (Late st Contact Info) Description 07/24/2024 Refill [facility] [address] [place] [address] Tamia Gonsalez NP [address] [place] [address] DDD (degenerative disc disease), cervical; Hypothyroidism, unspecified type Social History Tobacco Use Types Packs/Day Years [...] often do you attend chur ch or baptism services? Patient declined 08/30/2023 Do you belong to any clubs o r organizations such as baptist groups, unions, fraternal or athletic groups, or [...] Recorded Patient Health Questionnaire-2 Score 0 10/29/2023 [facility] ional Health - [...] place to sleep or slept in a half-way (including now)? No 08/30/2023 Comments Unknown Sex and Gender Information Value Date Recorded Sex Assigned at Not on file Legal Sex Female 7:10 PM EDT Gender Identity Not on file Sexual Orientation Not on file documented as of this encounter Miscellaneous Notes * Telephone Encounter - Tamia Gonsalez NP - 07/24/2024 1:03 PM EDT Already done on 07/09/24 documented in this encounter Plan of Treatment Upcoming Encounters Date Type Department Care Team (Late st Contact Info) Description 06/03/2025 6:00 PM EDT Office Visit [facility] [address] [place] [address] Tamia Gonsaelz NP [address] [place] [address] documented as of this encounter Visit Diagnoses Diagnosis DDD (degenerative disc disease), cervical Degeneration of cervical intervertebral disc Hypothyroidism, unspecified type documented in this encounter Care Teams Commodity Director Relationship Specialty Start Date End Date Bhargav Madison MD [address] [place] [address] PCP - General Family Medicine 01/28/24 Tamia Gonsalez NP [address] [place] [address] Referring Physician Nurse Practitioner 04/09/23 Tamia Gonsalez NP [address] [place] [address] Nurse Practitioner Family Medicine 01/28/24 documented as of this encounter
--- NOTE | 2025-03-18 13:27 | MM_ITS ---
Patient Name: CONNIE ALEX MR#: [id number] : 1975 Exam Date: 03/18/2025 Ordering Doctor: IVET HENSLEY CNP RADIOLOGY REPORT PROCEDURE: MM TOMOSYNTHESIS SCREENING BI COMPARISON: MM TOMOSYNTHESIS SCREENING BI, 02/07/2024. MG MAMM SCREEN 3D FREDY CAD, 02/05/2023. MG MAMM SCREEN 3D FREDY CAD, 02/02/2022. MG MAMM FREDY SCRN W CAD DIG, 07/14/2014. INDICATIONS: Screening Calculator Name NCI Breast Cancer Risk Assessment Tool 5 Year Breast Cancer Risk 1.70% Lifetime Breast Cancer Risk 14.30% Personal Breast Cancer No Personal Ovarian Cancer No Treatments None Family Cancers Sister with uterine cancer at age 35; Grandmother-maternal with throat cancer at age 84. LOCATION: [facility] BREAST COMPOSITION: There are scattered areas of fibroglandular density. FINDINGS: DIAGNOSTIC CATEGORY 1--NEGATIVE. RIGHT BREAST: No significant suspicious finding. LEFT BREAST: No significant suspicious finding. RECOMMENDATIONS: ROUTINE MAMMOGRAM AND CLINICAL EVALUATION IN 12 MONTHS. PLEASE NOTE: A NORMAL MAMMOGRAM DOES NOT EXCLUDE THE POSSIBILITY OF BREAST CANCER. A CLINICALLY SUSPICIOUS PALPABLE LUMP SHOULD BE BIOPSIED. Dictated by: Benedicto Greco DO on 03/18/2025 at 15:56 Approved by: Benedicto Greco DO on 03/18/2025 at 15:57
== END 2025-03-18 13:23 | disposition home or self-care (01) ==
LOC: MAMMO 13:22
PROVIDERS: PCP Nurse Practitioner; Visit Provider Nurse Practitioner
DX: Z12.31 Encounter for screening mammogram for malignant neoplasm of breast (principal); Z80.8 Family history of malignant neoplasm of other organs or systems
CPT/HCPCS: 77063; 77067